=== PATIENT | female | born 1945 | race Caucasian/White ===

== ENCOUNTER → 2017-03-11 | Outpatient (CLI) | payer MEDICARE, OTHER ==
--- NOTE | 2017-03-11 13:54 | RAD ---
DATE: 03/11/2017 EXAM: MAMMO GARRY SCREENING BILATERAL HISTORY: 71-year-old female for routine screening. COMPARISON: Prior study from 01/30/2016 and from 12/20/2014 This study was interpreted with the benefit of Computerized Aided Detection (CAD). The breast parenchyma shows scattered fibroglandular densities. Breast parenchyma level B. FINDINGS: Stable small nodular densities in the bilateral breasts. No suspicious calcifications, architectural distortion or spiculated mass. IMPRESSION: No suspicious findings. BI-RADS CATEGORY: 2 BENIGN FINDING(S) RECOMMENDED FOLLOW-UP: 12M 12 MONTH FOLLOW-UP PQRS compliance statement: Patient information was entered into a reminder system with a target due date 03/11/2018 for the next mammogram. Mammography is a sensitive method for finding small breast cancers, but it does not detect them all and is not a substitute for careful clinical examination. A negative mammogram does not negate a clinically suspicious finding and should not result in delay in biopsying a clinically suspicious abnormality. "Our facility is accredited by the [employer] Mammography Program."
== END | disposition home or self-care (01) ==
LOC: KCIC MAMMO 10:06
PROVIDERS: ATTEND Family Medicine
DX: Z12.31 Encounter for screening mammogram for malignant neoplasm of breast (principal)
CPT/HCPCS: 77063; G0202; 77067

== ENCOUNTER → 2017-09-23 | Outpatient (CLI) | payer MEDICARE, OTHER | END | disposition home or self-care (01) | LOC: RAD 08:49 | DX: N20.0 Calculus of kidney (principal); M85.88 Other specified disorders of bone density and structure, other site | CPT/HCPCS: 74018 ==

== ENCOUNTER 2017-10-28 12:53 | Day surgery (SDC) | payer MEDICARE, OTHER ==
[~2017-10-28 12:53] MED LIST: IOHEXOL 300 MG/ML 100ML VIAL.; LIDOCAINE 1% PF 2 ML VIAL. ID; MORPHINE SULFATE 4 MG/ML DISP.SYRIN. IV; ONDANSETRON PF 4 MG/2 ML VIAL. IV; PROCHLORPERAZINE 10 MG/2 ML VIAL. IV; ceFAZolin 2GM PREMIX 2 GM/50 ML BAG IV; fentaNYL PF VIAL 100 MCG/2 ML VIAL IV
[2017-10-28] MEDS: IV RINGERS,LACTATED 1000ML 1,000 ML IV (14:05)
[2017-10-28] MEDS ORDERED: SEVOFLURANE 61 TO 120 MINUTES. IH (14:06)
[2017-10-28] MEDS ORDERED: DEXAMETHASONE SOD PHOS 20 MG/5 ML VIAL. (14:06)
[2017-10-28] MEDS ORDERED: PROPOFOL 20 ML IV (14:06)
[2017-10-28] MEDS ORDERED: ONDANSETRON PF 4 MG/2 ML VIAL. (14:06)
[2017-10-28] MEDS ORDERED: LIDOCAINE 1% PF 5 ML VIAL. (16:10)
[2017-10-28] MEDS ORDERED: FAMOTIDINE 20 MG/2 ML VIAL (16:10)
[2017-10-28] MEDS ORDERED: KETOROLAC 30 MG/ML INJ FOR OR. INJ (16:45)
[2017-10-28] MEDS ORDERED: MIDAZOLAM HCL/PF 2 MG/2 ML VIAL. (16:45)
[2017-10-28] MEDS: IOHEXOL 300 MG/ML 10ML VIAL. IV (17:14)
[2017-10-28] MEDS ORDERED: ePHEDrine PF IN SALINE 50 MG/5 ML DISP.SYRIN IV (17:19)
[2017-10-28] MEDS ORDERED: fentaNYL PF VIAL 100 MCG/2 ML VIAL (17:39)
[2017-10-28 19:08] LABS: POC GLUCOSE 193 mg/dL (70-99)
[2017-10-28] MEDS ORDERED: HYDROcodone/APAP 5/325MG 1 TAB TABLET PO (19:15)
[2017-11-01 08:04] LABS: POC GLUCOSE 133 mg/dL (70-99)
[2017-11-07 11:29] LABS: CA OXALATE DIHYDRATE 10 % (.); CA OXALATE MONOHYDR 85 % (.); COLOR Brown (.); STONE WEIGHT 24.7 mg (.)
== END 2017-10-28 19:52 | disposition home or self-care (01) ==
LOC: SURG 12:53
DX: N20.1 Calculus of ureter (principal); E11.9 Type 2 diabetes mellitus without complications; Z87.891 Personal history of nicotine dependence
CPT/HCPCS: 52356; 74420; 82962; C1713; C1769; J0690; J1100; J1885; J2250; J2405; J2704; J3010; Q9967; S0028

== ENCOUNTER → 2018-05-05 | Outpatient (CLI) | payer MEDICARE, OTHER ==
[2017-10-28 19:48] VITALS: BP 142/58
[~2018-05-05] MED LIST changes: +AMOX1TAB10 PO; +EZET10TA18 PO; +FURO40TA4 PO; +GABA-586 PO; +HYDR-971 PO; -IOHEXOL 300 MG/ML 100ML VIAL.; +LEVO112T4 PO; -LIDOCAINE 1% PF 2 ML VIAL. ID; +LISI-338 PO; +METF10007 PO; -MORPHINE SULFATE 4 MG/ML DISP.SYRIN. IV; +NAPR-683 PO; -ONDANSETRON PF 4 MG/2 ML VIAL. IV; -PROCHLORPERAZINE 10 MG/2 ML VIAL. IV; +SITA100T PO; +TRAM50TA PO; +ZOLP10TA PO; -ceFAZolin 2GM PREMIX 2 GM/50 ML BAG IV; -fentaNYL PF VIAL 100 MCG/2 ML VIAL IV
--- NOTE | 2018-05-05 14:09 | KCIC ---
Bilateral digital screening mammograms with 3-D tomosynthesis: Reason for examination: Routine screening. Comparison is made to previous studies dated 03/11/2017 and 01/30/2016. Bilateral mammograms in CC and oblique projections were obtained with 2-D imaging and 3-D tomosynthesis imaging on a Siemens Inspiration unit and reviewed on the workstation. Interpretation was made with the benefit of CAD. The skin and nipples show no abnormalities. No abnormal axillary lymph nodes are seen. The breast parenchyma shows scattered fatty and fibroglandular density. (Breast density: Category B.) There continue to be small nodules consistent with intramammary lymph nodes bilaterally which are unchanged. There also continues to be a small nodule at the 6:00 B position of left breast which is unchanged. There are no new dominant masses, suspicious calcifications or architectural distortion. Impression: No evidence of malignancy. Recommend routine screening. BI-RAD Category 2: Benign. "Our facility is accredited by the [employer] Mammography Program." This patient's information has been entered into a reminder system for the patient to be notified with the results of her examination and a target date for the next mammogram. Electronically signed by: Venus Frances MD (05/05/2018 2:06 PM) [id number]
== END | disposition home or self-care (01) ==
LOC: KCIC MAMMO 08:36
PROVIDERS: ATTEND Family Medicine
DX: Z12.31 Encounter for screening mammogram for malignant neoplasm of breast (principal)
CPT/HCPCS: 77063; 77067

== ENCOUNTER 2019-05-06 19:46 | Inpatient (IN) | payer MEDICARE, OTHER ==
[~2019-05-06] VITALS: Ht 167.6 cm; Wt 70.5 kg
[~2019-05-06 19:46] MED LIST changes: -EZET10TA18 PO; +EZET10TA20 PO; -GABA-586 PO; +GABA300C18 PO; +HYDR-3164 PO; -HYDR-971 PO
[2019-05-06 21:17] LABS: BASO # 0.1 x10^3/uL (0.0-0.2); BASO % 1 % (0-3); EOS # 0.1 x10^3/uL (0.0-0.7); EOS % 1 % (0-3); HEMATOCRIT 45.5 % (36.0-47.0); HEMOGLOBIN 15.2 g/dL (12.0-15.5); LYMPH # 2.2 x10^3/uL (1.0-4.8); LYMPH % 19 % (24-48); MEAN CORPUSCULAR HEMOGLOBIN 29 pg (25-35); MEAN CORPUSCULAR HGB CONC 34 g/dL (31-37); MEAN CORPUSCULAR VOLUME 87 fL (79-100); MONO # 1.2 x10^3/uL (0.0-1.1); MONO % 10 % (0-9); NEUT % 69 % (31-73); PLATELET COUNT 319 x10^3/uL (140-400); RED BLOOD COUNT 5.21 x10^6/uL (3.50-5.40); RED CELL DISTRIBUTION WIDTH 13.5 % (11.5-14.5); WHITE BLOOD COUNT 11.6 x10^3/uL (4.0-11.0)
[2019-05-06 21:28] LABS: CALCIUM 9.4 mg/dL (8.5-10.1); CREATININE 1.1 mg/dL (0.6-1.0); GFR 48.7; POTASSIUM 3.9 mmol/L (3.5-5.1)
[2019-05-06 21:34] LABS: ALBUMIN 4.2 g/dL (3.4-5.0); ALBUMIN/GLOBULIN RATIO 0.9 (1.0-1.7); TOTAL BILIRUBIN 0.5 mg/dL (0.2-1.0); TOTAL PROTEIN 8.7 g/dL (6.4-8.2)
--- NOTE | 2019-05-06 21:39 | RAD ---
CT head without contrast PQRS statement: CT scans at this facility use dose reduction including either automated exposure control, iterative reconstructions, and /or weight based radiation dosing via mA and kV modification when appropriate to reduce radiation dose to as low as reasonably achievable. HISTORY: Altered mental status. TECHNIQUE: Noncontrast CT imaging skull base to vertex. FINDINGS: There is mild generalized brain atrophy. No intracranial hemorrhage, mass, hydrocephalus, extra-axial fluid collections or infarction. Imaged orbits, mastoids, paranasal sinuses and bones are unremarkable. IMPRESSION: No acute abnormality. Electronically signed by: Loc Gomez MD (05/06/2019 9:36 PM) [facility]
[2019-05-06 22:15] LABS: BILIRUBIN,URINE NEGATIVE (NEG); CLARITY,URINE CLEAR; COLOR,URINE YELLOW; NITRITE,URINE NEGATIVE (NEG); PH,URINE 6.5; PROTEIN,URINE 100 mg/dL (NEG-TRACE); UROBILINOGEN,URINE 0.2 mg/dL (0.2 mg/dL)
[2019-05-06 22:23] LABS: BACTERIA,URINE 0 /HPF (0-FEW); RBC,URINE 0 /HPF (0-2); SQUAMOUS EPITHELIAL CELL,UR FEW /LPF; WBC,URINE TNTC /HPF (0-4)
--- NOTE | 2019-05-06 22:56 | PHYS DOC ---
Past Medical History Past Medical History: Arthritis Past Surgical History: No Surgical History Alcohol Use: None Drug Use: None Adult General Chief Complaint Chief Complaint: ALTERED MENTAL STATUS HPI HPI 73-year-old female presents to the emergency department with complaints of intermittent episodes of altered mental status, weakness, not feeling well. She denies any fever, nausea or vomiting. He was at bedside states that she just not acting right. Nothing makes her symptoms worse or better. Patients sta jose luis that she's just been unsteady on her feet. Review of Systems Review of Systems Constitutional: Denies fever or chills [] Respiratory: Denies cough or shortness of breath [] Cardiovascular: No additional information not addressed in HPI [] GI: Denies abdominal pain, nausea, vomiting, bloody stools or diarrhea [] : Denies dysuria or hematuria [] Musculoskeletal: Denies back pain or joint pain [] Integument: Denies rash or skin lesions [] Neurologic: Denies headache, focal weakness or sensory changes [] All other systems were reviewed and found to be within normal limits, except as documented in this note. Current Medications Current Medications Current Medications Medications (Trade) Dose Ordered Sig/Anthony Start Time Stop Time Status Last Admin Dose Admin Ceftriaxone Sodium (Rocephin) 1 gm 1X ONCE 05/06/19 23:00 05/06/19 23:01 DC 05/06/19 23:13 1 GM Allergies Allergies Allergies Coded Allergies Type Severity Reaction Last Updated Verified No Known Drug Allergies 10/28/17 No Physical Exam Physical Exam Constitutional: Well developed, well nourished, no acute distress, non-toxic a ppearance. [] HENT: Normocephalic, atraumatic, bilateral external ears normal, oropharynx moist, no oral exudates, nose normal. [] Eyes: PERRLA, EOMI, conjunctiva normal, no discharge. [] Neck: Normal range of motion, no tenderness, supple, no stridor. [] Cardiovascular:Heart rate regular rhythm, no murmur [] Lungs & Thorax: Bilateral breath sounds clear to auscultation [] Abdomen: Bowel sounds normal, soft, no tenderness, no masses, no pulsatile masses. [] Skin: Warm, dry, no erythema, no rash. [] Back: No tenderness, no CVA tenderness. [] Extremities: No tenderness, no edema. [] Neurologic: Alert and oriented X 3, no focal deficits noted. [] Psychologic: Affect normal, judgement normal, mood normal. [] Current Patient Data Vital Signs Vital Signs Date Time Temp Pulse Resp B/P (MAP) Pulse Ox O2 Delivery O2 Flow Rate FiO2 05/06/19 19:54 97.6 88 18 167/97 (120) 97 Room Air 97.6 Lab Values Laboratory Tests Test 05/06/19 19:51 05/06/19 19:55 05/06/19 22:06 Glucose (Fingerstick) 143 mg/dL (70-99) H White Blood Count 11.6 x10^3/uL (4.0-11.0) H Red Blood Count 5.21 x10^6/uL (3.50-5.40) Hemoglobin 15.2 g/dL (12.0-15.5) Hematocrit 45.5 % (36.0-47.0) Mean Corpuscular Volume 87 fL (79-100) Mean Corpuscular Hemoglobin 29 pg (25-35) Mean Corpuscular Hemoglobin Concent 34 g/dL (31-37) Red Cell Distribution Width 13.5 % (11.5-14.5) Platelet Count 319 x10^3/uL (140-400) Neutrophils (%) (Auto) 69 % (31-73) Lymphocytes (%) (Auto) 19 % (24-48) L Monocytes (%) (Auto) 10 % (0-9) H Eosinophils (%) (Auto) 1 % (0-3) Basophils (%) (Auto) 1 % (0-3) Neutrophils # (Auto) 8.0 x10^3/uL (1.8-7.7) H Lymphocytes # (Auto) 2.2 x10^3/uL (1.0-4.8) Monocytes # (Auto) 1.2 x10^3/uL (0.0-1.1) H Eosinophils # (Auto) 0.1 x10^3/uL (0.0-0.7) Basophils # (Auto) 0.1 x10^3/uL (0.0-0.2) Sodium Level 141 mmol/L (136-145) Potassium Level 3.9 mmol/L (3.5-5.1) Chloride Level 101 mmol/L (98-107) Carbon Dioxide Level 26 mmol/L (21-32) Anion Gap 14 (6-14) Blood Urea Nitrogen 17 mg/dL (7-20) Creatinine 1.1 mg/dL (0.6-1.0) H Estimated GFR (Cockcroft-Gault) 48.7 BUN/Creatinine Ratio 15 (6-20) Glucose Level 156 mg/dL (70-99) H Lactic Acid Level 1.4 mmol/L (0.4-2.0) Calcium Level 9.4 mg/dL (8.5-10.1) Magnesium Level 2.0 mg/dL (1.8-2.4) Total Bilirubin 0.5 mg/dL (0.2-1.0) Aspartate Amino Transferase (AST) 14 U/L (15-37) L Alanine Aminotransferase (ALT) 15 U/L (14-59) Alkaline Phosphatase 78 U/L (46-116) Ammonia 11 mcmol/L (11-34) Troponin I Quantitative < 0.017 ng/mL (0.000-0.055) Total Protein 8.7 g/dL (6.4-8.2) H Albumin 4.2 g/dL (3.4-5.0) Albumin/Globulin Ratio 0.9 (1.0-1.7) L Urine Collection Type Unknown Urine Color Yellow Urine Clarity Clear Urine pH 6.5 Urine Specific [place] 1.020 Urine Protein 100 mg/dL (NEG-TRACE) Urine Glucose (UA) 100 mg/dL (NEG) Urine Ketones (Stick) 15 mg/dL (NEG) Urine Blood Negative (NEG) Urine Nitrite Negative (NEG) Urine Bilirubin Negative (NEG) Urine Urobilinogen Dipstick 0.2 mg/dL (0.2 mg/dL) Urine Leukocyte Esterase Large (NEG) Urine RBC 0 /HPF (0-2) Urine WBC Tntc /HPF (0-4) Urine Squamous Epithelial Cells Few /LPF Urine Bacteria 0 /HPF (0-FEW) Laboratory Tests 05/06/19 19:55 Laboratory Tests 05/06/19 19:55 EKG EKG [] Radiology/Procedures Radiology/Procedures [] Course & Med Decision Making Course & Med Decision Making Pertinent Labs and Imaging studies reviewed. (See chart for details) [] 73-year-old female presents to the emergency department with complaints of intermittent episodes of altered mental status, weakness, not feeling well. She denies any fever, nausea or vomiting. He was at bedside states that she just not acting right. Nothing makes her symptoms worse or better. Patients states that she's just been unsteady on her feet. Dragon Disclaimer Dragon Disclaimer This electronic medical record was generated, in whole or in part, using a voice recognition dictation system. NIHSS Stroke Scale NIH Stroke Scale: NIH Stroke Scale Response (Comments) Value Level of Consciousness: 0 Alert/Responsive 0 LOC Questions: 0 Answers both correctly 0 LOC Commands: 0 Performs both tasks 0 Best Gaze: 0 Normal 0 Visual: 0 No visual loss 0 Facial Palsy: 0 Normal, symmetrical 0 Motor - Left Arm 0 No drift 0 Motor - Right Arm 1 Drifts but can hold 1 Motor - Left Leg 0 No drift 0 Motor: Right Leg 0 No drift 0 Limb Ataxia: 0 Absent 0 Sensory: 0 No loss 0 Best Language: 0 Normal 0 Dysathria: 0 Normal 0 Extinction and Inattention: 0 Normal 0 Total 1 Departure Departure Impression: Primary Impression: Altered mental status Additional Impression: UTI (urinary tract infection) Disposition: 09 ADMITTED INPATIENT Admitting Physician: SAMUEL Condition: STABLE Referrals: UNKNOWN PCP NAME (PCP) Problem Qualifiers Primary Impression: Altered mental status Altered mental status type: unspecified Qualified Codes: R41.82 - Altered mental status, unspecified Additional Impression: UTI (urinary tract infection) Urinary tract infection type: site unspecified Hematuria presence: without hematuria Qualified Codes: N39.0 - Urinary tract infection, site not specified JUDITH SCHWARTZ MD May 06, 2019 22:56
[2019-05-06] MEDS ORDERED: cefTRIAXone IV Push 1 GM VIAL. IVP ONE (23:00)
[2019-05-06 23:55] VITALS: BP 173/87
--- NOTE | 2019-05-06 23:55 | NUR ---
The patient, MARLON WHITAKER, 73 y/o, F admitted by JAIDEN GRUBBS MD, was given written information regarding hospital policies, unit procedures and contact persons. Patient arrived to room via ED bed assisted by ED staff member. Valuables were checked and noted. Patient is currently laying in bed watching TV. Patient states no needs at this time. Patient was informed about the hospital's smoking policy and the patient's fall risk status. Bed alarm is in use. This RN will continue to monitor the patient at this time.
[2019-05-07 03:00] VITALS: BP 141/75
[2019-05-07 07:00] VITALS: BP 130/77
--- NOTE | 2019-05-07 07:29 | EKG ---
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
--- NOTE | 2019-05-07 08:22 | PDOC1 ---
History and Physical Date of Admission Date of Admission DATE: 05/07/19 TIME: 08:16 Identification/Chief Complaint Chief Complaint Confusion Source Source: Patient History of Present Illness History of Present Illness Ms Mccoy is a 73-year-old female w/ PMHx HTN, HLD, DM2, hypothyroidism who presents to the emergency department with complaints of intermittent episodes of altered mental status, weakness, not feeling well. She denies any fever, nausea or vomiting. He was at bedside states that she just not acting right. Nothing makes her symptoms worse or better. Patients states that she's just been unsteady on her feet. CT head negative. 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 Has been confused since she came home from work 2 night ago and c/o right arm numbness and inability to see well on her right as well as generalized discomfort. UA grossly abnormal, admitted for further workup and treatment of confusion and infection. Past Medical History Cardiovascular: HTN, Hyperlipidemia Pulmonary: No pertinent hx GI: No pertinent hx Heme/Onc: No pertinent hx Hepatobiliary: No pertinent hx Psych: No pertinent hx Rheumatologic: No pertinent hx Infectious disease: No pertinent hx ENT: No pertinent hx Renal/: No pertinent hx Endocrine: Diabetes, Hyperthyroidism Dermatology: No pertinent hx Past Surgical History Past Surgical History: No pertinent history Family History Family History: Diabetes, High Cholestrol, Hypertension Social History Smoke: No ALCOHOL: none Drugs: None Current Medications Current Medications Current Medications Ceftriaxone Sodium (Rocephin) 1 gm 1X ONCE IVP Last administered on 05/06/19at 23:13; Start 05/06/19 at 23:00; Stop 05/06/19 at 23:01; Status DC Active Scripts Active Reported [place] 5-325 Tablet (Acetaminophen/Hydrocodone Bitart) 1 Each Tablet 1 Tab PO Q4HRS PRN Gabapentin 300 Mg Capsule 300 Mg PO DAILY Tramadol Hcl 50 Mg Tablet 50 Mg PO Q6HRS PRN Amox Tr-K Clv 500-125 Mg Tab (Amoxicillin/Potassium Clav) 1 Each Tablet 1 Tab PO BID Levothyroxine Sodium 112 Mcg Tablet 1 Tab PO DAILY Naprosyn (Naproxen) 500 Mg Tablet 500 Mg PO DAILY Januvia (Sitagliptin Phosphate) 100 Mg Tablet 100 Mg PO DAILY Lisinopril 5 Mg Tablet 5 Mg PO DAILY Zetia (Ezetimibe) 10 Mg Tablet 5 Mg PO DAILY Metformin Hcl 1,000 Mg Tablet 1,000 Mg PO BIDWMEALS Furosemide 40 Mg Tablet 1 Tab PO DAILY Allergies Allergies: Coded Allergies: No Known Drug Allergies (Unverified , 10/28/17) ROS General: YES: Fatigue, Malaise; No: Chills, Night Sweats, Appetite, Other PSYCHOLOGICAL ROS: YES: Behavioral Disorder, Disorientation, Memory di fficulties; No: Anxiety, Concentration difficultie, Decreased libido, Depression, Hallucinations, Hostility, Irritablity, Mood Swings, Obsessive thoughts, Physical abuse, Sexual abuse, Sleep disturbances, Suicidal ideation, Other Eyes: Yes Decreased vision; No Blurry vision, No Double vision, No Dry eyes, No Excessive tearing, No Eye Pain, No Itchy Eyes, No Loss of vision, No Photophobia, No Scotomata, No Uses contacts, No Uses glasses, No Other HEENT: YES: Heacaches; No: Visual Changes, Hearing change, Nasal congestion, Nasal discharge, Oral lesions, Sinus pain, Sore Throat, Epistaxis, Sneezing, Snoring, Tinnitus, Vertigo, Vocal changes, Other ALLERGY AND IMMUNOLOGY: No: Hives, Insect Bite Sensitivity, Itchy/Watery Eyes, Nasal Congestion, Post Nasal Drip, Seasonal Allergies, Other Hematological and Lymphatic: No: Bleeding Problems, Blood Clots, Blood Transfusions, Brusing, Night Sweats, Pallor, Swollen Lymph Nodes, Other ENDOCRINE: No: Breast Changes, Galactorrhea, Hair Pattern Changes, Hot Flashes, Malaise/lethargy, Mood Swings, Palpitations, Polydipsia/polyuria, Skin Changes, Temperature Intolerance, Unexpected Weight Changes, Other Breast: No New/Changing Breast Lumps, No Nipple changes, No Nipple discharge, No Other Respiratory: No: Cough, Hemoptysis, Orthopnea, Pleuritic Pain, Shortness of breath, SOB with excertion, Sputum Changes, Stridor, Tachypnea, Wheezing, Other Cardiovascular: No Chest Pain, No Palpitations, No Orthopnea, No Paroxysmal Noc. Dyspnea, No Edema, No Lt Headedness, No Other Gastrointestinal: Yes Nausea; No Vomiting, No Abdominal Pain, No Diarrhea, No Constipation, No Melena, No Hematochezia, No Other Genitourinary: No Dysuria, No Frequency, No Incontinence, No Hematuria, No Retention, No Discharge, No Urgency, No Pain, No Flank Pain, No Other, No , No , No , No , No , No , No Musculoskeletal: No Gait Disturbance, No Joint Pain, No Joint Stiffness, No Joint Swelling, No Muscle Pain, No Muscular Weakness, No Pain In:, No Swelling In:, No Other Neurological: Yes Behavorial Changes, Yes Confusion, Yes Dizziness, Yes Memory Loss, Yes Numbness/Tingling, Yes Visual Changes; No Bowel/Bladder ControlChng, No Gait Disturbance, No Headaches, No Impaired Coord/balance, No Seizures, No Speech Problems, No Tremors, No Weakness, No Other Skin: No Dry Skin, No Eczema, No Hair Changes, No Lumps, No Mole Changes, No Mottling, No Nail Changes, No Pruritus, No Rash, No Skin Lesion Changes, No Other, No Acne Physical Exam General: Alert, Cooperative, mild distress HEENT: Atraumatic, PERRLA, EOMI, Mucous membr. moist/pink Lungs: Clear to auscultation, Normal air movement Heart: S1S2, RRR, no thrills, no rubs, no gallops, no murmurs Abdomen: Normal bowel sounds, Soft, No tenderness, No hepatosplenomegaly, No masses Rectal Exam: not examined Extremities: No clubbing, No cyanosis, No edema, Normal pulses, No tenderness/swelling Skin: No rashes, No breakdown, No significant lesion Neuro: Normal gait, Normal speech, Normal tone, Cranial nerves 3-12 NL, R eflexes 2+, Other (Right pronator drift, right visual deficit, Right arm numb) Psych/Mental Status: Other (Confused, believes it is 1976) Vitals Vitals Vital Signs Date Time Temp Pulse Resp B/P (MAP) Pulse Ox O2 Delivery O2 Flow Rate FiO2 05/07/19 03:00 98.4 90 18 141/75 (97) 96 Room Air 98.4 Labs Labs Laboratory Tests Test 05/06/19 19:51 05/06/19 19:55 05/06/19 22:06 Glucose (Fingerstick) 143 mg/dL (70-99) White Blood Count 11.6 x10^3/uL (4.0-11.0) Red Blood Count 5.21 x10^6/uL (3.50-5.40) Hemoglobin 15.2 g/dL (12.0-15.5) Hematocrit 45.5 % (36.0-47.0) Mean Corpuscular Volume 87 fL (79-100) Mean Corpuscular Hemoglobin 29 pg (25-35) Mean Corpuscular Hemoglobin Concent 34 g/dL (31-37) Red Cell Distribution Width 13.5 % (11.5-14.5) Platelet Count 319 x10^3/uL (140-400) Neutrophils (%) (Auto) 69 % (31-73) Lymphocytes (%) (Auto) 19 % (24-48) Monocytes (%) (Auto) 10 % (0-9) Eosinophils (%) (Auto) 1 % (0-3) Basophils (%) (Auto) 1 % (0-3) Neutrophils # (Auto) 8.0 x10^3/uL (1.8-7.7) Lymphocytes # (Auto) 2.2 x10^3/uL (1.0-4.8) Monocytes # (Auto) 1.2 x10^3/uL (0.0-1.1) Eosinophils # (Auto) 0.1 x10^3/uL (0.0-0.7) Basophils # (Auto) 0.1 x10^3/uL (0.0-0.2) Sodium Level 141 mmol/L (136-145) Potassium Level 3.9 mmol/L (3.5-5.1) Chloride Level 101 mmol/L (98-107) Carbon Dioxide Level 26 mmol/L (21-32) Anion Gap 14 (6-14) Blood Urea Nitrogen 17 mg/dL (7-20) Creatinine 1.1 mg/dL (0.6-1.0) Estimated GFR (Cockcroft-Gault) 48.7 BUN/Creatinine Ratio 15 (6-20) Glucose Level 156 mg/dL (70-99) Lactic Acid Level 1.4 mmol/L (0.4-2.0) Calcium Level 9.4 mg/dL (8.5-10.1) Magnesium Level 2.0 mg/dL (1.8-2.4) Total Bilirubin 0.5 mg/dL (0.2-1.0) Aspartate Amino Transf (AST/SGOT) 14 U/L (15-37) Alanine Aminotransferase (ALT/SGPT) 15 U/L (14-59) Alkaline Phosphatase 78 U/L (46-116) Ammonia 11 mcmol/L (11-34) Troponin I Quantitative < 0.017 ng/mL (0.000-0.055) Total Protein 8.7 g/dL (6.4-8.2) Albumin 4.2 g/dL (3.4-5.0) Albumin/Globulin Ratio 0.9 (1.0-1.7) Urine Collection Type Unknown Urine Color Yellow Urine Clarity Clear Urine pH 6.5 Urine Specific [place] 1.020 Urine Protein 100 mg/dL (NEG-TRACE) Urine Glucose (UA) 100 mg/dL (NEG) Urine Ketones (Stick) 15 mg/dL (NEG) Urine Blood Negative (NEG) Urine Nitrite Negative (NEG) Urine Bilirubin Negative (NEG) Urine Urobilinogen Dipstick 0.2 mg/dL (0.2 mg/dL) Urine Leukocyte Esterase Large (NEG) Urine RBC 0 /HPF (0-2) Urine WBC Tntc /HPF (0-4) Urine Squamous Epithelial Cells Few /LPF Urine Bacteria 0 /HPF (0-FEW) Laboratory Tests Test 05/06/19 19:51 05/06/19 19:55 05/06/19 22:06 Glucose (Fingerstick) 143 mg/dL (70-99) White Blood Count 11.6 x10^3/uL (4.0-11.0) Red Blood Count 5.21 x10^6/uL (3.50-5.40) Hemoglobin 15.2 g/dL (12.0-15.5) Hematocrit 45.5 % (36.0-47.0) Mean Corpuscular Volume 87 fL (79-100) Mean Corpuscular Hemoglobin 29 pg (25-35) Mean Corpuscular Hemoglobin Concent 34 g/dL (31-37) Red Cell Distribution Width 13.5 % (11.5-14.5) Platelet Count 319 x10^3/uL (140-400) Neutrophils (%) (Auto) 69 % (31-73) Lymphocytes (%) (Auto) 19 % (24-48) Monocytes (%) (Auto) 10 % (0-9) Eosinophils (%) (Auto) 1 % (0-3) Basophils (%) (Auto) 1 % (0-3) Neutrophils # (Auto) 8.0 x10^3/uL (1.8-7.7) Lymphocytes # (Auto) 2.2 x10^3/uL (1.0-4.8) Monocytes # (Auto) 1.2 x10^3/uL (0.0-1.1) Eosinophils # (Auto) 0.1 x10^3/uL (0.0-0.7) Basophils # (Auto) 0.1 x10^3/uL (0.0-0.2) Sodium Level 141 mmol/L (136-145) Potassium Level 3.9 mmol/L (3.5-5.1) Chloride Level 101 mmol/L (98-107) Carbon Dioxide Level 26 mmol/L (21-32) Anion Gap 14 (6-14) Blood Urea Nitrogen 17 mg/dL (7-20) Creatinine 1.1 mg/dL (0.6-1.0) Estimated GFR (Cockcroft-Gault) 48.7 BUN/Creatinine Ratio 15 (6-20) Glucose Level 156 mg/dL (70-99) Lactic Acid Level 1.4 mmol/L (0.4-2.0) Calcium Level 9.4 mg/dL (8.5-10.1) Magnesium Level 2.0 mg/dL (1.8-2.4) Total Bilirubin 0.5 mg/dL (0.2-1.0) Aspartate Amino Transf (AST/SGOT) 14 U/L (15-37) Alanine Aminotransferase (ALT/SGPT) 15 U/L (14-59) Alkaline Phosphatase 78 U/L (46-116) Ammonia 11 mcmol/L (11-34) Troponin I Quantitative < 0.017 ng/mL (0.000-0.055) Total Protein 8.7 g/dL (6.4-8.2) Albumin 4.2 g/dL (3.4-5.0) Albumin/Globulin Ratio 0.9 (1.0-1.7) Urine Collection Type Unknown Urine Color Yellow Urine Clarity Clear Urine pH 6.5 Urine Specific [place] 1.020 Urine Protein 100 mg/dL (NEG-TRACE) Urine Glucose (UA) 100 mg/dL (NEG) Urine Ketones (Stick) 15 mg/dL (NEG) Urine Blood Negative (NEG) Urine Nitrite Negative (NEG) Urine Bilirubin Negative (NEG) Urine Urobilinogen Dipstick 0.2 mg/dL (0.2 mg/dL) Urine Leukocyte Esterase Large (NEG) Urine RBC 0 /HPF (0-2) Urine WBC Tntc /HPF (0-4) Urine Squamous Epithelial Cells Few /LPF Urine Bacteria 0 /HPF (0-FEW) Images Images CT head - No acute abnormality. VTE Prophylaxis Ordered VTE Prophylaxis Devices: Yes VTE Pharmacological Prophylaxi: Yes Assessment/Plan Assessment/Plan A/P: Acute encephalopathy - likely toxic 2/2 UTI. Check TSH, b12 Right arm numbness - with visual disturbance I am concerned for acute CVA, though she is well outside tPA window and had NIH of 1 in ED, will consult n eurology and transfer to telemetry floor UTI - will f/u culture. Empiric rocephin for now HTN - cont home meds HLD - cont home meds DM2 - cont home meds, add sliding scale Hypothyroidism - cont home levothyroxine FEN - ADA diet PPX - lovenox FULL CODE Dispo - inpatient likely for 2 midnights. JONNY DAVIDSON MD May 07, 2019 08:22
[2019-05-07] MEDS ORDERED: ONDANSETRON PF 4 MG/2 ML VIAL. IVP PRN (08:30)
[2019-05-07] MEDS ORDERED: DEXTROSE 50% 25 GM / 50ML DISP.SYRIN. IV PRN (08:30)
[2019-05-07] MEDS: GABAPENTIN 300 MG CAPSULE. PO SCH (09:00)
[2019-05-07] MEDS: EZETIMIBE 10 MG TABLET. PO SCH (09:04)
[2019-05-07] MEDS: LEVOTHYROXINE 112 MCG TABLET PO SCH (09:04)
[2019-05-07] MEDS: LISINOPRIL 5 MG TABLET. PO SCH (09:04)
[2019-05-07] MEDS: ENOXAPARIN 40 MG/0.4 ML SYRINGE. SQ SCH (09:08)
[2019-05-07] MEDS: traMADol 50 MG TABLET PO PRN (10:14)
[2019-05-07 11:00] VITALS: BP 103/57
[2019-05-07] MEDS ORDERED: PROCHLORPERAZINE 10 MG/2 ML VIAL. IV PRN (11:30)
[2019-05-07] MEDS: INSULIN LISPRO 300 UNITS/3 ML VIAL. SQ SCH ×3 (11:30→20:54)
[2019-05-07] MEDS ORDERED: ENOXAPARIN 40 MG/0.4 ML SYRINGE. SQ SCH (13:15)
[2019-05-07] MEDS ORDERED: ASPIRIN RECTAL 300 MG SUPP. PR PRN (13:15)
[2019-05-07] MEDS ORDERED: ACETAMINOPHEN 325 MG TABLET. PO PRN (13:15)
[2019-05-07] MEDS ORDERED: ACETAMINOPHEN 650 MG SUPP.RECT. PR PRN (13:15)
--- NOTE | 2019-05-07 13:20 | PDOC2 ---
NEUROLOGY CONSULT Date of Admission Date of Admission DATE: 05/07/19 TIME: 13:11 Reason for Consult Reason for Consult: Altered mental status Referring Physician Referring Physician: Dr. Kern Source Source: Chart review, Patient History of Present Illness History of Present Illness The patient is a 73-year-old right-handed female whose family first noticed some possible issues with confusion 2 nights ago. She came to the emergency department last night. There is no history of stroke, seizure, or head injury. She did have a headache this morning that is better. There have been no recent changes in medications and the patient denies any family stress or psychiatric issues. NIHSS was 1 in ED. Past Medical History Cardiovascular: Hyperlipidemia CENTRAL NERVOUS SYSTEM: Periperal neuropathy Musculoskeletal: Osteoarthritis Renal/: UTI Endocrine: Diabetes, Hypothyroidism Past Surgical History Past Surgical History: No pertinent history Family History Family History: Hypertension Social History Social History , quit smoking, no alcohol Current Medications Current Medications Current Medications Ceftriaxone Sodium (Rocephin) 1 gm 1X ONCE IVP Last administered on 05/06/19at 23:13; Start 05/06/19 at 23:00; Stop 05/06/19 at 23:01; Status DC EZETIMIBE (Zetia) 5 mg DAILY PO Last administered on 05/07/19at 09:04; Start 05/07/19 at 09:00 Gabapentin (Neurontin) 300 mg DAILY PO ; Start 05/07/19 at 09:00 Levothyroxine Sodium (Synthroid) 112 mcg DAILY07 PO Last administered on 05/07/19at 09:04; Start 05/07/19 at 09:00 Lisinopril (Prinivil) 5 mg DAILY PO Last administered on 05/07/19at 09:04; Start 05/07/19 at 09:00 Tramadol HCl (Ultram) 50 mg PRN Q6HRS PRN PO PAIN Last administered on 1 at 10:14; Start 05/07/19 at 08:30 Metformin HCl (Glucophage) 1,000 mg BIDWMEALS PO ; Start 05/07/19 at 17:00 Insulin Human Lispro (HumaLOG) 0-5 UNITS TIDACHC SQ ; Start 05/07/19 at 11:30 Dextrose (Dextrose 50%-Water Syringe) 12.5 gm PRN Q15MIN PRN IV SEE COMMENTS; Start 05/07/19 at 08:30 Ondansetron HCl (Zofran) 4 mg PRN Q6HRS PRN IVP NAUSEA/VOMITING; Start 05/07/19 at 08:30 Enoxaparin Sodium (Lovenox 40mg Syringe) 40 mg Q24H SQ Last administered on 05/07/19at 09:08; Start 05/07/19 at 09:00 Ceftriaxone Sodium (Rocephin) 1 gm Q24H IVP ; Start 05/07/19 at 16:30 Prochlorperazine Edisylate (Compazine) 10 mg PRN Q6HRS PRN IV NAUSEA/VOMITING Last administered on 05/07/19at 11:43; Start 05/07/19 at 11:30 Active Scripts Active Reported [place] 5-325 Tablet (Acetaminophen/Hydrocodone Bitart) 1 Each Tablet 1 Tab PO Q4HRS PRN Gabapentin 300 Mg Capsule 300 Mg PO DAILY Tramadol Hcl 50 Mg Tablet 50 Mg PO Q6HRS PRN Amox Tr-K Clv 500-125 Mg Tab (Amoxicillin/Potassium Clav) 1 Each Tablet 1 Tab PO BID Levothyroxine Sodium 112 Mcg Tablet 1 Tab PO DAILY Naprosyn (Naproxen) 500 Mg Tablet 500 Mg PO DAILY Januvia (Sitagliptin Phosphate) 100 Mg Tablet 100 Mg PO DAILY Lisinopril 5 Mg Tablet 5 Mg PO DAILY Zetia (Ezetimibe) 10 Mg Tablet 5 Mg PO DAILY Metformin Hcl 1,000 Mg Tablet 1,000 Mg PO BIDWMEALS Furosemide 40 Mg Tablet 1 Tab PO DAILY Allergies Allergies: Coded Allergies: No Known Drug Allergies (Unverified , 10/28/17) ROS Review of System Negative for fever, chills, weight loss, shortness of breath, chest pain, indigestion, hematochezia, melena, and dysuria. Full 14-point review of systems is negative. Physical Exam Physical Examination General: Well-developed, well-nourished white female in no acute distress HEENT: Normocephalic andatraumatic. Tympanic membranes clear.Temporal arteriespulsatile and nontender.Fundoscopic exam unremarkable Neck: Supple without bruit, no meningismus Musculoskeletal: Stability:see neurologic. Gait exam:see neurologic. Tone:see neurologic.Strength:see neurologic. Neurological: Mental Status:orientation, memory, attention span/concentration, language, fund of knowledge: She follows commands, somewhat hesitates with naming, has little trouble with repetition, very vague on her history. Cranial Nerves:Pupils equal and reactive to light, extraocular movements areintact. There is a right visual field cut. Facial sensation is normal. There is no facial asymmetry. Vestibulo- ocular reflex is intact. Palate elevates and tongue protrudes in midline. All other cranial related problems are negative except as mentioned before.Reflexes:2+ and symmetric with flexor plantar responses. Motor:5/5 strength with normal tone and bulk, but there is a right pronator drift. Coordination:Finger-nose finger and [id number]-hg-[id number] testing are normal. Rapid alternating movements and fine finger movements are intact. Gait:unsteady. Sensory:Normal pinprick, vibration, light touch, proprioception. Vitals VITALS Vital Signs Date Time Temp Pulse Resp B/P (MAP) Pulse Ox O2 Delivery O2 Flow Rate FiO2 05/07/19 11:29 Room Air 05/07/19 11:00 98.3 86 16 103/57 (72) 95 98.3 Labs Labs Laboratory Tests Test 05/06/19 19:51 05/06/19 19:55 05/06/19 22:06 05/07/19 08:40 Glucose (Fingerstick) 143 mg/dL (70-99) White Blood Count 11.6 x10^3/uL (4.0-11.0) Red Blood Count 5.21 x10^6/uL (3.50-5.40) Hemoglobin 15.2 g/dL (12.0-15.5) Hematocrit 45.5 % (36.0-47.0) Mean Corpuscular Volume 87 fL (79-100) Mean Corpuscular Hemoglobin 29 pg (25-35) Mean Corpuscular Hemoglobin Concent 34 g/dL (31-37) Red Cell Distribution Width 13.5 % (11.5-14.5) Platelet Count 319 x10^3/uL (140-400) Neutrophils (%) (Auto) 69 % (31-73) Lymphocytes (%) (Auto) 19 % (24-48) Monocytes (%) (Auto) 10 % (0-9) Eosinophils (%) (Auto) 1 % (0-3) Basophils (%) (Auto) 1 % (0-3) Neutrophils # (Auto) 8.0 x10^3/uL (1.8-7.7) Lymphocytes # (Auto) 2.2 x10^3/uL (1.0-4.8) Monocytes # (Auto) 1.2 x10^3/uL (0.0-1.1) Eosinophils # (Auto) 0.1 x10^3/uL (0.0-0.7) Basophils # (Auto) 0.1 x10^3/uL (0.0-0.2) Sodium Level 141 mmol/L (136-145) Potassium Level 3.9 mmol/L (3.5-5.1) Chloride Level 101 mmol/L (98-107) Carbon Dioxide Level 26 mmol/L (21-32) Anion Gap 14 (6-14) Blood Urea Nitrogen 17 mg/dL (7-20) Creatinine 1.1 mg/dL (0.6-1.0) Estimated GFR (Cockcroft-Gault) 48.7 BUN/Creatinine Ratio 15 (6-20) Glucose Level 156 mg/dL (70-99) Lactic Acid Level 1.4 mmol/L (0.4-2.0) Calcium Level 9.4 mg/dL (8.5-10.1) Magnesium Level 2.0 mg/dL (1.8-2.4) Total Bilirubin 0.5 mg/dL (0.2-1.0) Aspartate Amino Transf (AST/SGOT) 14 U/L (15-37) Alanine Aminotransferase (ALT/SGPT) 15 U/L (14-59) Alkaline Phosphatase 78 U/L (46-116) Ammonia 11 mcmol/L (11-34) Troponin I Quantitative < 0.017 ng/mL (0.000-0.055) Total Protein 8.7 g/dL (6.4-8.2) Albumin 4.2 g/dL (3.4-5.0) Albumin/Globulin Ratio 0.9 (1.0-1.7) Urine Collection Type Unknown Urine Color Yellow Urine Clarity Clear Urine pH 6.5 Urine Specific [place] 1.020 Urine Protein 100 mg/dL (NEG-TRACE) Urine Glucose (UA) 100 mg/dL (NEG) Urine Ketones (Stick) 15 mg/dL (NEG) Urine Blood Negative (NEG) Urine Nitrite Negative (NEG) Urine Bilirubin Negative (NEG) Urine Urobilinogen Dipstick 0.2 mg/dL (0.2 mg/dL) Urine Leukocyte Esterase Large (NEG) Urine RBC 0 /HPF (0-2) Urine WBC Tntc /HPF (0-4) Urine Squamous Epithelial Cells Few /LPF Urine Bacteria 0 /HPF (0-FEW) Vitamin B12 Level 469 pg/mL (247-911) Thyroid Stimulating Hormone (TSH) 0.847 uIU/mL (0.358-3.74) Test 05/07/19 09:03 05/07/19 11:56 Glucose (Fingerstick) 188 mg/dL (70-99) 173 mg/dL (70-99) Laboratory Tests Test 05/06/19 19:51 05/06/19 19:55 05/06/19 22:06 05/07/19 08:40 Glucose (Fingerstick) 143 mg/dL (70-99) White Blood Count 11.6 x10^3/uL (4.0-11.0) Red Blood Count 5.21 x10^6/uL (3.50-5.40) Hemoglobin 15.2 g/dL (12.0-15.5) Hematocrit 45.5 % (36.0-47.0) Mean Corpuscular Volume 87 fL (79-100) Mean Corpuscular Hemoglobin 29 pg (25-35) Mean Corpuscular Hemoglobin Concent 34 g/dL (31-37) Red Cell Distribution Width 13.5 % (11.5-14.5) Platelet Count 319 x10^3/uL (140-400) Neutrophils (%) (Auto) 69 % (31-73) Lymphocytes (%) (Auto) 19 % (24-48) Monocytes (%) (Auto) 10 % (0-9) Eosinophils (%) (Auto) 1 % (0-3) Basophils (%) (Auto) 1 % (0-3) Neutrophils # (Auto) 8.0 x10^3/uL (1.8-7.7) Lymphocytes # (Auto) 2.2 x10^3/uL (1.0-4.8) Monocytes # (Auto) 1.2 x10^3/uL (0.0-1.1) Eosinophils # (Auto) 0.1 x10^3/uL (0.0-0.7) Basophils # (Auto) 0.1 x10^3/uL (0.0-0.2) Sodium Level 141 mmol/L (136-145) Potassium Level 3.9 mmol/L (3.5-5.1) Chloride Level 101 mmol/L (98-107) Carbon Dioxide Level 26 mmol/L (21-32) Anion Gap 14 (6-14) Blood Urea Nitrogen 17 mg/dL (7-20) Creatinine 1.1 mg/dL (0.6-1.0) Estimated GFR (Cockcroft-Gault) 48.7 BUN/Creatinine Ratio 15 (6-20) Glucose Level 156 mg/dL (70-99) Lactic Acid Level 1.4 mmol/L (0.4-2.0) Calcium Level 9.4 mg/dL (8.5-10.1) Magnesium Level 2.0 mg/dL (1.8-2.4) Total Bilirubin 0.5 mg/dL (0.2-1.0) Aspartate Amino Transf (AST/SGOT) 14 U/L (15-37) Alanine Aminotransferase (ALT/SGPT) 15 U/L (14-59) Alkaline Phosphatase 78 U/L (46-116) Ammonia 11 mcmol/L (11-34) Troponin I Quantitative < 0.017 ng/mL (0.000-0.055) Total Protein 8.7 g/dL (6.4-8.2) Albumin 4.2 g/dL (3.4-5.0) Albumin/Globulin Ratio 0.9 (1.0-1.7) Urine Collection Type Unknown Urine Color Yellow Urine Clarity Clear Urine pH 6.5 Urine Specific [place] 1.020 Urine Protein 100 mg/dL (NEG-TRACE) Urine Glucose (UA) 100 mg/dL (NEG) Urine Ketones (Stick) 15 mg/dL (NEG) Urine Blood Negative (NEG) Urine Nitrite Negative (NEG) Urine Bilirubin Negative (NEG) Urine Urobilinogen Dipstick 0.2 mg/dL (0.2 mg/dL) Urine Leukocyte Esterase Large (NEG) Urine RBC 0 /HPF (0-2) Urine WBC Tntc /HPF (0-4) Urine Squamous Epithelial Cells Few /LPF Urine Bacteria 0 /HPF (0-FEW) Vitamin B12 Level 469 pg/mL (247-911) Thyroid Stimulating Hormone (TSH) 0.847 uIU/mL (0.358-3.74) Test 05/07/19 09:03 05/07/19 11:56 Glucose (Fingerstick) 188 mg/dL (70-99) 173 mg/dL (70-99) Images Images CT head without contrast PQRS statement: CT scans at this facility use dose reduction including either automated exposure control, iterative reconstructions, and /or weight based radiation dosing via mA and kV modification when appropriate to reduce radiation dose to as low as reasonably achievable. HISTORY: Altered mental status. TECHNIQUE: Noncontrast CT imaging skull base to vertex. FINDINGS: There is mild generalized brain atrophy. No intracranial hemorrhage, mass, hydrocephalus, extra-axial fluid collections or infarction. Imaged orbits, mastoids, paranasal sinuses and bones are unremarkable. IMPRESSION: No acute abnormality. Assessment/Plan Assessment/Plan Impression: Altered mental status, examination findings of left hemispheric stroke including a field cut and right pronator drift as well as language difficulties. History of neuropathy, I do not find any evidence of this on exam although patient may have been confused for the sensory exam I suppose. Recommendations: MRI of the brain Echocardiogram CT angiogram Not a candidate for alteplase, onset time was at least a day before she came to the emergency department. Rehabilitation modalities Also see stroke orders. Thank you for letting me help with the patient's care. BETTIE KINNEY MD May 07, 2019 13:20
[2019-05-07] MEDS ORDERED: CONTRAST GIVEN. MC PRN (13:45)
[2019-05-07] MEDS ORDERED: IOHEXOL 350 MG/ML 100 ML VIAL. IV ONE (14:00)
[2019-05-07 15:00] VITALS: BP 138/81
--- NOTE | 2019-05-07 15:09 | RAD ---
MRI Brain without contrast History: Right field cut, confusion, CVA Technique: Multiplanar, multisequential noncontrast MR imaging was performed of the brain. Comparison: None Findings: There is some motion degradation. There is a small 0.7 cm focus of restricted diffusion of the inferior left occipital lobe. More superiorly, there is larger focus of restricted diffusion of the left occipital lobe about 2.5 cm. There is also restricted diffusion of the left hippocampal formation/medial left temporal lobe on the order of 2.4 cm. There are 2 foci of restricted diffusion of the left thalamus with the largest about 1.1 cm. There is no restricted diffusion of the right hemisphere. There is variable T2 and FLAIR hyperintense signal associated with foci of diffusion signal abnormality. There is no midline shift or extra-axial fluid collection. There is other scattered mild T2 and FLAIR hyperintense signal of the supratentorial parenchyma bilaterally. There is mild generalized prominence of the supratentorial subarachnoid spaces likely mild involutional change, ventricular size within normal limits. There is no significant hemosiderin deposition of the brain parenchyma. There is preservation of the major arterial intracranial flow voids at the skull base. Mastoid air cells are aerated. There is patchy very mild ethmoid air cell mucosal thickening bilaterally. Cerebellar tonsils are normal in location. There is preserved marrow signal of the clivus. These no abnormality of the pineal gland or pituitary gland. Impression: 1. There are recent acute/ early subacute infarcts of the left thalamus, left occipital lobe, and left temporal lobe/hippocampal formation. 2. Minimal T2 and FLAIR hyperintense signal of the supratentorial parenchyma is nonspecific, probably due to chronic microvascular ischemic disease. Findings discussed with nurse Newman at 05/07/2019 3:05 PM. FOR INTERNAL CODING PURPOSES RESULT CODE: (C) Electronically signed by: Pawan Steiner MD (05/07/2019 3:07 PM) [id number]
--- NOTE | 2019-05-07 15:34 | RAD ---
EXAM: CT ANGIOGRAPHY HEAD AND NECK DATE: 05/07/2019 1:08 PM INDICATION: Altered mental status, stroke TECHNIQUE: CTA angiogram of the head and neck was obtained after IV bolus administration of 60 cc of Omnipaque 350. The images were sent to workstation and multiplanar reconstructions were obtained. Multiplanar reconstruction images to include MIP and 3-D reconstruction images are submitted. One or more of the following dose reduction techniques were utilized: Automated exposure control (AEC), Adjustment of mA and/or kV according to patient size, Use of iterative reconstruction technique such as ASiR, CT scan done according to ALARA and image gently/image wisely COMPARISON: CT head 05/06/2019. FINDINGS: CTA Head: The visualized distal internal carotid arteries, anterior and middle cerebral arteries are patent and normal caliber. The distal vertebral arteries, basilar artery, and posterior cerebral arteries are patent and normal caliber. No aneurysm or arteriovenous malformation is seen. CTA Neck: Right carotid: The right common carotid artery is patent and normal caliber. The carotid bifurcation is normal. No stenosis of the right internal carotid artery per NASCET criteria. The right external carotid artery is patent. Left carotid: The left common carotid artery is patent and normal caliber. The carotid bifurcation is normal. No stenosis of the left internal carotid artery per NASCET criteria. The left external carotid artery is patent. Right vertebral: The right vertebral artery is patent and normal caliber. Left vertebral: The left vertebral artery is patent and normal caliber. Mild atherosclerosis of the aortic arch. The origins of the brachiocephalic and subclavian arteries are normal. No cervical lymphadenopathy. The thyroid gland is normal. The parotid and submandibular glands are normal. The visualized aerodigestive tract is unremarkable. Degenerative changes of the spine. The visualized portions of the lungs are clear. IMPRESSION: 1. No stenosis of the cervical carotid or vertebral arteries. 2. No large vessel occlusion or intracranial aneurysm. PQRS Compliance Statement - Stenosis calculations for CT, MR and conventional angiography are based upon measurement of the distal ICA diameter in accordance with the NASCET methodology. Electronically signed by: Pawan Santiago MD (05/07/2019 3:31 PM) [id number]
[2019-05-07] MEDS: cefTRIAXone IV Push 1 GM VIAL. IVP SCH (17:38)
[2019-05-07 19:25] VITALS: BP 114/56
[2019-05-07] MEDS: LACTOBACILLUS RHAMNOSUS GG 1 CAPSULE. PO SCH (20:57)
[2019-05-07] MEDS: ATORVASTATIN CALCIUM 40 MG TABLET. PO SCH (20:57)
[2019-05-07 23:25] VITALS: BP 99/42
[2019-05-08 03:25] VITALS: BP 111/60
[2019-05-08 05:48] LABS: CHOLESTEROL/HDL RATIO 6.4
[2019-05-08] MEDS: LEVOTHYROXINE 112 MCG TABLET PO SCH (06:16)
[2019-05-08] MEDS: INSULIN LISPRO 300 UNITS/3 ML VIAL. SQ SCH ×4 (07:30→21:30)
[2019-05-08 07:38] VITALS: BP 111/58
--- NOTE | 2019-05-08 07:50 | PDOC ---
PROGRESS NOTES History of Present Illness History of Present Illness VTE Prophylaxis Ordered VTE Prophylaxis Devices: Yes VTE Pharmacological Prophylaxi: Yes impression Acute encephalopathy - likely toxic 2/2 UTI. Check TSH, b12 Right arm numbness - with visual disturbance consult neurology and transfer to telemetry floor ACUTE Infarcts of the left thalamus, left occipital lobe, and left temporal lobe/hippocampal formation. 0.7 cm focus of restricted diffusion of the inferior left occipital lobe. More superiorly, there is larger focus of restricted diffusion of the left occipital lobe about 2.5 cm. There is also restricted diffusion of the left hippocampal formation/medial left temporal lobe on the order of 2.4 cm. There are 2 foci of restricted diffusion of the left thalamus with the largest about 1.1 cm. UTI - will f/u culture. cont rocephin HTN - cont home meds HLD - cont home meds DM2 - cont home meds, add sliding scale Hypothyroidism - cont home levothyroxine leukocytosis FEN - ADA diet PPX - lovenox FULL CODE Dispo - inpatient likely for 2 midnights. ECHO CARDIOLOGY CONSULT flp neurochecks q 4 hrs cbc today Discharge Recommendations * Acute Rehab facility Discharge Recommendation Comments * family refusing acute rehab. Wants home health or outpatient * * * * * 38 min pt exam, chart review, > 50% of time spent with exam, chart review, pt care coordination Vitals Vitals Vital Signs Date Time Temp Pulse Resp B/P (MAP) Pulse Ox O2 Delivery O2 Flow Rate FiO2 05/08/19 07:38 98.2 91 18 111/58 (75) 95 Room Air 98.2 Physical Exam General: Alert, Oriented X3, Cooperative, No acute distress Heart: Regular rate Lungs: Clear Abdomen: Normal bowel sounds, Soft, No tenderness, No hepatosplenomegaly, No masses Extremities: No clubbing, No cyanosis, No edema, Normal pulses, No tenderness/swelling Skin: No rashes, No breakdown, No significant lesion Labs LABS MRI Brain without contrast History: Right field cut, confusion, CVA Technique: Multiplanar, multisequential noncontrast MR imaging was performed of the brain. Comparison: None Findings: There is some motion degradation. There is a small 0.7 cm focus of restricted diffusion of the inferior left occipital lobe. More superiorly, there is larger focus of restricted diffusion of the left occipital lobe about 2.5 cm. There is also restricted diffusion of the left hippocampal formation/medial left temporal lobe on the order of 2.4 cm. There are 2 foci of restricted diffusion of the left thalamus with the largest about 1.1 cm. There is no restricted diffusion of the right hemisphere. There is variable T2 and FLAIR hyperintense signal associated with foci of diffusion signal abnormality. There is no midline shift or extra-axial fluid collection. There is other scattered mild T2 and FLAIR hyperintense signal of the supratentorial parenchyma bilaterally. There is mild generalized prominence of the supratentorial subarachnoid spaces likely mild involutional change, ventricular size within normal limits. There is no significant hemosiderin deposition of the brain parenchyma. There is preservation of the major arterial intracranial flow voids at the skull base. Mastoid air cells are aerated. There is patchy very mild ethmoid air cell mucosal thickening bilaterally. Cerebellar tonsils are normal in location. There is preserved marrow signal of the clivus. These no abnormality of the pineal gland or pituitary gland. Impression: 1. There are recent acute/ early subacute infarcts of the left thalamus, left occipital lobe, and left temporal lobe/hippocampal formation. 2. Minimal T2 and FLAIR hyperintense signal of the supratentorial parenchyma is nonspecific, probably due to chronic microvascular ischemic disease. Findings discussed with nurse Newman at 05/07/2019 3:05 PM. Laboratory Tests Test 05/07/19 08:40 05/07/19 09:03 05/07/19 11:56 05/07/19 17:06 Vitamin B12 Level 469 pg/mL (247-911) Thyroid Stimulating Hormone (TSH) 0.847 uIU/mL (0.358-3.74) Glucose (Fingerstick) 188 mg/dL (70-99) 173 mg/dL (70-99) 185 mg/dL (70-99) Test 05/07/19 20:53 05/08/19 04:10 05/08/19 07:20 Glucose (Fingerstick) 159 mg/dL (70-99) 180 mg/dL (70-99) Triglycerides Level 205 mg/dL (0-150) Cholesterol Level 236 mg/dL (0-200) LDL Cholesterol, Calculated 158 mg/dL (0-100) VLDL Cholesterol, Calculated 41 mg/dL (0-40) Non-HDL Cholesterol Calculated 199 mg/dL (0-129) HDL Cholesterol 37 mg/dL (40-60) Cholesterol/HDL Ratio 6.4 Review of Systems Review of Systems * One-on-One Instruction Factors Facilitating Goal Achievement * Motivation level * Supportive caregiver * Prior level of function * Response to training * Medical Status Problem List (body system elements) * Impaired fnctnl mobility * Strength * Cognition * Balance * Knowledge-safe techniques Other Problems * visual field cut Clinical Presentation * Unstable Evaluation Complexity Level * High Complexity Pt/caregiver agrees with plan of care/goals * Yes Patient condition at conclusion of therapy * PtIn no apparent distress Communicated Patient Care With (Name, Title) * pt going to echo post eval Goal 1 - Bed Mobility Assistance Required * Independent Goal 2 - Transfers Assistance Required * Independent Goal 2 - Transfer Type * Stand-Step Goal 3 - Ambulation Assistance Required * Independent Goal 3 - Ambulation Distance * 500' Goal 3 - Ambulation Device * No Device Goal 4 - Stairs Assistance Required * Independent Goal 4 - Number of Stairs * >9 Goal 4 - Device on Stairs * Rail on Right Treatment Plan * Therapeutic Exercise * Bed Mobility Training * Transfer training * Gait Training * Dynamic Balance Training Frequency of Treatment Expected * 12 visits/week Duration of Treatment Expected * 2 weeks Discharge Recommendations * Acute Rehab facility Discharge Recommendation Comments * family refusing acute rehab. Wants home health or outpatient Comment Review of Relevant I have reviewed the following items bell (where applicable) has been applied. Labs Laboratory Tests Test 05/06/19 19:51 05/06/19 19:55 05/06/19 22:06 05/07/19 08:40 Glucose (Fingerstick) 143 mg/dL (70-99) White Blood Count 11.6 x10^3/uL (4.0-11.0) Red Blood Count 5.21 x10^6/uL (3.50-5.40) Hemoglobin 15.2 g/dL (12.0-15.5) Hematocrit 45.5 % (36.0-47.0) Mean Corpuscular Volume 87 fL (79-100) Mean Corpuscular Hemoglobin 29 pg (25-35) Mean Corpuscular Hemoglobin Concent 34 g/dL (31-37) Red Cell Distribution Width 13.5 % (11.5-14.5) Platelet Count 319 x10^3/uL (140-400) Neutrophils (%) (Auto) 69 % (31-73) Lymphocytes (%) (Auto) 19 % (24-48) Monocytes (%) (Auto) 10 % (0-9) Eosinophils (%) (Auto) 1 % (0-3) Basophils (%) (Auto) 1 % (0-3) Neutrophils # (Auto) 8.0 x10^3/uL (1.8-7.7) Lymphocytes # (Auto) 2.2 x10^3/uL (1.0-4.8) Monocytes # (Auto) 1.2 x10^3/uL (0.0-1.1) Eosinophils # (Auto) 0.1 x10^3/uL (0.0-0.7) Basophils # (Auto) 0.1 x10^3/uL (0.0-0.2) Sodium Level 141 mmol/L (136-145) Potassium Level 3.9 mmol/L (3.5-5.1) Chloride Level 101 mmol/L (98-107) Carbon Dioxide Level 26 mmol/L (21-32) Anion Gap 14 (6-14) Blood Urea Nitrogen 17 mg/dL (7-20) Creatinine 1.1 mg/dL (0.6-1.0) Estimated GFR (Cockcroft-Gault) 48.7 BUN/Creatinine Ratio 15 (6-20) Glucose Level 156 mg/dL (70-99) Lactic Acid Level 1.4 mmol/L (0.4-2.0) Calcium Level 9.4 mg/dL (8.5-10.1) Magnesium Level 2.0 mg/dL (1.8-2.4) Total Bilirubin 0.5 mg/dL (0.2-1.0) Aspartate Amino Transf (AST/SGOT) 14 U/L (15-37) Alanine Aminotransferase (ALT/SGPT) 15 U/L (14-59) Alkaline Phosphatase 78 U/L (46-116) Ammonia 11 mcmol/L (11-34) Troponin I Quantitative < 0.017 ng/mL (0.000-0.055) Total Protein 8.7 g/dL (6.4-8.2) Albumin 4.2 g/dL (3.4-5.0) Albumin/Globulin Ratio 0.9 (1.0-1.7) Urine Collection Type Unknown Urine Color Yellow Urine Clarity Clear Urine pH 6.5 Urine Specific [place] 1.020 Urine Protein 100 mg/dL (NEG-TRACE) Urine Glucose (UA) 100 mg/dL (NEG) Urine Ketones (Stick) 15 mg/dL (NEG) Urine Blood Negative (NEG) Urine Nitrite Negative (NEG) Urine Bilirubin Negative (NEG) Urine Urobilinogen Dipstick 0.2 mg/dL (0.2 mg/dL) Urine Leukocyte Esterase Large (NEG) Urine RBC 0 /HPF (0-2) Urine WBC Tntc /HPF (0-4) Urine Squamous Epithelial Cells Few /LPF Urine Bacteria 0 /HPF (0-FEW) Vitamin B12 Level 469 pg/mL (247-911) Thyroid Stimulating Hormone (TSH) 0.847 uIU/mL (0.358-3.74) Test 05/07/19 09:03 05/07/19 11:56 05/07/19 17:06 05/07/19 20:53 Glucose (Fingerstick) 188 mg/dL (70-99) 173 mg/dL (70-99) 185 mg/dL (70-99) 159 mg/dL (70-99) Test 05/08/19 04:10 05/08/19 07:20 Triglycerides Level 205 mg/dL (0-150) Cholesterol Level 236 mg/dL (0-200) LDL Cholesterol, Calculated 158 mg/dL (0-100) VLDL Cholesterol, Calculated 41 mg/dL (0-40) Non-HDL Cholesterol Calculated 199 mg/dL (0-129) HDL Cholesterol 37 mg/dL (40-60) Cholesterol/HDL Ratio 6.4 Glucose (Fingerstick) 180 mg/dL (70-99) Laboratory Tests Test 05/07/19 08:40 05/07/19 09:03 05/07/19 11:56 05/07/19 17:06 Vitamin B12 Level 469 pg/mL (247-911) Thyroid Stimulating Hormone (TSH) 0.847 uIU/mL (0.358-3.74) Glucose (Fingerstick) 188 mg/dL (70-99) 173 mg/dL (70-99) 185 mg/dL (70-99) Test 05/07/19 20:53 05/08/19 04:10 05/08/19 07:20 Glucose (Fingerstick) 159 mg/dL (70-99) 180 mg/dL (70-99) Triglycerides Level 205 mg/dL (0-150) Cholesterol Level 236 mg/dL (0-200) LDL Cholesterol, Calculated 158 mg/dL (0-100) VLDL Cholesterol, Calculated 41 mg/dL (0-40) Non-HDL Cholesterol Calculated 199 mg/dL (0-129) HDL Cholesterol 37 mg/dL (40-60) Cholesterol/HDL Ratio 6.4 Microbiology 05/06/19 Blood Culture - Preliminary, Resulted NO GROWTH AFTER 1 DAY Medications Current Medications Ceftriaxone Sodium (Rocephin) 1 gm 1X ONCE IVP Last administered on 05/06/19at 23:13; Start 05/06/19 at 23:00; Stop 05/06/19 at 23:01; Status DC EZETIMIBE (Zetia) 5 mg DAILY PO Last administered on 05/07/19at 09:04; Start 05/07/19 at 09:00 Gabapentin (Neurontin) 300 mg DAILY PO ; Start 05/07/19 at 09:00 Levothyroxine Sodium (Synthroid) 112 mcg DAILY07 PO Last administered on 05/08/19at 06:16; Start 05/07/19 at 09:00 Lisinopril (Prinivil) 5 mg DAILY PO Last administered on 05/07/19at 09:04; Start 05/07/19 at 09:00 Tramadol HCl (Ultram) 50 mg PRN Q6HRS PRN PO PAIN Last administered on 05/07/19at 10:14; Start 05/07/19 at 08:30 Metformin HCl (Glucophage) 1,000 mg BIDWMEALS PO ; Start 05/09/19 at 17:00 Insulin Human Lispro (HumaLOG) 0-5 UNITS TIDACHC SQ ; Start 05/07/19 at 11:30 Dextrose (Dextrose 50%-Water Syringe) 12.5 gm PRN Q15MIN PRN IV SEE COMMENTS; Start 05/07/19 at 08:30 Ondansetron HCl (Zofran) 4 mg PRN Q6HRS PRN IVP NAUSEA/VOMITING Last administered on 05/07/19at 14:02; Start 05/07/19 at 08:30 Enoxaparin Sodium (Lovenox 40mg Syringe) 40 mg Q24H SQ Last administered on 05/07/19at 09:08; Start 05/07/19 at 09:00 Ceftriaxone Sodium (Rocephin) 1 gm Q24H IVP Last administered on 05/07/19at 17:38; Start 05/07/19 at 16:30 Prochlorperazine Edisylate (Compazine) 10 mg PRN Q6HRS PRN IV NAUSEA/VOMITING Last administered on 05/07/19at 11:43; Start 05/07/19 at 11:30 Enoxaparin Sodium (Lovenox 40mg Syringe) 30 mg Q24H SQ ; Start 05/07/19 at 13:15; Stop 05/07/19 at 13:31; Status DC Acetaminophen (Tylenol) 650 mg PRN Q6HRS PRN PO TEMP > 100.4F; Start 05/07/19 at 13:15 Acetaminophen (Tylenol Supp) 650 mg PRN Q4HRS PRN MI TEMP > 100.4F; Start 05/07/19 at 13:15 Aspirin (Ecotrin) 325 mg DAILYWBKFT PO ; Start 05/08/19 at 08:00 Aspirin (Aspirin Rectal Supp) 300 mg PRN DAILY PRN MI IF UNABLE TO TAKE PO; Start 05/07/19 at 13:15 Iohexol (Omnipaque 350 Mg/ml) 60 ml 1X ONCE IV Last administered on 05/07/19at 14:25; Start 05/07/19 at 14:00; Stop 05/07/19 at 14:01; Status DC Info (CONTRAST GIVEN -- Rx MONITORING) 1 each PRN DAILY PRN MC SEE COMMENTS; Start 05/07/19 at 13:45; Stop 05/09/19 at 13:44 Lactobacillus Rhamnosus (Culturelle) 1 cap BID PO Last administered on 05/07/19at 20:57; Start 05/07/19 at 21:00 Atorvastatin Calcium (Lipitor) 40 mg QHS PO Last administered on 05/07/19at 20:57; Start 05/07/19 at 21:00 Active Scripts Active Reported [place] 5-325 Tablet (Acetaminophen/Hydrocodone Bitart) 1 Each Tablet 1 Tab PO Q4HRS PRN Gabapentin 300 Mg Capsule 300 Mg PO DAILY Tramadol Hcl 50 Mg Tablet 50 Mg PO Q6HRS PRN Amox Tr-K Clv 500-125 Mg Tab (Amoxicillin/Potassium Clav) 1 Each Tablet 1 Tab PO BID Levothyroxine Sodium 112 Mcg Tablet 1 Tab PO DAILY Naprosyn (Naproxen) 500 Mg Tablet 500 Mg PO DAILY Januvia (Sitagliptin Phosphate) 100 Mg Tablet 100 Mg PO DAILY Lisinopril 5 Mg Tablet 5 Mg PO DAILY Zetia (Ezetimibe) 10 Mg Tablet 5 Mg PO DAILY Metformin Hcl 1,000 Mg Tablet 1,000 Mg PO BIDWMEALS Furosemide 40 Mg Tablet 1 Tab PO DAILY Vitals/I & O Vital Sign - Last 24 Hours 05/07/19 05/07/19 05/07/19 05/07/19 08:15 09:04 10:14 11:00 Temp 98.3 98.3 Pulse 85 86 Resp 16 B/P (MAP) 130/77 103/57 (72) Pulse Ox 95 O2 Delivery Room Air Room Air Room Air 05/07/19 05/07/19 05/07/19 05/07/19 11:29 15:00 19:25 20:00 Temp 97.8 97.8 97.8 97.8 Pulse 75 89 Resp 12 17 B/P (MAP) 138/81 (100) 114/56 (75) Pulse Ox 94 95 O2 Delivery Room Air Room Air Room Air Room Air 05/07/19 05/08/19 05/08/19 23:25 03:25 07:38 Temp 98.1 98.1 98.2 98.1 98.1 98.2 Pulse 91 91 Resp 17 17 18 B/P (MAP) 99/42 (61) 111/60 (77) 111/58 (75) Pulse Ox 92 95 95 O2 Delivery Room Air Room Air Room Air Intake and Output 05/07/19 05/07/19 05/08/19 14:59 22:59 06:59 Intake Total 420 ml 570 ml Balance 420 ml 570 ml MARITA DIETZ MD May 08, 2019 07:50
[2019-05-08] MEDS ORDERED: ASPIRIN ENTERIC COATED 325 MG TABLET.DR. PO SCH (08:00)
[2019-05-08] MEDS: ENOXAPARIN 40 MG/0.4 ML SYRINGE. SQ SCH (08:24)
[2019-05-08] MEDS: GABAPENTIN 300 MG CAPSULE. PO SCH (08:25)
[2019-05-08] MEDS: LACTOBACILLUS RHAMNOSUS GG 1 CAPSULE. PO SCH ×2 (08:25→21:28)
[2019-05-08] MEDS: EZETIMIBE 10 MG TABLET. PO SCH (08:25)
[2019-05-08] MEDS: LISINOPRIL 5 MG TABLET. PO SCH (08:26)
--- NOTE | 2019-05-08 11:27 | PDOC ---
PROGRESS NOTES Assessment Infarcts of the left thalamus, left occipital lobe, and left temporal lobe/hippocampal formation. She is much better today Hyperlipidemia Diabetes Diabetic neuropathy Plan Await echocardiogram Observe one more night, it does not appear that she needs inpatient rehabilitation Atorvastatin Aspirin Follow-up with Neurology as needed Discussed with patient in her family. Subjective No complaints Objective Vital Signs Date Time Temp Pulse Resp B/P (MAP) Pulse Ox O2 Delivery O2 Flow Rate FiO2 05/08/19 08:26 91 111/58 05/08/19 08:00 Room Air 05/08/19 07:38 98.2 18 95 98.2 Intake and Output 05/08/19 07:00 Intake Total 990 ml Balance 990 ml Intake Oral 990 ml # Voids 1 Review of Relevant I have reviewed the following items bell (where applicable) has been applied. Labs Laboratory Tests Test 05/06/19 19:51 05/06/19 19:55 05/06/19 22:06 05/07/19 08:40 Glucose (Fingerstick) 143 mg/dL (70-99) White Blood Count 11.6 x10^3/uL (4.0-11.0) Red Blood Count 5.21 x10^6/uL (3.50-5.40) Hemoglobin 15.2 g/dL (12.0-15.5) Hematocrit 45.5 % (36.0-47.0) Mean Corpuscular Volume 87 fL (79-100) Mean Corpuscular Hemoglobin 29 pg (25-35) Mean Corpuscular Hemoglobin Concent 34 g/dL (31-37) Red Cell Distribution Width 13.5 % (11.5-14.5) Platelet Count 319 x10^3/uL (140-400) Neutrophils (%) (Auto) 69 % (31-73) Lymphocytes (%) (Auto) 19 % (24-48) Monocytes (%) (Auto) 10 % (0-9) Eosinophils (%) (Auto) 1 % (0-3) Basophils (%) (Auto) 1 % (0-3) Neutrophils # (Auto) 8.0 x10^3/uL (1.8-7.7) Lymphocytes # (Auto) 2.2 x10^3/uL (1.0-4.8) Monocytes # (Auto) 1.2 x10^3/uL (0.0-1.1) Eosinophils # (Auto) 0.1 x10^3/uL (0.0-0.7) Basophils # (Auto) 0.1 x10^3/uL (0.0-0.2) Sodium Level 141 mmol/L (136-145) Potassium Level 3.9 mmol/L (3.5-5.1) Chloride Level 101 mmol/L (98-107) Carbon Dioxide Level 26 mmol/L (21-32) Anion Gap 14 (6-14) Blood Urea Nitrogen 17 mg/dL (7-20) Creatinine 1.1 mg/dL (0.6-1.0) Estimated GFR (Cockcroft-Gault) 48.7 BUN/Creatinine Ratio 15 (6-20) Glucose Level 156 mg/dL (70-99) Lactic Acid Level 1.4 mmol/L (0.4-2.0) Calcium Level 9.4 mg/dL (8.5-10.1) Magnesium Level 2.0 mg/dL (1.8-2.4) Total Bilirubin 0.5 mg/dL (0.2-1.0) Aspartate Amino Transf (AST/SGOT) 14 U/L (15-37) Alanine Aminotransferase (ALT/SGPT) 15 U/L (14-59) Alkaline Phosphatase 78 U/L (46-116) Ammonia 11 mcmol/L (11-34) Troponin I Quantitative < 0.017 ng/mL (0.000-0.055) Total Protein 8.7 g/dL (6.4-8.2) Albumin 4.2 g/dL (3.4-5.0) Albumin/Globulin Ratio 0.9 (1.0-1.7) Urine Collection Type Unknown Urine Color Yellow Urine Clarity Clear Urine pH 6.5 Urine Specific [place] 1.020 Urine Protein 100 mg/dL (NEG-TRACE) Urine Glucose (UA) 100 mg/dL (NEG) Urine Ketones (Stick) 15 mg/dL (NEG) Urine Blood Negative (NEG) Urine Nitrite Negative (NEG) Urine Bilirubin Negative (NEG) Urine Urobilinogen Dipstick 0.2 mg/dL (0.2 mg/dL) Urine Leukocyte Esterase Large (NEG) Urine RBC 0 /HPF (0-2) Urine WBC Tntc /HPF (0-4) Urine Squamous Epithelial Cells Few /LPF Urine Bacteria 0 /HPF (0-FEW) Vitamin B12 Level 469 pg/mL (247-911) Thyroid Stimulating Hormone (TSH) 0.847 uIU/mL (0.358-3.74) Test 05/07/19 09:03 05/07/19 11:56 05/07/19 17:06 05/07/19 20:53 Glucose (Fingerstick) 188 mg/dL (70-99) 173 mg/dL (70-99) 185 mg/dL (70-99) 159 mg/dL (70-99) Test 05/08/19 04:10 05/08/19 07:20 Triglycerides Level 205 mg/dL (0-150) Cholesterol Level 236 mg/dL (0-200) LDL Cholesterol, Calculated 158 mg/dL (0-100) VLDL Cholesterol, Calculated 41 mg/dL (0-40) Non-HDL Cholesterol Calculated 199 mg/dL (0-129) HDL Cholesterol 37 mg/dL (40-60) Cholesterol/HDL Ratio 6.4 Glucose (Fingerstick) 180 mg/dL (70-99) Laboratory Tests Test 05/07/19 11:56 05/07/19 17:06 05/07/19 20:53 05/08/19 04:10 Glucose (Fingerstick) 173 mg/dL (70-99) 185 mg/dL (70-99) 159 mg/dL (70-99) Triglycerides Level 205 mg/dL (0-150) Cholesterol Level 236 mg/dL (0-200) LDL Cholesterol, Calculated 158 mg/dL (0-100) VLDL Cholesterol, Calculated 41 mg/dL (0-40) Non-HDL Cholesterol Calculated 199 mg/dL (0-129) HDL Cholesterol 37 mg/dL (40-60) Cholesterol/HDL Ratio 6.4 Test 05/08/19 07:20 Glucose (Fingerstick) 180 mg/dL (70-99) Microbiology 05/06/19 Blood Culture - Preliminary, Resulted NO GROWTH AFTER 1 DAY Medications Current Medications Ceftriaxone Sodium (Rocephin) 1 gm 1X ONCE IVP Last administered on 05/06/19at 23:13; Start 05/06/19 at 23:00; Stop 05/06/19 at 23:01; Status DC EZETIMIBE (Zetia) 5 mg DAILY PO Last administered on 05/08/19at 08:25; Start 05/07/19 at 09:00 Gabapentin (Neurontin) 300 mg DAILY PO ; Start 05/07/19 at 09:00 Levothyroxine Sodium (Synthroid) 112 mcg DAILY07 PO Last administered on 05/08/19at 06:16; Start 05/07/19 at 09:00 Lisinopril (Prinivil) 5 mg DAILY PO Last administered on 05/08/19at 08:26; Start 05/07/19 at 09:00 Tramadol HCl (Ultram) 50 mg PRN Q6HRS PRN PO PAIN Last administered on 05/07/19at 10:14; Start 05/07/19 at 08:30 Metformin HCl (Glucophage) 1,000 mg BIDWMEALS PO ; Start 05/09/19 at 17:00 Insulin Human Lispro (HumaLOG) 0-5 UNITS TIDACHC SQ ; Start 05/07/19 at 11:30 Dextrose (Dextrose 50%-Water Syringe) 12.5 gm PRN Q15MIN PRN IV SEE COMMENTS; Start 05/07/19 at 08:30 Ondansetron HCl (Zofran) 4 mg PRN Q6HRS PRN IVP NAUSEA/VOMITING Last administered on 05/07/19at 14:02; Start 05/07/19 at 08:30 Enoxaparin Sodium (Lovenox 40mg Syringe) 40 mg Q24H SQ Last administered on 05/08/19at 08:24; Start 05/07/19 at 09:00 Ceftriaxone Sodium (Rocephin) 1 gm Q24H IVP Last administered on 05/07/19at 17:38; Start 05/07/19 at 16:30 Prochlorperazine Edisylate (Compazine) 10 mg PRN Q6HRS PRN IV NAUSEA/VOMITING Last administered on 05/07/19at 11:43; Start 05/07/19 at 11:30 Enoxaparin Sodium (Lovenox 40mg Syringe) 30 mg Q24H SQ ; Start 05/07/19 at 13:15; Stop 05/07/19 at 13:31; Status DC Acetaminophen (Tylenol) 650 mg PRN Q6HRS PRN PO TEMP > 100.4F; Start 05/07/19 at 13:15 Acetaminophen (Tylenol Supp) 650 mg PRN Q4HRS PRN OK TEMP > 100.4F; Start 05/07/19 at 13:15 Aspirin (Ecotrin) 325 mg DAILYWBKFT PO Last administered on 05/08/19at 08:26; Start 05/08/19 at 08:00 Aspirin (Aspirin Rectal Supp) 300 mg PRN DAILY PRN OK IF UNABLE TO TAKE PO; Start 05/07/19 at 13:15 Iohexol (Omnipaque 350 Mg/ml) 60 ml 1X ONCE IV Last administered on 05/07/19at 14:25; Start 05/07/19 at 14:00; Stop 05/07/19 at 14:01; Status DC Info (CONTRAST GIVEN -- Rx MONITORING) 1 each PRN DAILY PRN MC SEE COMMENTS; Start 05/07/19 at 13:45; Stop 05/09/19 at 13:44 Lactobacillus Rhamnosus (Culturelle) 1 cap BID PO Last administered on 05/08/19at 08:25; Start 05/07/19 at 21:00 Atorvastatin Calcium (Lipitor) 40 mg QHS PO Last administered on 05/07/19at 20:57; Start 05/07/19 at 21:00 Active Scripts Active Reported [place] 5-325 Tablet (Acetaminophen/Hydrocodone Bitart) 1 Each Tablet 1 Tab PO Q4HRS PRN Gabapentin 300 Mg Capsule 300 Mg PO DAILY Tramadol Hcl 50 Mg Tablet 50 Mg PO Q6HRS PRN Amox Tr-K Clv 500-125 Mg Tab (Amoxicillin/Potassium Clav) 1 Each Tablet 1 Tab PO BID Levothyroxine Sodium 112 Mcg Tablet 1 Tab PO DAILY Naprosyn (Naproxen) 500 Mg Tablet 500 Mg PO DAILY Januvia (Sitagliptin Phosphate) 100 Mg Tablet 100 Mg PO DAILY Lisinopril 5 Mg Tablet 5 Mg PO DAILY Zetia (Ezetimibe) 10 Mg Tablet 5 Mg PO DAILY Metformin Hcl 1,000 Mg Tablet 1,000 Mg PO BIDWMEALS Furosemide 40 Mg Tablet 1 Tab PO DAILY Vitals/I & O Vital Sign - Last 24 Hours 05/07/19 05/07/19 05/07/19 05/07/19 11:29 15:00 19:25 20:00 Temp 97.8 97.8 97.8 97.8 Pulse 75 89 Resp 12 17 B/P (MAP) 138/81 (100) 114/56 (75) Pulse Ox 94 95 O2 Delivery Room Air Room Air Room Air Room Air 05/07/19 05/08/19 05/08/19 05/08/19 23:25 03:25 07:38 08:00 Temp 98.1 98.1 98.2 98.1 98.1 98.2 Pulse 91 91 Resp 17 17 18 B/P (MAP) 99/42 (61) 111/60 (77) 111/58 (75) Pulse Ox 92 95 95 O2 Delivery Room Air Room Air Room Air Room Air 05/08/19 08:26 Pulse 91 B/P (MAP) 111/58 Intake and Output 05/07/19 05/07/19 05/08/19 15:00 23:00 07:00 Intake Total 420 ml 570 ml Balance 420 ml 570 ml Images MRI Brain without contrast History: Right field cut, confusion, CVA Technique: Multiplanar, multisequential noncontrast MR imaging was performed of the brain. Comparison: None Findings: There is some motion degradation. There is a small 0.7 cm focus of restricted diffusion of the inferior left occipital lobe. More superiorly, there is larger focus of restricted diffusion of the left occipital lobe about 2.5 cm. There is also restricted diffusion of the left hippocampal formation/medial left temporal lobe on the order of 2.4 cm. There are 2 foci of restricted diffusion of the left thalamus with the largest about 1.1 cm. There is no restricted diffusion of the right hemisphere. There is variable T2 and FLAIR hyperintense signal associated with foci of diffusion signal abnormality. There is no midline shift or extra-axial fluid collection. There is other scattered mild T2 and FLAIR hyperintense signal of the supratentorial parenchyma bilaterally. There is mild generalized prominence of the supratentorial subarachnoid spaces likely mild involutional change, ventricular size within normal limits. There is no significant hemosiderin deposition of the brain parenchyma. There is preservation of the major arterial intracranial flow voids at the skull base. Mastoid air cells are aerated. There is patchy very mild ethmoid air cell mucosal thickening bilaterally. Cerebellar tonsils are normal in location. There is preserved marrow signal of the clivus. These no abnormality of the pineal gland or pituitary gland. Impression: 1. There are recent acute/ early subacute infarcts of the left thalamus, left occipital lobe, and left temporal lobe/hippocampal formation. 2. Minimal T2 and FLAIR hyperintense signal of the supratentorial parenchyma is nonspecific, probably due to chronic microvascular ischemic disease. CT ANGIOGRAPHY HEAD AND NECK DATE: 05/07/2019 1:08 PM INDICATION: Altered mental status, stroke TECHNIQUE: CTA angiogram of the head and neck was obtained after IV bolus administration of 60 cc of Omnipaque 350. The images were sent to workstation and multiplanar reconstructions were obtained. Multiplanar reconstruction images to include MIP and 3-D reconstruction images are submitted. One or more of the following dose reduction techniques were utilized: Automated exposure control (AEC), Adjustment of mA and/or kV according to patient size, Use of iterative reconstruction technique such as ASiR, CT scan done according to ALARA and image gently/image wisely COMPARISON: CT head 05/06/2019. FINDINGS: CTA Head: The visualized distal internal carotid arteries, anterior and middle cerebral arteries are patent and normal caliber. The distal vertebral arteries, basilar artery, and posterior cerebral arteries are patent and normal caliber. No aneurysm or arteriovenous malformation is seen. CTA Neck: Right carotid: The right common carotid artery is patent and normal caliber. The carotid bifurcation is normal. No stenosis of the right internal carotid artery per NASCET criteria. The right external carotid artery is patent. Left carotid: The left common carotid artery is patent and normal caliber. The carotid bifurcation is normal. No stenosis of the left internal carotid artery per NASCET criteria. The left external carotid artery is patent. Right vertebral: The right vertebral artery is patent and normal caliber. Left vertebral: The left vertebral artery is patent and normal caliber. Mild atherosclerosis of the aortic arch. The origins of the brachiocephalic and subclavian arteries are normal. No cervical lymphadenopathy. The thyroid gland is normal. The parotid and submandibular glands are normal. The visualized aerodigestive tract is unremarkable. Degenerative changes of the spine. The visualized portions of the lungs are clear. IMPRESSION: 1. No stenosis of the cervical carotid or vertebral arteries. 2. No large vessel occlusion or intracranial aneurysm. BETTIE KINNEY MD May 08, 2019 11:26
[2019-05-08 11:50] VITALS: BP 111/47
[2019-05-08 12:06] LABS: BASO # 0.2 x10^3/uL (0.0-0.2); BASO % 1 % (0-3); EOS # 0.1 x10^3/uL (0.0-0.7); EOS % 1 % (0-3); HEMATOCRIT 43.5 % (36.0-47.0); HEMOGLOBIN 14.5 g/dL (12.0-15.5); LYMPH # 2.4 x10^3/uL (1.0-4.8); LYMPH % 19 % (24-48); MEAN CORPUSCULAR HEMOGLOBIN 30 pg (25-35); MEAN CORPUSCULAR HGB CONC 33 g/dL (31-37); MEAN CORPUSCULAR VOLUME 88 fL (79-100); MONO # 1.2 x10^3/uL (0.0-1.1); MONO % 10 % (0-9); NEUT # 8.9 x10^3/uL (1.8-7.7); NEUT % 70 % (31-73); PLATELET COUNT 306 x10^3/uL (140-400); RED BLOOD COUNT 4.92 x10^6/uL (3.50-5.40); RED CELL DISTRIBUTION WIDTH 13.7 % (11.5-14.5); WHITE BLOOD COUNT 12.8 x10^3/uL (4.0-11.0)
--- NOTE | 2019-05-08 12:56 | PDOC2 ---
CARDIAC CONSULT DATE OF CONSULT Date of Consult DATE: 05/08/19 TIME: 12:42 REASON FOR CONSULT Reason for Consult: HTN, CVA REFERRING PHYSICIAN Referring Physician: Fullbright SOURCE Source: Chart review, Patient HISTORY OF PRESENT ILLNESS HISTORY OF PRESENT ILLNESS This is a pleasant 73 yo female admitted for complains neurofocal deficits. Initially Saturday afternoon, she was tired and was having some DIXON. She went home and went to sleep. She woke up the nextday and was noted to be confused. This then progressed to a point where she felt tingling and heaviness to her right ar feeling weak and also developed blindness to her right peripheral visual richard. Denies any palpitations, SOA nor chest pain. No recent falls or injury. No hx of CVA, CAD, arrhythmias or VTE. Denies any bleeding or clotting disorders. No past surgeries. Her mentation is better and visual deficit has resolved and her right arm weakness is better. PAST MEDICAL HISTORY Past Medical History Cardiovascular: HTN, Hyperlipidemia Pulmonary: No pertinent hx GI: No pertinent hx Heme/Onc: No pertinent hx Hepatobiliary: No pertinent hx Psych: No pertinent hx Rheumatologic: No pertinent hx Infectious disease: No pertinent hx ENT: No pertinent hx Renal/: No pertinent hx Endocrine: Diabetes, Hyperthyroidism Dermatology: No pertinent hx PAST SURGICAL HISTORY Past Surgical History: No pertinent history FAMILY HISTORY Family History: Diabetes SOCIAL HISTORY Smoke: Quit ALCOHOL: none Drugs: None Lives: with Family CURRENT MEDICATIONS CURRENT MEDICATIONS Current Medications Medications (Trade) Dose Ordered Sig/Anthony Route PRN Reason Start Time Stop Time Status Last Admin Dose Admin Ceftriaxone Sodium (Rocephin) 1 gm Q24H IVP 05/07/19 16:30 05/07/19 17:38 Aspirin (Ecotrin) 325 mg DAILYWBKFT PO 05/08/19 08:00 05/08/19 08:26 Iohexol (Omnipaque 350 Mg/ml) 60 ml 1X ONCE IV 05/07/19 14:00 05/07/19 14:01 DC 05/07/19 14:25 Lactobacillus Rhamnosus (Culturelle) 1 cap BID PO 05/07/19 21:00 05/08/19 08:25 Atorvastatin Calcium (Lipitor) 40 mg QHS PO 05/07/19 21:00 05/07/19 20:57 ALLERGIES ALLERGIES: Coded Allergies: No Known Drug Allergies (Unverified , 10/28/17) ROS Review of System 14 point ROS evaluated with pertinent positives noted per HPI PHYSICAL EXAM General: Alert, Oriented X3, Cooperative, No acute distress HEENT: Atraumatic, Mucous membr. moist/pink Lungs: Clear to auscultation, Normal air movement Heart: Regular rate (SR), Normal S1, Normal S2, No murmurs Abdomen: Soft, No tenderness Extremities: No cyanosis, No edema Skin: No breakdown, No significant lesion Neuro: Normal speech, Sensation intact Psych/Mental Status: Mental status NL, Mood NL MUSCULOSKELETAL: Osteoarthritic changes both hands VITALS/I&O VITALS/I&O: Vital Signs Date Time Temp Pulse Resp B/P (MAP) Pulse Ox O2 Delivery O2 Flow Rate FiO2 05/08/19 11:50 97.6 81 18 111/47 (68) 100 Room Air 97.6 I & O 05/07/19 05/07/19 05/08/19 14:59 22:59 06:59 Intake Total 420 ml 570 ml Balance 420 ml 570 ml LABS Lab: Laboratory Tests Test 05/07/19 17:06 05/07/19 20:53 05/08/19 04:10 05/08/19 07:20 Glucose (Fingerstick) 185 mg/dL (70-99) H 159 mg/dL (70-99) H 180 mg/dL (70-99) H White Blood Count 12.8 x10^3/uL (4.0-11.0) H Red Blood Count 4.92 x10^6/uL (3.50-5.40) Hemoglobin 14.5 g/dL (12.0-15.5) Hematocrit 43.5 % (36.0-47.0) Mean Corpuscular Volume 88 fL (79-100) Mean Corpuscular Hemoglobin 30 pg (25-35) Mean Corpuscular Hemoglobin Concent 33 g/dL (31-37) Red Cell Distribution Width 13.7 % (11.5-14.5) Platelet Count 306 x10^3/uL (140-400) Neutrophils (%) (Auto) 70 % (31-73) Lymphocytes (%) (Auto) 19 % (24-48) L Monocytes (%) (Auto) 10 % (0-9) H Eosinophils (%) (Auto) 1 % (0-3) Basophils (%) (Auto) 1 % (0-3) Neutrophils # (Auto) 8.9 x10^3/uL (1.8-7.7) H Lymphocytes # (Auto) 2.4 x10^3/uL (1.0-4.8) Monocytes # (Auto) 1.2 x10^3/uL (0.0-1.1) H Eosinophils # (Auto) 0.1 x10^3/uL (0.0-0.7) Basophils # (Auto) 0.2 x10^3/uL (0.0-0.2) Triglycerides Level 205 mg/dL (0-150) H Cholesterol Level 236 mg/dL (0-200) H LDL Cholesterol, Calculated 158 mg/dL (0-100) H VLDL Cholesterol, Calculated 41 mg/dL (0-40) H Non-HDL Cholesterol Calculated 199 mg/dL (0-129) H HDL Cholesterol 37 mg/dL (40-60) L Cholesterol/HDL Ratio 6.4 Test 05/08/19 11:11 Glucose (Fingerstick) 225 mg/dL (70-99) H Laboratory Tests 05/08/19 04:10 ASSESSMENT/PLAN ASSESSMENT/PLAN 1. Acute CVA: involving left thalamus/temporal/occipital 2. Arrhythmia: Brief episodes of PAFIB/PAT 3. HTN: controlled 4. HLP 5. DM2: per PCP. reports diet controlled at home. 6. Hypothyroidism: TSH on goal 7. UTI: Abx per PCP 8. Vapin pk yr tobacco, quit 2 yrs ago and started vaping. Recommendations 1. Plan for 4 wk MCOT. discussed significantly with daughter and pt in regards to AFIB pathophysiology and NOAC treatment. Risks and benfits discussed and a greeable to proceed with eliquis. 2. Statin. Will start on low dose metoprolol. BP will not support concurrent use of lisinopril so will DC for now. 3. Check A1C 4. Follow up in office with Dr. Lr Jun 16 1:15 PM 5. Verify with neurologist. DC ASA, Start on eliquis, will provide samples if pt is going home instead of rehab 6. Vaping cessation NIVIA ANDERSON APRN May 08, 2019 12:56
[2019-05-08 15:12] VITALS: BP 92/47
--- NOTE | 2019-05-08 16:15 | CARD ---
MR#: [id number] Date of Study: 05/08/2019 Ordering Physician: BETTIE KINNEY, Referring Physician: BETTIE KINNEY, Jolynn: Cheri Mendoza APPROVED REPORT EXAM: Two-dimensional and M-mode echocardiogram with Doppler and color Doppler. Other Information Quality : AverageHR: 81bpm INDICATION CVA/TIA RISK FACTORS Hypertension Hyperlipidemia Diabetes 2D DIMENSIONS RVDd2.7 (2.9-3.5cm)Left Atrium(2D)3.2 (1.6-4.0cm) IVSd1.1 (0.7-1.1cm)Aortic Root(2D)2.3 (2.0-3.7cm) LVDd3.8 (3.9-5.9cm)LVOT Diameter2.0 (1.8-2.4cm) PWd0.8 (0.7-1.1cm)LVDs2.5 (2.5-4.0cm) FS (%) 34.7 %SV41.0 ml LVEF(%)64.6 (>50%) Aortic Valve AoV Peak Luis.129.4cm/sAoV VTI16.2cm AO Peak GR.6.7mmHgLVOT Peak Luis.95.4cm/s AO Mean GR.3mmHgAVA (VMAX)2.43cm2 Mitral Valve MV E Diffkigx57.3cm/sMV E Peak Gr.4mmHg MV DECEL [id number] A Alopdgub62.8cm/s MV E Mean Gr.2mmHgE/A Ratio0.8 Pulmonary Valve PV Peak Vhrrrgwe899.0cm/s Tricuspid Valve RAP [id number] Peak Gr.24mmHg [id number] Pulmonary Vein S1 Alnycqiv89.5cm/sD2 Ojrvmkys58.6cm/s LEFT VENTRICLE The left ventricle is normal size. There is borderline to mild concentric left ventricular hypertroph y. The left ventricular systolic function is normal and the ejection fraction is within normal range. The Ejection Fraction is 60-65%. There is normal LV segmental wall motion. Transmitral Doppler flow pattern is Grade I-abnormal relaxation pattern. RIGHT VENTRICLE The right ventricle is normal size. There is normal right ventricular wall thickness. The right ventr icular systolic function is normal. ATRIA The left atrium size is normal. The right atrium size is normal. The interatrial septum is intact wit h no evidence for an atrial septal defect or patent foramen ovale as noted on 2-D or Doppler imaging. AORTIC VALVE The aortic valve is thickened but opens well. Doppler and Color Flow revealed no significant aortic r egurgitation. There is no significant aortic valvular stenosis. MITRAL VALVE The mitral valve is thickened but opens well. There is no evidence of mitral valve prolapse. There is no mitral valve stenosis. Doppler and Color-flow revealed trace mitral regurgitation. TRICUSPID VALVE The tricuspid valve is normal in structure and function. Doppler and Color Flow revealed trace tricus pid regurgitation with an estimated PAP of 27 mmHg. There is no tricuspid valve stenosis. PULMONIC VALVE The pulmonic valve is not well visualized. Doppler and Color Flow revealed no pulmonic valvular regur gitation. There is no pulmonic valvular stenosis. GREAT VESSELS The aortic root is normal in size. The IVC is normal in size and collapses >50% with inspiration. PERICARDIAL EFFUSION There is no evidence of significant pericardial effusion. Critical Notification Critical Value: No <Conclusion> The left ventricular systolic function is normal and the ejection fraction is within normal range. Th e Ejection Fraction is 60-65%. There is normal LV segmental wall motion. Signed by : Kenny Soliz, Electronically Approved : 05/08/2019 16:15:33
[2019-05-08] MEDS: cefTRIAXone IV Push 1 GM VIAL. IVP SCH (16:16)
[2019-05-08 19:53] VITALS: BP 128/69
[2019-05-08] MEDS: APIXABAN 5 MG TABLET. PO SCH (21:28)
[2019-05-08] MEDS: ATORVASTATIN CALCIUM 40 MG TABLET. PO SCH (21:28)
[2019-05-08] MEDS: METOPROLOL TART IMMED RELEASE 25 MG TABLET. PO SCH (21:30)
[2019-05-08 23:43] VITALS: BP 114/47
[2019-05-09 00:07] LABS: HEMOGLOBIN A1C 6.8 % (4.8-5.6)
[2019-05-09 03:10] VITALS: BP 125/60
[2019-05-09 05:16] LABS: BASO # 0.1 x10^3/uL (0.0-0.2); BASO % 1 % (0-3); EOS # 0.2 x10^3/uL (0.0-0.7); EOS % 2 % (0-3); HEMATOCRIT 40.9 % (36.0-47.0); HEMOGLOBIN 13.9 g/dL (12.0-15.5); LYMPH # 2.4 x10^3/uL (1.0-4.8); LYMPH % 23 % (24-48); MEAN CORPUSCULAR HEMOGLOBIN 30 pg (25-35); MEAN CORPUSCULAR HGB CONC 34 g/dL (31-37); MEAN CORPUSCULAR VOLUME 88 fL (79-100); MONO # 0.9 x10^3/uL (0.0-1.1); MONO % 9 % (0-9); NEUT # 6.9 x10^3/uL (1.8-7.7); NEUT % 66 % (31-73); PLATELET COUNT 290 x10^3/uL (140-400); RED BLOOD COUNT 4.67 x10^6/uL (3.50-5.40); RED CELL DISTRIBUTION WIDTH 13.1 % (11.5-14.5); WHITE BLOOD COUNT 10.5 x10^3/uL (4.0-11.0)
[2019-05-09 05:20] LABS: CALCIUM 9.3 mg/dL (8.5-10.1); CREATININE 1.3 mg/dL (0.6-1.0); GFR 40.2; POTASSIUM 4.3 mmol/L (3.5-5.1)
[2019-05-09] MEDS: LEVOTHYROXINE 112 MCG TABLET PO SCH (05:55)
[2019-05-09 07:20] VITALS: BP 136/62
[2019-05-09] MEDS: INSULIN LISPRO 300 UNITS/3 ML VIAL. SQ SCH ×4 (07:30→20:49)
--- NOTE | 2019-05-09 08:33 | PDOC ---
PROGRESS NOTES History of Present Illness History of Present Illness VTE Prophylaxis Ordered VTE Prophylaxis Devices: Yes VTE Pharmacological Prophylaxi: Yes impression Acute encephalopathy - likely toxic 2/2 UTI. Check TSH, b12 Right arm numbness - with visual disturbance consult neurology and transfer to telemetry floor ACUTE Infarcts of the left thalamus, left occipital lobe, and left temporal lobe/hippocampal formation. 0.7 cm focus of restricted diffusion of the inferior left occipital lobe. More superiorly, there is larger focus of restricted diffusion of the left occipital lobe about 2.5 cm. There is also restricted diffusion of the left hippocampal formation/medial left temporal lobe on the order of 2.4 cm. There are 2 foci of restricted diffusion of the left thalamus with the largest about 1.1 cm. UTI - will f/u culture. cont rocephin HTN - cont home meds HLD - cont home meds DM2 - cont home meds, add sliding scale AND LANTUS 8 UNITS SQ HS Hypothyroidism - cont home levothyroxine leukocytosis FEN - ADA diet PPX - lovenox FULL CODE Dispo - inpatient likely for 2 midnights. ECHO CARDIOLOGY CONSULT flp neurochecks q 4 hrs cbc Statin. low dose metoprolol. lisinopril DC . A1C Follow up Dr. Lr Jun 16 1:15 PM 05/09 dizzy this AM GLUCOSE UNCONTROLLED, ADDED LANTUS 8 UNITS SQ HS D/W DAUGHTER IN ROOM Discharge Recommendations * Acute Rehab facility Discharge Recommendation Comments * family refusing acute rehab. Wants home health or outpatient * * * * * 36 min pt exam, chart review, > 50% of time spent with exam, chart review, pt care coordination Ambulation Comments * pt will still be at risk for falls due to visual field cut but no loss of balance today even when backing 10 ft, standing exercises walking while looking left right, and reaching to the floor/overhead. Learning Preferences * One-on-One Instruction Problem List (body system elements) * Impaired fnctnl mobility * Strength * Cognition * Balance * Knowledge-safe techniques Pt/caregiver agrees with plan of care/goals * Yes Patient condition at conclusion of therapy * Pt in chair * Phone in reach * PtIn no apparent distress * Pt denies further needs * Visitor with patient Goal 1 - Bed Mobility Assistance Required * Independent Goal 2 - Transfers Assistance Required * Independent Goal 2 - Transfer Type * Stand-Step Goal 3 - Ambulation Assistance Required * Independent Goal 3 - Ambulation Distance * 500' Goal 3 - Ambulation Device * No Device Goal 4 - Stairs Assistance Required * Independent Goal 4 - Number of Stairs * >9 Goal 4 - Device on Stairs * Rail on Right Treatment Plan * Therapeutic Exercise * Bed Mobility Training * Transfer training * Gait Training * Dynamic Balance Training Frequency of Treatment Expected * 12 visits/week Duration of Treatment Expected * 2 weeks Discharge Recommendations * Acute Rehab facility * Home with Assistance * Home with outpatient * Home with Home Health Discharge Recommendation Comments * Pt will need supervision at home. Spouse to provide. Vitals Vitals Vital Signs Date Time Temp Pulse Resp B/P (MAP) Pulse Ox O2 Delivery O2 Flow Rate FiO2 05/09/19 07:20 97.6 69 16 136/62 (86) 95 Room Air 97.6 Physical Exam General: Alert, Oriented X3, Cooperative, No acute distress Heart: Regular rate (SR), Normal S1, Normal S2, No murmurs Lungs: Clear Abdomen: Normal bowel sounds, Soft, No tenderness Extremities: No cyanosis, No edema Skin: No breakdown, No significant lesion Labs LABS PDESC: ORDERED: URINE CULTURE Procedure Result URINE CULTURE Final Final report URINE CULTURE RES 1 Final Comment Mixed urogenital km 50,000-100,000 colony forming units per mL Performed at: DA - [facility] [address], [place], [place] [id number] Cuprous Chloride Helper: BRIAN Porras MD, Phone: [phone] Laboratory Tests Test 05/08/19 11:11 05/08/19 16:53 05/08/19 20:44 05/09/19 04:30 Glucose (Fingerstick) 225 mg/dL (70-99) 204 mg/dL (70-99) 240 mg/dL (70-99) White Blood Count 10.5 x10^3/uL (4.0-11.0) Red Blood Count 4.67 x10^6/uL (3.50-5.40) Hemoglobin 13.9 g/dL (12.0-15.5) Hematocrit 40.9 % (36.0-47.0) Mean Corpuscular Volume 88 fL (79-100) Mean Corpuscular Hemoglobin 30 pg (25-35) Mean Corpuscular Hemoglobin Concent 34 g/dL (31-37) Red Cell Distribution Width 13.1 % (11.5-14.5) Platelet Count 290 x10^3/uL (140-400) Neutrophils (%) (Auto) 66 % (31-73) Lymphocytes (%) (Auto) 23 % (24-48) Monocytes (%) (Auto) 9 % (0-9) Eosinophils (%) (Auto) 2 % (0-3) Basophils (%) (Auto) 1 % (0-3) Neutrophils # (Auto) 6.9 x10^3/uL (1.8-7.7) Lymphocytes # (Auto) 2.4 x10^3/uL (1.0-4.8) Monocytes # (Auto) 0.9 x10^3/uL (0.0-1.1) Eosinophils # (Auto) 0.2 x10^3/uL (0.0-0.7) Basophils # (Auto) 0.1 x10^3/uL (0.0-0.2) Sodium Level 139 mmol/L (136-145) Potassium Level 4.3 mmol/L (3.5-5.1) Chloride Level 103 mmol/L (98-107) Carbon Dioxide Level 28 mmol/L (21-32) Anion Gap 8 (6-14) Blood Urea Nitrogen 24 mg/dL (7-20) Creatinine 1.3 mg/dL (0.6-1.0) Estimated GFR (Cockcroft-Gault) 40.2 Glucose Level 182 mg/dL (70-99) Calcium Level 9.3 mg/dL (8.5-10.1) Test 05/09/19 07:43 Glucose (Fingerstick) 207 mg/dL (70-99) Comment Review of Relevant I have reviewed the following items bell (where applicable) has been applied. Labs Laboratory Tests Test 05/07/19 08:40 05/07/19 09:03 05/07/19 11:56 05/07/19 17:06 Vitamin B12 Level 469 pg/mL (247-911) Thyroid Stimulating Hormone (TSH) 0.847 uIU/mL (0.358-3.74) Glucose (Fingerstick) 188 mg/dL (70-99) 173 mg/dL (70-99) 185 mg/dL (70-99) Test 05/07/19 20:53 05/08/19 04:10 05/08/19 07:20 05/08/19 11:11 Glucose (Fingerstick) 159 mg/dL (70-99) 180 mg/dL (70-99) 225 mg/dL (70-99) White Blood Count 12.8 x10^3/uL (4.0-11.0) Red Blood Count 4.92 x10^6/uL (3.50-5.40) Hemoglobin 14.5 g/dL (12.0-15.5) Hematocrit 43.5 % (36.0-47.0) Mean Corpuscular Volume 88 fL (79-100) Mean Corpuscular Hemoglobin 30 pg (25-35) Mean Corpuscular Hemoglobin Concent 33 g/dL (31-37) Red Cell Distribution Width 13.7 % (11.5-14.5) Platelet Count 306 x10^3/uL (140-400) Neutrophils (%) (Auto) 70 % (31-73) Lymphocytes (%) (Auto) 19 % (24-48) Monocytes (%) (Auto) 10 % (0-9) Eosinophils (%) (Auto) 1 % (0-3) Basophils (%) (Auto) 1 % (0-3) Neutrophils # (Auto) 8.9 x10^3/uL (1.8-7.7) Lymphocytes # (Auto) 2.4 x10^3/uL (1.0-4.8) Monocytes # (Auto) 1.2 x10^3/uL (0.0-1.1) Eosinophils # (Auto) 0.1 x10^3/uL (0.0-0.7) Basophils # (Auto) 0.2 x10^3/uL (0.0-0.2) Hemoglobin A1c 6.8 % (4.8-5.6) Triglycerides Level 205 mg/dL (0-150) Cholesterol Level 236 mg/dL (0-200) LDL Cholesterol, Calculated 158 mg/dL (0-100) VLDL Cholesterol, Calculated 41 mg/dL (0-40) Non-HDL Cholesterol Calculated 199 mg/dL (0-129) HDL Cholesterol 37 mg/dL (40-60) Cholesterol/HDL Ratio 6.4 Test 05/08/19 16:53 05/08/19 20:44 05/09/19 04:30 05/09/19 07:43 Glucose (Fingerstick) 204 mg/dL (70-99) 240 mg/dL (70-99) 207 mg/dL (70-99) White Blood Count 10.5 x10^3/uL (4.0-11.0) Red Blood Count 4.67 x10^6/uL (3.50-5.40) Hemoglobin 13.9 g/dL (12.0-15.5) Hematocrit 40.9 % (36.0-47.0) Mean Corpuscular Volume 88 fL (79-100) Mean Corpuscular Hemoglobin 30 pg (25-35) Mean Corpuscular Hemoglobin Concent 34 g/dL (31-37) Red Cell Distribution Width 13.1 % (11.5-14.5) Platelet Count 290 x10^3/uL (140-400) Neutrophils (%) (Auto) 66 % (31-73) Lymphocytes (%) (Auto) 23 % (24-48) Monocytes (%) (Auto) 9 % (0-9) Eosinophils (%) (Auto) 2 % (0-3) Basophils (%) (Auto) 1 % (0-3) Neutrophils # (Auto) 6.9 x10^3/uL (1.8-7.7) Lymphocytes # (Auto) 2.4 x10^3/uL (1.0-4.8) Monocytes # (Auto) 0.9 x10^3/uL (0.0-1.1) Eosinophils # (Auto) 0.2 x10^3/uL (0.0-0.7) Basophils # (Auto) 0.1 x10^3/uL (0.0-0.2) Sodium Level 139 mmol/L (136-145) Potassium Level 4.3 mmol/L (3.5-5.1) Chloride Level 103 mmol/L (98-107) Carbon Dioxide Level 28 mmol/L (21-32) Anion Gap 8 (6-14) Blood Urea Nitrogen 24 mg/dL (7-20) Creatinine 1.3 mg/dL (0.6-1.0) Estimated GFR (Cockcroft-Gault) 40.2 Glucose Level 182 mg/dL (70-99) Calcium Level 9.3 mg/dL (8.5-10.1) Laboratory Tests Test 05/08/19 11:11 05/08/19 16:53 05/08/19 20:44 05/09/19 04:30 Glucose (Fingerstick) 225 mg/dL (70-99) 204 mg/dL (70-99) 240 mg/dL (70-99) White Blood Count 10.5 x10^3/uL (4.0-11.0) Red Blood Count 4.67 x10^6/uL (3.50-5.40) Hemoglobin 13.9 g/dL (12.0-15.5) Hematocrit 40.9 % (36.0-47.0) Mean Corpuscular Volume 88 fL (79-100) Mean Corpuscular Hemoglobin 30 pg (25-35) Mean Corpuscular Hemoglobin Concent 34 g/dL (31-37) Red Cell Distribution Width 13.1 % (11.5-14.5) Platelet Count 290 x10^3/uL (140-400) Neutrophils (%) (Auto) 66 % (31-73) Lymphocytes (%) (Auto) 23 % (24-48) Monocytes (%) (Auto) 9 % (0-9) Eosinophils (%) (Auto) 2 % (0-3) Basophils (%) (Auto) 1 % (0-3) Neutrophils # (Auto) 6.9 x10^3/uL (1.8-7.7) Lymphocytes # (Auto) 2.4 x10^3/uL (1.0-4.8) Monocytes # (Auto) 0.9 x10^3/uL (0.0-1.1) Eosinophils # (Auto) 0.2 x10^3/uL (0.0-0.7) Basophils # (Auto) 0.1 x10^3/uL (0.0-0.2) Sodium Level 139 mmol/L (136-145) Potassium Level 4.3 mmol/L (3.5-5.1) Chloride Level 103 mmol/L (98-107) Carbon Dioxide Level 28 mmol/L (21-32) Anion Gap 8 (6-14) Blood Urea Nitrogen 24 mg/dL (7-20) Creatinine 1.3 mg/dL (0.6-1.0) Estimated GFR (Cockcroft-Gault) 40.2 Glucose Level 182 mg/dL (70-99) Calcium Level 9.3 mg/dL (8.5-10.1) Test 05/09/19 07:43 Glucose (Fingerstick) 207 mg/dL (70-99) Microbiology 05/06/19 Urine Culture - Final, Complete 05/06/19 Urine Culture Result 1 (LUISITO) - Final, Complete 05/06/19 Blood Culture - Preliminary, Resulted NO GROWTH AFTER 2 DAYS Medications Current Medications Ceftriaxone Sodium (Rocephin) 1 gm 1X ONCE IVP Last administered on 05/06/19at 23:13; Start 05/06/19 at 23:00; Stop 05/06/19 at 23:01; Status DC EZETIMIBE (Zetia) 5 mg DAILY PO Last administered on 05/08/19at 08:25; Start 05/07/19 at 09:00 Gabapentin (Neurontin) 300 mg DAILY PO ; Start 05/07/19 at 09:00 Levothyroxine Sodium (Synthroid) 112 mcg DAILY07 PO Last administered on 05/09/19 05:55; Start 05/07/19 at 09:00 Lisinopril (Prinivil) 5 mg DAILY PO Last administered on 05/08/19at 08:26; Start 05/07/19 at 09:00; Stop 05/08/19 at 14:08; Status DC Tramadol HCl (Ultram) 50 mg PRN Q6HRS PRN PO PAIN Last administered on 05/07/19at 10:14; Start 05/07/19 at 08:30 Metformin HCl (Glucophage) 1,000 mg BIDWMEALS PO ; Start 05/09/19 at 17:00 Insulin Human Lispro (HumaLOG) 0-5 UNITS TIDACHC SQ ; Start 05/07/19 at 11:30 Dextrose (Dextrose 50%-Water Syringe) 12.5 gm PRN Q15MIN PRN IV SEE COMMENTS; Start 05/07/19 at 08:30 Ondansetron HCl (Zofran) 4 mg PRN Q6HRS PRN IVP NAUSEA/VOMITING, 1ST CHOICE Last administered on 05/07/19at 14:02; Start 05/07/19 at 08:30 Enoxaparin Sodium (Lovenox 40mg Syringe) 40 mg Q24H SQ Last administered on 05/08/19at 08:24; Start 05/07/19 at 09:00; Stop 05/08/19 at 13:58; Status DC Ceftriaxone Sodium (Rocephin) 1 gm Q24H IVP Last administered on 05/08/19at 16:16; Start 05/07/19 at 16:30 Prochlorperazine Edisylate (Compazine) 10 mg PRN Q6HRS PRN IV NAUSEA/VOMITING, 2ND CHOICE Last administered on 05/07/19at 11:43; Start 05/07/19 at 11:30 Enoxaparin Sodium (Lovenox 40mg Syringe) 30 mg Q24H SQ ; Start 05/07/19 at 13:15; Stop 05/07/19 at 13:31; Status DC Acetaminophen (Tylenol) 650 mg PRN Q6HRS PRN PO TEMP > 100.4F; Start 05/07/19 at 13:15 Acetaminophen (Tylenol Supp) 650 mg PRN Q4HRS PRN MO TEMP > 100.4F; Start 05/07/19 at 13:15 Aspirin (Ecotrin) 325 mg DAILYWBKFT PO Last administered on 05/08/19at 08:26; Start 05/08/19 at 08:00; Stop 05/08/19 at 13:56; Status DC Aspirin (Aspirin Rectal Supp) 300 mg PRN DAILY PRN MO IF UNABLE TO TAKE PO; Start 05/07/19 at 13:15; Stop 05/08/19 at 17:42; Status DC Iohexol (Omnipaque 350 Mg/ml) 60 ml 1X ONCE IV Last administered on 05/07/19at 14:25; Start 05/07/19 at 14:00; Stop 05/07/19 at 14:01; Status DC Info (CONTRAST GIVEN -- Rx MONITORING) 1 each PRN DAILY PRN MC SEE COMMENTS; Start 05/07/19 at 13:45; Stop 05/09/19 at 13:44 Lactobacillus Rhamnosus (Culturelle) 1 cap BID PO Last administered on 05/08/19at 21:28; Start 05/07/19 at 21:00 Atorvastatin Calcium (Lipitor) 40 mg QHS PO Last administered on 05/08/19at 21:28; Start 05/07/19 at 21:00 Apixaban (Eliquis) 5 mg BID PO Last administered on 05/08/19at 21:28; Start 05/08/19 at 21:00 Metoprolol Tartrate (Lopressor) 12.5 mg BID PO Last administered on 05/08/19at 21:30; Start 05/08/19 at 21:00 Active Scripts Active Reported [place] 5-325 Tablet (Acetaminophen/Hydrocodone Bitart) 1 Each Tablet 1 Tab PO Q4HRS PRN Gabapentin 300 Mg Capsule 300 Mg PO DAILY Tramadol Hcl 50 Mg Tablet 50 Mg PO Q6HRS PRN Amox Tr-K Clv 500-125 Mg Tab (Amoxicillin/Potassium Clav) 1 Each Tablet 1 Tab PO BID Levothyroxine Sodium 112 Mcg Tablet 1 Tab PO DAILY Naprosyn (Naproxen) 500 Mg Tablet 500 Mg PO DAILY Januvia (Sitagliptin Phosphate) 100 Mg Tablet 100 Mg PO DAILY Lisinopril 5 Mg Tablet 5 Mg PO DAILY Zetia (Ezetimibe) 10 Mg Tablet 5 Mg PO DAILY Metformin Hcl 1,000 Mg Tablet 1,000 Mg PO BIDWMEALS Furosemide 40 Mg Tablet 1 Tab PO DAILY Vitals/I & O Vital Sign - Last 24 Hours 05/08/19 05/08/19 05/08/19 05/08/19 11:50 15:12 19:53 20:10 Temp 97.6 98.1 98.2 97.6 98.1 98.2 Pulse 81 76 82 Resp 18 18 16 B/P (MAP) 111/47 (68) 92/47 (62) 128/69 (88) Pulse Ox 100 100 98 O2 Delivery Room Air Room Air Room Air Room Air 05/08/19 05/08/19 05/09/19 05/09/19 21:30 23:43 03:10 07:20 Temp 98.2 97.9 97.6 98.2 97.9 97.6 Pulse 82 68 79 69 Resp 16 16 16 B/P (MAP) 128/69 114/47 (69) 125/60 (81) 136/62 (86) Pulse Ox 96 98 95 O2 Delivery Room Air Room Air Room Air Intake and Output 05/08/19 05/08/19 05/09/19 15:00 23:00 07:00 Intake Total 220 ml 200 ml Balance 220 ml 200 ml MARITA DIETZ MD May 09, 2019 08:33
[2019-05-09] MEDS: LACTOBACILLUS RHAMNOSUS GG 1 CAPSULE. PO SCH ×2 (09:27→20:36)
[2019-05-09] MEDS: EZETIMIBE 10 MG TABLET. PO SCH (09:28)
[2019-05-09] MEDS: APIXABAN 5 MG TABLET. PO SCH ×2 (09:28→20:35)
[2019-05-09] MEDS: GABAPENTIN 300 MG CAPSULE. PO SCH (09:28)
[2019-05-09] MEDS: METOPROLOL TART IMMED RELEASE 25 MG TABLET. PO SCH ×2 (09:34→20:36)
[2019-05-09 11:30] VITALS: BP 103/61
[2019-05-09 15:15] VITALS: BP 121/72
[2019-05-09] MEDS: cefTRIAXone IV Push 1 GM VIAL. IVP SCH (16:30)
--- NOTE | 2019-05-09 16:45 | PDOC ---
PROGRESS NOTES Assessment Assessment IMPRESSION: Acute/ early subacute infarcts of the left thalamus, left occipital lobe, and left temporal lobe/hippocampal formation. Metabolic encephalopathy. Confusion. Right temporal field deficits. AFib. HLD. DM. Hypothyroidism. UTI. RECOMMENDATIONS/PLAN: She has been on Eliquis. Continue Lipitor 40 mg HS. Treat medical diseases. Discussed with her daughter at bedside on 05/09/19. CTA and Echo unremarkable. SUBJECTIVE: She felt dizziness and drowsiness that might be side effects after taken 300 mg Neurontin, so she may not go home today. Past Medical History Cardiovascular: Hyperlipidemia CENTRAL NERVOUS SYSTEM: Periperal neuropathy Musculoskeletal: Osteoarthritis Renal/: UTI Endocrine: Diabetes, Hypothyroidism Past Surgical History No pertinent history Family History Hypertension Social History , quit smoking, no alcohol Allergies No Known Drug Allergies (Unverified , 10/28/17) ROS Negative for fever, chills, weight loss, shortness of breath, chest pain, indigestion, hematochezia, melena, and dysuria. Full 14-point review of systems is negative. MEDICATIONS: Refer to [facility] PHYSICAL EXAMINATION: General appearance in subacute distress. HEENT: Normocephalic and nontraumatic. Eyes, nose, ears, and throat are unremarkable. Hearing decrease. Neck is supple. No lymphadenopathy. No Crepitus. Cardiovascular: S1, S2, regular rate and rhythm. Pulmonary: Clear to auscultation bilaterally. Abdomen: Bowel sounds are positive. Abdomen is soft, nontender, and nondistended. Extremities: No rash, lesions, or edema. No restriction of range of motion NEUROLOGICAL EXAMINATION: Alert. Oriented to time, place and person. PERRL. EOMI. CN: no focal findings. Muscle tone: within normal. Muscle strength: 5 DTR: 2 Plantar reflex: Flexor response bilaterally Gait: not examined in bed. Sensory exam: no abnormal findings. No acute cerebellar signs elicited. F-T-N test fine. Objective Objective Vital Signs Date Time Temp Pulse Resp B/P (MAP) Pulse Ox O2 Delivery O2 Flow Rate FiO2 05/09/19 15:15 98.1 72 20 121/72 (88) 98 Room Air 98.1 Intake and Output 05/09/19 07:00 Intake Total 420 ml Balance 420 ml Intake Oral 420 ml # Voids 3 Vitals Signs Vitals VS - Last 72 Hours, by Label Date Time Temp Pulse Resp B/P (MAP) Pulse Ox O2 Delivery O2 Flow Rate FiO2 05/09/19 15:15 98.1 72 20 121/72 (88) 98 Room Air 98.1 05/09/19 11:30 98.2 65 20 103/61 (75) 93 Room Air 98.2 05/09/19 09:34 69 136/62 05/09/19 07:20 97.6 69 16 136/62 (86) 95 Room Air 97.6 05/09/19 03:10 97.9 79 16 125/60 (81) 98 Room Air 97.9 05/08/19 23:43 98.2 68 16 114/47 (69) 96 Room Air 98.2 05/08/19 21:30 82 128/69 05/08/19 20:10 Room Air 05/08/19 19:53 98.2 82 16 128/69 (88) 98 Room Air 98.2 05/08/19 15:12 98.1 76 18 92/47 (62) 100 Room Air 98.1 05/08/19 11:50 97.6 81 18 111/47 (68) 100 Room Air 97.6 05/08/19 08:26 91 111/58 05/08/19 08:00 Room Air 05/08/19 07:38 98.2 91 18 111/58 (75) 95 Room Air 98.2 Laboratory Laboratory Laboratory Tests Test 05/08/19 16:53 05/08/19 20:44 05/09/19 04:30 05/09/19 07:43 Glucose (Fingerstick) 204 mg/dL (70-99) 240 mg/dL (70-99) 207 mg/dL (70-99) White Blood Count 10.5 x10^3/uL (4.0-11.0) Red Blood Count 4.67 x10^6/uL (3.50-5.40) Hemoglobin 13.9 g/dL (12.0-15.5) Hematocrit 40.9 % (36.0-47.0) Mean Corpuscular Volume 88 fL (79-100) Mean Corpuscular Hemoglobin 30 pg (25-35) Mean Corpuscular Hemoglobin Concent 34 g/dL (31-37) Red Cell Distribution Width 13.1 % (11.5-14.5) Platelet Count 290 x10^3/uL (140-400) Neutrophils (%) (Auto) 66 % (31-73) Lymphocytes (%) (Auto) 23 % (24-48) Monocytes (%) (Auto) 9 % (0-9) Eosinophils (%) (Auto) 2 % (0-3) Basophils (%) (Auto) 1 % (0-3) Neutrophils # (Auto) 6.9 x10^3/uL (1.8-7.7) Lymphocytes # (Auto) 2.4 x10^3/uL (1.0-4.8) Monocytes # (Auto) 0.9 x10^3/uL (0.0-1.1) Eosinophils # (Auto) 0.2 x10^3/uL (0.0-0.7) Basophils # (Auto) 0.1 x10^3/uL (0.0-0.2) Sodium Level 139 mmol/L (136-145) Potassium Level 4.3 mmol/L (3.5-5.1) Chloride Level 103 mmol/L (98-107) Carbon Dioxide Level 28 mmol/L (21-32) Anion Gap 8 (6-14) Blood Urea Nitrogen 24 mg/dL (7-20) Creatinine 1.3 mg/dL (0.6-1.0) Estimated GFR (Cockcroft-Gault) 40.2 Glucose Level 182 mg/dL (70-99) Calcium Level 9.3 mg/dL (8.5-10.1) Test 05/09/19 11:29 Glucose (Fingerstick) 335 mg/dL (70-99) Microbiology 05/06/19 Urine Culture - Final, Complete 05/06/19 Urine Culture Result 1 (LUISITO) - Final, Complete 05/06/19 Blood Culture - Preliminary, Resulted NO GROWTH AFTER 2 DAYS Medication Medications Current Medications Apixaban (Eliquis) 5 mg BID PO Last administered on 05/09/19at 09:28; Start 05/08/19 at 21:00 Insulin Glargine (Lantus Syringe) 8 unit QHS SQ ; Start 05/09/19 at 21:00 Metformin HCl (Glucophage) 1,000 mg BIDWMEALS PO ; Start 05/09/19 at 17:00 Metoprolol Tartrate (Lopressor) 12.5 mg BID PO Last administered on 05/09/19at 09:34; Start 05/08/19 at 21:00 Comment Review of Relevant I have reviewed the following items bell (where applicable) has been applied. GALLO BRADY MD May 09, 2019 16:45
[2019-05-09] MEDS: metFORMIN 500 MG TABLET PO SCH (17:57)
[2019-05-09 19:14] VITALS: BP 121/58
[2019-05-09] MEDS: traMADol 50 MG TABLET PO PRN (20:35)
[2019-05-09] MEDS: ATORVASTATIN CALCIUM 40 MG TABLET. PO SCH (20:35)
[2019-05-09] MEDS ORDERED: INSULIN GLARGINE SYRINGE. SQ SCH (21:00)
[2019-05-09 23:26] VITALS: BP 151/72
[2019-05-10 03:28] VITALS: BP 120/57
[2019-05-10 05:40] LABS: CALCIUM 8.8 mg/dL (8.5-10.1); CREATININE 1.2 mg/dL (0.6-1.0); POTASSIUM 3.9 mmol/L (3.5-5.1)
[2019-05-10] MEDS: LEVOTHYROXINE 112 MCG TABLET PO SCH (05:59)
[2019-05-10 07:00] VITALS: BP 136/62
[2019-05-10] MEDS: INSULIN LISPRO 300 UNITS/3 ML VIAL. SQ SCH ×2 (07:30→11:30)
--- NOTE | 2019-05-10 09:43 | PDOC ---
PROGRESS NOTES History of Present Illness History of Present Illness VTE Prophylaxis Ordered VTE Prophylaxis Devices: Yes VTE Pharmacological Prophylaxi: Yes discharge dx Acute metabolic encephalopathy - likely toxic 2/2 UTI. Check TSH, b12, resolved Right arm numbness - with visual disturbance consult neurology on telemetry floor ACUTE Infarcts of the left thalamus, left occipital lobe, and left temporal lobe/hippocampal formation. 0.7 cm focus of restricted diffusion of the inferior left occipital lobe. More superiorly, there is larger focus of restricted diffusion of the left occipital lobe about 2.5 cm. There is also restricted diffusion of the left hippocampal formation/medial left temporal lobe on the order of 2.4 cm. There are 2 foci of restricted diffusion of the left thalamus with the largest about 1.1 cm. UTI - will f/u culture. cont rocephin BLOOD CULTURE Preliminary NO GROWTH AFTER 3 DAYS HTN - cont home meds HLD - cont home meds DM2 - cont home meds, add sliding scale AND LANTUS 8 UNITS SQ HS Hypothyroidism - cont home levothyroxine leukocytosis FEN - ADA diet PPX - lovenox FULL CODE Dispo - inpatient likely for 2 midnights. ECHO CARDIOLOGY CONSULT flp neurochecks q 4 hrs cbc Statin. low dose metoprolol. lisinopril DC . A1C Follow up Dr. Lr Jun 16 1:15 PM 05/09 dizzy this AM GLUCOSE UNCONTROLLED, ADDED LANTUS 8 UNITS SQ HS D/W DAUGHTER IN ROOM 05/10 FEELS BETTER, NO DIZZINESS wants to go home, no steps in home Discharge Recommendations * Acute Rehab facility Discharge Recommendation Comments * family refusing acute rehab. Wants home health or outpatient * * * * * 33 min pt exam, chart review d/c planning, > 50% of time spent with exam, chart review, pt care coordination Ambulation Comments * pt will still be at risk for falls due to visual field cut but no loss of balance today even when backing 10 ft, standing exercises walking while looking left right, and reaching to the floor/overhead. Learning Preferences * One-on-One Instruction Problem List (body system elements) * Impaired fnctnl mobility * Strength * Cognition * Balance * Knowledge-safe techniques Pt/caregiver agrees with plan of care/goals * Yes Patient condition at conclusion of therapy * Pt in chair * Phone in reach * PtIn no apparent distress * Pt denies further needs * Visitor with patient Goal 1 - Bed Mobility Assistance Required * Independent Goal 2 - Transfers Assistance Required * Independent Goal 2 - Transfer Type * Stand-Step Goal 3 - Ambulation Assistance Required * Independent Goal 3 - Ambulation Distance * 500' Goal 3 - Ambulation Device * No Device Goal 4 - Stairs Assistance Required * Independent Goal 4 - Number of Stairs * >9 Goal 4 - Device on Stairs * Rail on Right Treatment Plan * Therapeutic Exercise * Bed Mobility Training * Transfer training * Gait Training * Dynamic Balance Training Frequency of Treatment Expected * 12 visits/week Duration of Treatment Expected * 2 weeks Discharge Recommendations * Acute Rehab facility * Home with Assistance * Home with outpatient * Home with Home Health Discharge Recommendation Comments * Pt will need supervision at home. Spouse to provide. Vitals Vitals Vital Signs Date Time Temp Pulse Resp B/P (MAP) Pulse Ox O2 Delivery O2 Flow Rate FiO2 05/10/19 07:00 98.2 61 14 136/62 (86) 96 Room Air 98.2 Physical Exam General: Alert, Oriented X3, Cooperative, No acute distress Heart: Regular rate (SR), Normal S1, Normal S2, No murmurs Lungs: Clear Abdomen: Normal bowel sounds, Soft, No tenderness Extremities: No cyanosis, No edema Skin: No breakdown, No significant lesion Labs LABS PATIENT: MARLON WHITAKER ACCT: [id number] LOC: [address] [place] [address] U: [id number] AGE/SX: 73/F ROOM: [facility] RE05/06/[address]: JAIDEN GRUBBS : 1945 BED: 1 DIS: STATUS: ADM IN TLOC: SPEC #: [id number] IRA: 05/06/19 STATUS: RES REQ #: [id number] RECD: 05/06/[address]: JUDITH SCHWARTZ MD SOURCE: BLOOD ENTR: 05/06/[address]: LEONARD GRUBBS MD SPDC: ORDERED: BCULT Procedure Result BLOOD CULTURE Preliminary NO GROWTH AFTER 3 DAYS Laboratory Tests Test 05/09/19 11:29 05/09/19 16:46 05/09/19 20:33 05/10/19 04:38 Glucose (Fingerstick) 335 mg/dL (70-99) 162 mg/dL (70-99) 201 mg/dL (70-99) Sodium Level 139 mmol/L (136-145) Potassium Level 3.9 mmol/L (3.5-5.1) Chloride Level 105 mmol/L (98-107) Carbon Dioxide Level 24 mmol/L (21-32) Anion Gap 10 (6-14) Blood Urea Nitrogen 24 mg/dL (7-20) Creatinine 1.2 mg/dL (0.6-1.0) Estimated GFR (Cockcroft-Gault) 44.0 Glucose Level 164 mg/dL (70-99) Calcium Level 8.8 mg/dL (8.5-10.1) Test 05/10/19 08:08 Glucose (Fingerstick) 170 mg/dL (70-99) Comment Review of Relevant I have reviewed the following items bell (where applicable) has been applied. Labs Laboratory Tests Test 05/08/19 11:11 05/08/19 16:53 05/08/19 20:44 05/09/19 04:30 Glucose (Fingerstick) 225 mg/dL (70-99) 204 mg/dL (70-99) 240 mg/dL (70-99) White Blood Count 10.5 x10^3/uL (4.0-11.0) Red Blood Count 4.67 x10^6/uL (3.50-5.40) Hemoglobin 13.9 g/dL (12.0-15.5) Hematocrit 40.9 % (36.0-47.0) Mean Corpuscular Volume 88 fL (79-100) Mean Corpuscular Hemoglobin 30 pg (25-35) Mean Corpuscular Hemoglobin Concent 34 g/dL (31-37) Red Cell Distribution Width 13.1 % (11.5-14.5) Platelet Count 290 x10^3/uL (140-400) Neutrophils (%) (Auto) 66 % (31-73) Lymphocytes (%) (Auto) 23 % (24-48) Monocytes (%) (Auto) 9 % (0-9) Eosinophils (%) (Auto) 2 % (0-3) Basophils (%) (Auto) 1 % (0-3) Neutrophils # (Auto) 6.9 x10^3/uL (1.8-7.7) Lymphocytes # (Auto) 2.4 x10^3/uL (1.0-4.8) Monocytes # (Auto) 0.9 x10^3/uL (0.0-1.1) Eosinophils # (Auto) 0.2 x10^3/uL (0.0-0.7) Basophils # (Auto) 0.1 x10^3/uL (0.0-0.2) Sodium Level 139 mmol/L (136-145) Potassium Level 4.3 mmol/L (3.5-5.1) Chloride Level 103 mmol/L (98-107) Carbon Dioxide Level 28 mmol/L (21-32) Anion Gap 8 (6-14) Blood Urea Nitrogen 24 mg/dL (7-20) Creatinine 1.3 mg/dL (0.6-1.0) Estimated GFR (Cockcroft-Gault) 40.2 Glucose Level 182 mg/dL (70-99) Calcium Level 9.3 mg/dL (8.5-10.1) Test 05/09/19 07:43 05/09/19 11:29 05/09/19 16:46 05/09/19 20:33 Glucose (Fingerstick) 207 mg/dL (70-99) 335 mg/dL (70-99) 162 mg/dL (70-99) 201 mg/dL (70-99) Test 05/10/19 04:38 05/10/19 08:08 Sodium Level 139 mmol/L (136-145) Potassium Level 3.9 mmol/L (3.5-5.1) Chloride Level 105 mmol/L (98-107) Carbon Dioxide Level 24 mmol/L (21-32) Anion Gap 10 (6-14) Blood Urea Nitrogen 24 mg/dL (7-20) Creatinine 1.2 mg/dL (0.6-1.0) Estimated GFR (Cockcroft-Gault) 44.0 Glucose Level 164 mg/dL (70-99) Calcium Level 8.8 mg/dL (8.5-10.1) Glucose (Fingerstick) 170 mg/dL (70-99) Laboratory Tests Test 05/09/19 11:29 05/09/19 16:46 05/09/19 20:33 05/10/19 04:38 Glucose (Fingerstick) 335 mg/dL (70-99) 162 mg/dL (70-99) 201 mg/dL (70-99) Sodium Level 139 mmol/L (136-145) Potassium Level 3.9 mmol/L (3.5-5.1) Chloride Level 105 mmol/L (98-107) Carbon Dioxide Level 24 mmol/L (21-32) Anion Gap 10 (6-14) Blood Urea Nitrogen 24 mg/dL (7-20) Creatinine 1.2 mg/dL (0.6-1.0) Estimated GFR (Cockcroft-Gault) 44.0 Glucose Level 164 mg/dL (70-99) Calcium Level 8.8 mg/dL (8.5-10.1) Test 05/10/19 08:08 Glucose (Fingerstick) 170 mg/dL (70-99) Microbiology 05/06/19 Urine Culture - Final, Complete 05/06/19 Urine Culture Result 1 (LUISITO) - Final, Complete 05/06/19 Blood Culture - Preliminary, Resulted NO GROWTH AFTER 3 DAYS Medications Current Medications Ceftriaxone Sodium (Rocephin) 1 gm 1X ONCE IVP Last administered on 05/06/19at 23:13; Start 05/06/19 at 23:00; Stop 05/06/19 at 23:01; Status DC EZETIMIBE (Zetia) 5 mg DAILY PO Last administered on 05/09/19at 09:28; Start 05/07/19 at 09:00 Gabapentin (Neurontin) 300 mg DAILY PO Last administered on 05/09/19at 09:28; Start 05/07/19 at 09:00; Stop 05/09/19 at 13:04; Status DC Levothyroxine Sodium (Synthroid) 112 mcg DAILY07 PO Last administered on 05/10/19at 05:59; Start 05/07/19 at 09:00 Lisinopril (Prinivil) 5 mg DAILY PO Last administered on 05/08/19at 08:26; Start 05/07/19 at 09:00; Stop 05/08/19 at 14:08; Status DC Tramadol HCl (Ultram) 50 mg PRN Q6HRS PRN PO PAIN Last administered on 05/09/19at 20:35; Start 05/07/19 at 08:30 Metformin HCl (Glucophage) 1,000 mg BIDWMEALS PO Last administered on 05/09at 17:57; Start 05/09/19 at 17:00 Insulin Human Lispro (HumaLOG) 0-5 UNITS TIDACHC SQ Last administered on 05/09/19at 12:17; Start 05/07/19 at 11:30 Dextrose (Dextrose 50%-Water Syringe) 12.5 gm PRN Q15MIN PRN IV SEE COMMENTS; Start 05/07/19 at 08:30 Ondansetron HCl (Zofran) 4 mg PRN Q6HRS PRN IVP NAUSEA/VOMITING, 1ST CHOICE Last administered on 05/07/19at 14:02; Start 05/07/19 at 08:30 Enoxaparin Sodium (Lovenox 40mg Syringe) 40 mg Q24H SQ Last administered on 05/08/19at 08:24; Start 05/07/19 at 09:00; Stop 05/08/19 at 13:58; Status DC Ceftriaxone Sodium (Rocephin) 1 gm Q24H IVP Last administered on 05/08/19at 16:16; Start 05/07/19 at 16:30 Prochlorperazine Edisylate (Compazine) 10 mg PRN Q6HRS PRN IV NAUSEA/VOMITING, 2ND CHOICE Last administered on 05/07/19at 11:43; Start 05/07/19 at 11:30 Enoxaparin Sodium (Lovenox 40mg Syringe) 30 mg Q24H SQ ; Start 05/07/19 at 13:15; Stop 05/07/19 at 13:31; Status DC Acetaminophen (Tylenol) 650 mg PRN Q6HRS PRN PO TEMP > 100.4F; Start 05/07/19 at 13:15 Acetaminophen (Tylenol Supp) 650 mg PRN Q4HRS PRN RI TEMP > 100.4F; Start 05/07/19 at 13:15 Aspirin (Ecotrin) 325 mg DAILYWBKFT PO Last administered on 05/08/19at 08:26; Start 05/08/19 at 08:00; Stop 05/08/19 at 13:56; Status DC Aspirin (Aspirin Rectal Supp) 300 mg PRN DAILY PRN RI IF UNABLE TO TAKE PO; Start 05/07/19 at 13:15; Stop 05/08/19 at 17:42; Status DC Iohexol (Omnipaque 350 Mg/ml) 60 ml 1X ONCE IV Last administered on 05/07/19at 14:25; Start 05/07/19 at 14:00; Stop 05/07/19 at 14:01; Status DC Info (CONTRAST GIVEN -- Rx MONITORING) 1 each PRN DAILY PRN MC SEE COMMENTS; Start 05/07/19 at 13:45; Stop 05/09/19 at 13:44; Status DC Lactobacillus Rhamnosus (Culturelle) 1 cap BID PO Last administered on 05/09/19at 20:36; Start 05/07/19 at 21:00 Atorvastatin Calcium (Lipitor) 40 mg QHS PO Last administered on 05/09/19at 20:35; Start 05/07/19 at 21:00 Apixaban (Eliquis) 5 mg BID PO Last administered on 05/09/19at 20:35; Start 05/08/19 at 21:00 Metoprolol Tartrate (Lopressor) 12.5 mg BID PO Last administered on 05/09/19at 20:36; Start 05/08/19 at 21:00 Insulin Glargine (Lantus Syringe) 8 unit QHS SQ Last administered on 05/09/19at 20:41; Start 05/09/19 at 21:00 Active Scripts Active Reported [place] 5-325 Tablet (Acetaminophen/Hydrocodone Bitart) 1 Each Tablet 1 Tab PO Q4HRS PRN Gabapentin 300 Mg Capsule 300 Mg PO DAILY Tramadol Hcl 50 Mg Tablet 50 Mg PO Q6HRS PRN Amox Tr-K Clv 500-125 Mg Tab (Amoxicillin/Potassium Clav) 1 Each Tablet 1 Tab PO BID Levothyroxine Sodium 112 Mcg Tablet 1 Tab PO DAILY Naprosyn (Naproxen) 500 Mg Tablet 500 Mg PO DAILY Januvia (Sitagliptin Phosphate) 100 Mg Tablet 100 Mg PO DAILY Lisinopril 5 Mg Tablet 5 Mg PO DAILY Zetia (Ezetimibe) 10 Mg Tablet 5 Mg PO DAILY Metformin Hcl 1,000 Mg Tablet 1,000 Mg PO BIDWMEALS Furosemide 40 Mg Tablet 1 Tab PO DAILY Vitals/I & O Vital Sign - Last 24 Hours 05/09/19 05/09/19 05/09/19 05/09/19 11:30 15:15 19:14 20:00 Temp 98.2 98.1 98.0 98.2 98.1 98.0 Pulse 65 72 74 Resp 20 20 20 B/P (MAP) 103/61 (75) 121/72 (88) 121/58 (79) Pulse Ox 93 98 95 O2 Delivery Room Air Room Air Room Air Room Air 05/09/19 05/09/19 05/09/19 05/09/19 20:35 20:36 21:35 23:26 Temp 98.3 98.3 Pulse 58 64 Resp 20 B/P (MAP) 121/74 151/72 (98) Pulse Ox 98 97 97 O2 Delivery Room Air Room Air Room Air 05/10/19 05/10/19 03:28 07:00 Temp 98.5 98.2 98.5 98.2 Pulse 68 61 Resp 18 14 B/P (MAP) 120/57 (78) 136/62 (86) Pulse Ox 96 96 O2 Delivery Room Air Room Air Intake and Output 05/09/19 05/09/19 05/10/19 15:00 23:00 07:00 Intake Total 200 ml 250 ml 100 ml Balance 200 ml 250 ml 100 ml MARITA DIETZ MD May 10, 2019 09:43
[2019-05-10] MEDS: APIXABAN 5 MG TABLET. PO SCH (09:46)
[2019-05-10] MEDS: LACTOBACILLUS RHAMNOSUS GG 1 CAPSULE. PO SCH (09:46)
[2019-05-10] MEDS: metFORMIN 500 MG TABLET PO SCH (09:47)
[2019-05-10] MEDS: METOPROLOL TART IMMED RELEASE 25 MG TABLET. PO SCH (09:47)
[2019-05-10] MEDS: EZETIMIBE 10 MG TABLET. PO SCH (09:47)
[2019-05-10 11:00] VITALS: BP 122/60
--- NOTE | 2019-05-10 12:34 | PDOC3 ---
Discharge Summary Date of Admission: May 07, 2019 Date of Discharge: May 10, 2019 Follow-Up: 3-5 days Admitting Diagnosis comment: discharge dx Acute metabolic encephalopathy - likely toxic 2/2 UTI. Check TSH, b12, resolved Right arm numbness - with visual disturbance consult neurology on telemetry floor ACUTE Infarcts of the left thalamus, left occipital lobe, and left temporal lobe/hippocampal formation. 0.7 cm focus of restricted diffusion of the inferior left occipital lobe. More superiorly, there is larger focus of restricted diffusion of the left occipital lobe about 2.5 cm. There is also restricted diffusion of the left hippocampal formation/medial left temporal lobe on the order of 2.4 cm. There are 2 foci of restricted diffusion of the left thalamus with the largest about 1.1 cm. UTI - will f/u culture. cont rocephin neg result BLOOD CULTURE Preliminary NO GROWTH AFTER 3 DAYS HTN - cont home meds HLD - cont home meds DM2 - cont home meds, add sliding scale d/c LANTUS 8 UNITS SQ HS Hypothyroidism - cont home levothyroxine leukocytosis FEN - ADA diet PPX - lovenox FULL CODE Dispo - inpatient likely for 2 midnights. ECHO CARDIOLOGY CONSULT flp neurochecks q 4 hrs cbc Statin. low dose metoprolol. lisinopril DC . A1C Follow up Dr. Lr Jun 16 1:15 PM 05/09 dizzy this AM GLUCOSE UNCONTROLLED, ADDED LANTUS 8 UNITS SQ HS D/W DAUGHTER IN ROOM 05/10 FEELS BETTER, NO DIZZINESS wants to go home, no steps in home Discharge Recommendations * Acute Rehab facility Discharge Recommendation Comments * family refusing acute rehab. Wants home health or outpatient * * * * * 33 min pt exam, chart review d/c planning, > 50% of time spent with exam, chart review, pt care coordination Ambulation Comments * pt will still be at risk for falls due to visual field cut but no loss of balance today even when backing 10 ft, standing exercises walking while looking left right, and reaching to the floor/overhead. Learning Preferences * One-on-One Instruction Problem List (body system elements) * Impaired fnctnl mobility * Strength * Cognition * Balance * Knowledge-safe techniques Pt/caregiver agrees with plan of care/goals * Yes Patient condition at conclusion of therapy * Pt in chair * Phone in reach * PtIn no apparent distress * Pt denies further needs * Visitor with patient Goal 1 - Bed Mobility Assistance Required * Independent Goal 2 - Transfers Assistance Required * Independent Goal 2 - Transfer Type * Stand-Step Goal 3 - Ambulation Assistance Required * Independent Goal 3 - Ambulation Distance * 500' Goal 3 - Ambulation Device * No Device Goal 4 - Stairs Assistance Required * Independent Goal 4 - Number of Stairs * >9 Goal 4 - Device on Stairs * Rail on Right Treatment Plan * Therapeutic Exercise * Bed Mobility Training * Transfer training * Gait Training * Dynamic Balance Training Frequency of Treatment Expected * 12 visits/week Duration of Treatment Expected * 2 weeks Discharge Recommendations * Acute Rehab facility * Home with Assistance * Home with outpatient * Home with Home Health Discharge Recommendation Comments * Pt will need supervision at home. Spouse to provide. Vitals Vitals Vital Signs Date Time Temp Pulse Resp B/P (MAP) Pulse Ox O2 Delivery O2 Flow Rate FiO2 05/10/19 07:00 98.2 61 14 136/62 (86) 96 Room Air 98.2 Physical Exam General: Alert, Oriented X3, Cooperative, No acute distress Heart: Regular rate (SR), Normal S1, Normal S2, No murmurs Lungs: Clear Abdomen: Normal bowel sounds, Soft, No tenderness Extremities: No cyanosis, No edema Skin: No breakdown, No significant lesion Labs LABS PATIENT: MARLON WHITAKER ACCT: [id number] LOC: [address] [place] [address] U: [id number] AGE/SX: 73/F ROOM: 673 RE05/06/[address]: JAIDEN GRUBBS : 1945 BED: 1 DIS: STATUS: ADM IN TLOC: SPEC #: [id number] IRA: 05/06/19 STATUS: RES REQ #: [id number] RECD: 05/06/19 [facility] DR: JUDITH SCHWARTZ MD SOURCE: BLOOD ENTR: 05/06/[address]: LEONARD GRUBBS MD SPDC: ORDERED: BCULT Procedure Result - BLOOD CULTURE Preliminary NO GROWTH AFTER 3 DAYS Brief Hospital Course Ms. Whitaker is a 73 old [sex] who presented with [ ] Discharge Medications Current Medications Ceftriaxone Sodium (Rocephin) 1 gm 1X ONCE IVP Last administered on 05/06/19 23:13; Start 05/06/19 at 23:00; Stop 05/06/19 at 23:01; Status DC EZETIMIBE (Zetia) 5 mg DAILY PO Last administered on 05/10/19 09:47; Start 05/07/19 at 09:00 Gabapentin (Neurontin) 300 mg DAILY PO Last administered on 05/09/19 09:28; Start 05/07/19 at 09:00; Stop 05/09/19 at 13:04; Status DC Levothyroxine Sodium (Synthroid) 112 mcg DAILY07 PO Last administered on 05/10/19 05:59; Start 05/07/19 at 09:00 Lisinopril (Prinivil) 5 mg DAILY PO Last administered on 05/08/19 08:26; Start 05/07/19 at 09:00; Stop 05/08/19 at 14:08; Status DC Tramadol HCl (Ultram) 50 mg PRN Q6HRS PRN PO PAIN Last administered on 05/09/19 20:35; Start 05/07/19 at 08:30 Metformin HCl (Glucophage) 1,000 mg BIDWMEALS PO Last administered on 05/10/19 09:47; Start 05/09/19 at 17:00 Insulin Human Lispro (HumaLOG) 0-5 UNITS TIDACHC SQ Last administered on 05/09/19at 12:17; Start 05/07/19 at 11:30 Dextrose (Dextrose 50%-Water Syringe) 12.5 gm PRN Q15MIN PRN IV SEE COMMENTS; Start 05/07/19 at 08:30 Ondansetron HCl (Zofran) 4 mg PRN Q6HRS PRN IVP NAUSEA/VOMITING, 1ST CHOICE Last administered on 05/07/19at 14:02; Start 05/07/19 at 08:30 Enoxaparin Sodium (Lovenox 40mg Syringe) 40 mg Q24H SQ Last administered on 05/08/19 08:24; Start 05/07/19 at 09:00; Stop 05/08/19 at 13:58; Status DC Ceftriaxone Sodium (Rocephin) 1 gm Q24H IVP Last administered on 05/08/19at 16:16; Start 05/07/19 at 16:30 Prochlorperazine Edisylate (Compazine) 10 mg PRN Q6HRS PRN IV NAUSEA/VOMITING, 2ND CHOICE Last administered on 05/07/19at 11:43; Start 05/07/19 at 11:30 Enoxaparin Sodium (Lovenox 40mg Syringe) 30 mg Q24H SQ ; Start 05/07/19 at 13:15; Stop 05/07/19 at 13:31; Status DC Acetaminophen (Tylenol) 650 mg PRN Q6HRS PRN PO TEMP > 100.4F; Start 05/07/19 at 13:15 Acetaminophen (Tylenol Supp) 650 mg PRN Q4HRS PRN [place] TEMP > 100.4F; Start 05/07/19 at 13:15 Aspirin (Ecotrin) 325 mg DAILYWBKFT PO Last administered on 05/08/19at 08:26; Start 05/08/19 at 08:00; Stop 05/08/19 at 13:56; Status DC Aspirin (Aspirin Rectal Supp) 300 mg PRN DAILY PRN VT IF UNABLE TO TAKE PO; Start 05/07/19 at 13:15; Stop 05/08/19 at 17:42; Status DC Iohexol (Omnipaque 350 Mg/ml) 60 ml 1X ONCE IV Last administered on 05/07/19at 14:25; Start 05/07/19 at 14:00; Stop 05/07/19 at 14:01; Status DC Info (CONTRAST GIVEN -- Rx MONITORING) 1 each PRN DAILY PRN MC SEE COMMENTS; Start 05/07/19 at 13:45; Stop 05/09/19 at 13:44; Status DC Lactobacillus Rhamnosus (Culturelle) 1 cap BID PO Last administered on at 09:46; Start 05/07/19 at 21:00 Atorvastatin Calcium (Lipitor) 40 mg QHS PO Last administered on 05/09/19at 20:35; Start 05/07/19 at 21:00 Apixaban (Eliquis) 5 mg BID PO Last administered on 05/10/19at 09:46; Start 05/08/19 at 21:00 Metoprolol Tartrate (Lopressor) 12.5 mg BID PO Last administered on 05/10/19at 09:47; Start 05/08/19 at 21:00 Insulin Glargine (Lantus Syringe) 8 unit QHS SQ Last administered on 05/09/19at 20:41; Start 05/09/19 at 21:00 Active Scripts Active Reported [place] 5-325 Tablet (Acetaminophen/Hydrocodone Bitart) 1 Each Tablet 1 Tab PO Q4HRS PRN Gabapentin 300 Mg Capsule 300 Mg PO DAILY Tramadol Hcl 50 Mg Tablet 50 Mg PO Q6HRS PRN Amox Tr-K Clv 500-125 Mg Tab (Amoxicillin/Potassium Clav) 1 Each Tablet 1 Tab PO BID Levothyroxine Sodium 112 Mcg Tablet 1 Tab PO DAILY Naprosyn (Naproxen) 500 Mg Tablet 500 Mg PO DAILY Januvia (Sitagliptin Phosphate) 100 Mg Tablet 100 Mg PO DAILY Lisinopril 5 Mg Tablet 5 Mg PO DAILY Zetia (Ezetimibe) 10 Mg Tablet 5 Mg PO DAILY Metformin Hcl 1,000 Mg Tablet 1,000 Mg PO BIDWMEALS Furosemide 40 Mg Tablet 1 Tab PO DAILY Vital Signs Vital Signs Date Time Temp Pulse Resp B/P (MAP) Pulse Ox O2 Delivery O2 Flow Rate FiO2 05/10/19 11:00 98.2 61 14 122/60 (80) 95 Room Air 98.2 Labs Laboratory Tests Test 05/08/19 16:53 05/08/19 20:44 05/09/19 04:30 05/09/19 07:43 Glucose (Fingerstick) 204 mg/dL (70-99) 240 mg/dL (70-99) 207 mg/dL (70-99) White Blood Count 10.5 x10^3/uL (4.0-11.0) Red Blood Count 4.67 x10^6/uL (3.50-5.40) Hemoglobin 13.9 g/dL (12.0-15.5) Hematocrit 40.9 % (36.0-47.0) Mean Corpuscular Volume 88 fL (79-100) Mean Corpuscular Hemoglobin 30 pg (25-35) Mean Corpuscular Hemoglobin Concent 34 g/dL (31-37) Red Cell Distribution Width 13.1 % (11.5-14.5) Platelet Count 290 x10^3/uL (140-400) Neutrophils (%) (Auto) 66 % (31-73) Lymphocytes (%) (Auto) 23 % (24-48) Monocytes (%) (Auto) 9 % (0-9) Eosinophils (%) (Auto) 2 % (0-3) Basophils (%) (Auto) 1 % (0-3) Neutrophils # (Auto) 6.9 x10^3/uL (1.8-7.7) Lymphocytes # (Auto) 2.4 x10^3/uL (1.0-4.8) Monocytes # (Auto) 0.9 x10^3/uL (0.0-1.1) Eosinophils # (Auto) 0.2 x10^3/uL (0.0-0.7) Basophils # (Auto) 0.1 x10^3/uL (0.0-0.2) Sodium Level 139 mmol/L (136-145) Potassium Level 4.3 mmol/L (3.5-5.1) Chloride Level 103 mmol/L (98-107) Carbon Dioxide Level 28 mmol/L (21-32) Anion Gap 8 (6-14) Blood Urea Nitrogen 24 mg/dL (7-20) Creatinine 1.3 mg/dL (0.6-1.0) Estimated GFR (Cockcroft-Gault) 40.2 Glucose Level 182 mg/dL (70-99) Calcium Level 9.3 mg/dL (8.5-10.1) Test 05/09/19 11:29 05/09/19 16:46 05/09/19 20:33 05/10/19 04:38 Glucose (Fingerstick) 335 mg/dL (70-99) 162 mg/dL (70-99) 201 mg/dL (70-99) Sodium Level 139 mmol/L (136-145) Potassium Level 3.9 mmol/L (3.5-5.1) Chloride Level 105 mmol/L (98-107) Carbon Dioxide Level 24 mmol/L (21-32) Anion Gap 10 (6-14) Blood Urea Nitrogen 24 mg/dL (7-20) Creatinine 1.2 mg/dL (0.6-1.0) Estimated GFR (Cockcroft-Gault) 44.0 Glucose Level 164 mg/dL (70-99) Calcium Level 8.8 mg/dL (8.5-10.1) Test 05/10/19 08:08 05/10/19 11:58 Glucose (Fingerstick) 170 mg/dL (70-99) 183 mg/dL (70-99) Laboratory Tests Test 05/09/19 16:46 05/09/19 20:33 05/10/19 04:38 05/10/19 08:08 Glucose (Fingerstick) 162 mg/dL (70-99) 201 mg/dL (70-99) 170 mg/dL (70-99) Sodium Level 139 mmol/L (136-145) Potassium Level 3.9 mmol/L (3.5-5.1) Chloride Level 105 mmol/L (98-107) Carbon Dioxide Level 24 mmol/L (21-32) Anion Gap 10 (6-14) Blood Urea Nitrogen 24 mg/dL (7-20) Creatinine 1.2 mg/dL (0.6-1.0) Estimated GFR (Cockcroft-Gault) 44.0 Glucose Level 164 mg/dL (70-99) Calcium Level 8.8 mg/dL (8.5-10.1) Test 05/10/19 11:58 Glucose (Fingerstick) 183 mg/dL (70-99) Allergies Allergies Coded Allergies Type Severity Reaction Last Updated Verified No Known Drug Allergies 10/28/17 No Disposition/Orders: D/C to Home w/ HH Patient Instructions d/c planning 33 min MARITA DIETZ MD May 10, 2019 12:34
[2019-05-10] MEDS ORDERED: APIX5TAB PO (12:37)
[2019-05-10] MEDS ORDERED: ATOR40TA59 PO (12:37)
[2019-05-10] MEDS ORDERED: METO25TA4 PO (12:37)
[2019-05-10] MEDS ORDERED: ACET650S11 PR (12:37)
--- NOTE | 2019-05-10 12:38 | SNU/HH DC ---
DISCHARGE WITH HOME HEALTH DISCHARGE INFORMATION: Condition on Discharge: Stable CODE STATUS: Code Status: Full HOME HEALTH: Face to Face: I certify this patient is under my care and that I, or a nurse practitioner or physician's insurance assistant working with me, had a face to face encounter that meets the physician face to face encounter requirements with this patient on []. Medical Complications: CVA, DM RN For Eval/Treatment: Yes Physical Therapy For: Evalulation/Treatment Occupational Therapy For: Evaluation/Treatment Speech Language Pathology For: Evaluation/Treatment Home Health Aide For: Self-care GROUP ROOMS COORDINATOR For: Community Resources Pt Meets Homebound Status: Unsteady balance w/ amb, POST DISCHARGE ORDERS: Activity Instructions for Disc: No restrictions, Activity as tolerated Weight Bearing Status after Di: As tolerated DIET AFTER DISCHARGE: ADA CHECKS AFTER DISCHARGE: Checks after discharge: Check blood press - daily TREATMENT/EQUIPMENT ORDERS: Adaptive Equipment Issued: Front wheeled walker CERTIFICATION STATEMENT: Certification Statement: Certification Statement: Based on the above finding, I certify that this patient is confined to the home and needs intermittent correction care, physical therapy and/or speech therapy, or continues to need occupational therapy.~ This patient is under my care, and I have initiated the establishment of the plan of care.~ This patient will be followed by myself or a community physician who will periodically review the plan of care. Home Meds Active Scripts Acetaminophen (ACETAMINOPHEN SUPP) 650 Mg Supp.rect, 650 MG [place] PRN Q4HRS PRN for TEMP > 100.4F for 14 Days, #30 SUPP.RECT Prov:MARITA DIETZ MD 05/10/19 Metoprolol Tartrate (METOPROLOL TARTRATE) 25 Mg Tablet, 12.5 MG PO BID for blood pressure for 30 Days, #30 TAB Prov:MARITA DIETZ MD 05/10/19 Atorvastatin Calcium (ATORVASTATIN CALCIUM) 40 Mg Tablet, 40 MG PO QHS for cholesterol for 30 Days, #30 TAB Prov:MARITA DIETZ MD 05/10/19 Apixaban (ELIQUIS) 5 Mg Tablet, 5 MG PO BID for a-fib for 30 Days, #60 TAB Prov:MARITA DIETZ MD 05/10/19 Reported Medications Levothyroxine Sodium (LEVOTHYROXINE SODIUM) 112 Mcg Tablet, 1 TAB PO DAILY, #30 TAB 5 Refills 4/5/18 Sitagliptin Phosphate (JANUVIA) 100 Mg Tablet, 100 MG PO DAILY, TAB 10/24/17 Ezetimibe (ZETIA) 10 Mg Tablet, 5 MG PO DAILY, TAB 10/24/17 Metformin Hcl (METFORMIN HCL) 1,000 Mg Tablet, 1000 MG PO BIDWMEALS, TAB 10/24/17 Discontinued Reported Medications Hydrocodone/Apap 5-325 (NORCO 5-325 TABLET) 1 Each Tablet, 1 TAB PO Q4HRS PRN for PAIN, #15 TAB 10/28/17 Gabapentin (GABAPENTIN ) 300 Mg Capsule, 300 MG PO DAILY, CAP 10/28/17 Tramadol Hcl (TRAMADOL HCL) 50 Mg Tablet, 50 MG PO Q6HRS PRN for PAIN, TAB 10/28/17 Amoxicillin/Potassium Clav (AMOX TR-K CLV 500-125 MG TAB) 1 Each Tablet, 1 TAB PO BID, TAB 0 Refills 10/24/17 Naproxen (NAPROSYN) 500 Mg Tablet, 500 MG PO DAILY, TAB 10/24/17 Lisinopril (LISINOPRIL) 5 Mg Tablet, 5 MG PO DAILY for FOR HYPERTENSION, #30 TAB 0 Refills 10/24/17 Furosemide (FUROSEMIDE) 40 Mg Tablet, 1 TAB PO DAILY, #30 TAB 5 Refills 10/24/17 MARITA DIETZ MD May 10, 2019 12:38
--- NOTE | 2019-05-10 13:47 | NUR ---
Pt discharge to home with family. Discharge planning discussed with , patient and daughter. Verbalized understanding.
--- NOTE | 2019-05-10 14:47 | PDOC ---
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 Metabolic encephalopathy. Confusion. Right temporal field deficits. AFib. HLD. DM. Hypothyroidism. UTI. RECOMMENDATIONS/PLAN: She has been on Eliquis. Continue Lipitor 40 mg HS. Treat medical diseases. FU with PCP. FU with Neurology in 1 month. Discussed with her daughter again at bedside on 05/10/19. CTA and Echo unremarkable. SUBJECTIVE: On 05/09/19 She felt dizziness and drowsiness that might be side effects after taken 300 mg Neurontin. Her above symptoms resolved on 05/10/19. Past Medical History Cardiovascular: Hyperlipidemia CENTRAL NERVOUS SYSTEM: Periperal neuropathy Musculoskeletal: Osteoarthritis Renal/: UTI Endocrine: Diabetes, Hypothyroidism Past Surgical History No pertinent history Family History Hypertension Social History , quit smoking, no alcohol Allergies No Known Drug Allergies (Unverified , 10/28/17) ROS Negative for fever, chills, weight loss, shortness of breath, chest pain, indigestion, hematochezia, melena, and dysuria. Full 14-point review of systems is negative. MEDICATIONS: Refer to [facility] PHYSICAL EXAMINATION: General appearance in no acute distress. HEENT: Normocephalic and nontraumatic. Eyes, nose, ears, and throat are unremarkable. Hearing decrease. Neck is supple. No lymphadenopathy. No Crepitus. Cardiovascular: S1, S2, regular rate and rhythm. Pulmonary: Clear to auscultation bilaterally. Abdomen: Bowel sounds are positive. Abdomen is soft, nontender, and nondistended. Extremities: No rash, lesions, or edema. No restriction of range of motion NEUROLOGICAL EXAMINATION: Alert. Oriented to time, place and person. PERRL. EOMI. CN: no focal findings. Muscle tone: within normal. Muscle strength: 5 DTR: 2 Plantar reflex: Flexor response bilaterally Gait: able to walk. Sensory exam: no abnormal findings. No acute cerebellar signs elicited. F-T-N test fine. Objective Objective Vital Signs Date Time Temp Pulse Resp B/P (MAP) Pulse Ox O2 Delivery O2 Flow Rate FiO2 05/10/19 11:00 98.2 61 14 122/60 (80) 95 Room Air 98.2 Intake and Output 05/10/19 07:00 Intake Total 550 ml Balance 550 ml Intake Oral 550 ml # Voids 1 Vitals Signs Vitals VS - Last 72 Hours, by Label Date Time Temp Pulse Resp B/P (MAP) Pulse Ox O2 Delivery O2 Flow Rate FiO2 05/10/19 11:00 98.2 61 14 122/60 (80) 95 Room Air 98.2 05/10/19 09:47 61 136/62 05/10/19 07:00 98.2 61 14 136/62 (86) 96 Room Air 98.2 05/10/19 03:28 98.5 68 18 120/57 (78) 96 Room Air 98.5 05/09/19 23:26 98.3 64 20 151/72 (98) 97 Room Air 98.3 05/09/19 21:35 97 Room Air 05/09/19 20:36 58 121/74 05/09/19 20:35 98 Room Air 05/09/19 20:00 Room Air 05/09/19 19:14 98.0 74 20 121/58 (79) 95 Room Air 98.0 05/09/19 15:15 98.1 72 20 121/72 (88) 98 Room Air 98.1 05/09/19 11:30 98.2 65 20 103/61 (75) 93 Room Air 98.2 05/09/19 09:34 69 136/62 05/09/19 08:00 Room Air 05/09/19 07:20 97.6 69 16 136/62 (86) 95 Room Air 97.6 Laboratory Laboratory Laboratory Tests Test 05/09/19 16:46 05/09/19 20:33 05/10/19 04:38 05/10/19 08:08 Glucose (Fingerstick) 162 mg/dL (70-99) 201 mg/dL (70-99) 170 mg/dL (70-99) Sodium Level 139 mmol/L (136-145) Potassium Level 3.9 mmol/L (3.5-5.1) Chloride Level 105 mmol/L (98-107) Carbon Dioxide Level 24 mmol/L (21-32) Anion Gap 10 (6-14) Blood Urea Nitrogen 24 mg/dL (7-20) Creatinine 1.2 mg/dL (0.6-1.0) Estimated GFR (Cockcroft-Gault) 44.0 Glucose Level 164 mg/dL (70-99) Calcium Level 8.8 mg/dL (8.5-10.1) Test 05/10/19 11:58 Glucose (Fingerstick) 183 mg/dL (70-99) Microbiology 05/06/19 Urine Culture - Final, Complete 05/06/19 Urine Culture Result 1 (LUISITO) - Final, Complete 05/06/19 Blood Culture - Preliminary, Resulted NO GROWTH AFTER 3 DAYS Medication Medications Current Medications Insulin Glargine (Lantus Syringe) 8 unit QHS SQ Last administered on 05/09/19at 20:41; Start 05/09/19 at 21:00 Metformin HCl (Glucophage) 1,000 mg BIDWMEALS PO Last administered on 05/10/19at 09:47; Start 05/09/19 at 17:00 Comment Review of Relevant I have reviewed the following items bell (where applicable) has been applied. GALLO BRADY MD May 10, 2019 14:47
== END 2019-05-10 13:47 | disposition home health service (06) | DRG 64 ==
LOC: ER 19:46 → 5 SOUTH 22:57 → 6 SOUTH 05-07 15:01
PROVIDERS: ADMIT Internal Medicine; ATTEND Internal Medicine
DX: I63.9 Cerebral infarction, unspecified (principal); G92 Toxic encephalopathy; N39.0 Urinary tract infection, site not specified; I47.1 Supraventricular tachycardia; M19.90 Unspecified osteoarthritis, unspecified site; E03.9 Hypothyroidism, unspecified; E78.5 Hyperlipidemia, unspecified; I10 Essential (primary) hypertension; E11.42 Type 2 diabetes mellitus with diabetic polyneuropathy; H54.7 Unspecified visual loss; R29.701 NIHSS score 1; I48.0 Paroxysmal atrial fibrillation; Z82.49 Family history of ischemic heart disease and other diseases of the circulatory system; Z87.891 Personal history of nicotine dependence; Z83.3 Family history of diabetes mellitus; Z79.899 Other long term (current) drug therapy; Z79.4 Long term (current) use of insulin; Z91.81 History of falling
CPT/HCPCS: 36415; 70450; 70496; 70498; 70551; 80048; 80053; 80061; 81001; 82140; 82607; 82962; 83036; 83605; 83735; 84443; 84484; 85025; 87040; 87086; 93005; 93306; 96374; J0696; J0780; J1650; J1815; J2405; Q9967; 92610; 97530; 97535; 99285-25; G0378

== ENCOUNTER → 2019-06-29 | Outpatient (CLI) | payer MEDICARE, OTHER ==
[~2019-06-29] MED LIST changes: +ACET650S11 PR; +APIX5TAB PO; +ATOR40TA59 PO; +METO25TA4 PO
--- NOTE | 2019-06-29 15:01 | KCIC ---
MR of the right shoulder HISTORY: Right shoulder pain. Pain for one month. TECHNIQUE: Routine multiplanar sequences are obtained. FINDINGS: Moderate motion degradation. Acromioclavicular joint is degenerative, with mild joint hypertrophy. Complete full-thickness tear of the supraspinatus tendon measures 15 mm AP diameter with 2.5 cm retraction. Generalized rotator cuff tendinosis. Probable mild subscapularis tendon tearing. Mild fluid in the subdeltoid bursa. Moderate to severe supraspinatus muscle atrophy, mild infraspinatus muscle atrophy. No significant glenohumeral joint effusion. Suboptimal labral evaluation due to the motion. There is some signal within the superior labrum, cannot exclude tear. At least moderate biceps tendinosis with thickening and heterogeneous signal. No acute fracture. No aggressive bone destruction. IMPRESSION: 1. Full-thickness rotator cuff tear of the supraspinatus tendon with retraction. Probable mild partial subscapularis tendon tear. 2. Moderate motion degradation. 3. Biceps tendinosis. 4. Suboptimal labral examination, possible superior labral tear. Electronically signed by: Pedro Curiel MD (06/29/2019 2:57 PM) [facility]
== END | disposition home or self-care (01) ==
LOC: KCIC MRI 10:35
PROVIDERS: ATTEND Orthopaedic Surgery
DX: S46.011A Strain of muscle(s) and tendon(s) of the rotator cuff of right shoulder, initial encounter (principal); M62.511 Muscle wasting and atrophy, not elsewhere classified, right shoulder; M75.21 Bicipital tendinitis, right shoulder; M75.51 Bursitis of right shoulder; M19.011 Primary osteoarthritis, right shoulder; X58.XXXA Exposure to other specified factors, initial encounter; Y93.89 Activity, other specified; Y92.89 Other specified places as the place of occurrence of the external cause; Y99.8 Other external cause status
CPT/HCPCS: 73221

== ENCOUNTER → 2020-06-22 | Outpatient (CLI) | payer MEDICARE, OTHER ==
[~2020-06-22] MED LIST changes: -LEVO112T4 PO; +LEVO112T49 PO
--- NOTE | 2020-06-22 15:11 | KCIC ---
MRI left shoulder without contrast HISTORY: Tear of left rotator cuff. FINDINGS: The exam is motion degraded on all sequences decreasing sensitivity to detect pathology. No bone contusion, fracture or changes of osteonecrosis. No humeral head subluxation or dislocation. No Hill-Sachs deformity. Acromioclavicular arthrosis with mild acromion spurring and clavicle osteophyte. There is a moderate joint effusion. There is limited visualization of the intra-articular segment of the biceps tendon, the tendon is partially visualized intact at the rotator interval on coronal T2-weighted image 13 and on sagittal T2 weighted imaging, without gross evidence of a full-thickness tear of the tendon. No gross evidence of a large or distracted labral tear. Full-thickness tears of the supraspinatus and infraspinatus tendons which are retracted to the level of the glenoid. There is mild atrophy of these muscles. Subscapularis and teres minor tendons intact. No atrophy of the muscles. IMPRESSION: 1. Full-thickness tears of the supraspinatus and infraspinatus tendons as described above. 2. Acromioclavicular arthrosis as described above. 3. Exam is motion degraded as described above. Electronically signed by: Loc Gomez MD (06/22/2020 3:08 PM) [facility]
== END ==
LOC: KCIC MRI 12:52
PROVIDERS: ATTEND Orthopaedic Surgery
DX: S46.012A Strain of muscle(s) and tendon(s) of the rotator cuff of left shoulder, initial encounter (principal); M19.012 Primary osteoarthritis, left shoulder; X58.XXXA Exposure to other specified factors, initial encounter; Y93.89 Activity, other specified; Y92.89 Other specified places as the place of occurrence of the external cause; Y99.8 Other external cause status
CPT/HCPCS: 73221

== ENCOUNTER 2020-07-25 12:40 | Inpatient (IN) | payer MEDICARE, OTHER ==
[~2020-07-25] VITALS: Ht 167.6 cm; Wt 85.5 kg
[~2020-07-25 12:40] MED LIST changes: -LISI-338 PO; +LISI-517 PO
[2020-07-25] MEDS ORDERED: ONDANSETRON PF 4 MG/2 ML VIAL. IVP ONE (13:30)
[2020-07-25] MEDS ORDERED: ASPIRIN 325 MG TABLET PO ONE (13:30)
[2020-07-25] MEDS: fentaNYL PF VIAL 100 MCG/2 ML VIAL IV PRN ×2 (13:30→16:30)
[2020-07-25] MEDS: NITROGLYCERIN SUBLINGUAL 0.4 MG BOTTLE OF 25. SL PRN ×3 (13:35→13:49)
[2020-07-25 13:40] LABS: BASO % 0 % (0-3); EOS % 0 % (0-3); HEMOGLOBIN 14.3 g/dL (12.0-15.5); LYMPH # 1.1 x10^3/uL (1.0-4.8); LYMPH % 8 % (24-48); MEAN CORPUSCULAR HEMOGLOBIN 29 pg (25-35); MEAN CORPUSCULAR HGB CONC 33 g/dL (31-37); MEAN CORPUSCULAR VOLUME 86 fL (79-100); MONO # 0.5 x10^3/uL (0.0-1.1); MONO % 3 % (0-9); NEUT # 13.1 x10^3/uL (1.8-7.7); NEUT % 89 % (31-73); PLATELET COUNT 353 x10^3/uL (140-400); RED BLOOD COUNT 4.99 x10^6/uL (3.50-5.40); RED CELL DISTRIBUTION WIDTH 14.1 % (11.5-14.5); WHITE BLOOD COUNT 14.7 x10^3/uL (4.0-11.0)
[2020-07-25 13:49] LABS: PROTHROMBIN TIME PATIENT 13.6 SEC (11.7-14.0)
[2020-07-25 13:55] LABS: CALCIUM 9.2 mg/dL (8.5-10.1); GFR 54.2; POTASSIUM 3.8 mmol/L (3.5-5.1)
[2020-07-25 14:01] LABS: ALBUMIN 3.9 g/dL (3.4-5.0); ALBUMIN/GLOBULIN RATIO 1.1 (1.0-1.7); MAGNESIUM 1.7 mg/dL (1.8-2.4); TOTAL BILIRUBIN 0.7 mg/dL (0.2-1.0); TOTAL PROTEIN 7.6 g/dL (6.4-8.2)
--- NOTE | 2020-07-25 14:07 | RAD ---
EXAM: Abdomen sonogram. HISTORY: Right upper quadrant pain. TECHNIQUE: Sonographic imaging of the abdomen was performed. COMPARISON: None. FINDINGS: The liver is normal in size. No focal hepatic lesion is seen. There is cholelithiasis. The gallbladder is distended. There is no gallbladder wall thickening or pericholecystic fluid. The commo n bile duct is normal in caliber. The kidneys normal in size. There is mild right and severe left hyd ronephrosis. There is left renal cortical thinning, favoring chronic hydronephrosis. No solid or cyst ic renal lesion is seen. The left ureteral jet is not seen during the exam. The urinary bladder is ot herwise unremarkable. The aorta and inferior vena cava are partially obscured due to bowel gas. IMPRESSION: 1. Severe left hydronephrosis, possibly chronic given evidence of left renal cortical thinning. The l eft ureteral jet is not seen during the exam. The possibility of an obstructing etiology is not exclu ded. 2. Mild right hydronephrosis, of uncertain etiology. 3. Cholelithiasis and hydropic gallbladder. There is no wall thickening or pericholecystic fluid to s uggest acute cholecystitis. Electronically signed by: Reina Mir MD (07/25/2020 2:05 PM) [id number]
--- NOTE | 2020-07-25 14:13 | RAD ---
EXAM: Chest, single view. HISTORY: Chest pain. COMPARISON: None. FINDINGS: A frontal view of the chest is obtained. There is no infiltrate, pleural effusion or pneumo thorax. The heart is normal in size. There are calcified granulomas. IMPRESSION: No acute pulmonary finding. Electronically signed by: Reina Mir MD (07/25/2020 2:10 PM) [id number]
[2020-07-25] MEDS ORDERED: MORPHINE SULFATE 10 MG/ML VIAL. IV ONE (14:15)
[2020-07-25 14:35] LABS: % BANDS 3 % (0-9); % LYMPHS 20 % (24-48); % MONOS 1 % (0-10); % SEGS 76 % (35-66); PLT ESTIMATE ADEQUATE (ADEQUATE)
[2020-07-25] MEDS ORDERED: CONTRAST GIVEN. MC PRN (14:45)
[2020-07-25] MEDS ORDERED: IOHEXOL 300 MG/ML 100ML VIAL. IV ONE (14:45)
--- NOTE | 2020-07-25 15:19 | RAD ---
CT ABDOMEN+PELVIS W History: EPIGASTRIC PAIN RADIATING TO LOW BACK SINCE THIS AM Comparison: Ultrasound 07/25/2020. Technique: After administration of intravenous contrast, helical CT of the abdomen and pelvis was per formed from the lung bases through the ischial tuberosities. Coronal and sagittal reconstructions wer e obtained. 60 mL of Omnipaque 300 were used. One or more of the following dose reduction techniques were utilized: Automated exposure control (AEC), Adjustment of mA and/or kV according to patient size , Use of iterative reconstruction technique such as ASiR, CT scan done according to ALARA and image g ently/image wisely Abdomen Findings: The visualized lung bases are clear. The liver, pancreas, spleen, and bilateral adrenal glands are normal. Cholelithiasis. Severe left hydronephrosis with renal cortical thinning. Left proximal ureter is dilated, with abrupt transition to nondilated ureter at the midportion. The visualized loops of small bowel are normal. Colonic diverticulosis. Appendix is normal. There is no free fluid. There is no mesenteric or retroperitoneal adenopathy. The abdominal aorta is normal in caliber. Pelvis Findings: Urinary bladder is normal. No pelvic free fluid. There is no pelvic or inguinal adenopathy. There is no acute bony abnormality. IMPRESSION: 1. Severe left hydronephrosis with renal cortical thinning, suggesting chronic obstruction. Left prox imal ureter is dilated with abrupt transition to nondilated ureter at the midportion, probably due to stricture although a tiny endoluminal lesion not visualized by CT is not excluded. No opaque urinary calculi. 2. Cholelithiasis. 3. Colonic diverticulosis. Electronically signed by: Pawan Santiago MD (07/25/2020 3:17 PM) [facility]
[2020-07-25 15:51] LABS: BILIRUBIN,URINE NEGATIVE (NEG); CLARITY,URINE CLEAR; COLOR,URINE YELLOW; NITRITE,URINE NEGATIVE (NEG); PH,URINE 6.5 (<5.0-8.0); PROTEIN,URINE 100 mg/dL (NEG-TRACE); UROBILINOGEN,URINE 0.2 mg/dL (0.2 mg/dL)
[2020-07-25 15:59] LABS: BARBITURATES NEG (NEG); BENZODIAZEPINES NEG (NEG); CANNABINOIDS NEG (NEG); COCAINE NEG (NEG); METHADONE NEG (NEG); OPIATES POS (NEG); PHENCYCLIDINE NEG (NEG)
[2020-07-25 16:06] LABS: BACTERIA,URINE FEW /HPF (0-FEW); RBC,URINE 0 /HPF (0-2)
[2020-07-25 16:14] LABS: AMPHETAMINE/METHAMPHETAMINE NEG (NEG)
[2020-07-25] MEDS ORDERED: cloNIDine HCL 0.1 MG TABLET PO ONE (16:15)
[2020-07-25] MEDS ORDERED: MAGNESIUM HYDROXIDE 2,400 MG/30 ML ORAL.SUSP. PO PRN (18:30)
[2020-07-25] MEDS ORDERED: BISACODYL 10 MG SUPP.RECT. PR PRN (18:30)
[2020-07-25] MEDS ORDERED: fentaNYL PF VIAL 100 MCG/2 ML VIAL IVP PRN (18:30)
[2020-07-25] MEDS ORDERED: ACETAMINOPHEN 650 MG SUPP.RECT. PR PRN (18:30)
[2020-07-25] MEDS ORDERED: ONDANSETRON PF 4 MG/2 ML VIAL. IVP PRN (18:30)
[2020-07-25] MEDS ORDERED: ZOLPIDEM 5 MG TABLET. PO PRN (18:30)
[2020-07-25] MEDS ORDERED: MORPHINE SULFATE 2 MG/ML VIAL. IV PRN (18:30)
--- NOTE | 2020-07-25 18:36 | PHYS DOC ---
Past Medical History Past Medical History: Arthritis, Diabetes-Type II, High Cholesterol, Hypertension, Hypothyroid, Stroke Past Surgical History: No Surgical History Smoking Status: Former Smoker Alcohol Use: None Drug Use: None General Adult EDM: Chief Complaint: ABDOMINAL PAIN HPI: HPI: Patient is a 74 year old female with history of high cholesterol, hypertension, diabetes type 2 among other illnesses who presents to the ED today complaining of moderate epigastric abdominal pain, right upper quadrant pain, chest pain, pain radiates to her back, symptoms began this morning at 8 AM. Patient is a poor historian, denies anything specifically exacerbating or relieving the pain. Describes the pain as "steady". Review of Systems: Review of Systems: Constitutional: Denies fever or chills. [] Eyes: Denies change in visual acuity. [] HENT: Denies nasal congestion or sore throat. [] Respiratory: Denies cough or shortness of breath. [] Cardiovascular: Reports chest pain GI: Reports right upper quadrant abdominal pain, reports epigastric pain, denies nausea, vomiting, bloody stools or diarrhea. [] : Denies dysuria. [] Musculoskeletal: Denies back pain or joint pain. [] Integument: Denies rash. [] Neurologic: Denies headache, focal weakness or sensory changes. [] Psychiatric: Denies depression or anxiety. [] Heart Score: HEART Score for Chest Pain: HEART Score for Chest Pain Response (Comments) Value History Slighlty/Non-Suspicious 0 ECG Normal 0 Age > 65 2 Risk Factors >3 Risk Factors or Hx CAD 2 Troponin < Normal Limit 0 Total 4 Risk Factors: Risk Factors: DM, Current or recent (<one month) smoker, HTN, HLP, family history of CAD, obesity. Risk Scores: Score 0 - 3: 2.5% MACE over next 6 weeks - Discharge Home Score 4 - 6: 20.3% MACE over next 6 weeks - Admit for Clinical Observation Score 7 - 10: 72.7% MACE over next 6 weeks - Early Invasive Strategies Current Medications: Current Medications Medications (Trade) Dose Ordered Sig/Anthony Start Time Stop Time Status Last Admin Dose Admin Acetaminophen (Tylenol Supp) 650 mg PRN Q4HRS PRN 07/25/20 18:30 Acetaminophen (Tylenol) 650 mg PRN Q6HRS PRN 07/25/20 18:30 UNV Apixaban (Eliquis) 5 mg BID 07/25/20 21:00 Aspirin (Theo Aspirin) 325 mg 1X ONCE 07/25/20 13:30 07/25/20 13:31 DC 07/25/20 13:36 325 MG Atorvastatin Calcium (Lipitor) 40 mg QHS 07/25/20 21:00 Bisacodyl (Dulcolax Supp) 10 mg PRN DAILY PRN 07/25/20 18:30 UNV Clonidine HCl (Catapres) 0.1 mg 1X ONCE 07/25/20 16:15 07/25/20 16:20 DC 07/25/20 16:13 0.1 MG EZETIMIBE (Zetia) 5 mg DAILY 07/26/20 09:00 Fentanyl Citrate (Fentanyl 2ml Vial) 50 mcg PRN Q3HRS PRN 07/25/20 18:30 UNV Hydromorphone HCl (Dilaudid) 0.4 mg PRN Q1HR PRN 07/25/20 18:30 UNV Info (CONTRAST GIVEN -- Rx MONITORING) 1 each PRN DAILY PRN 07/25/20 14:45 07/27/20 14:44 Iohexol (Omnipaque 300 Mg/ml) 60 ml 1X ONCE 07/25/20 14:45 07/25/20 14:46 DC 07/25/20 14:40 60 ML Levothyroxine Sodium (Synthroid) 112 mcg DAILY06 07/26/20 06:00 Magnesium Hydroxide (Milk Of Magnesia) 2,400 mg PRN Q12HR PRN 07/25/20 18:30 UNV Metoprolol Tartrate (Lopressor) 12.5 mg BID 07/25/20 21:00 Morphine Sulfate (Morphine Sulfate) 2 mg PRN Q1HR PRN 07/25/20 18:30 UNV Nitroglycerin (Nitrostat) 0.4 mg PRN Q5MIN PRN 07/25/20 13:30 07/26/20 13:29 07/25/20 13:49 0.4 MG Ondansetron HCl (Zofran) 4 mg PRN Q6HRS PRN 07/25/20 18:30 UNV Zolpidem Tartrate (Ambien) 5 mg PRN QHS PRN 07/25/20 18:30 UNV Allergies: Allergies: Allergies Coded Allergies Type Severity Reaction Last Updated Verified No Known Drug Allergies 10/28/17 No Physical Exam: PE: Constitutional: Well developed, well nourished, no acute distress, non-toxic appearance. [] HENT: Normocephalic, atraumatic, bilateral external ears normal, oropharynx moist, no oral exudates, nose normal. [] Eyes: PERRLA, EOMI, conjunctiva normal, no discharge. [] Neck: Normal range of motion, no tenderness, supple, no stridor. [] Cardiovascular:Heart rate regular rhythm, no murmur [] Lungs & Thorax: Bilateral breath sounds clear to auscultation [] Abdomen: Bowel sounds normal, soft, tenderness on palpation of the right upper quadrant and epigastric region, negative Colón sign, no masses, no pulsatile masses. [] Skin: Warm, dry, no erythema, no rash. [] Back: No tenderness, no CVA tenderness. [] Extremities: No tenderness, no cyanosis, no clubbing, ROM intact, no edema. [] Neurologic: Alert and oriented X 3, normal motor function, normal sensory function, no focal deficits noted. [] Psychologic: Affect normal, judgement normal, mood normal. [] Current Patient Data: Labs: Laboratory Tests Test 07/25/20 13:13 07/25/20 15:45 07/25/20 16:14 White Blood Count 14.7 x10^3/uL (4.0-11.0) H Red Blood Count 4.99 x10^6/uL (3.50-5.40) Hemoglobin 14.3 g/dL (12.0-15.5) Hematocrit 43.0 % (36.0-47.0) Mean Corpuscular Volume 86 fL (79-100) Mean Corpuscular Hemoglobin 29 pg (25-35) Mean Corpuscular Hemoglobin Concent 33 g/dL (31-37) Red Cell Distribution Width 14.1 % (11.5-14.5) Platelet Count 353 x10^3/uL (140-400) Neutrophils (%) (Auto) 89 % (31-73) H Lymphocytes (%) (Auto) 8 % (24-48) L Monocytes (%) (Auto) 3 % (0-9) Eosinophils (%) (Auto) 0 % (0-3) Basophils (%) (Auto) 0 % (0-3) Neutrophils # (Auto) 13.1 x10^3/uL (1.8-7.7) H Lymphocytes # (Auto) 1.1 x10^3/uL (1.0-4.8) Monocytes # (Auto) 0.5 x10^3/uL (0.0-1.1) Eosinophils # (Auto) 0.0 x10^3/uL (0.0-0.7) Basophils # (Auto) 0.0 x10^3/uL (0.0-0.2) Segmented Neutrophils % 76 % (35-66) H Band Neutrophils % 3 % (0-9) Lymphocytes % 20 % (24-48) L Monocytes % 1 % (0-10) Platelet Estimate Adequate (ADEQUATE) Prothrombin Time 13.6 SEC (11.7-14.0) Prothrombin Time INR 1.1 (0.8-1.1) Sodium Level 137 mmol/L (136-145) Potassium Level 3.8 mmol/L (3.5-5.1) Chloride Level 99 mmol/L (98-107) Carbon Dioxide Level 23 mmol/L (21-32) Anion Gap 15 (6-14) H Blood Urea Nitrogen 11 mg/dL (7-20) Creatinine 1.0 mg/dL (0.6-1.0) Estimated GFR (Cockcroft-Gault) 54.2 BUN/Creatinine Ratio 11 (6-20) Glucose Level 303 mg/dL (70-99) H Calcium Level 9.2 mg/dL (8.5-10.1) Magnesium Level 1.7 mg/dL (1.8-2.4) L Total Bilirubin 0.7 mg/dL (0.2-1.0) Aspartate Amino Transferase (AST) 15 U/L (15-37) Alanine Aminotransferase (ALT) 22 U/L (14-59) Alkaline Phosphatase 88 U/L (46-116) Troponin I Quantitative < 0.017 ng/mL (0.000-0.055) < 0.017 ng/mL (0.000-0.055) MX-Anx-K-Type Natriuretic Peptide 110 pg/mL (0-124) Total Protein 7.6 g/dL (6.4-8.2) Albumin 3.9 g/dL (3.4-5.0) Albumin/Globulin Ratio 1.1 (1.0-1.7) Lipase 58 U/L (73-393) L Thyroid Stimulating Hormone (TSH) 0.630 uIU/mL (0.358-3.74) Urine Collection Type Unknown Urine Color Yellow Urine Clarity Clear Urine pH 6.5 (<5.0-8.0) Urine Specific [place] >=1.030 (1.000-1.030) Urine Protein 100 mg/dL (NEG-TRACE) Urine Glucose (UA) >=1000 mg/dL (NEG) Urine Ketones (Stick) 40 mg/dL (NEG) Urine Blood Negative (NEG) Urine Nitrite Negative (NEG) Urine Bilirubin Negative (NEG) Urine Urobilinogen Dipstick 0.2 mg/dL (0.2 mg/dL) Urine Leukocyte Esterase Small (NEG) Urine RBC 0 /HPF (0-2) Urine WBC 5-10 /HPF (0-4) Urine Squamous Epithelial Cells None /LPF Urine Transitional Epithelial Cells Occ /LPF Urine Bacteria Few /HPF (0-FEW) Urine Mucus Slight /LPF Urine Opiates Screen Pos (NEG) Urine Methadone Screen Neg (NEG) Urine Barbiturates Neg (NEG) Urine Phencyclidine Screen Neg (NEG) Urine Amphetamine/Methamphetamine Neg (NEG) Urine Benzodiazepines Screen Neg (NEG) Urine Cocaine Screen Neg (NEG) Urine Cannabinoids Screen Neg (NEG) Urine Ethyl Alcohol Neg (NEG) Laboratory Tests 07/25/20 13:13 Laboratory Tests 07/25/20 13:13 Vital Signs: Vital Signs Date Time Temp Pulse Resp B/P (MAP) Pulse Ox O2 Delivery O2 Flow Rate FiO2 07/25/20 16:30 17 98 Room Air 07/25/20 16:13 77 179/88 07/25/20 15:55 98.1 98.1 EKG: EKG: [] Radiology/Procedures: Radiology/Procedures: []PROCEDURE: PORTABLE CHEST 1V EXAM: Chest, single view. HISTORY: Chest pain. COMPARISON: None. FINDINGS: A frontal view of the chest is obtained. There is no infiltrate, pleural effusion or pneumothorax. The heart is normal in size. There are calcified granulomas. IMPRESSION: No acute pulmonary finding. Electronically signed by: Reina Merlos MD (07/25/2020 2:10 PM) [id number] DICTATED and SIGNED BY: REINA MERLOS MD DATE: 07/25/20 [id number] 0 PROCEDURE: ABDOMEN COMPLETE EXAM: Abdomen sonogram. HISTORY: Right upper quadrant pain. TECHNIQUE: Sonographic imaging of the abdomen was performed. COMPARISON: None. FINDINGS: The liver is normal in size. No focal hepatic lesion is seen. There is cholelithiasis. The gallbladder is distended. There is no gallbladder wall thickening or pericholecystic fluid. The common bile duct is normal in caliber. The kidneys normal in size. There is mild right and severe left hydronephrosis. There is left renal cortical thinning, favoring chronic hydronephrosis. No solid or cystic renal lesion is seen. The left ureteral jet is not seen during the ex am. The urinary bladder is otherwise unremarkable. The aorta and inferior vena cava are partially obscured due to bowel gas. IMPRESSION: 1. Severe left hydronephrosis, possibly chronic given evidence of left renal cortical thinning. The left ureteral jet is not seen during the exam. The possibility of an obstructing etiology is not excluded. 2. Mild right hydronephrosis, of uncertain etiology. 3. Cholelithiasis and hydropic gallbladder. There is no wall thickening or pericholecystic fluid to suggest acute cholecystitis. Electronically signed by: Reina Merlos MD (07/25/2020 2:05 PM) [id number] DICTATED and SIGNED BY: REINA MERLOS MD DATE: 07/25/20 [id number] 0 PROCEDURE: CT ABD PELV W/ IV CONTRST ONLY CT ABDOMEN+PELVIS W History: EPIGASTRIC PAIN RADIATING TO LOW BACK SINCE THIS AM Comparison: Ultrasound 07/25/2020. Technique: After administration of intravenous contrast, helical CT of the abdomen and pelvis was performed from the lung bases through the ischial tuberosities. Coronal and sagittal reconstructions were obtained. 60 mL of Omnipaque 300 were used. One or more of the following dose reduction techniques were utilized: Automated exposure control (AEC), Adjustment of mA and/or kV according to patient size, Use of iterative reconstruction technique such as ASiR, CT scan done according to ALARA and image gently/image wisely Abdomen Findings: The visualized lung bases are clear. The liver, pancreas, spleen, and bilateral adrenal glands are normal. Cholelithiasis. Severe left hydronephrosis with renal cortical thinning. Left proximal ureter is dilated, with abrupt transition to nondilated ureter at the midportion. The visualized loops of small bowel are normal. Colonic diverticulosis. Appendix is normal. There is no free fluid. There is no mesenteric or retroperitoneal adenopathy. The abdominal aorta is normal in caliber. Pelvis Findings: Urinary bladder is normal. No pelvic free fluid. There is no pelvic or inguinal adenopathy. There is no acute bony abnormality. IMPRESSION: 1. Severe left hydronephrosis with renal cortical thinning, suggesting chronic obstruction. Left proximal ureter is dilated with abrupt transition to nondilated ureter at the midportion, probably due to stricture although a tiny endoluminal lesion not visualized by CT is not excluded. No opaque urinary c alculi. 2. Cholelithiasis. 3. Colonic diverticulosis. Electronically signed by: Karina Santiago MD (07/25/2020 3:17 PM) [facility] DICTATED and SIGNED BY: KARINA SANTIAGO MD DATE: 07/25/20 [id number] 0 Course & Med Decision Making: Course & Med Decision Making Pertinent Labs and Imaging studies reviewed. (See chart for details) This is a 74-year-old female patient presented to the ED today complaining of epigastric abdominal pain, right upper quadrant pain, chest pain, pain radiating to her back since this morning. EKG is negative, troponin is normal, CBC with a WBC of 14.7, CMP with glucose of 303 history of diabetes type 2. Liver enzymes are normal. Chest x-ray is negative Right upper quadrant limited ultrasound noted for cholelithiasis also noted for hydronephrosis. CT of the abdomen and pelvic was positive for cholelithiasis and severe left hydronephrosis with renal cortical thinning, suggesting chronic obstruction. Urine noted for small amount of infection, started on Zosyn Patient will be admitted for her chest pain. We will do a consult to cardiology, routine consults were placed for general surgery. Spoke with Dr. Hobbs who accepted patient for admission [place] Disclaimer: [place] Disclaimer: This electronic medical record was generated, in whole or in part, using a voice recognition dictation system. Departure Departure Impression: Primary Impression: Symptomatic cholelithiasis Additional Impressions: Atypical chest pain UTI (urinary tract infection) Qualified Codes: N39.0 - Urinary tract infection, site not specified Disposition: 09 ADMITTED INPT THIS HOSP Condition: STABLE Referrals: LEONARD GRUBBS MD (PCP) SETH CARRILLO APRN Jul 25, 2020 18:36
[2020-07-25] MEDS ORDERED: ONDANSETRON PF 4 MG/2 ML VIAL. IV PRN (18:45)
[2020-07-25] MEDS ORDERED: fentaNYL PF VIAL 100 MCG/2 ML VIAL IV PRN (18:45)
[2020-07-25] MEDS ORDERED: ACETAMINOPHEN 325 MG TABLET. PO PRN (18:45)
--- NOTE | 2020-07-25 18:56 | PDOC1 ---
History and Physical Date of Admission Date of Admission DATE: 07/25/20 TIME: 18:36 History of Present Illness History of Present Illness Patient is 74-year-old female past medical history CVA, who presents to the ER with complaints of epigastric and right upper quadrant abdominal pain that started this morning. She reports sharp pain, 7/10 at worst. She states her pain radiates to her lower back. She reports associated nausea and vomiting x1. She denies any association of her pain with food. She is never had this type of pain before, and denies any known history of cholelithiasis. Ultrasound obtained in the ER shows cholelithiasis, hydropic gallbladder, and chronic appearing severe left hydronephrosis. CT abdomen/pelvis obtained in the ER also shows the same. Will admit patient for further medical management. Past Medical History Cardiovascular: Hyperlipidemia Pulmonary: No pertinent hx CENTRAL NERVOUS SYSTEM: Periperal neuropathy GI: No pertinent hx Heme/Onc: No pertinent hx Hepatobiliary: No pertinent hx Psych: No pertinent hx Musculoskeletal: Osteoarthritis Rheumatologic: No pertinent hx Infectious disease: No pertinent hx Renal/: UTI Endocrine: Diabetes, Hypothyroidism Past Surgical History Past Surgical History: No pertinent history Family History Family History: Diabetes Social History Smoke: Quit ALCOHOL: none Drugs: None Current Medications Current Medications Current Medications Aspirin (Theo Aspirin) 325 mg 1X ONCE PO Last administered on 07/25/20at 13:36; Start 07/25/20 at 13:30; Stop 07/25/20 at 13:31; Status DC Nitroglycerin (Nitrostat) 0.4 mg PRN Q5MIN PRN SL CP RATING > 1/10 Last administered on 07/25/20at 13:49; Start 07/25/20 at 13:30; Stop 07/26/20 at 13:29 Fentanyl Citrate (Fentanyl 2ml Vial) 50 mcg PRN Q15MIN PRN IV PAIN GREATER THAN 3/10 Last administered on 07/25/20at 16:30; Start 07/25/20 at 13:30; Stop 07/26/20 at 13:29 Ondansetron HCl (Zofran) 4 mg 1X ONCE IVP Last administered on 07/25/20at 13:29; Start 07/25/20 at 13:30; Stop 07/25/20 at 13:31; Status DC Morphine Sulfate (Morphine Sulfate) 5 mg 1X ONCE IV Last administered on 07/25/20at 14:20; Start 07/25/20 at 14:15; Stop 07/25/20 at 14:19; Status DC Iohexol (Omnipaque 300 Mg/ml) 60 ml 1X ONCE IV Last administered on 07/25/20at 14:40; Start 07/25/20 at 14:45; Stop 07/25/20 at 14:46; Status DC Info (CONTRAST GIVEN -- Rx MONITORING) 1 each PRN DAILY PRN MC SEE COMMENTS; Start 07/25/20 at 14:45; Stop 07/27/20 at 14:44 Clonidine HCl (Catapres) 0.1 mg 1X ONCE PO Last administered on 07/25/20at 16:13 ; Start 07/25/20 at 16:15; Stop 07/25/20 at 16:20; Status DC Acetaminophen (Tylenol Supp) 650 mg PRN Q4HRS PRN MD TEMP > 100.4F; Start 07/25/20 at 18:30 Apixaban (Eliquis) 5 mg BID PO ; Start 07/25/20 at 21:00 Atorvastatin Calcium (Lipitor) 40 mg QHS PO ; Start 07/25/20 at 21:00 EZETIMIBE (Zetia) 5 mg DAILY PO ; Start 07/26/20 at 09:00 Levothyroxine Sodium (Synthroid) 112 mcg DAILY06 PO ; Start 07/26/20 at 06:00 Metoprolol Tartrate (Lopressor) 12.5 mg BID PO ; Start 07/25/20 at 21:00 Ondansetron HCl (Zofran) 4 mg PRN Q6HRS PRN IVP NAUSEA/VOMITING; Start 07/25/20 at 18:30 Zolpidem Tartrate (Ambien) 5 mg PRN QHS PRN PO INSOMNIA, MAY REPEAT IN 1HR; Start 07/25/20 at 18:30 Morphine Sulfate (Morphine Sulfate) 2 mg PRN Q1HR PRN IV PAIN; Start 07/25/20 at 18:30 Hydromorphone HCl (Dilaudid) 0.4 mg PRN Q1HR PRN IV PAIN; Start 07/25/20 at 18:30 Acetaminophen (Tylenol) 650 mg PRN Q6HRS PRN PO Headaches, Temp > 101.5F; Start 07/25/20 at 18:30 Magnesium Hydroxide (Milk Of Magnesia) 2,400 mg PRN Q12HR PRN PO CONSTIPATION; Start 07/25/20 at 18:30 Bisacodyl (Dulcolax Supp) 10 mg PRN DAILY PRN MD CONSTIPATION; Start 07/25/20 at 18:30 Fentanyl Citrate (Fentanyl 2ml Vial) 50 mcg PRN Q3HRS PRN IVP PAIN; Start 07/25/20 at 18:30 Active Scripts Active Acetaminophen Supp (Acetaminophen) 650 Mg Supp.rect 650 Mg MD PRN Q4HRS PRN 14 Days Metoprolol Tartrate 25 Mg Tablet 12.5 Mg PO BID 30 Days Atorvastatin Calcium 40 Mg Tablet 40 Mg PO QHS 30 Days Eliquis (Apixaban) 5 Mg Tablet 5 Mg PO BID 30 Days Reported Levothyroxine Sodium 112 Mcg Tablet 1 Tab PO DAILY Januvia (Sitagliptin Phosphate) 100 Mg Tablet 100 Mg PO DAILY Zetia (Ezetimibe) 10 Mg Tablet 5 Mg PO DAILY Metformin Hcl 1,000 Mg Tablet 1,000 Mg PO BIDWMEALS Allergies Allergies: Coded Allergies: No Known Drug Allergies (Unverified , 10/28/17) ROS Review of System GENERAL: No history of weight change, weakness or fevers. SKIN: No bruising, hair changes or rashes. EYES: No blurred, double or loss of vision. NOSE AND THROAT: No history of nosebleeds, hoarseness or sore throat. HEART: Denies chest pain, denies palpitations. LUNGS: Denies cough, hemoptysis, wheezing or shortness of breath. GASTROINTESTINAL: Epigastric pain, right upper quadrant pain, nausea, vomiting. GENITOURINARY: Denies dysuria, frequency, urgency, hematuria. NEUROLOGIC: Denies history of numbness, tingling, tremor or weakness. PSYCHIATRIC: Denies anxiety, denies depression. ENDOCRINE: No history of heat or cold intolerance, polyuria or polydipsia. EXTREMITIES: Denies muscle weakness, joint pain, pain on walking or stiffness. Physical Exam Physical Exam General: Alert, Oriented X3, Cooperative, No acute distress HEENT: PERRLA, EOMI Lungs: Clear to auscultation, Normal air movement Heart: RRR, no murmurs Cardiovascular: S1, S2 Abdomen: Right upper quadrant tenderness Extremities: No clubbing, No cyanosis Skin: No rashes, No significant lesion Neuro: Normal speech, Normal tone, Sensation intact Psych/Mental Status: Mental status NL, Mood NL Vitals Vitals Vital Signs Date Time Temp Pulse Resp B/P (MAP) Pulse Ox O2 Delivery O2 Flow Rate FiO2 07/25/20 16:30 17 98 Room Air 07/25/20 16:13 77 179/88 07/25/20 15:55 98.1 98.1 Labs Labs Laboratory Tests Test 07/25/20 13:13 07/25/20 15:45 07/25/20 16:14 White Blood Count 14.7 x10^3/uL (4.0-11.0) Red Blood Count 4.99 x10^6/uL (3.50-5.40) Hemoglobin 14.3 g/dL (12.0-15.5) Hematocrit 43.0 % (36.0-47.0) Mean Corpuscular Volume 86 fL (79-100) Mean Corpuscular Hemoglobin 29 pg (25-35) Mean Corpuscular Hemoglobin Concent 33 g/dL (31-37) Red Cell Distribution Width 14.1 % (11.5-14.5) Platelet Count 353 x10^3/uL (140-400) Neutrophils (%) (Auto) 89 % (31-73) Lymphocytes (%) (Auto) 8 % (24-48) Monocytes (%) (Auto) 3 % (0-9) Eosinophils (%) (Auto) 0 % (0-3) Basophils (%) (Auto) 0 % (0-3) Neutrophils # (Auto) 13.1 x10^3/uL (1.8-7.7) Lymphocytes # (Auto) 1.1 x10^3/uL (1.0-4.8) Monocytes # (Auto) 0.5 x10^3/uL (0.0-1.1) Eosinophils # (Auto) 0.0 x10^3/uL (0.0-0.7) Basophils # (Auto) 0.0 x10^3/uL (0.0-0.2) Segmented Neutrophils % 76 % (35-66) Band Neutrophils % 3 % (0-9) Lymphocytes % 20 % (24-48) Monocytes % 1 % (0-10) Platelet Estimate Adequate (ADEQUATE) Prothrombin Time 13.6 SEC (11.7-14.0) Prothromb Time International Ratio 1.1 (0.8-1.1) Sodium Level 137 mmol/L (136-145) Potassium Level 3.8 mmol/L (3.5-5.1) Chloride Level 99 mmol/L (98-107) Carbon Dioxide Level 23 mmol/L (21-32) Anion Gap 15 (6-14) Blood Urea Nitrogen 11 mg/dL (7-20) Creatinine 1.0 mg/dL (0.6-1.0) Estimated GFR (Cockcroft-Gault) 54.2 BUN/Creatinine Ratio 11 (6-20) Glucose Level 303 mg/dL (70-99) Calcium Level 9.2 mg/dL (8.5-10.1) Magnesium Level 1.7 mg/dL (1.8-2.4) Total Bilirubin 0.7 mg/dL (0.2-1.0) Aspartate Amino Transf (AST/SGOT) 15 U/L (15-37) Alanine Aminotransferase (ALT/SGPT) 22 U/L (14-59) Alkaline Phosphatase 88 U/L (46-116) Troponin I Quantitative < 0.017 ng/mL (0.000-0.055) < 0.017 ng/mL (0.000-0.055) UB-Svp-K-Type Natriuretic Peptide 110 pg/mL (0-124) Total Protein 7.6 g/dL (6.4-8.2) Albumin 3.9 g/dL (3.4-5.0) Albumin/Globulin Ratio 1.1 (1.0-1.7) Lipase 58 U/L (73-393) Thyroid Stimulating Hormone (TSH) 0.630 uIU/mL (0.358-3.74) Urine Collection Type Unknown Urine Color Yellow Urine Clarity Clear Urine pH 6.5 (<5.0-8.0) Urine Specific [place] >=1.030 (1.000-1.030) Urine Protein 100 mg/dL (NEG-TRACE) Urine Glucose (UA) >=1000 mg/dL (NEG) Urine Ketones (Stick) 40 mg/dL (NEG) Urine Blood Negative (NEG) Urine Nitrite Negative (NEG) Urine Bilirubin Negative (NEG) Urine Urobilinogen Dipstick 0.2 mg/dL (0.2 mg/dL) Urine Leukocyte Esterase Small (NEG) Urine RBC 0 /HPF (0-2) Urine WBC 5-10 /HPF (0-4) Urine Squamous Epithelial Cells None /LPF Urine Transitional Epithelial Cells Occ /LPF Urine Bacteria Few /HPF (0-FEW) Urine Mucus Slight /LPF Urine Opiates Screen Pos (NEG) Urine Methadone Screen Neg (NEG) Urine Barbiturates Neg (NEG) Urine Phencyclidine Screen Neg (NEG) Urine Amphetamine/Methamphetamine Neg (NEG) Urine Benzodiazepines Screen Neg (NEG) Urine Cocaine Screen Neg (NEG) Urine Cannabinoids Screen Neg (NEG) Urine Ethyl Alcohol Neg (NEG) Laboratory Tests Test 07/25/20 13:13 07/25/20 15:45 07/25/20 16:14 White Blood Count 14.7 x10^3/uL (4.0-11.0) Red Blood Count 4.99 x10^6/uL (3.50-5.40) Hemoglobin 14.3 g/dL (12.0-15.5) Hematocrit 43.0 % (36.0-47.0) Mean Corpuscular Volume 86 fL (79-100) Mean Corpuscular Hemoglobin 29 pg (25-35) Mean Corpuscular Hemoglobin Concent 33 g/dL (31-37) Red Cell Distribution Width 14.1 % (11.5-14.5) Platelet Count 353 x10^3/uL (140-400) Neutrophils (%) (Auto) 89 % (31-73) Lymphocytes (%) (Auto) 8 % (24-48) Monocytes (%) (Auto) 3 % (0-9) Eosinophils (%) (Auto) 0 % (0-3) Basophils (%) (Auto) 0 % (0-3) Neutrophils # (Auto) 13.1 x10^3/uL (1.8-7.7) Lymphocytes # (Auto) 1.1 x10^3/uL (1.0-4.8) Monocytes # (Auto) 0.5 x10^3/uL (0.0-1.1) Eosinophils # (Auto) 0.0 x10^3/uL (0.0-0.7) Basophils # (Auto) 0.0 x10^3/uL (0.0-0.2) Segmented Neutrophils % 76 % (35-66) Band Neutrophils % 3 % (0-9) Lymphocytes % 20 % (24-48) Monocytes % 1 % (0-10) Platelet Estimate Adequate (ADEQUATE) Prothrombin Time 13.6 SEC (11.7-14.0) Prothromb Time International Ratio 1.1 (0.8-1.1) Sodium Level 137 mmol/L (136-145) Potassium Level 3.8 mmol/L (3.5-5.1) Chloride Level 99 mmol/L (98-107) Carbon Dioxide Level 23 mmol/L (21-32) Anion Gap 15 (6-14) Blood Urea Nitrogen 11 mg/dL (7-20) Creatinine 1.0 mg/dL (0.6-1.0) Estimated GFR (Cockcroft-Gault) 54.2 BUN/Creatinine Ratio 11 (6-20) Glucose Level 303 mg/dL (70-99) Calcium Level 9.2 mg/dL (8.5-10.1) Magnesium Level 1.7 mg/dL (1.8-2.4) Total Bilirubin 0.7 mg/dL (0.2-1.0) Aspartate Amino Transf (AST/SGOT) 15 U/L (15-37) Alanine Aminotransferase (ALT/SGPT) 22 U/L (14-59) Alkaline Phosphatase 88 U/L (46-116) Troponin I Quantitative < 0.017 ng/mL (0.000-0.055) < 0.017 ng/mL (0.000-0.055) UZ-Pnz-K-Type Natriuretic Peptide 110 pg/mL (0-124) Total Protein 7.6 g/dL (6.4-8.2) Albumin 3.9 g/dL (3.4-5.0) Albumin/Globulin Ratio 1.1 (1.0-1.7) Lipase 58 U/L (73-393) Thyroid Stimulating Hormone (TSH) 0.630 uIU/mL (0.358-3.74) Urine Collection Type Unknown Urine Color Yellow Urine Clarity Clear Urine pH 6.5 (<5.0-8.0) Urine Specific [place] >=1.030 (1.000-1.030) Urine Protein 100 mg/dL (NEG-TRACE) Urine Glucose (UA) >=1000 mg/dL (NEG) Urine Ketones (Stick) 40 mg/dL (NEG) Urine Blood Negative (NEG) Urine Nitrite Negative (NEG) Urine Bilirubin Negative (NEG) Urine Urobilinogen Dipstick 0.2 mg/dL (0.2 mg/dL) Urine Leukocyte Esterase Small (NEG) Urine RBC 0 /HPF (0-2) Urine WBC 5-10 /HPF (0-4) Urine Squamous Epithelial Cells None /LPF Urine Transitional Epithelial Cells Occ /LPF Urine Bacteria Few /HPF (0-FEW) Urine Mucus Slight /LPF Urine Opiates Screen Pos (NEG) Urine Methadone Screen Neg (NEG) Urine Barbiturates Neg (NEG) Urine Phencyclidine Screen Neg (NEG) Urine Amphetamine/Methamphetamine Neg (NEG) Urine Benzodiazepines Screen Neg (NEG) Urine Cocaine Screen Neg (NEG) Urine Cannabinoids Screen Neg (NEG) Urine Ethyl Alcohol Neg (NEG) Images Images CT ABDOMEN+PELVIS W History: EPIGASTRIC PAIN RADIATING TO LOW BACK SINCE THIS AM Comparison: Ultrasound 07/25/2020. Technique: After administration of intravenous contrast, helical CT of the abdomen and pelvis was performed from the lung bases through the ischial tuberosities. Coronal and sagittal reconstructions were obtained. 60 mL of Omnipaque 300 were used. One or more of the following dose reduction techniques were utilized: Automated exposure control (AEC), Adjustment of mA and/or kV according to patient size, Use of iterative reconstruction technique such as ASiR, CT scan done according to ALARA and image gently/image wisely Abdomen Findings: The visualized lung bases are clear. The liver, pancreas, spleen, and bilateral adrenal glands are normal. Cholelithiasis. Severe left hydronephrosis with renal cortical thinning. Left proximal ureter is dilated, with abrupt transition to nondilated ureter at the midportion. The visualized loops of small bowel are normal. Colonic diverticulosis. Appendix is normal. There is no free fluid. There is no mesenteric or retroperitoneal adenopathy. The abdominal aorta is normal in caliber. Pelvis Findings: Urinary bladder is normal. No pelvic free fluid. There is no pelvic or inguinal adenopathy. There is no acute bony abnormality. IMPRESSION: 1. Severe left hydronephrosis with renal cortical thinning, suggesting chronic obstruction. Left proximal ureter is dilated with abrupt transition to nondilated ureter at the midportion, probably due to stricture although a tiny endoluminal lesion not visualized by CT is not excluded. No opaque urinary calculi. 2. Cholelithiasis. 3. Colonic diverticulosis. VTE Prophylaxis Ordered VTE Prophylaxis Devices: No VTE Pharmacological Prophylaxi: Yes Assessment/Plan Assessment/Plan Atypical chest pain Symptomatic cholelithiasis DM2 with hyperglycemia History of CVA Hypomagnesemia Severe left hydronephrosis Plan: Imaging obtained on admission shows cholelithiasis without cholecystitis, but there is also concern for atypical chest pain given patient's risk factors. Troponins have been negative x2; continue to trend troponins Consult cardiology Consult to general surgery for symptomatic cholelithiasis; anticipate elective surgery, but will appreciate recommendations Zofran as needed Morphine as needed for pain Basal insulin, MDSS insulin Chronic appearing severe left hydronephrosis noted on CT abdomen pelvis and ultrasound. Probably secondary to strictures. No stone seen on CT abdomen/pelvis. Recommend outpatient follow-up. FEN - ADA diet PPX - Eliquis FULL CODE Dispo - inpatient for above Justifications for Admission Other Justification Atypical chest pain, symptomatic cholelithiasis ONIEDA BEEBE MD Jul 25, 2020 18:55
[2020-07-25] MEDS ORDERED: DEXTROSE 50% 25 GM / 50ML DISP.SYRIN. IV PRN (19:00)
[2020-07-25] MEDS ORDERED: LABETALOL 20 MG/4 ML DISP.SYRIN. IVP ONE (20:45)
[2020-07-25] MEDS: ATORVASTATIN CALCIUM 40 MG TABLET. PO SCH (20:53)
[2020-07-25] MEDS: APIXABAN 5 MG TABLET. PO SCH (20:53)
[2020-07-25] MEDS: HYDROmorphone 2 MG/ML VIAL IV PRN (20:55)
[2020-07-25] MEDS: METOPROLOL TART IMMED RELEASE 25 MG TABLET. PO SCH (21:00)
[2020-07-25] MEDS: INSULIN GLARGINE SYRINGE. SQ SCH (23:15)
[2020-07-26] MEDS: LEVOTHYROXINE 112 MCG TABLET PO SCH (06:00)
[2020-07-26] MEDS: HYDROmorphone 2 MG/ML VIAL IV PRN (06:41)
[2020-07-26 06:56] LABS: BASO % 0 % (0-3); EOS % 0 % (0-3); HEMATOCRIT 43.4 % (36.0-47.0); HEMOGLOBIN 14.4 g/dL (12.0-15.5); LYMPH # 0.9 x10^3/uL (1.0-4.8); LYMPH % 3 % (24-48); MEAN CORPUSCULAR HEMOGLOBIN 28 pg (25-35); MEAN CORPUSCULAR HGB CONC 33 g/dL (31-37); MEAN CORPUSCULAR VOLUME 86 fL (79-100); MONO # 1.7 x10^3/uL (0.0-1.1); MONO % 6 % (0-9); NEUT % 90 % (31-73); PLATELET COUNT 326 x10^3/uL (140-400); RED BLOOD COUNT 5.08 x10^6/uL (3.50-5.40); RED CELL DISTRIBUTION WIDTH 14.4 % (11.5-14.5); WHITE BLOOD COUNT 26.6 x10^3/uL (4.0-11.0)
[2020-07-26 07:06] LABS: ALBUMIN 3.5 g/dL (3.4-5.0); CREATININE 0.8 mg/dL (0.6-1.0)
[2020-07-26 07:07] LABS: GFR 70.1; POTASSIUM 4.5 mmol/L (3.5-5.1); TOTAL BILIRUBIN 0.8 mg/dL (0.2-1.0)
--- NOTE | 2020-07-26 07:31 | PDOC ---
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 Metabolic encephalopathy. Confusion. Right temporal field deficits. AFib. HLD. DM. Hypothyroidism. History of Present Illness History of Present Illness Ms Mccoy is 74-year-old female past medical history CVA, who presents to the ER with complaints of epigastric and right upper quadrant abdominal pain that started this morning. She reports sharp pain, 7/10 at worst. She states her pain radiates to her lower back. She reports associated nausea and vomiting x1. She denies any association of her pain with food. She is never had this type of pain before, and denies any known history of cholelithiasis. Ultrasound obtained in the ER shows cholelithiasis, hydropic gallbladder, and chronic appearing severe left hydronephrosis. CT abdomen/pelvis obtained in the ER also shows the same, but also notes likely uretal stricture on left. Afebrile overnight. WBC increased. Still with significant pain and elevated blood pressure minimally responsive to IV pain medication. No shortness of breath or chest pain. No left-sided abdominal pain. No dysuria. Sister notes that there has been a 40 pound weight loss in the last year. Plan: TIFFANYO Sarah Khoury [email or web address] General surgery consult for hydropic gallbladder Vitals/I&O Vitals/I&O: Vital Signs Date Time Temp Pulse Resp B/P (MAP) Pulse Ox O2 Delivery O2 Flow Rate FiO2 07/26/20 06:56 82 19 150/70 (96) 93 Room Air 07/26/20 01:00 98.1 98.1 Physical Exam Lungs: Clear Labs Labs: Laboratory Tests Test 07/25/20 13:13 07/25/20 15:45 07/25/20 16:14 07/25/20 19:15 White Blood Count 14.7 x10^3/uL (4.0-11.0) Red Blood Count 4.99 x10^6/uL (3.50-5.40) Hemoglobin 14.3 g/dL (12.0-15.5) Hematocrit 43.0 % (36.0-47.0) Mean Corpuscular Volume 86 fL (79-100) Mean Corpuscular Hemoglobin 29 pg (25-35) Mean Corpuscular Hemoglobin Concent 33 g/dL (31-37) Red Cell Distribution Width 14.1 % (11.5-14.5) Platelet Count 353 x10^3/uL (140-400) Neutrophils (%) (Auto) 89 % (31-73) Lymphocytes (%) (Auto) 8 % (24-48) Monocytes (%) (Auto) 3 % (0-9) Eosinophils (%) (Auto) 0 % (0-3) Basophils (%) (Auto) 0 % (0-3) Neutrophils # (Auto) 13.1 x10^3/uL (1.8-7.7) Lymphocytes # (Auto) 1.1 x10^3/uL (1.0-4.8) Monocytes # (Auto) 0.5 x10^3/uL (0.0-1.1) Eosinophils # (Auto) 0.0 x10^3/uL (0.0-0.7) Basophils # (Auto) 0.0 x10^3/uL (0.0-0.2) Segmented Neutrophils % 76 % (35-66) Band Neutrophils % 3 % (0-9) Lymphocytes % 20 % (24-48) Monocytes % 1 % (0-10) Platelet Estimate Adequate (ADEQUATE) Prothrombin Time 13.6 SEC (11.7-14.0) Prothromb Time International Ratio 1.1 (0.8-1.1) Sodium Level 137 mmol/L (136-145) Potassium Level 3.8 mmol/L (3.5-5.1) Chloride Level 99 mmol/L (98-107) Carbon Dioxide Level 23 mmol/L (21-32) Anion Gap 15 (6-14) Blood Urea Nitrogen 11 mg/dL (7-20) Creatinine 1.0 mg/dL (0.6-1.0) Estimated GFR (Cockcroft-Gault) 54.2 BUN/Creatinine Ratio 11 (6-20) Glucose Level 303 mg/dL (70-99) Calcium Level 9.2 mg/dL (8.5-10.1) Magnesium Level 1.7 mg/dL (1.8-2.4) Total Bilirubin 0.7 mg/dL (0.2-1.0) Aspartate Amino Transf (AST/SGOT) 15 U/L (15-37) Alanine Aminotransferase (ALT/SGPT) 22 U/L (14-59) Alkaline Phosphatase 88 U/L (46-116) Troponin I Quantitative < 0.017 ng/mL (0.000-0.055) < 0.017 ng/mL (0.000-0.055) < 0.017 ng/mL (0.000-0.055) CQ-Pwy-Y-Type Natriuretic Peptide 110 pg/mL (0-124) Total Protein 7.6 g/dL (6.4-8.2) Albumin 3.9 g/dL (3.4-5.0) Albumin/Globulin Ratio 1.1 (1.0-1.7) Lipase 58 U/L (73-393) Thyroid Stimulating Hormone (TSH) 0.630 uIU/mL (0.358-3.74) Urine Collection Type Unknown Urine Color Yellow Urine Clarity Clear Urine pH 6.5 (<5.0-8.0) Urine Specific [place] >=1.030 (1.000-1.030) Urine Protein 100 mg/dL (NEG-TRACE) Urine Glucose (UA) >=1000 mg/dL (NEG) Urine Ketones (Stick) 40 mg/dL (NEG) Urine Blood Negative (NEG) Urine Nitrite Negative (NEG) Urine Bilirubin Negative (NEG) Urine Urobilinogen Dipstick 0.2 mg/dL (0.2 mg/dL) Urine Leukocyte Esterase Small (NEG) Urine RBC 0 /HPF (0-2) Urine WBC 5-10 /HPF (0-4) Urine Squamous Epithelial Cells None /LPF Urine Transitional Epithelial Cells Occ /LPF Urine Bacteria Few /HPF (0-FEW) Urine Mucus Slight /LPF Urine Opiates Screen Pos (NEG) Urine Methadone Screen Neg (NEG) Urine Barbiturates Neg (NEG) Urine Phencyclidine Screen Neg (NEG) Urine Amphetamine/Methamphetamine Neg (NEG) Urine Benzodiazepines Screen Neg (NEG) Urine Cocaine Screen Neg (NEG) Urine Cannabinoids Screen Neg (NEG) Urine Ethyl Alcohol Neg (NEG) Test 1/4/21 22:29 07/26/20 06:30 Glucose (Fingerstick) 237 mg/dL (70-99) White Blood Count 26.6 x10^3/uL (4.0-11.0) Red Blood Count 5.08 x10^6/uL (3.50-5.40) Hemoglobin 14.4 g/dL (12.0-15.5) Hematocrit 43.4 % (36.0-47.0) Mean Corpuscular Volume 86 fL (79-100) Mean Corpuscular Hemoglobin 28 pg (25-35) Mean Corpuscular Hemoglobin Concent 33 g/dL (31-37) Red Cell Distribution Width 14.4 % (11.5-14.5) Platelet Count 326 x10^3/uL (140-400) Neutrophils (%) (Auto) 90 % (31-73) Lymphocytes (%) (Auto) 3 % (24-48) Monocytes (%) (Auto) 6 % (0-9) Eosinophils (%) (Auto) 0 % (0-3) Basophils (%) (Auto) 0 % (0-3) Neutrophils # (Auto) 24.0 x10^3/uL (1.8-7.7) Lymphocytes # (Auto) 0.9 x10^3/uL (1.0-4.8) Monocytes # (Auto) 1.7 x10^3/uL (0.0-1.1) Eosinophils # (Auto) 0.0 x10^3/uL (0.0-0.7) Basophils # (Auto) 0.0 x10^3/uL (0.0-0.2) Sodium Level 132 mmol/L (136-145) Potassium Level 4.5 mmol/L (3.5-5.1) Chloride Level 98 mmol/L (98-107) Carbon Dioxide Level 23 mmol/L (21-32) Anion Gap 11 (6-14) Blood Urea Nitrogen 9 mg/dL (7-20) Creatinine 0.8 mg/dL (0.6-1.0) Estimated GFR (Cockcroft-Gault) 70.1 BUN/Creatinine Ratio 11 (6-20) Glucose Level 250 mg/dL (70-99) Calcium Level 9.0 mg/dL (8.5-10.1) Total Bilirubin 0.8 mg/dL (0.2-1.0) Aspartate Amino Transf (AST/SGOT) 23 U/L (15-37) Alanine Aminotransferase (ALT/SGPT) 23 U/L (14-59) Alkaline Phosphatase 82 U/L (46-116) Total Protein 7.0 g/dL (6.4-8.2) Albumin 3.5 g/dL (3.4-5.0) Albumin/Globulin Ratio 1.0 (1.0-1.7) Comment Review of Relevant I have reviewed the following items bell (where applicable) has been applied. Medications: Current Medications Medications (Trade) Dose Ordered Sig/Anthony Route PRN Reason Start Time Stop Time Status Last Admin Dose Admin Aspirin (Theo Aspirin) 325 mg 1X ONCE PO 07/25/20 13:30 07/25/20 13:31 DC 07/25/20 13:36 Nitroglycerin (Nitrostat) 0.4 mg PRN Q5MIN PRN SL CP RATING > 1/10 07/25/20 13:30 07/26/20 13:29 07/25/20 13:49 Fentanyl Citrate (Fentanyl 2ml Vial) 50 mcg PRN Q15MIN PRN IV PAIN GREATER THAN 3/10 07/25/20 13:30 07/26/20 13:29 07/25/20 16:30 Ondansetron HCl (Zofran) 4 mg 1X ONCE IVP 07/25/20 13:30 07/25/20 13:31 DC 07/25/20 13:29 Morphine Sulfate (Morphine Sulfate) 5 mg 1X ONCE IV 07/25/20 14:15 07/25/20 14:19 DC 07/25/20 14:20 Iohexol (Omnipaque 300 Mg/ml) 60 ml 1X ONCE IV 07/25/20 14:45 07/25/20 14:46 DC 07/25/20 14:40 Clonidine HCl (Catapres) 0.1 mg 1X ONCE PO 07/25/20 16:15 07/25/20 16:20 DC 07/25/20 16:13 Apixaban (Eliquis) 5 mg BID PO 07/25/20 21:00 07/25/20 20:53 Atorvastatin Calcium (Lipitor) 40 mg QHS PO 07/25/20 21:00 07/25/20 20:53 Hydromorphone HCl (Dilaudid) 0.4 mg PRN Q1HR PRN IV PAIN 07/25/20 18:30 07/26/20 06:41 Insulin Glargine (Lantus Syringe) 10 unit QHS SQ 07/25/20 21:00 07/25/20 23:15 Labetalol HCl (Normodyne Iv Push) 20 mg 1X ONCE IVP 07/25/20 20:45 07/25/20 20:46 DC 07/25/20 20:54 Justifications for Admission Other Justification Atypical chest pain, symptomatic cholelithiasis JONNY DAVIDSON MD Jul 26, 2020 07:31
[2020-07-26] MEDS: INSULIN LISPRO 300 UNITS/3 ML VIAL. SQ SCH ×3 (08:00→17:00)
[2020-07-26] MEDS: EZETIMIBE 10 MG TABLET. PO SCH (09:00)
--- NOTE | 2020-07-26 10:59 | PDOC2 ---
CARDIAC CONSULT DATE OF CONSULT Date of Consult DATE: 07/26/20 TIME: 10:57 REASON FOR CONSULT Reason for Consult: Atypical chest pain REFERRING PHYSICIAN Referring Physician: Faby SOURCE Source: Chart review, Patient HISTORY OF PRESENT ILLNESS HISTORY OF PRESENT ILLNESS This is a pleasant 74 yo female admitted for complains of abdominal pain. This started yesterday morning before breakfast noted as sharp and much further with palpation and positional changes particularly to RUQ region and epigastric region. Her chest pain is sharp and midchest but stemming from her abdomen. Denies any palpitations and no SOA associated with her symptoms. She has not had this episodes till yesterday. No prior issues with activity intolerance exertional chest pain nor MARTINEZ. No prior hx of CAD but had hx of CVA She is on home eliquis for PAFIB. No ETOH or significant NSAID use and has a hx of tobacco and vaping which she quit last yr. PAST MEDICAL HISTORY Past Medical History Cardiovascular: HTN, Hyperlipidemia, AFIB Neuro: CVA Pulmonary: No pertinent hx GI: No pertinent hx Heme/Onc: No pertinent hx Hepatobiliary: No pertinent hx Psych: No pertinent hx Rheumatologic: No pertinent hx MSK: Osteoarthritis, fall, bilateral RTC tears Infectious disease: No pertinent hx ENT: No pertinent hx Renal/: No pertinent hx Endocrine: Diabetes, Hyperthyroidism Dermatology: No pertinent hx PAST SURGICAL HISTORY Past Surgical History: No pertinent history FAMILY HISTORY Family History: Hypertension SOCIAL HISTORY Smoke: Quit ALCOHOL: none Drugs: None Lives: with Family CURRENT MEDICATIONS CURRENT MEDICATIONS Current Medications Medications (Trade) Dose Ordered Sig/Anthony Route PRN Reason Start Time Stop Time Status Last Admin Dose Admin Aspirin (Theo Aspirin) 325 mg 1X ONCE PO 07/25/20 13:30 07/25/20 13:31 DC 07/25/20 13:36 Nitroglycerin (Nitrostat) 0.4 mg PRN Q5MIN PRN SL CP RATING > 1/10 07/25/20 13:30 07/26/20 13:29 07/25/20 13:49 Fentanyl Citrate (Fentanyl 2ml Vial) 50 mcg PRN Q15MIN PRN IV PAIN GREATER THAN 3/10 07/25/20 13:30 07/26/20 13:29 07/25/20 16:30 Ondansetron HCl (Zofran) 4 mg 1X ONCE IVP 07/25/20 13:30 07/25/20 13:31 DC 07/25/20 13:29 Morphine Sulfate (Morphine Sulfate) 5 mg 1X ONCE IV 07/25/20 14:15 07/25/20 14:19 DC 07/25/20 14:20 Iohexol (Omnipaque 300 Mg/ml) 60 ml 1X ONCE IV 07/25/20 14:45 07/25/20 14:46 DC 07/25/20 14:40 Clonidine HCl (Catapres) 0.1 mg 1X ONCE PO 07/25/20 16:15 07/25/20 16:20 DC 07/25/20 16:13 Apixaban (Eliquis) 5 mg BID PO 07/25/20 21:00 07/25/20 20:53 Atorvastatin Calcium (Lipitor) 40 mg QHS PO 07/25/20 21:00 07/25/20 20:53 Hydromorphone HCl (Dilaudid) 0.4 mg PRN Q1HR PRN IV PAIN 07/25/20 18:30 07/26/20 06:41 Insulin Glargine (Lantus Syringe) 10 unit QHS SQ 07/25/20 21:00 07/25/20 23:15 Labetalol HCl (Normodyne Iv Push) 20 mg 1X ONCE IVP 07/25/20 20:45 07/25/20 20:46 DC 07/25/20 20:54 ALLERGIES ALLERGIES: Coded Allergies: No Known Drug Allergies (Unverified , 10/28/17) ROS Review of System 14 point ROS evaluated with pertinent positives noted per HPI PHYSICAL EXAM General: Alert, Oriented X3, Cooperative, No acute distress HEENT: Atraumatic, Mucous membr. moist/pink Lungs: Other (diminished bases) Heart: Regular rate (SR), Normal S1, Normal S2 Abdomen: Other (RUQ and epigastric tenderness more withpalpation and positional changes ) Extremities: No cyanosis, No edema Skin: No breakdown, No significant lesion Psych/Mental Status: Mental status NL, Other (anxious) MUSCULOSKELETAL: Osteoarthritic changes both hands, Other (Limited bilateral sh oulder ROM) VITALS/I&O VITALS/I&O: Vital Signs Date Time Temp Pulse Resp B/P (MAP) Pulse Ox O2 Delivery O2 Flow Rate FiO2 07/26/20 10:00 86 18 147/80 (102) 94 Room Air 07/26/20 01:00 98.1 98.1 LABS Lab: Laboratory Tests Test 07/25/20 13:13 07/25/20 15:45 07/25/20 16:14 07/25/20 19:15 White Blood Count 14.7 x10^3/uL (4.0-11.0) H Red Blood Count 4.99 x10^6/uL (3.50-5.40) Hemoglobin 14.3 g/dL (12.0-15.5) Hematocrit 43.0 % (36.0-47.0) Mean Corpuscular Volume 86 fL (79-100) Mean Corpuscular Hemoglobin 29 pg (25-35) Mean Corpuscular Hemoglobin Concent 33 g/dL (31-37) Red Cell Distribution Width 14.1 % (11.5-14.5) Platelet Count 353 x10^3/uL (140-400) Neutrophils (%) (Auto) 89 % (31-73) H Lymphocytes (%) (Auto) 8 % (24-48) L Monocytes (%) (Auto) 3 % (0-9) Eosinophils (%) (Auto) 0 % (0-3) Basophils (%) (Auto) 0 % (0-3) Neutrophils # (Auto) 13.1 x10^3/uL (1.8-7.7) H Lymphocytes # (Auto) 1.1 x10^3/uL (1.0-4.8) Monocytes # (Auto) 0.5 x10^3/uL (0.0-1.1) Eosinophils # (Auto) 0.0 x10^3/uL (0.0-0.7) Basophils # (Auto) 0.0 x10^3/uL (0.0-0.2) Segmented Neutrophils % 76 % (35-66) H Band Neutrophils % 3 % (0-9) Lymphocytes % 20 % (24-48) L Monocytes % 1 % (0-10) Platelet Estimate Adequate (ADEQUATE) Prothrombin Time 13.6 SEC (11.7-14.0) Prothrombin Time INR 1.1 (0.8-1.1) Sodium Level 137 mmol/L (136-145) Potassium Level 3.8 mmol/L (3.5-5.1) Chloride Level 99 mmol/L (98-107) Carbon Dioxide Level 23 mmol/L (21-32) Anion Gap 15 (6-14) H Blood Urea Nitrogen 11 mg/dL (7-20) Creatinine 1.0 mg/dL (0.6-1.0) Estimated GFR (Cockcroft-Gault) 54.2 BUN/Creatinine Ratio 11 (6-20) Glucose Level 303 mg/dL (70-99) H Calcium Level 9.2 mg/dL (8.5-10.1) Magnesium Level 1.7 mg/dL (1.8-2.4) L Total Bilirubin 0.7 mg/dL (0.2-1.0) Aspartate Amino Transferase (AST) 15 U/L (15-37) Alanine Aminotransferase (ALT) 22 U/L (14-59) Alkaline Phosphatase 88 U/L (46-116) Troponin I Quantitative < 0.017 ng/mL (0.000-0.055) < 0.017 ng/mL (0.000-0.055) < 0.017 ng/mL (0.000-0.055) JU-Nfc-[id number]-Type Natriuretic Peptide 110 pg/mL (0-124) Total Protein 7.6 g/dL (6.4-8.2) Albumin 3.9 g/dL (3.4-5.0) Albumin/Globulin Ratio 1.1 (1.0-1.7) Lipase 58 U/L (73-393) L Thyroid Stimulating Hormone (TSH) 0.630 uIU/mL (0.358-3.74) Urine Collection Type Unknown Urine Color Yellow Urine Clarity Clear Urine pH 6.5 (<5.0-8.0) Urine Specific [place] >=1.030 (1.000-1.030) Urine Protein 100 mg/dL (NEG-TRACE) Urine Glucose (UA) >=1000 mg/dL (NEG) Urine Ketones (Stick) 40 mg/dL (NEG) Urine Blood Negative (NEG) Urine Nitrite Negative (NEG) Urine Bilirubin Negative (NEG) Urine Urobilinogen Dipstick 0.2 mg/dL (0.2 mg/dL) Urine Leukocyte Esterase Small (NEG) Urine RBC 0 /HPF (0-2) Urine WBC 5-10 /HPF (0-4) Urine Squamous Epithelial Cells None /LPF Urine Transitional Epithelial Cells Occ /LPF Urine Bacteria Few /HPF (0-FEW) Urine Mucus Slight /LPF Urine Opiates Screen Pos (NEG) Urine Methadone Screen Neg (NEG) Urine Barbiturates Neg (NEG) Urine Phencyclidine Screen Neg (NEG) Urine Amphetamine/Methamphetamine Neg (NEG) Urine Benzodiazepines Screen Neg (NEG) Urine Cocaine Screen Neg (NEG) Urine Cannabinoids Screen Neg (NEG) Urine Ethyl Alcohol Neg (NEG) Test 07/25/20 22:29 07/26/20 06:30 07/26/20 09:21 Glucose (Fingerstick) 237 mg/dL (70-99) H White Blood Count 26.6 x10^3/uL (4.0-11.0) H Red Blood Count 5.08 x10^6/uL (3.50-5.40) Hemoglobin 14.4 g/dL (12.0-15.5) Hematocrit 43.4 % (36.0-47.0) Mean Corpuscular Volume 86 fL (79-100) Mean Corpuscular Hemoglobin 28 pg (25-35) Mean Corpuscular Hemoglobin Concent 33 g/dL (31-37) Red Cell Distribution Width 14.4 % (11.5-14.5) Platelet Count 326 x10^3/uL (140-400) Neutrophils (%) (Auto) 90 % (31-73) H Lymphocytes (%) (Auto) 3 % (24-48) L Monocytes (%) (Auto) 6 % (0-9) Eosinophils (%) (Auto) 0 % (0-3) Basophils (%) (Auto) 0 % (0-3) Neutrophils # (Auto) 24.0 x10^3/uL (1.8-7.7) H Lymphocytes # (Auto) 0.9 x10^3/uL (1.0-4.8) L Monocytes # (Auto) 1.7 x10^3/uL (0.0-1.1) H Eosinophils # (Auto) 0.0 x10^3/uL (0.0-0.7) Basophils # (Auto) 0.0 x10^3/uL (0.0-0.2) Sodium Level 132 mmol/L (136-145) L Potassium Level 4.5 mmol/L (3.5-5.1) Chloride Level 98 mmol/L (98-107) Carbon Dioxide Level 23 mmol/L (21-32) Anion Gap 11 (6-14) Blood Urea Nitrogen 9 mg/dL (7-20) Creatinine 0.8 mg/dL (0.6-1.0) Estimated GFR (Cockcroft-Gault) 70.1 BUN/Creatinine Ratio 11 (6-20) Glucose Level 250 mg/dL (70-99) H Calcium Level 9.0 mg/dL (8.5-10.1) Total Bilirubin 0.8 mg/dL (0.2-1.0) Aspartate Amino Transferase (AST) 23 U/L (15-37) Alanine Aminotransferase (ALT) 23 U/L (14-59) Alkaline Phosphatase 82 U/L (46-116) Total Protein 7.0 g/dL (6.4-8.2) Albumin 3.5 g/dL (3.4-5.0) Albumin/Globulin Ratio 1.0 (1.0-1.7) SARS-CoV-2 Antigen (Rapid) Negative (NEGATIVE) Laboratory Tests 07/25/20 13:13 07/26/20 06:30 Laboratory Tests 07/25/20 13:13 07/26/20 06:30 ASSESSMENT/PLAN ASSESSMENT/PLAN 1. Atypical CP: doubt ACS, likely GI 2. Symptomatic Cholelithiasis? 3. HTN: controlled 4. HLP 5. Severe left hydronephrosis: per CT 6. Hx of CVA 7. DM2 8. Hypothyroidism: on replacement 9. PAFIB: Maintaining SR Recommendations 1. If no plans for surgery then may resume Eliquis 2. Continue home metoprolol, statin 3. Will obtain baseline TTE NIVIA ANDERSON APRN Jul 26, 2020 10:59
--- NOTE | 2020-07-26 12:16 | PDOC2 ---
CONSULT Date of Consult Date of Consult DATE: 07/26/20 TIME: 12:06 Reason for Consult Reason for Consult: epigastric abd pain, cholelithiasis Referring Physician Referring Physician: Dr. Hobbs Identification/Chief Complaint Chief Complaint epigastric abd pain Source Source: Caregiver, Chart review, Patient History of Present Illness Reason for Visit: 74 yo F with c/o epigastric abd pain over past few days. Present previously, but has worsened. Chronic pain issues and on multiple narcotics. Chronic back and shoulder issues. Poor eating and significant weight loss over past year. Pt seen in ER and accompanied by supportive sister, whom provides most of history. Pt poor historian. Previously underwent cystoscopy 2018 by urology. Multiple recent falls. Past Medical History Cardiovascular: Hyperlipidemia Pulmonary: No pertinent hx CENTRAL NERVOUS SYSTEM: Periperal neuropathy GI: No pertinent hx Heme/Onc: No pertinent hx Hepatobiliary: No pertinent hx Psych: No pertinent hx Musculoskeletal: Osteoarthritis Rheumatologic: No pertinent hx Infectious disease: No pertinent hx Renal/: UTI Endocrine: Diabetes, Hypothyroidism Past Surgical History Past Surgical History: No pertinent history Family History Family History: Diabetes Social History Quit ALCOHOL: none Drugs: None Lives: with Family Current Medications Current Medications Current Medications Aspirin (Theo Aspirin) 325 mg 1X ONCE PO Last administered on 07/25/20at 13:36; Start 07/25/20 at 13:30; Stop 07/25/20 at 13:31; Status DC Nitroglycerin (Nitrostat) 0.4 mg PRN Q5MIN PRN SL CP RATING > 1/10 Last administered on 07/25/20at 13:49; Start 07/25/20 at 13:30; Stop 07/26/20 at 13:29 Fentanyl Citrate (Fentanyl 2ml Vial) 50 mcg PRN Q15MIN PRN IV PAIN GREATER THAN 3/10 Last administered on 07/25/20at 16:30; Start 07/25/20 at 13:30; Stop 07/26/20 at 13:29 Ondansetron HCl (Zofran) 4 mg 1X ONCE IVP Last administered on 07/25/20at 13:29; Start 07/25/20 at 13:30; Stop 07/25/20 at 13:31; Status DC Morphine Sulfate (Morphine Sulfate) 5 mg 1X ONCE IV Last administered on 07/25/20at 14:20; Start 07/25/20 at 14:15; Stop 07/25/20 at 14:19; Status DC Iohexol (Omnipaque 300 Mg/ml) 60 ml 1X ONCE IV Last administered on 07/25/20at 14:40; Start 07/25/20 at 14:45; Stop 07/25/20 at 14:46; Status DC Info (CONTRAST GIVEN -- Rx MONITORING) 1 each PRN DAILY PRN MC SEE COMMENTS; Start 07/25/20 at 14:45; Stop 07/27/20 at 14:44 Clonidine HCl (Catapres) 0.1 mg 1X ONCE PO Last administered on 07/25/20at 16:13; Start 07/25/20 at 16:15; Stop 07/25/20 at 16:20; Status DC Acetaminophen (Tylenol Supp) 650 mg PRN Q4HRS PRN HI TEMP > 100.4F; Start 07/25/20 at 18:30 Apixaban (Eliquis) 5 mg BID PO Last administered on 07/25/20at 20:53; Start 07/25/20 at 21:00 Atorvastatin Calcium (Lipitor) 40 mg QHS PO Last administered on 07/25/20at 20:53; Start 07/25/20 at 21:00 EZETIMIBE (Zetia) 5 mg DAILY PO ; Start 07/26/20 at 09:00 Levothyroxine Sodium (Synthroid) 112 mcg DAILY06 PO ; Start 07/26/20 at 06:00 Metoprolol Tartrate (Lopressor) 12.5 mg BID PO ; Start 07/25/20 at 21:00 Ondansetron HCl (Zofran) 4 mg PRN Q6HRS PRN IVP NAUSEA/VOMITING; Start 07/25/20 at 18:30 Zolpidem Tartrate (Ambien) 5 mg PRN QHS PRN PO INSOMNIA, MAY REPEAT IN 1HR; Start 07/25/20 at 18:30 Morphine Sulfate (Morphine Sulfate) 2 mg PRN Q1HR PRN IV PAIN; Start 07/25/20 at 18:30 Hydromorphone HCl (Dilaudid) 0.4 mg PRN Q1HR PRN IV PAIN Last administered on 07/26/20at 06:41; Start 07/25/20 at 18:30 Acetaminophen (Tylenol) 650 mg PRN Q6HRS PRN PO Headaches, Temp > 101.5F; Start 07/25/20 at 18:30 Magnesium Hydroxide (Milk Of Magnesia) 2,400 mg PRN Q12HR PRN PO CONSTIPATION; Start 07/25/20 at 18:30 Bisacodyl (Dulcolax Supp) 10 mg PRN DAILY PRN HI CONSTIPATION; Start 07/25/20 at 18:30 Fentanyl Citrate (Fentanyl 2ml Vial) 50 mcg PRN Q3HRS PRN IVP PAIN; Start 07/25/20 at 18:30 Ondansetron HCl (Zofran) 4 mg PRN Q8HRS PRN IV NAUSEA/VOMITING; Start 07/25/20 at 18:45; Stop 07/26/20 at 18:44 Fentanyl Citrate (Fentanyl 2ml Vial) 50 mcg PRN Q1HR PRN IV PAIN; Start 07/25/20 at 18:45; Stop 07/26/20 at 18:44 Acetaminophen (Tylenol) 650 mg PRN Q4HRS PRN PO FEVER > 100.3'F; Start 07/25/20 at 18:45; Stop 07/26/20 at 18:44 Insulin Glargine (Lantus Syringe) 10 unit QHS SQ Last administered on 07/25/20at 23:15; Start 07/25/20 at 21:00 Insulin Human Lispro (HumaLOG) 0-7 UNITS TIDWMEALS SQ ; Start 07/26/20 at 08:00 Dextrose (Dextrose 50%-Water Syringe) 12.5 gm PRN Q15MIN PRN IV SEE COMMENTS; Start 07/25/20 at 19:00 Labetalol HCl (Normodyne Iv Push) 20 mg 1X ONCE IVP Last administered on 07/25/20at 20:54; Start 07/25/20 at 20:45; Stop 07/25/20 at 20:46; Status DC Piperacillin Sod/ Tazobactam Sod 3.375 gm/Sodium Chloride 50 ml @ 100 mls/hr Q6HRS IV ; Start 07/26/20 at 10:00 Active Scripts Active Acetaminophen Supp (Acetaminophen) 650 Mg Supp.rect 650 Mg HI PRN Q4HRS PRN 14 Days Metoprolol Tartrate 25 Mg Tablet 12.5 Mg PO BID 30 Days Atorvastatin Calcium 40 Mg Tablet 40 Mg PO QHS 30 Days Eliquis (Apixaban) 5 Mg Tablet 5 Mg PO BID 30 Days Reported Levothyroxine Sodium 112 Mcg Tablet 1 Tab PO DAILY Januvia (Sitagliptin Phosphate) 100 Mg Tablet 100 Mg PO DAILY Zetia (Ezetimibe) 10 Mg Tablet 5 Mg PO DAILY Metformin Hcl 1,000 Mg Tablet 1,000 Mg PO BIDWMEALS Allergies Allergies: Coded Allergies: No Known Drug Allergies (Unverified , 10/28/17) ROS ENDOCRINE: YES: Polydipsia/polyuria Gastrointestinal: Yes Abdominal Pain Physical Exam General: Alert, moderate distress HEENT: Atraumatic Lungs: Normal air movement Abdomen: Soft, Other (TTP epigastric, RUQ) Extremities: No clubbing, No cyanosis Skin: No rashes, No breakdown Vitals VITALS Vital Signs Date Time Temp Pulse Resp B/P (MAP) Pulse Ox O2 Delivery O2 Flow Rate FiO2 07/26/20 10:00 86 18 147/80 (102) 94 Room Air 07/26/20 01:00 98.1 98.1 Labs Labs Laboratory Tests Test 07/25/20 13:13 07/25/20 15:45 07/25/20 16:14 07/25/20 19:15 White Blood Count 14.7 x10^3/uL (4.0-11.0) Red Blood Count 4.99 x10^6/uL (3.50-5.40) Hemoglobin 14.3 g/dL (12.0-15.5) Hematocrit 43.0 % (36.0-47.0) Mean Corpuscular Volume 86 fL (79-100) Mean Corpuscular Hemoglobin 29 pg (25-35) Mean Corpuscular Hemoglobin Concent 33 g/dL (31-37) Red Cell Distribution Width 14.1 % (11.5-14.5) Platelet Count 353 x10^3/uL (140-400) Neutrophils (%) (Auto) 89 % (31-73) Lymphocytes (%) (Auto) 8 % (24-48) Monocytes (%) (Auto) 3 % (0-9) Eosinophils (%) (Auto) 0 % (0-3) Basophils (%) (Auto) 0 % (0-3) Neutrophils # (Auto) 13.1 x10^3/uL (1.8-7.7) Lymphocytes # (Auto) 1.1 x10^3/uL (1.0-4.8) Monocytes # (Auto) 0.5 x10^3/uL (0.0-1.1) Eosinophils # (Auto) 0.0 x10^3/uL (0.0-0.7) Basophils # (Auto) 0.0 x10^3/uL (0.0-0.2) Segmented Neutrophils % 76 % (35-66) Band Neutrophils % 3 % (0-9) Lymphocytes % 20 % (24-48) Monocytes % 1 % (0-10) Platelet Estimate Adequate (ADEQUATE) Prothrombin Time 13.6 SEC (11.7-14.0) Prothromb Time International Ratio 1.1 (0.8-1.1) Sodium Level 137 mmol/L (136-145) Potassium Level 3.8 mmol/L (3.5-5.1) Chloride Level 99 mmol/L (98-107) Carbon Dioxide Level 23 mmol/L (21-32) Anion Gap 15 (6-14) Blood Urea Nitrogen 11 mg/dL (7-20) Creatinine 1.0 mg/dL (0.6-1.0) Estimated GFR (Cockcroft-Gault) 54.2 BUN/Creatinine Ratio 11 (6-20) Glucose Level 303 mg/dL (70-99) Calcium Level 9.2 mg/dL (8.5-10.1) Magnesium Level 1.7 mg/dL (1.8-2.4) Total Bilirubin 0.7 mg/dL (0.2-1.0) Aspartate Amino Transf (AST/SGOT) 15 U/L (15-37) Alanine Aminotransferase (ALT/SGPT) 22 U/L (14-59) Alkaline Phosphatase 88 U/L (46-116) Troponin I Quantitative < 0.017 ng/mL (0.000-0.055) < 0.017 ng/mL (0.000-0.055) < 0.017 ng/mL (0.000-0.055) UB-Xqp-X-Type Natriuretic Peptide 110 pg/mL (0-124) Total Protein 7.6 g/dL (6.4-8.2) Albumin 3.9 g/dL (3.4-5.0) Albumin/Globulin Ratio 1.1 (1.0-1.7) Lipase 58 U/L (73-393) Thyroid Stimulating Hormone (TSH) 0.630 uIU/mL (0.358-3.74) Urine Collection Type Unknown Urine Color Yellow Urine Clarity Clear Urine pH 6.5 (<5.0-8.0) Urine Specific [place] >=1.030 (1.000-1.030) Urine Protein 100 mg/dL (NEG-TRACE) Urine Glucose (UA) >=1000 mg/dL (NEG) Urine Ketones (Stick) 40 mg/dL (NEG) Urine Blood Negative (NEG) Urine Nitrite Negative (NEG) Urine Bilirubin Negative (NEG) Urine Urobilinogen Dipstick 0.2 mg/dL (0.2 mg/dL) Urine Leukocyte Esterase Small (NEG) Urine RBC 0 /HPF (0-2) Urine WBC 5-10 /HPF (0-4) Urine Squamous Epithelial Cells None /LPF Urine Transitional Epithelial Cells Occ /LPF Urine Bacteria Few /HPF (0-FEW) Urine Mucus Slight /LPF Urine Opiates Screen Pos (NEG) Urine Methadone Screen Neg (NEG) Urine Barbiturates Neg (NEG) Urine Phencyclidine Screen Neg (NEG) Urine Amphetamine/Methamphetamine Neg (NEG) Urine Benzodiazepines Screen Neg (NEG) Urine Cocaine Screen Neg (NEG) Urine Cannabinoids Screen Neg (NEG) Urine Ethyl Alcohol Neg (NEG) Test 07/25/20 22:29 07/26/20 06:30 07/26/20 09:21 Glucose (Fingerstick) 237 mg/dL (70-99) White Blood Count 26.6 x10^3/uL (4.0-11.0) Red Blood Count 5.08 x10^6/uL (3.50-5.40) Hemoglobin 14.4 g/dL (12.0-15.5) Hematocrit 43.4 % (36.0-47.0) Mean Corpuscular Volume 86 fL (79-100) Mean Corpuscular Hemoglobin 28 pg (25-35) Mean Corpuscular Hemoglobin Concent 33 g/dL (31-37) Red Cell Distribution Width 14.4 % (11.5-14.5) Platelet Count 326 x10^3/uL (140-400) Neutrophils (%) (Auto) 90 % (31-73) Lymphocytes (%) (Auto) 3 % (24-48) Monocytes (%) (Auto) 6 % (0-9) Eosinophils (%) (Auto) 0 % (0-3) Basophils (%) (Auto) 0 % (0-3) Neutrophils # (Auto) 24.0 x10^3/uL (1.8-7.7) Lymphocytes # (Auto) 0.9 x10^3/uL (1.0-4.8) Monocytes # (Auto) 1.7 x10^3/uL (0.0-1.1) Eosinophils # (Auto) 0.0 x10^3/uL (0.0-0.7) Basophils # (Auto) 0.0 x10^3/uL (0.0-0.2) Sodium Level 132 mmol/L (136-145) Potassium Level 4.5 mmol/L (3.5-5.1) Chloride Level 98 mmol/L (98-107) Carbon Dioxide Level 23 mmol/L (21-32) Anion Gap 11 (6-14) Blood Urea Nitrogen 9 mg/dL (7-20) Creatinine 0.8 mg/dL (0.6-1.0) Estimated GFR (Cockcroft-Gault) 70.1 BUN/Creatinine Ratio 11 (6-20) Glucose Level 250 mg/dL (70-99) Calcium Level 9.0 mg/dL (8.5-10.1) Total Bilirubin 0.8 mg/dL (0.2-1.0) Aspartate Amino Transf (AST/SGOT) 23 U/L (15-37) Alanine Aminotransferase (ALT/SGPT) 23 U/L (14-59) Alkaline Phosphatase 82 U/L (46-116) Total Protein 7.0 g/dL (6.4-8.2) Albumin 3.5 g/dL (3.4-5.0) Albumin/Globulin Ratio 1.0 (1.0-1.7) SARS-CoV-2 Antigen (Rapid) Negative (NEGATIVE) Laboratory Tests Test 07/25/20 13:13 07/25/20 15:45 07/25/20 16:14 07/25/20 19:15 White Blood Count 14.7 x10^3/uL (4.0-11.0) Red Blood Count 4.99 x10^6/uL (3.50-5.40) Hemoglobin 14.3 g/dL (12.0-15.5) Hematocrit 43.0 % (36.0-47.0) Mean Corpuscular Volume 86 fL (79-100) Mean Corpuscular Hemoglobin 29 pg (25-35) Mean Corpuscular Hemoglobin Concent 33 g/dL (31-37) Red Cell Distribution Width 14.1 % (11.5-14.5) Platelet Count 353 x10^3/uL (140-400) Neutrophils (%) (Auto) 89 % (31-73) Lymphocytes (%) (Auto) 8 % (24-48) Monocytes (%) (Auto) 3 % (0-9) Eosinophils (%) (Auto) 0 % (0-3) Basophils (%) (Auto) 0 % (0-3) Neutrophils # (Auto) 13.1 x10^3/uL (1.8-7.7) Lymphocytes # (Auto) 1.1 x10^3/uL (1.0-4.8) Monocytes # (Auto) 0.5 x10^3/uL (0.0-1.1) Eosinophils # (Auto) 0.0 x10^3/uL (0.0-0.7) Basophils # (Auto) 0.0 x10^3/uL (0.0-0.2) Segmented Neutrophils % 76 % (35-66) Band Neutrophils % 3 % (0-9) Lymphocytes % 20 % (24-48) Monocytes % 1 % (0-10) Platelet Estimate Adequate (ADEQUATE) Prothrombin Time 13.6 SEC (11.7-14.0) Prothromb Time International Ratio 1.1 (0.8-1.1) Sodium Level 137 mmol/L (136-145) Potassium Level 3.8 mmol/L (3.5-5.1) Chloride Level 99 mmol/L (98-107) Carbon Dioxide Level 23 mmol/L (21-32) Anion Gap 15 (6-14) Blood Urea Nitrogen 11 mg/dL (7-20) Creatinine 1.0 mg/dL (0.6-1.0) Estimated GFR (Cockcroft-Gault) 54.2 BUN/Creatinine Ratio 11 (6-20) Glucose Level 303 mg/dL (70-99) Calcium Level 9.2 mg/dL (8.5-10.1) Magnesium Level 1.7 mg/dL (1.8-2.4) Total Bilirubin 0.7 mg/dL (0.2-1.0) Aspartate Amino Transf (AST/SGOT) 15 U/L (15-37) Alanine Aminotransferase (ALT/SGPT) 22 U/L (14-59) Alkaline Phosphatase 88 U/L (46-116) Troponin I Quantitative < 0.017 ng/mL (0.000-0.055) < 0.017 ng/mL (0.000-0.055) < 0.017 ng/mL (0.000-0.055) TF-Xik-[id number]-Type Natriuretic Peptide 110 pg/mL (0-124) Total Protein 7.6 g/dL (6.4-8.2) Albumin 3.9 g/dL (3.4-5.0) Albumin/Globulin Ratio 1.1 (1.0-1.7) Lipase 58 U/L (73-393) Thyroid Stimulating Hormone (TSH) 0.630 uIU/mL (0.358-3.74) Urine Collection Type Unknown Urine Color Yellow Urine Clarity Clear Urine pH 6.5 (<5.0-8.0) Urine Specific [place] >=1.030 (1.000-1.030) Urine Protein 100 mg/dL (NEG-TRACE) Urine Glucose (UA) >=1000 mg/dL (NEG) Urine Ketones (Stick) 40 mg/dL (NEG) Urine Blood Negative (NEG) Urine Nitrite Negative (NEG) Urine Bilirubin Negative (NEG) Urine Urobilinogen Dipstick 0.2 mg/dL (0.2 mg/dL) Urine Leukocyte Esterase Small (NEG) Urine RBC 0 /HPF (0-2) Urine WBC 5-10 /HPF (0-4) Urine Squamous Epithelial Cells None /LPF Urine Transitional Epithelial Cells Occ /LPF Urine Bacteria Few /HPF (0-FEW) Urine Mucus Slight /LPF Urine Opiates Screen Pos (NEG) Urine Methadone Screen Neg (NEG) Urine Barbiturates Neg (NEG) Urine Phencyclidine Screen Neg (NEG) Urine Amphetamine/Methamphetamine Neg (NEG) Urine Benzodiazepines Screen Neg (NEG) Urine Cocaine Screen Neg (NEG) Urine Cannabinoids Screen Neg (NEG) Urine Ethyl Alcohol Neg (NEG) Test 07/25/20 22:29 07/26/20 06:30 07/26/20 09:21 Glucose (Fingerstick) 237 mg/dL (70-99) White Blood Count 26.6 x10^3/uL (4.0-11.0) Red Blood Count 5.08 x10^6/uL (3.50-5.40) Hemoglobin 14.4 g/dL (12.0-15.5) Hematocrit 43.4 % (36.0-47.0) Mean Corpuscular Volume 86 fL (79-100) Mean Corpuscular Hemoglobin 28 pg (25-35) Mean Corpuscular Hemoglobin Concent 33 g/dL (31-37) Red Cell Distribution Width 14.4 % (11.5-14.5) Platelet Count 326 x10^3/uL (140-400) Neutrophils (%) (Auto) 90 % (31-73) Lymphocytes (%) (Auto) 3 % (24-48) Monocytes (%) (Auto) 6 % (0-9) Eosinophils (%) (Auto) 0 % (0-3) Basophils (%) (Auto) 0 % (0-3) Neutrophils # (Auto) 24.0 x10^3/uL (1.8-7.7) Lymphocytes # (Auto) 0.9 x10^3/uL (1.0-4.8) Monocytes # (Auto) 1.7 x10^3/uL (0.0-1.1) Eosinophils # (Auto) 0.0 x10^3/uL (0.0-0.7) Basophils # (Auto) 0.0 x10^3/uL (0.0-0.2) Sodium Level 132 mmol/L (136-145) Potassium Level 4.5 mmol/L (3.5-5.1) Chloride Level 98 mmol/L (98-107) Carbon Dioxide Level 23 mmol/L (21-32) Anion Gap 11 (6-14) Blood Urea Nitrogen 9 mg/dL (7-20) Creatinine 0.8 mg/dL (0.6-1.0) Estimated GFR (Cockcroft-Gault) 70.1 BUN/Creatinine Ratio 11 (6-20) Glucose Level 250 mg/dL (70-99) Calcium Level 9.0 mg/dL (8.5-10.1) Total Bilirubin 0.8 mg/dL (0.2-1.0) Aspartate Amino Transf (AST/SGOT) 23 U/L (15-37) Alanine Aminotransferase (ALT/SGPT) 23 U/L (14-59) Alkaline Phosphatase 82 U/L (46-116) Total Protein 7.0 g/dL (6.4-8.2) Albumin 3.5 g/dL (3.4-5.0) Albumin/Globulin Ratio 1.0 (1.0-1.7) SARS-CoV-2 Antigen (Rapid) Negative (NEGATIVE) Images Images CT and US with left hydro and gallstones by no obvious cholecystitis Assessment/Plan Assessment/Plan Symptomatic cholelithiasis labs and imaging not completely consistent. Would favor cholecystectomy for gallstones in setting of DM, but pt is poor surgical candidate, given uncontrolled DM and anticoagulants Agree with cards eval and will ask ID and GI to comment. Will consider cholecystectomy if DM can be controlled and anticoag held. D/w pt's sister extensively and concerned for pt's detention survival, given multiple comorbidities. Thanks for consult! ORIANA HERNÁNDEZ MD Jul 26, 2020 12:16
[2020-07-26] MEDS: fentaNYL PF VIAL 100 MCG/2 ML VIAL IV PRN (12:33)
[2020-07-26] MEDS: METOPROLOL TART IMMED RELEASE 25 MG TABLET. PO SCH ×2 (12:35→23:05)
[2020-07-26] MEDS: APIXABAN 5 MG TABLET. PO SCH ×2 (12:36→23:07)
[2020-07-26] MEDS: PIPERACILLIN/TAZOBACTAM 3.375 GM in IV NORMAL SALINE 50ML 50 ML IV SCH ×2 (12:51→18:02)
[2020-07-26 13:29] VITALS: BP 141/64
[2020-07-26] MEDS: ANTI-COAG MONITOR BY PHARMACY. MC PRN (14:11)
[2020-07-26 14:13] LABS: CHOLESTEROL/HDL RATIO 1.9
--- NOTE | 2020-07-26 14:20 | PDOC2 ---
GI CONSULT Date of Service: DATE: 07/26/20 TIME: 14:06 Reason For Consult: epigastric abd pain HPI: HPI: 74 y/o female who was seen w/ Dr. Andersen. She reports squeezing right- sided/epigastric abdominal pain wrapping around waist. Other notes also suggest chest pain. Decreased appetite w/ weight loss, also vomiting x 1. No similar symptoms in the past. . No reflux/heartburn, dysphagia, hematemesis, diarrhea, constipation, hematochezia, or melena. No previous EGD or colonoscopy. No GB, liver, pancreas, or PUD history. H/o A Fib on Eliquis. Significant hypertension in ER, also hyperglycemia (h/o DM). Family present w/ concerns for elevated BP and asking if she can continue drinking liquids like she did in the ER. PMH: PMH: A Fib, HTN, HLD, DM, CVA, OA, bilateral RTC tear, hypothyroidism, peripheral neuropathy, chronic pain cystoscopy FH: Family History: Hypertension Social History: Smoke: Quit ALCOHOL: none Drugs: None ROS: GEN: Denies fevers, chills, sweats HEENT: Denies blurred vision, sore throat CV: Denies chest pain RESP: Denies shortness of air, cough GI: Per HPI : Denies hematuria, dysuria ENDO: +weight loss NEURO: Denies confusion, dizziness MSK: chronic shoulder pain SKIN: Denies jaundice, pruritus Vitals: Vitals: Vital Signs Date Time Temp Pulse Resp B/P (MAP) Pulse Ox O2 Delivery O2 Flow Rate FiO2 07/26/20 13:29 98.2 71 18 141/64 (89) 97 Room Air 98.2 Labs: Labs: Laboratory Tests Test 07/25/20 15:45 07/25/20 16:14 07/25/20 19:15 07/25/20 22:29 Urine Collection Type Unknown Urine Color Yellow Urine Clarity Clear Urine pH 6.5 (<5.0-8.0) Urine Specific [place] >=1.030 (1.000-1.030) Urine Protein 100 mg/dL (NEG-TRACE) Urine Glucose (UA) >=1000 mg/dL (NEG) Urine Ketones (Stick) 40 mg/dL (NEG) Urine Blood Negative (NEG) Urine Nitrite Negative (NEG) Urine Bilirubin Negative (NEG) Urine Urobilinogen Dipstick 0.2 mg/dL (0.2 mg/dL) Urine Leukocyte Esterase Small (NEG) Urine RBC 0 /HPF (0-2) Urine WBC 5-10 /HPF (0-4) Urine Squamous Epithelial Cells None /LPF Urine Transitional Epithelial Cells Occ /LPF Urine Bacteria Few /HPF (0-FEW) Urine Mucus Slight /LPF Urine Opiates Screen Pos (NEG) Urine Methadone Screen Neg (NEG) Urine Barbiturates Neg (NEG) Urine Phencyclidine Screen Neg (NEG) Urine Amphetamine/Methamphetamine Neg (NEG) Urine Benzodiazepines Screen Neg (NEG) Urine Cocaine Screen Neg (NEG) Urine Cannabinoids Screen Neg (NEG) Urine Ethyl Alcohol Neg (NEG) Troponin I Quantitative < 0.017 ng/mL (0.000-0.055) < 0.017 ng/mL (0.000-0.055) Glucose (Fingerstick) 237 mg/dL (70-99) Test 07/26/20 06:30 07/26/20 09:21 White Blood Count 26.6 x10^3/uL (4.0-11.0) Red Blood Count 5.08 x10^6/uL (3.50-5.40) Hemoglobin 14.4 g/dL (12.0-15.5) Hematocrit 43.4 % (36.0-47.0) Mean Corpuscular Volume 86 fL (79-100) Mean Corpuscular Hemoglobin 28 pg (25-35) Mean Corpuscular Hemoglobin Concent 33 g/dL (31-37) Red Cell Distribution Width 14.4 % (11.5-14.5) Platelet Count 326 x10^3/uL (140-400) Neutrophils (%) (Auto) 90 % (31-73) Lymphocytes (%) (Auto) 3 % (24-48) Monocytes (%) (Auto) 6 % (0-9) Eosinophils (%) (Auto) 0 % (0-3) Basophils (%) (Auto) 0 % (0-3) Neutrophils # (Auto) 24.0 x10^3/uL (1.8-7.7) Lymphocytes # (Auto) 0.9 x10^3/uL (1.0-4.8) Monocytes # (Auto) 1.7 x10^3/uL (0.0-1.1) Eosinophils # (Auto) 0.0 x10^3/uL (0.0-0.7) Basophils # (Auto) 0.0 x10^3/uL (0.0-0.2) Sodium Level 132 mmol/L (136-145) Potassium Level 4.5 mmol/L (3.5-5.1) Chloride Level 98 mmol/L (98-107) Carbon Dioxide Level 23 mmol/L (21-32) Anion Gap 11 (6-14) Blood Urea Nitrogen 9 mg/dL (7-20) Creatinine 0.8 mg/dL (0.6-1.0) Estimated GFR (Cockcroft-Gault) 70.1 BUN/Creatinine Ratio 11 (6-20) Glucose Level 250 mg/dL (70-99) Calcium Level 9.0 mg/dL (8.5-10.1) Total Bilirubin 0.8 mg/dL (0.2-1.0) Aspartate Amino Transf (AST/SGOT) 23 U/L (15-37) Alanine Aminotransferase (ALT/SGPT) 23 U/L (14-59) Alkaline Phosphatase 82 U/L (46-116) Total Protein 7.0 g/dL (6.4-8.2) Albumin 3.5 g/dL (3.4-5.0) Albumin/Globulin Ratio 1.0 (1.0-1.7) SARS-CoV-2 Antigen (Rapid) Negative (NEGATIVE) Allergies: Coded Allergies: No Known Drug Allergies (Unverified , 10/28/17) Medications: Current Medications Medications (Trade) Dose Ordered Sig/Anthony Route PRN Reason Start Time Stop Time Status Last Admin Dose Admin Morphine Sulfate (Morphine Sulfate) 5 mg 1X ONCE IV 07/25/20 14:15 07/25/20 14:19 DC 07/25/20 14:20 Iohexol (Omnipaque 300 Mg/ml) 60 ml 1X ONCE IV 07/25/20 14:45 07/25/20 14:46 DC 07/25/20 14:40 Clonidine HCl (Catapres) 0.1 mg 1X ONCE PO 07/25/20 16:15 07/25/20 16:20 DC 07/25/20 16:13 Apixaban (Eliquis) 5 mg BID PO 07/25/20 21:00 07/26/20 12:36 Atorvastatin Calcium (Lipitor) 40 mg QHS PO 07/25/20 21:00 07/25/20 20:53 Metoprolol Tartrate (Lopressor) 12.5 mg BID PO 07/25/20 21:00 07/26/20 12:35 Hydromorphone HCl (Dilaudid) 0.4 mg PRN Q1HR PRN IV PAIN 07/25/20 18:30 07/26/20 06:41 Insulin Glargine (Lantus Syringe) 10 unit QHS SQ 07/25/20 21:00 07/25/20 23:15 Labetalol HCl (Normodyne Iv Push) 20 mg 1X ONCE IVP 07/25/20 20:45 07/25/20 20:46 DC 07/25/20 20:54 Piperacillin Sod/ Tazobactam Sod 3.375 gm/Sodium Chloride 50 ml @ 100 mls/hr Q6HRS IV 07/26/20 10:00 07/26/20 12:51 Imaging: Imaging: CXR 07/25/20 IMPRESSION: No acute pulmonary finding. Abd US 07/25 IMPRESSION: 1. Severe left hydronephrosis, possibly chronic given evidence of left renal cortical thinning. The left ureteral jet is not seen during the exam. The possibility of an obstructing etiology is not excluded. 2. Mild right hydronephrosis, of uncertain etiology. 3. Cholelithiasis and hydropic gallbladder. There is no wall thickening or pericholecystic fluid to suggest acute cholecystitis. CT A/P 07/25 IMPRESSION: 1. Severe left hydronephrosis with renal cortical thinning, suggesting chronic obstruction. Left proximal ureter is dilated with abrupt transition to nondilated ureter at the midportion, probably due to stricture although a tiny endoluminal lesion not visualized by CT is not excluded. No opaque urinary calculi. 2. Cholelithiasis. 3. Colonic diverticulosis. PE: GEN: NAD HEENT: Atraumatic, PERRL LUNGS: CTAB HEART: RRR ABD: NABS, S/ND, quite tender in epigastrium to right EXTREMITY: No edema SKIN: No rashes, no jaundice NEURO/PSYCH: A & O 3 A/P: A/P: Epigastric pain, vomiting Leukocytosis Bilateral hydronephrosis (severe to left), cholelithiasis, hydropic gallbladder Decreased appetite, weight loss CRC screen - none Diverticulosis A Fib on Eliquis Chronic pain, HTN, DM Rapid COVID negative -- Symptomatic cholelithiasis - surgery following, ID to see. D/w nurse - plans for bland diet - still NPO in [facility] - would be okay to try cautiously try clears per GI. Defer IVF to primary. MAYCOL SCOTT Jul 26, 2020 14:20
--- NOTE | 2020-07-26 16:56 | CARD ---
MR#: [id number] Date of Study: 07/26/2020 Ordering Physician: NIVIA ANDERSON, Referring Physician: NIVIA ANDERSON Tech: Yovana Humphreys [facility] APPROVED REPORT EXAM: Two-dimensional and M-mode echocardiogram with Doppler and color Doppler. Other Information Quality : Fair INDICATION Chest Pain 2D DIMENSIONS RVDd2.6 (2.9-3.5cm)Left Atrium(2D)3.3 (1.6-4.0cm) IVSd0.8 (0.7-1.1cm)Aortic Root(2D)2.7 (2.0-3.7cm) LVDd4.3 (3.9-5.9cm)LVOT Diameter2.2 (1.8-2.4cm) PWd0.9 (0.7-1.1cm)LVDs2.6 (2.5-4.0cm) FS (%) 30.0 %SV60.4 ml LVEF(%)60.0 (>50%) Aortic Valve AoV Peak Luis.105.5cm/sAoV VTI20.4cm AO Peak GR.4.5mmHgLVOT VTI 20.09cm AO Mean GR.2mmHgAVA (VTI)3.60cm2 Mitral Valve MV E Wmrddoeb83.1cm/sMV DECEL [id number] MV A Clgwjoym47.3cm/sE/A Ratio0.7 TDI Lateral E' P. V9.01cm/sMedial E' P. V7.02cm/s E/Lateral E'7.4E/Medial E'9.6 Tricuspid Valve TR P. Tgdveicf760zl/sRAP ATJFSTYM8psWv TR Peak Gr.15caCqVXGE32fiGo Pulmonary Vein S1 Kqtiwkpo08.2cm/sS2 Mnxujyux85.83cm/s D2 Nrpyjslo94.8cm/s LEFT VENTRICLE The left ventricle is normal size. There is normal left ventricular wall thickness. The left ventricu lar systolic function is normal and the ejection fraction is within normal range. The Ejection Fracti on is 55-60%. There is normal LV segmental wall motion. Transmitral Doppler flow pattern is Grade I-a bnormal relaxation pattern. RIGHT VENTRICLE The right ventricle is normal size. The right ventricular systolic function is normal. ATRIA The left atrium size is normal. The right atrium size is normal. The interatrial septum is intact wit h no evidence for an atrial septal defect or patent foramen ovale as noted on 2-D or Doppler imaging. AORTIC VALVE The aortic valve is not well visualized. Doppler and Color Flow revealed no significant aortic regurg itation. There is no significant aortic valvular stenosis. MITRAL VALVE The mitral valve is calcified but opens well. There is no evidence of mitral valve prolapse. There is no mitral valve stenosis. Doppler and Color-flow revealed trace mitral regurgitation. TRICUSPID VALVE The tricuspid valve is normal in structure and function. Doppler and Color Flow revealed trace tricus pid regurgitation. The PA pressure was estimated at 22 mmHg. There is no tricuspid valve stenosis. PULMONIC VALVE The pulmonic valve is not well visualized. Doppler and Color Flow revealed no pulmonic valvular regur gitation. There is no pulmonic valvular stenosis. GREAT VESSELS The aortic root is normal in size. The ascending aorta is moderately dilated at 3.6 cm. The IVC was n ot visualized. PERICARDIAL EFFUSION There is no evidence of significant pericardial effusion. Critical Notification Critical Value: No <Conclusion> The left ventricle is normal size. The left ventricular systolic function is normal and the ejection fraction is within normal range. The Ejection Fraction is 55-60%. Doppler and Color Flow revealed no significant aortic regurgitation. There is no significant aortic valvular stenosis. Doppler and Color-flow revealed trace mitral regurgitation. Doppler and Color Flow revealed trace tricuspid regurgitation. The PA pressure was estimated at 22 mmHg. The ascending aorta is moderately dilated at 3.6 cm. Signed by : Booker Lr MD Electronically Approved : 07/26/2020 16:56:36
[2020-07-26] MEDS: PANTOPRAZOLE IV PUSH 40 MG VIAL. IVP SCH (17:00)
[2020-07-26] MEDS ORDERED: IV NORMAL SALINE 1000ML BAG 1,000 ML IV ONE (17:45)
[2020-07-26 19:28] VITALS: BP 154/67
[2020-07-26] MEDS: INSULIN GLARGINE SYRINGE. SQ SCH (21:00)
[2020-07-26] MEDS: ACETAMINOPHEN 325 MG TABLET. PO PRN (23:05)
[2020-07-26] MEDS: LACTOBACILLUS RHAMNOSUS GG 1 CAPSULE. PO SCH (23:05)
[2020-07-26] MEDS: ATORVASTATIN CALCIUM 40 MG TABLET. PO SCH (23:06)
[2020-07-26 23:09] VITALS: BP 166/80
[2020-07-27 00:11] LABS: HEMOGLOBIN A1C 8.3 % (4.8-5.6)
[2020-07-27] MEDS: PIPERACILLIN/TAZOBACTAM 3.375 GM in IV NORMAL SALINE 50ML 50 ML IV SCH ×5 (01:01→23:30)
[2020-07-27 02:17] VITALS: BP 124/50
[2020-07-27] MEDS: ACETAMINOPHEN 325 MG TABLET. PO PRN ×4 (05:36→23:28)
[2020-07-27] MEDS: LEVOTHYROXINE 112 MCG TABLET PO SCH (05:44)
[2020-07-27 07:00] VITALS: BP 140/72
[2020-07-27] MEDS: METOPROLOL TART IMMED RELEASE 25 MG TABLET. PO SCH ×2 (09:00→22:12)
[2020-07-27] MEDS: LACTOBACILLUS RHAMNOSUS GG 1 CAPSULE. PO SCH ×2 (09:00→22:11)
[2020-07-27] MEDS: EZETIMIBE 10 MG TABLET. PO SCH (09:00)
[2020-07-27] MEDS: APIXABAN 5 MG TABLET. PO SCH ×3 (09:00→22:11)
[2020-07-27] MEDS: PANTOPRAZOLE IV PUSH 40 MG VIAL. IVP SCH (09:26)
--- NOTE | 2020-07-27 09:28 | PDOC ---
Infectious Disease Note Vital Sign Vital Signs Vital Signs Date Time Temp Pulse Resp B/P (MAP) Pulse Ox O2 Delivery O2 Flow Rate FiO2 07/27/20 07:00 98.9 84 16 140/72 (94) 95 Room Air 98.9 Labs Lab Laboratory Tests Test 07/26/20 16:10 07/26/20 21:15 07/27/20 07:05 Glucose (Fingerstick) 262 mg/dL (70-99) 269 mg/dL (70-99) 232 mg/dL (70-99) Micro Microbiology 07/25/20 Urine Culture - Final, Complete Objective Assessment pt seen, consult dictated Plan Plan of Care / GABRIELE HARDEN MD Jul 27, 2020 09:28
[2020-07-27] MEDS: INSULIN LISPRO 300 UNITS/3 ML VIAL. SQ SCH ×3 (09:33→18:41)
[2020-07-27 09:44] LABS: BASO # 0.1 x10^3/uL (0.0-0.2); BASO % 0 % (0-3); EOS % 0 % (0-3); HEMATOCRIT 39.4 % (36.0-47.0); HEMOGLOBIN 13.3 g/dL (12.0-15.5); LYMPH # 0.9 x10^3/uL (1.0-4.8); LYMPH % 3 % (24-48); MEAN CORPUSCULAR HEMOGLOBIN 29 pg (25-35); MEAN CORPUSCULAR HGB CONC 34 g/dL (31-37); MEAN CORPUSCULAR VOLUME 86 fL (79-100); MONO # 2.1 x10^3/uL (0.0-1.1); MONO % 7 % (0-9); NEUT # 26.1 x10^3/uL (1.8-7.7); NEUT % 90 % (31-73); PLATELET COUNT 274 x10^3/uL (140-400); RED CELL DISTRIBUTION WIDTH 14.4 % (11.5-14.5); WHITE BLOOD COUNT 29.1 x10^3/uL (4.0-11.0)
--- NOTE | 2020-07-27 10:23 | PDOC ---
Date of Service: DATE: 07/27/20 TIME: 10:19 Subjective: Subjective: Pain better today. Had sips of water and ice chips last night. Objective: Vital Signs: Vital Signs Date Time Temp Pulse Resp B/P (MAP) Pulse Ox O2 Delivery O2 Flow Rate FiO2 07/27/20 07:00 98.9 84 16 140/72 (94) 95 Room Air 98.9 Labs: Laboratory Tests Test 07/26/20 16:10 07/26/20 21:15 07/27/20 07:05 07/27/20 09:30 Glucose (Fingerstick) 262 mg/dL 269 mg/dL 232 mg/dL White Blood Count 29.1 x10^3/uL Red Blood Count 4.60 x10^6/uL Hemoglobin 13.3 g/dL Hematocrit 39.4 % Mean Corpuscular Volume 86 fL Mean Corpuscular Hemoglobin 29 pg Mean Corpuscular Hemoglobin Concent 34 g/dL Red Cell Distribution Width 14.4 % Platelet Count 274 x10^3/uL Neutrophils (%) (Auto) 90 % Lymphocytes (%) (Auto) 3 % Monocytes (%) (Auto) 7 % Eosinophils (%) (Auto) 0 % Basophils (%) (Auto) 0 % Neutrophils # (Auto) 26.1 x10^3/uL Lymphocytes # (Auto) 0.9 x10^3/uL Monocytes # (Auto) 2.1 x10^3/uL Eosinophils # (Auto) 0.0 x10^3/uL Basophils # (Auto) 0.1 x10^3/uL Platelet Estimate Pending URINE CULTURE Final Final LESS THAN 10,000 CFU/ML Normal genitourinary km, not indicative of infection on 07/27/20 at 0811 Imaging: Echo <Conclusion> The left ventricle is normal size. The left ventricular systolic function is normal and the ejection fraction is within normal range. The Ejection Fraction is 55-60%. Doppler and Color Flow revealed no significant aortic regurgitation. There is no significant aortic valvular stenosis. Doppler and Color-flow revealed trace mitral regurgitation. Doppler and Color Flow revealed trace tricuspid regurgitation. The PA pressure was estimated at 22 mmHg. The ascending aorta is moderately dilated at 3.6 cm. PE: GEN: NAD LUNGS: CTAB HEART: RRR ABD: epigastric/RUQ discomfort, soft NEURO/PSYCH: A & O 3 A/P: Symptomatic cholelithiasis Leukocytosis - worse Bilateral hydronephrosis (severe to left) A Fib on Eliquis (received last night), DM (A1c 8.3) Rapid COVID negative -- Continue per surgery and ID. Justicifation of Admission Dx: Justifications for Admission: Justification of Admission Dx: Yes MAYCOL SCOTT Jul 27, 2020 10:23
[2020-07-27 10:51] VITALS: BP 164/76
--- NOTE | 2020-07-27 11:20 | PDOC ---
NIVIA ANDERSON [employer] 07/27/20 1120: CARDIO Progress Notes Date and Time Date of Service 07/27/2020 Time of Evaluation 1120 Subjective Subjective: No Chest Pain, No shortness of breath, No Palpitations Vitals Vitals Vital Signs Date Time Temp Pulse Resp B/P (MAP) Pulse Ox O2 Delivery O2 Flow Rate FiO2 07/27/20 10:51 97.8 77 16 164/76 (105) 93 Room Air 97.8 Weight Weight [ ] Input and Output Intake and Output Intake and Output 07/27/20 07:00 Intake Total 100 ml Output Total 400 ml Balance -300 ml Intake Oral 100 ml Output Urine Total 400 ml Laboratory Labs Laboratory Tests Test 07/26/20 16:10 07/26/20 21:15 07/27/20 07:05 07/27/20 09:30 Glucose (Fingerstick) 262 mg/dL (70-99) 269 mg/dL (70-99) 232 mg/dL (70-99) White Blood Count 29.1 x10^3/uL (4.0-11.0) Red Blood Count 4.60 x10^6/uL (3.50-5.40) Hemoglobin 13.3 g/dL (12.0-15.5) Hematocrit 39.4 % (36.0-47.0) Mean Corpuscular Volume 86 fL (79-100) Mean Corpuscular Hemoglobin 29 pg (25-35) Mean Corpuscular Hemoglobin Concent 34 g/dL (31-37) Red Cell Distribution Width 14.4 % (11.5-14.5) Platelet Count 274 x10^3/uL (140-400) Neutrophils (%) (Auto) 90 % (31-73) Lymphocytes (%) (Auto) 3 % (24-48) Monocytes (%) (Auto) 7 % (0-9) Eosinophils (%) (Auto) 0 % (0-3) Basophils (%) (Auto) 0 % (0-3) Neutrophils # (Auto) 26.1 x10^3/uL (1.8-7.7) Lymphocytes # (Auto) 0.9 x10^3/uL (1.0-4.8) Monocytes # (Auto) 2.1 x10^3/uL (0.0-1.1) Eosinophils # (Auto) 0.0 x10^3/uL (0.0-0.7) Basophils # (Auto) 0.1 x10^3/uL (0.0-0.2) Microbiology Micro Microbiology 07/25/20 Urine Culture - Final, Complete Physical Exam HEENT: Neck Supple W Full Motion Chest: Symmetric LUNGS: Other (diminished bases) Heart: RRR (SR) Abdomen: Other (tenderness to upper quads) Extremities: No Edema, No Calf Tenderness Neurology: alert, oriented, follow commands Assessment Assessment 1. Atypical CP: doubt ACS, likely GI. EF and WM nml 2. Symptomatic Cholelithiasis? Remains with abd pain 3. HTN: controlled 4. HLP 5. Severe left hydronephrosis: per CT 6. Hx of CVA 7. DM2 8. Hypothyroidism: on replacement 9. PAFIB: Maintaining SR with rare paroxysms 10. Severe leukocytosis: ID following Recommendations 1. If no plans for surgery then may resume Eliquis HIDA scan pending 2. Continue home metoprolol, statin 3. 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 Atypical CP: doubt ACS, likely GI. EF and WM nml Symptomatic Cholelithiasis? As per the surgical service surgery. HTN: controlled HLP DM2 Hypothyroidism: on replacement PAFIB: Maintaining SR with rare paroxysms Severe leukocytosis: ID following NIVIA ANDERSON APRN Jul 27, 2020 11:20 JOSÉ MIGUEL JEAN BAPTISTE MD Jul 27, 2020 20:33
[2020-07-27 11:30] LABS: % LYMPHS 2 % (24-48); % MONOS 5 % (0-10); % SEGS 93 % (35-66); PLT ESTIMATE ADEQUATE (ADEQUATE)
--- NOTE | 2020-07-27 12:32 | NUR ---
SS following for discharge planning. SS reviewed pt chart and discussed with pt RN. Pt is from home with spouse and is currently on room air. COVID19 negative. Pt on IV Zosyn and IV Zyvox. SS will continue to follow for discharge planning.
--- NOTE | 2020-07-27 12:49 | CONS ---
DATE OF CONSULTATION: 07/27/2020 REQUESTING PHYSICIAN: Trever Kern MD. REASON FOR CONSULTATION: Possible cholecystitis. HISTORY OF PRESENT ILLNESS: This is a 74-year-old female who came in with abdominal pain. The patient woke up on Saturday with having abdominal pain. She did vomit once, did not have any fever, did not have any chest pain. She did have some epigastric pain, did not have any diarrhea, urinary symptoms, bowel symptoms or headaches. PAST MEDICAL HISTORY: Positive for 2-3 small strokes in the past, poor memory, hyperlipidemia, peripheral neuropathy, atrial fibrillation. She has had problem with kidney stones or ureteral stones and obstructions and has had stent in the past, hypothyroidism, osteoarthritis, and diabetes. SOCIAL HISTORY: Negative for smoking, alcohol or illicit drug use. ALLERGIES: No known drug allergies. CURRENT MEDICATIONS: The patient is started on Zosyn. REVIEW OF SYSTEMS: As per HPI, all other systems reviewed and are negative. PHYSICAL EXAMINATION: GENERAL: Alert, oriented female, who has poor memory, not in any distress. VITAL SIGNS: Stable. The patient's temperature is 98.9, pulse 84, respirations 16, blood pressure 140/72. HEENT: Both pupils are round and reacting. No conjunctival lesion, no lesion in the mouth. NECK: Supple, no JVP, no lymphadenopathy. LUNGS: Clear. HEART: S1, S2 regular. ABDOMEN: Soft, nontender, no organomegaly. EXTREMITIES: No edema or cyanosis. SKIN: Unremarkable. NEUROLOGIC: The patient is alert, awake and appropriate. No focal neurologic deficit. LABORATORY DATA: White count is 26,000 as of yesterday, today's is not back. BUN and creatinine are normal. Liver functions are normal. Urinalysis showed 5-10 wbc's. Urine culture so far is showing only 10,000 colony forming of normal genitourinary km. Ultrasound of the abdomen showed severe left hydronephrosis, probably chronic with cortical thinning, left ureteral jet is not seen, mild right hydronephrosis, cholelithiasis and hydropic gallbladder, but no acute cholecystitis. Abdominal CT showed the same thing. IMPRESSION: 1. Abdominal pain. 2. Leukocytosis. 3. Abnormal gallbladder with gallstones, may have had some cholecystitis and/or abdominal pain was just some other reason. 4. Severe left-sided hydronephrosis and hydroureter, chronic. 5. Atrial fibrillation. 6. Diabetes. 7. Hypothyroidism. RECOMMENDATIONS: Continue Zosyn. Continue supportive care. I had a long discussion with the patient and the patient's 2 sisters at the bedside and everything was explained. The gallbladder surgery cannot be done right now because of the Eliquis and need to improve the blood sugar, but eventually has been planned for it and might need eventually Urology for stenting. Again, there is no urgency for that as this is all chronic finding. Multiple questions the patient's family had and they were all answered. Thank you very much, Dr. Kern, for giving me opportunity to participate in this patient's care. GABRIELE HARDEN MD DR: KEVIN/andrzej JOB#: [id number] / [id number] JENNI
--- NOTE | 2020-07-27 13:00 | PDOC ---
[facility] [facility] PROGRESS NOTE Date of Service DOS: DATE: 07/27/20 TIME: 12:56 Chief Complaint Chief Complaint A/P: Epigastric pain - appears to be symptomatic cholelithiasis, gallbladder hydropic Leukocytosis - likely related to above, meets SIRS criteria for sepsis likely related to gallbladder Left hydronephrosis - appears to be related to uretal stricture, will need outpatient urology f/u H/o CVA - infarcts of the left thalamus, left occipital lobe, and left temporal lobe/hippocampal formation. Metabolic encephalopathy. Confusion. Right temporal field deficits. AFib. HLD. DM. Hypothyroidism. History of Present Illness History of Present Illness Ms Mccoy is 74-year-old female past medical history CVA, who presents to the ER with complaints of epigastric and right upper quadrant abdominal pain that started this morning. She reports sharp pain, 7/10 at worst. She states her pain radiates to her lower back. She reports associated nausea and vomiting x1. She denies any association of her pain with food. She is never had this type of pain before, and denies any known history of cholelithiasis. Ultrasound obtained in the ER shows cholelithiasis, hydropic gallbladder, and chronic appearing severe left hydronephrosis. CT abdomen/pelvis obtained in the ER also shows the same, but also notes likely uretal stricture on left. 07/27: Afebrile overnight. WBC increased. Still with significant pain and stephanie vated blood pressure minimally responsive to IV pain medication. No shortness of breath or chest pain. No left-sided abdominal pain. No dysuria. Sister notes that there has been a 40 pound weight loss in the last year. 07/28: Patient seen and evaluated bedside. Echocardiogram showing normal EF, with dilated ascending aorta. Still complains of pain. She seems slightly somnolent today, but states she has just had pain medication. She is to have HIDA scan today. Some concern for hydronephrosis as cause of patient's pain, and she would need ureteral stent. If HIDA scan is negative, she will need to be transferred to facility with urology to have stent placed. Vitals/I&O Vitals/I&O: Vital Signs Date Time Temp Pulse Resp B/P (MAP) Pulse Ox O2 Delivery O2 Flow Rate FiO2 07/27/20 10:51 97.8 77 16 164/76 (105) 93 Room Air 97.8 I & O 07/26/20 07/26/20 07/27/20 15:00 23:00 07:00 Intake Total 100 ml Output Total 400 ml Balance 100 ml -400 ml Physical Exam General: Alert, Cooperative, mild distress Heart: Regular rate (SR) Lungs: Clear Abdomen: Other (RUQ and epigastric tenderness more withpalpation and positional changes ) Extremities: No cyanosis, No edema Skin: No breakdown, No significant lesion Labs Labs: Laboratory Tests Test 07/26/20 16:10 07/26/20 21:15 07/27/20 07:05 07/27/20 09:30 Glucose (Fingerstick) 262 mg/dL (70-99) 269 mg/dL (70-99) 232 mg/dL (70-99) White Blood Count 29.1 x10^3/uL (4.0-11.0) Red Blood Count 4.60 x10^6/uL (3.50-5.40) Hemoglobin 13.3 g/dL (12.0-15.5) Hematocrit 39.4 % (36.0-47.0) Mean Corpuscular Volume 86 fL (79-100) Mean Corpuscular Hemoglobin 29 pg (25-35) Mean Corpuscular Hemoglobin Concent 34 g/dL (31-37) Red Cell Distribution Width 14.4 % (11.5-14.5) Platelet Count 274 x10^3/uL (140-400) Neutrophils (%) (Auto) 90 % (31-73) Lymphocytes (%) (Auto) 3 % (24-48) Monocytes (%) (Auto) 7 % (0-9) Eosinophils (%) (Auto) 0 % (0-3) Basophils (%) (Auto) 0 % (0-3) Neutrophils # (Auto) 26.1 x10^3/uL (1.8-7.7) Lymphocytes # (Auto) 0.9 x10^3/uL (1.0-4.8) Monocytes # (Auto) 2.1 x10^3/uL (0.0-1.1) Eosinophils # (Auto) 0.0 x10^3/uL (0.0-0.7) Basophils # (Auto) 0.1 x10^3/uL (0.0-0.2) Segmented Neutrophils % 93 % (35-66) Lymphocytes % 2 % (24-48) Monocytes % 5 % (0-10) Platelet Estimate Adequate (ADEQUATE) Test 07/27/20 11:28 Glucose (Fingerstick) 219 mg/dL (70-99) Comment Review of Relevant I have reviewed the following items bell (where applicable) has been applied. Medications: Current Medications Medications (Trade) Dose Ordered Sig/Anthony Route PRN Reason Start Time Stop Time Status Last Admin Dose Admin Info (Anti-Coagulation Monitoring By Pharmacy) 1 each PRN DAILY PRN MC SEE COMMENTS 07/26/20 14:15 07/26/20 14:11 Lactobacillus Rhamnosus (Culturelle) 1 cap BID PO 07/26/20 21:00 07/26/20 23:05 Pantoprazole Sodium (PROTONIX VIAL for IV PUSH) 40 mg DAILYAC IVP 07/26/20 15:30 07/27/20 09:26 Sodium Chloride 1,000 ml @ 125 mls/hr 1X ONCE IV 07/26/20 17:45 07/27/20 01:44 DC 07/26/20 18:05 Linezolid/Dextrose 300 ml @ 300 mls/hr Q12HR IV 07/27/20 10:30 07/27/20 11:09 Acetaminophen (Tylenol) 650 mg PRN Q4HRS PRN PO Headaches, Temp > 101.5F 07/27/20 11:00 07/27/20 11:45 Justifications for Admission Other Justification Atypical chest pain, symptomatic cholelithiasis ONEIDA BEEBE MD Jul 27, 2020 13:00
[2020-07-27] MEDS ORDERED: MORPHINE SULFATE 4 MG/ML VIAL. IV ONE (13:30)
--- NOTE | 2020-07-27 14:32 | RAD ---
EXAM: Nuclear hepatobiliary scan. HISTORY: Pain and osteophytosis. TECHNIQUE: Following intravenous administration of 5.5 mCi Tc 99m Choletec, anterior images of the ab domen were obtained at five minute intervals through one hour. 4 mg of morphine was administered intr avenously for gallbladder visualization. FINDINGS: There is prompt radiotracer uptake by the liver. No focal defect is seen. There is excretio n of radiotracer into the biliary tree. There is delayed visualization of the gallbladder following i ntravenous administration of morphine. There is free flow into the duodenum. IMPRESSION: Delayed gallbladder filling. There is subsequent normal gallbladder filling following adm inistration of morphine. There is normal transit of tracer into the small bowel. No ejection fraction is calculated. Electronically signed by: Reina Mir MD (07/27/2020 2:30 PM) [id number]
[2020-07-27 15:00] VITALS: BP 119/62
--- NOTE | 2020-07-27 16:20 | PDOC ---
SURGICAL PROGRESS NOTE DATE: 07/27/20 TIME: 16:18 Subjective Pt feels better today, thirsty Vital Signs Vital Signs Date Time Temp Pulse Resp B/P (MAP) Pulse Ox O2 Delivery O2 Flow Rate FiO2 07/27/20 15:18 93 07/27/20 15:00 97.8 63 18 119/62 (81) Room Air 97.8 I&O Intake and Output 07/27/20 07:00 Intake Total 100 ml Output Total 400 ml Balance -300 ml Intake Oral 100 ml Output Urine Total 400 ml General: Alert, mild distress Abdomen: Soft (decreased TTP) Labs Laboratory Tests Test 07/25/20 19:15 07/25/20 22:29 07/26/20 06:30 07/26/20 09:21 Troponin I Quantitative < 0.017 ng/mL (0.000-0.055) Glucose (Fingerstick) 237 mg/dL (70-99) White Blood Count 26.6 x10^3/uL (4.0-11.0) Red Blood Count 5.08 x10^6/uL (3.50-5.40) Hemoglobin 14.4 g/dL (12.0-15.5) Hematocrit 43.4 % (36.0-47.0) Mean Corpuscular Volume 86 fL (79-100) Mean Corpuscular Hemoglobin 28 pg (25-35) Mean Corpuscular Hemoglobin Concent 33 g/dL (31-37) Red Cell Distribution Width 14.4 % (11.5-14.5) Platelet Count 326 x10^3/uL (140-400) Neutrophils (%) (Auto) 90 % (31-73) Lymphocytes (%) (Auto) 3 % (24-48) Monocytes (%) (Auto) 6 % (0-9) Eosinophils (%) (Auto) 0 % (0-3) Basophils (%) (Auto) 0 % (0-3) Neutrophils # (Auto) 24.0 x10^3/uL (1.8-7.7) Lymphocytes # (Auto) 0.9 x10^3/uL (1.0-4.8) Monocytes # (Auto) 1.7 x10^3/uL (0.0-1.1) Eosinophils # (Auto) 0.0 x10^3/uL (0.0-0.7) Basophils # (Auto) 0.0 x10^3/uL (0.0-0.2) Sodium Level 132 mmol/L (136-145) Potassium Level 4.5 mmol/L (3.5-5.1) Chloride Level 98 mmol/L (98-107) Carbon Dioxide Level 23 mmol/L (21-32) Anion Gap 11 (6-14) Blood Urea Nitrogen 9 mg/dL (7-20) Creatinine 0.8 mg/dL (0.6-1.0) Estimated GFR (Cockcroft-Gault) 70.1 BUN/Creatinine Ratio 11 (6-20) Glucose Level 250 mg/dL (70-99) Calcium Level 9.0 mg/dL (8.5-10.1) Total Bilirubin 0.8 mg/dL (0.2-1.0) Aspartate Amino Transf (AST/SGOT) 23 U/L (15-37) Alanine Aminotransferase (ALT/SGPT) 23 U/L (14-59) Alkaline Phosphatase 82 U/L (46-116) Total Protein 7.0 g/dL (6.4-8.2) Albumin 3.5 g/dL (3.4-5.0) Albumin/Globulin Ratio 1.0 (1.0-1.7) Triglycerides Level 72 mg/dL (0-150) Cholesterol Level 106 mg/dL (0-200) LDL Cholesterol, Calculated 35 mg/dL (0-100) VLDL Cholesterol, Calculated 14 mg/dL (0-40) Non-HDL Cholesterol Calculated 49 mg/dL (0-129) HDL Cholesterol 57 mg/dL (40-60) Cholesterol/HDL Ratio 1.9 SARS-CoV-2 Antigen (Rapid) Negative (NEGATIVE) Test 07/26/20 16:10 07/26/20 21:15 07/27/20 07:05 07/27/20 09:30 Glucose (Fingerstick) 262 mg/dL (70-99) 269 mg/dL (70-99) 232 mg/dL (70-99) White Blood Count 29.1 x10^3/uL (4.0-11.0) Red Blood Count 4.60 x10^6/uL (3.50-5.40) Hemoglobin 13.3 g/dL (12.0-15.5) Hematocrit 39.4 % (36.0-47.0) Mean Corpuscular Volume 86 fL (79-100) Mean Corpuscular Hemoglobin 29 pg (25-35) Mean Corpuscular Hemoglobin Concent 34 g/dL (31-37) Red Cell Distribution Width 14.4 % (11.5-14.5) Platelet Count 274 x10^3/uL (140-400) Neutrophils (%) (Auto) 90 % (31-73) Lymphocytes (%) (Auto) 3 % (24-48) Monocytes (%) (Auto) 7 % (0-9) Eosinophils (%) (Auto) 0 % (0-3) Basophils (%) (Auto) 0 % (0-3) Neutrophils # (Auto) 26.1 x10^3/uL (1.8-7.7) Lymphocytes # (Auto) 0.9 x10^3/uL (1.0-4.8) Monocytes # (Auto) 2.1 x10^3/uL (0.0-1.1) Eosinophils # (Auto) 0.0 x10^3/uL (0.0-0.7) Basophils # (Auto) 0.1 x10^3/uL (0.0-0.2) Segmented Neutrophils % 93 % (35-66) Lymphocytes % 2 % (24-48) Monocytes % 5 % (0-10) Platelet Estimate Adequate (ADEQUATE) Test 07/27/20 11:28 Glucose (Fingerstick) 219 mg/dL (70-99) Laboratory Tests Test 07/26/20 21:15 07/27/20 07:05 07/27/20 09:30 07/27/20 11:28 Glucose (Fingerstick) 269 mg/dL (70-99) 232 mg/dL (70-99) 219 mg/dL (70-99) White Blood Count 29.1 x10^3/uL (4.0-11.0) Red Blood Count 4.60 x10^6/uL (3.50-5.40) Hemoglobin 13.3 g/dL (12.0-15.5) Hematocrit 39.4 % (36.0-47.0) Mean Corpuscular Volume 86 fL (79-100) Mean Corpuscular Hemoglobin 29 pg (25-35) Mean Corpuscular Hemoglobin Concent 34 g/dL (31-37) Red Cell Distribution Width 14.4 % (11.5-14.5) Platelet Count 274 x10^3/uL (140-400) Neutrophils (%) (Auto) 90 % (31-73) Lymphocytes (%) (Auto) 3 % (24-48) Monocytes (%) (Auto) 7 % (0-9) Eosinophils (%) (Auto) 0 % (0-3) Basophils (%) (Auto) 0 % (0-3) Neutrophils # (Auto) 26.1 x10^3/uL (1.8-7.7) Lymphocytes # (Auto) 0.9 x10^3/uL (1.0-4.8) Monocytes # (Auto) 2.1 x10^3/uL (0.0-1.1) Eosinophils # (Auto) 0.0 x10^3/uL (0.0-0.7) Basophils # (Auto) 0.1 x10^3/uL (0.0-0.2) Segmented Neutrophils % 93 % (35-66) Lymphocytes % 2 % (24-48) Monocytes % 5 % (0-10) Platelet Estimate Adequate (ADEQUATE) I have reviewed the following HIDA reassuring for not having an acute process Problem List Appreciate consultants and pt appears improved with abx. D/w pt's sister SUZAN tidwell will plan elective cholecystectomy pending medical improvement. Justicifation of Admission Dx: Justifications for Admission: Justification of Admission Dx: Yes ORIANA HERNÁNDEZ MD Jul 27, 2020 16:20
[2020-07-27 19:45] VITALS: BP 135/73
[2020-07-27] MEDS: ATORVASTATIN CALCIUM 40 MG TABLET. PO SCH (22:11)
[2020-07-27] MEDS: INSULIN GLARGINE SYRINGE. SQ SCH (22:12)
[2020-07-27 22:50] VITALS: BP 142/71
--- NOTE | 2020-07-28 02:33 | EKG ---
[facility] [address] [place] [address] Test Date: 2020-07-25 Test Time: 13:04:09 Pat Name: MARLON WHITAKER Department: Room: Gender: F Park Interpreter: : 1945 Requested By: SETH CARRILLO Order Number: [id number] Reading MD: Measurements Intervals [place] Rate: 76 P: NE: QRS: 60 QRSD: 80 T: 41 QT: 408 QTc: 464 Interpretive Statements IRREGULAR RHYTHM, NO P-WAVE FOUND OTHERWISE NORMAL ECG RI6.02 No previous ECG available for comparison
[2020-07-28 03:30] VITALS: BP 128/72
[2020-07-28] MEDS: PIPERACILLIN/TAZOBACTAM 3.375 GM in IV NORMAL SALINE 50ML 50 ML IV SCH ×3 (05:54→17:41)
[2020-07-28] MEDS: LEVOTHYROXINE 112 MCG TABLET PO SCH (06:04)
[2020-07-28 07:00] VITALS: BP 118/59
--- NOTE | 2020-07-28 08:01 | PDOC ---
Infectious Disease Note Subjective Subjective Patient is feeling better. Up in the chair. Continues to have some right upper quadrant pain ROS ROS No nausea vomiting diarrhea or fever Vital Sign Vital Signs Vital Signs Date Time Temp Pulse Resp B/P (MAP) Pulse Ox O2 Delivery O2 Flow Rate FiO2 07/28/20 03:30 98.6 76 20 128/72 (90) 96 Room Air 98.6 Physical Exam PHYSICAL EXAM GENERAL: Alert, oriented female, who has poor memory, not in any distress. VITAL SIGNS: Stable. HEENT: Both pupils are round and reacting. No conjunctival lesion, no lesion in the mouth. NECK: Supple, no JVP, no lymphadenopathy. LUNGS: Clear. HEART: S1, S2 regular. ABDOMEN: Soft, nontender, no organomegaly. EXTREMITIES: No edema or cyanosis. SKIN: Unremarkable. NEUROLOGIC: The patient is alert, awake and appropriate. No focal neurologic deficit. Labs Lab Laboratory Tests Test 07/27/20 09:30 07/27/20 11:28 07/27/20 16:34 07/27/20 21:03 White Blood Count 29.1 x10^3/uL (4.0-11.0) Red Blood Count 4.60 x10^6/uL (3.50-5.40) Hemoglobin 13.3 g/dL (12.0-15.5) Hematocrit 39.4 % (36.0-47.0) Mean Corpuscular Volume 86 fL (79-100) Mean Corpuscular Hemoglobin 29 pg (25-35) Mean Corpuscular Hemoglobin Concent 34 g/dL (31-37) Red Cell Distribution Width 14.4 % (11.5-14.5) Platelet Count 274 x10^3/uL (140-400) Neutrophils (%) (Auto) 90 % (31-73) Lymphocytes (%) (Auto) 3 % (24-48) Monocytes (%) (Auto) 7 % (0-9) Eosinophils (%) (Auto) 0 % (0-3) Basophils (%) (Auto) 0 % (0-3) Neutrophils # (Auto) 26.1 x10^3/uL (1.8-7.7) Lymphocytes # (Auto) 0.9 x10^3/uL (1.0-4.8) Monocytes # (Auto) 2.1 x10^3/uL (0.0-1.1) Eosinophils # (Auto) 0.0 x10^3/uL (0.0-0.7) Basophils # (Auto) 0.1 x10^3/uL (0.0-0.2) Segmented Neutrophils % 93 % (35-66) Lymphocytes % 2 % (24-48) Monocytes % 5 % (0-10) Platelet Estimate Adequate (ADEQUATE) Glucose (Fingerstick) 219 mg/dL (70-99) 281 mg/dL (70-99) 142 mg/dL (70-99) Test 07/28/20 07:28 Glucose (Fingerstick) 225 mg/dL (70-99) Micro Microbiology 07/25/20 Urine Culture - Final, Complete Objective Assessment IMPRESSION: 1. Abdominal pain. 2. Leukocytosis. 3. Abnormal gallbladder with gallstones, may have had some cholecystitis and/or abdominal pain was just some other reason. 4. Severe left-sided hydronephrosis and hydroureter. 5. Atrial fibrillation. 6. Diabetes. 7. Hypothyroidism. Plan Plan of Care cont zyvox and zosyn WBC improving urine culture neg supportive care Possible cholecystectomy GABRIELE HARDEN MD Jul 28, 2020 08:01
--- NOTE | 2020-07-28 08:10 | NUR ---
07/28/20 2100 Eliquis scanned, removed from packaging and then discarded as this RN realized eliquis is to be held pending possible cholecystectomy surgery.
[2020-07-28] MEDS: EZETIMIBE 10 MG TABLET. PO SCH (08:33)
[2020-07-28] MEDS: PANTOPRAZOLE IV PUSH 40 MG VIAL. IVP SCH (08:33)
[2020-07-28] MEDS: ACETAMINOPHEN 325 MG TABLET. PO PRN ×3 (08:33→20:20)
[2020-07-28] MEDS: LACTOBACILLUS RHAMNOSUS GG 1 CAPSULE. PO SCH ×2 (08:33→20:20)
[2020-07-28] MEDS: METOPROLOL TART IMMED RELEASE 25 MG TABLET. PO SCH ×2 (08:34→20:21)
[2020-07-28] MEDS: INSULIN LISPRO 300 UNITS/3 ML VIAL. SQ SCH ×3 (08:50→17:48)
[2020-07-28] MEDS: APIXABAN 5 MG TABLET. PO SCH ×2 (09:00→20:21)
[2020-07-28 09:32] LABS: BASO # 0.1 x10^3/uL (0.0-0.2); BASO % 0 % (0-3); EOS % 0 % (0-3); HEMATOCRIT 40.4 % (36.0-47.0); HEMOGLOBIN 13.5 g/dL (12.0-15.5); LYMPH # 0.9 x10^3/uL (1.0-4.8); LYMPH % 3 % (24-48); MEAN CORPUSCULAR HEMOGLOBIN 29 pg (25-35); MEAN CORPUSCULAR HGB CONC 33 g/dL (31-37); MEAN CORPUSCULAR VOLUME 86 fL (79-100); MONO # 1.4 x10^3/uL (0.0-1.1); MONO % 6 % (0-9); NEUT # 23.8 x10^3/uL (1.8-7.7); NEUT % 91 % (31-73); PLATELET COUNT 315 x10^3/uL (140-400); RED BLOOD COUNT 4.72 x10^6/uL (3.50-5.40); RED CELL DISTRIBUTION WIDTH 14.6 % (11.5-14.5); WHITE BLOOD COUNT 26.3 x10^3/uL (4.0-11.0)
--- NOTE | 2020-07-28 10:25 | PDOC ---
RUBIN PERALTA [employer]SEMBLER 07/28/20 1025: SURGICAL PROGRESS NOTE DATE: 07/28/20 TIME: 10:22 Subjective up in chair thinks right sided pain better family present, many questions, concerned with eliquis on hold Vital Signs Vital Signs Date Time Temp Pulse Resp B/P (MAP) Pulse Ox O2 Delivery O2 Flow Rate FiO2 07/28/20 08:34 87 118/59 07/28/20 07:00 99.5 18 92 Room Air 99.5 I&O Intake and Output 07/28/20 07:00 Intake Total 1110 ml Output Total 527 ml Balance 583 ml Intake Oral 760 ml IV Total 350 ml Output Urine Total 527 ml General: Alert, Oriented X3, Cooperative Abdomen: Soft, Other (TTP RUQ) Labs Laboratory Tests Test 07/26/20 16:10 07/26/20 21:15 07/27/20 07:05 07/27/20 09:30 Glucose (Fingerstick) 262 mg/dL (70-99) 269 mg/dL (70-99) 232 mg/dL (70-99) White Blood Count 29.1 x10^3/uL (4.0-11.0) Red Blood Count 4.60 x10^6/uL (3.50-5.40) Hemoglobin 13.3 g/dL (12.0-15.5) Hematocrit 39.4 % (36.0-47.0) Mean Corpuscular Volume 86 fL (79-100) Mean Corpuscular Hemoglobin 29 pg (25-35) Mean Corpuscular Hemoglobin Concent 34 g/dL (31-37) Red Cell Distribution Width 14.4 % (11.5-14.5) Platelet Count 274 x10^3/uL (140-400) Neutrophils (%) (Auto) 90 % (31-73) Lymphocytes (%) (Auto) 3 % (24-48) Monocytes (%) (Auto) 7 % (0-9) Eosinophils (%) (Auto) 0 % (0-3) Basophils (%) (Auto) 0 % (0-3) Neutrophils # (Auto) 26.1 x10^3/uL (1.8-7.7) Lymphocytes # (Auto) 0.9 x10^3/uL (1.0-4.8) Monocytes # (Auto) 2.1 x10^3/uL (0.0-1.1) Eosinophils # (Auto) 0.0 x10^3/uL (0.0-0.7) Basophils # (Auto) 0.1 x10^3/uL (0.0-0.2) Segmented Neutrophils % 93 % (35-66) Lymphocytes % 2 % (24-48) Monocytes % 5 % (0-10) Platelet Estimate Adequate (ADEQUATE) Test 07/27/20 11:28 07/27/20 16:34 07/27/20 21:03 07/28/20 07:28 Glucose (Fingerstick) 219 mg/dL (70-99) 281 mg/dL (70-99) 142 mg/dL (70-99) 225 mg/dL (70-99) Test 07/28/20 09:05 White Blood Count 26.3 x10^3/uL (4.0-11.0) Red Blood Count 4.72 x10^6/uL (3.50-5.40) Hemoglobin 13.5 g/dL (12.0-15.5) Hematocrit 40.4 % (36.0-47.0) Mean Corpuscular Volume 86 fL (79-100) Mean Corpuscular Hemoglobin 29 pg (25-35) Mean Corpuscular Hemoglobin Concent 33 g/dL (31-37) Red Cell Distribution Width 14.6 % (11.5-14.5) Platelet Count 315 x10^3/uL (140-400) Neutrophils (%) (Auto) 91 % (31-73) Lymphocytes (%) (Auto) 3 % (24-48) Monocytes (%) (Auto) 6 % (0-9) Eosinophils (%) (Auto) 0 % (0-3) Basophils (%) (Auto) 0 % (0-3) Neutrophils # (Auto) 23.8 x10^3/uL (1.8-7.7) Lymphocytes # (Auto) 0.9 x10^3/uL (1.0-4.8) Monocytes # (Auto) 1.4 x10^3/uL (0.0-1.1) Eosinophils # (Auto) 0.0 x10^3/uL (0.0-0.7) Basophils # (Auto) 0.1 x10^3/uL (0.0-0.2) Laboratory Tests Test 07/27/20 11:28 07/27/20 16:34 07/27/20 21:03 07/28/20 07:28 Glucose (Fingerstick) 219 mg/dL (70-99) 281 mg/dL (70-99) 142 mg/dL (70-99) 225 mg/dL (70-99) Test 07/28/20 09:05 White Blood Count 26.3 x10^3/uL (4.0-11.0) Red Blood Count 4.72 x10^6/uL (3.50-5.40) Hemoglobin 13.5 g/dL (12.0-15.5) Hematocrit 40.4 % (36.0-47.0) Mean Corpuscular Volume 86 fL (79-100) Mean Corpuscular Hemoglobin 29 pg (25-35) Mean Corpuscular Hemoglobin Concent 33 g/dL (31-37) Red Cell Distribution Width 14.6 % (11.5-14.5) Platelet Count 315 x10^3/uL (140-400) Neutrophils (%) (Auto) 91 % (31-73) Lymphocytes (%) (Auto) 3 % (24-48) Monocytes (%) (Auto) 6 % (0-9) Eosinophils (%) (Auto) 0 % (0-3) Basophils (%) (Auto) 0 % (0-3) Neutrophils # (Auto) 23.8 x10^3/uL (1.8-7.7) Lymphocytes # (Auto) 0.9 x10^3/uL (1.0-4.8) Monocytes # (Auto) 1.4 x10^3/uL (0.0-1.1) Eosinophils # (Auto) 0.0 x10^3/uL (0.0-0.7) Basophils # (Auto) 0.1 x10^3/uL (0.0-0.2) Assessment/Plan BS still high WBC noted will have Dr Polanco FU and discuss any surgical plans, eliquis being held--will have cards FU if anything additional needed until can be determined if surgery this admission or not Justicifation of Admission Dx: Justifications for Admission: Justification of Admission Dx: Yes ORIANA POLANCO MD 07/28/202043: SURGICAL PROGRESS NOTE Assessment/Plan Pt seen and examined. Agree with Ms. Peralta's note D/w pt and pt's supportive family Pt feels better abd soft, min TTP epigastric cont abx and IVF. Favor work towards d/c if continued improvement with plans for urology stent and eventual cholecystectomy. RUBIN PERALTA APRN Jul 28, 2020 10:25 ORIANA POLANCO MD Jul 28, 2020 20:44
[2020-07-28] MEDS: ANTI-COAG MONITOR BY PHARMACY. MC PRN (10:50)
[2020-07-28 11:00] VITALS: BP 99/53
--- NOTE | 2020-07-28 11:34 | PDOC ---
Date of Service: DATE: 07/28/20 TIME: 11:30 Subjective: Subjective: Family frustrated and concerned, say they are being told different things - also want to know what my purpose is in seeing her and what GI is contributing because it's really confusing with all the doctors and helpers. They want to know why she isn't on telemetry and are concerned her blood thinner has been held w/ her h/o CVA. She says she still has pain but might be better this morning w/ Tylenol. Objective: Objective: D/w nurse and Faye/surgery, also Dr. Chanel/ID. Tmax 99.5. Vital Signs: Vital Signs Date Time Temp Pulse Resp B/P (MAP) Pulse Ox O2 Delivery O2 Flow Rate FiO2 07/28/20 11:00 97.5 63 18 99/53 (68) 92 Room Air 97.5 Labs: Laboratory Tests Test 07/27/20 16:34 07/27/20 21:03 07/28/20 07:28 07/28/20 09:05 Glucose (Fingerstick) 281 mg/dL 142 mg/dL 225 mg/dL White Blood Count 26.3 x10^3/uL Red Blood Count 4.72 x10^6/uL Hemoglobin 13.5 g/dL Hematocrit 40.4 % Mean Corpuscular Volume 86 fL Mean Corpuscular Hemoglobin 29 pg Mean Corpuscular Hemoglobin Concent 33 g/dL Red Cell Distribution Width 14.6 % Platelet Count 315 x10^3/uL Neutrophils (%) (Auto) 91 % Lymphocytes (%) (Auto) 3 % Monocytes (%) (Auto) 6 % Eosinophils (%) (Auto) 0 % Basophils (%) (Auto) 0 % Neutrophils # (Auto) 23.8 x10^3/uL Lymphocytes # (Auto) 0.9 x10^3/uL Monocytes # (Auto) 1.4 x10^3/uL Eosinophils # (Auto) 0.0 x10^3/uL Basophils # (Auto) 0.1 x10^3/uL Platelet Estimate Pending Imaging: HIDA TECHNIQUE: Following intravenous administration of 5.5 mCi Tc 99m Choletec, anterior images of the abdomen were obtained at five minute intervals through one hour. 4 mg of morphine was administered intravenously for gallbladder visualization. FINDINGS: There is prompt radiotracer uptake by the liver. No focal defect is seen. There is excretion of radiotracer into the biliary tree. There is delayed visualization of the gallbladder following intravenous administration of morphine. There is free flow into the duodenum. IMPRESSION: Delayed gallbladder filling. There is subsequent normal gallbladder filling following administration of morphine. There is normal transit of tracer into the small bowel. No ejection fraction is calculated. PE: GEN: NAD - up to chair - two family members present, daughter on speakerphone LUNGS: CTAB HEART: RRR ABD: soft, RUQ discomfort NEURO/PSYCH: A & O 3 A/P: RUQ pain, cholelithiasis - HIDA as above Leukocytosis Severe left hydronephrosis H/o A Fib and CVA - Eliquis held COVID negative -- Await surgery follow-up. Justicifation of Admission Dx: Justifications for Admission: Justification of Admission Dx: Yes MAYCOL SCOTT Jul 28, 2020 11:34
[2020-07-28 12:45] LABS: % BANDS 16 % (0-9); % LYMPHS 8 % (24-48); % MONOS 3 % (0-10); % SEGS 73 % (35-66); BURR CELLS FEW; PLT ESTIMATE ADEQUATE (ADEQUATE); TOXIC GRANULATION SLIGHT; TOXIC VACUOLATION SLIGHT
--- NOTE | 2020-07-28 14:13 | NUR ---
SS following up with discharge planning. SS reviewed pt chart and discussed with pt RN. Pt is currently on room air. Pt on IV Zosyn and IV Zyvox. HIDA scan negative. PT/OT ordered. SS will continue to follow for discharge planning.
[2020-07-28 15:00] VITALS: BP 116/75
--- NOTE | 2020-07-28 15:41 | PDOC ---
[facility] PROGRESS NOTE Date of Service DOS: DATE: 07/28/20 TIME: 15:37 Chief Complaint Chief Complaint A/P: Epigastric pain - appears to be symptomatic cholelithiasis, gallbladder hydropic Leukocytosis - likely related to above, meets SIRS criteria for sepsis likely related to gallbladder Left hydronephrosis - appears to be related to uretal stricture, will need outpatient urology f/u H/o CVA - infarcts of the left thalamus, left occipital lobe, and left temporal lobe/hippocampal formation. Metabolic encephalopathy. Confusion. Right temporal field deficits. AFib. HLD. DM. Hypothyroidism. History of Present Illness History of Present Illness Ms Mccoy is 74-year-old female past medical history CVA, who presents to the ER with complaints of epigastric and right upper quadrant abdominal pain that started this morning. She reports sharp pain, 7/10 at worst. She states her pain radiates to her lower back. She reports associated nausea and vomiting x1. She denies any association of her pain with food. She is never had this type of pain before, and denies any known history of cholelithiasis. Ultrasound obtained in the ER shows cholelithiasis, hydropic gallbladder, and chronic appearing severe left hydronephrosis. CT abdomen/pelvis obtained in the ER also shows the same, but also notes likely uretal stricture on left. 07/26: Afebrile overnight. WBC increased. Still with significant pain and stephanie vated blood pressure minimally responsive to IV pain medication. No shortness of breath or chest pain. No left-sided abdominal pain. No dysuria. Sister notes that there has been a 40 pound weight loss in the last year. 07/27: Patient seen and evaluated bedside. Echocardiogram showing normal EF, with dilated ascending aorta. Still complains of pain. She seems slightly somnolent today, but states she has just had pain medication. She is to have HIDA scan today. Some concern for hydronephrosis as cause of patient's pain, and she would need ureteral stent. If HIDA scan is negative, she will need to be transferred to facility with urology to have stent placed. 07/28: Patient had HIDA scan yesterday showing delayed gallbladder filling. Still complains of right upper quadrant pain. She denies any shortness of breath, nausea, or vomiting. Evidence of bilateral hydronephrosis seen on CT, left greater than right. Liver pain is secondary to cholelithiasis and not hydronephrosis, however patient will need to follow-up with urologist eventually after discharge from this hospital stay. Vitals/I&O Vitals/I&O: Vital Signs Date Time Temp Pulse Resp B/P (MAP) Pulse Ox O2 Delivery O2 Flow Rate FiO2 07/28/20 15:00 97.5 69 19 116/75 (89) 94 Room Air 97.5 I & O 07/27/20 07/27/20 07/28/20 15:00 23:00 07:00 Intake Total 300 ml 410 ml 400 ml Output Total 152 ml 375 ml Balance 300 ml 258 ml 25 ml Physical Exam Physical Exam: GENERAL: Alert, oriented female, who has poor memory, not in any distress. VITAL SIGNS: Stable. HEENT: Both pupils are round and reacting. No conjunctival lesion, no lesion in the mouth. NECK: Supple, no JVP, no lymphadenopathy. LUNGS: Clear. HEART: S1, S2 regular. ABDOMEN: Soft, nontender, no organomegaly. EXTREMITIES: No edema or cyanosis. SKIN: Unremarkable. NEUROLOGIC: The patient is alert, awake and appropriate. No focal neurologic deficit. General: Alert, Oriented X3, Cooperative Heart: Regular rate (SR) Lungs: Clear Abdomen: Soft, Other (TTP RUQ) Extremities: No cyanosis, No edema Skin: No breakdown, No significant lesion Labs Labs: Laboratory Tests Test 07/27/20 16:34 07/27/20 21:03 07/28/20 07:28 07/28/20 09:05 Glucose (Fingerstick) 281 mg/dL (70-99) 142 mg/dL (70-99) 225 mg/dL (70-99) White Blood Count 26.3 x10^3/uL (4.0-11.0) Red Blood Count 4.72 x10^6/uL (3.50-5.40) Hemoglobin 13.5 g/dL (12.0-15.5) Hematocrit 40.4 % (36.0-47.0) Mean Corpuscular Volume 86 fL (79-100) Mean Corpuscular Hemoglobin 29 pg (25-35) Mean Corpuscular Hemoglobin Concent 33 g/dL (31-37) Red Cell Distribution Width 14.6 % (11.5-14.5) Platelet Count 315 x10^3/uL (140-400) Neutrophils (%) (Auto) 91 % (31-73) Lymphocytes (%) (Auto) 3 % (24-48) Monocytes (%) (Auto) 6 % (0-9) Eosinophils (%) (Auto) 0 % (0-3) Basophils (%) (Auto) 0 % (0-3) Neutrophils # (Auto) 23.8 x10^3/uL (1.8-7.7) Lymphocytes # (Auto) 0.9 x10^3/uL (1.0-4.8) Monocytes # (Auto) 1.4 x10^3/uL (0.0-1.1) Eosinophils # (Auto) 0.0 x10^3/uL (0.0-0.7) Basophils # (Auto) 0.1 x10^3/uL (0.0-0.2) Segmented Neutrophils % 73 % (35-66) Band Neutrophils % 16 % (0-9) Lymphocytes % 8 % (24-48) Monocytes % 3 % (0-10) Toxic Granulation Slight Toxic Vacuolation Slight Platelet Estimate Adequate (ADEQUATE) Large Platelets Occ Giant Platelets Occ Concord Cells Few Test 07/28/20 11:57 Glucose (Fingerstick) 177 mg/dL (70-99) Comment Review of Relevant I have reviewed the following items bell (where applicable) has been applied. Justifications for Admission Other Justification Atypical chest pain, symptomatic cholelithiasis ONEIDA BEEBE MD Jul 28, 2020 15:41
[2020-07-28 19:28] VITALS: BP 132/73
[2020-07-28] MEDS: ATORVASTATIN CALCIUM 40 MG TABLET. PO SCH (20:20)
[2020-07-28] MEDS: INSULIN GLARGINE SYRINGE. SQ SCH (20:28)
[2020-07-28 22:35] VITALS: BP 120/59
[2020-07-29] VITALS (7 sets, daily range): BP systolic 112–139; BP diastolic 50–67
[2020-07-29] MEDS: PIPERACILLIN/TAZOBACTAM 3.375 GM in IV NORMAL SALINE 50ML 50 ML IV SCH ×4 (00:09→17:24)
[2020-07-29] MEDS: ACETAMINOPHEN 325 MG TABLET. PO PRN ×4 (00:15→17:28)
[2020-07-29] MEDS: LEVOTHYROXINE 112 MCG TABLET PO SCH (05:23)
[2020-07-29] MEDS: PANTOPRAZOLE IV PUSH 40 MG VIAL. IVP SCH (05:23)
--- NOTE | 2020-07-29 08:46 | PDOC ---
Infectious Disease Note Subjective Subjective Patient is feeling better. Up in the chair. Continues to have some right upper quadrant pain ROS ROS No nausea vomiting diarrhea Vital Sign Vital Signs Vital Signs Date Time Temp Pulse Resp B/P (MAP) Pulse Ox O2 Delivery O2 Flow Rate FiO2 07/29/20 07:00 98.3 67 19 114/60 (78) 95 Room Air 98.3 Physical Exam PHYSICAL EXAM GENERAL: Alert, oriented female, who has poor memory, not in any distress. VITAL SIGNS: Stable. HEENT: Both pupils are round and reacting. No conjunctival lesion, no lesion in the mouth. NECK: Supple, no JVP, no lymphadenopathy. LUNGS: Clear. HEART: S1, S2 regular. ABDOMEN: Soft, nontender, no organomegaly. EXTREMITIES: No edema or cyanosis. SKIN: Unremarkable. NEUROLOGIC: The patient is alert, awake and appropriate. No focal neurologic deficit. Labs Lab Laboratory Tests Test 07/28/20 09:05 07/28/20 11:57 07/28/20 16:37 07/28/20 19:52 White Blood Count 26.3 x10^3/uL (4.0-11.0) Red Blood Count 4.72 x10^6/uL (3.50-5.40) Hemoglobin 13.5 g/dL (12.0-15.5) Hematocrit 40.4 % (36.0-47.0) Mean Corpuscular Volume 86 fL (79-100) Mean Corpuscular Hemoglobin 29 pg (25-35) Mean Corpuscular Hemoglobin Concent 33 g/dL (31-37) Red Cell Distribution Width 14.6 % (11.5-14.5) Platelet Count 315 x10^3/uL (140-400) Neutrophils (%) (Auto) 91 % (31-73) Lymphocytes (%) (Auto) 3 % (24-48) Monocytes (%) (Auto) 6 % (0-9) Eosinophils (%) (Auto) 0 % (0-3) Basophils (%) (Auto) 0 % (0-3) Neutrophils # (Auto) 23.8 x10^3/uL (1.8-7.7) Lymphocytes # (Auto) 0.9 x10^3/uL (1.0-4.8) Monocytes # (Auto) 1.4 x10^3/uL (0.0-1.1) Eosinophils # (Auto) 0.0 x10^3/uL (0.0-0.7) Basophils # (Auto) 0.1 x10^3/uL (0.0-0.2) Segmented Neutrophils % 73 % (35-66) Band Neutrophils % 16 % (0-9) Lymphocytes % 8 % (24-48) Monocytes % 3 % (0-10) Toxic Granulation Slight Toxic Vacuolation Slight Platelet Estimate Adequate (ADEQUATE) Large Platelets Occ Giant Platelets Occ Soo Cells Few Glucose (Fingerstick) 177 mg/dL (70-99) 186 mg/dL (70-99) 188 mg/dL (70-99) Test 07/29/20 06:58 Glucose (Fingerstick) 205 mg/dL (70-99) Micro Microbiology 07/25/20 Urine Culture - Final, Complete Objective Assessment IMPRESSION: 1. Abdominal pain. 2. Leukocytosis. 3. Abnormal gallbladder with gallstones, may have had some cholecystitis and/or abdominal pain was just some other reason. 4. Severe left-sided hydronephrosis and hydroureter. 5. Atrial fibrillation. 6. Diabetes. 7. Hypothyroidism. Plan Plan of Care cont zyvox and zosyn WBC improving urine culture neg supportive care LFT worse Possible cholecystectomy GABRIELE HARDEN MD Jul 29, 2020 08:46
[2020-07-29] MEDS: APIXABAN 5 MG TABLET. PO SCH ×2 (09:00→21:24)
[2020-07-29 09:27] LABS: BASO % 0 % (0-3); EOS % 0 % (0-3); HEMATOCRIT 35.4 % (36.0-47.0); HEMOGLOBIN 11.9 g/dL (12.0-15.5); LYMPH # 0.8 x10^3/uL (1.0-4.8); LYMPH % 4 % (24-48); MEAN CORPUSCULAR HEMOGLOBIN 28 pg (25-35); MEAN CORPUSCULAR HGB CONC 34 g/dL (31-37); MEAN CORPUSCULAR VOLUME 84 fL (79-100); MONO # 1.3 x10^3/uL (0.0-1.1); MONO % 6 % (0-9); NEUT % 89 % (31-73); PLATELET COUNT 298 x10^3/uL (140-400); RED CELL DISTRIBUTION WIDTH 14.2 % (11.5-14.5); WHITE BLOOD COUNT 20.2 x10^3/uL (4.0-11.0)
[2020-07-29] MEDS: EZETIMIBE 10 MG TABLET. PO SCH (09:28)
[2020-07-29] MEDS: LACTOBACILLUS RHAMNOSUS GG 1 CAPSULE. PO SCH ×2 (09:28→21:24)
[2020-07-29] MEDS: INSULIN LISPRO 300 UNITS/3 ML VIAL. SQ SCH ×3 (09:34→17:26)
[2020-07-29 09:40] LABS: ALBUMIN 2.1 g/dL (3.4-5.0); ALBUMIN/GLOBULIN RATIO 0.5 (1.0-1.7); CALCIUM 8.5 mg/dL (8.5-10.1); CREATININE 0.8 mg/dL (0.6-1.0); GFR 70.1; TOTAL BILIRUBIN 0.9 mg/dL (0.2-1.0); TOTAL PROTEIN 6.2 g/dL (6.4-8.2)
[2020-07-29 09:44] LABS: POTASSIUM 2.6 mmol/L (3.5-5.1)
[2020-07-29] MEDS ORDERED: POTASSIUM CHLORIDE 10MEQ 100 ML IV SCH (10:00)
[2020-07-29] MEDS: METOPROLOL TART IMMED RELEASE 25 MG TABLET. PO SCH ×2 (11:04→21:27)
[2020-07-29] MEDS ORDERED: POTASSIUM BICARB 10 MEQ EFFERVESCENT TABLET. PO ONE (12:30)
--- NOTE | 2020-07-29 12:38 | PDOC ---
RUBIN PERALTA [employer] 07/29/20 1238: SURGICAL PROGRESS NOTE DATE: 07/29/20 TIME: 12:37 Subjective main complaint currently is burning in hand from IV denies abdominal pain Vital Signs Vital Signs Date Time Temp Pulse Resp B/P (MAP) Pulse Ox O2 Delivery O2 Flow Rate FiO2 07/29/20 11:04 67 134/63 07/29/20 10:28 97.7 19 98 Room Air 97.7 I&O Intake and Output 07/29/20 07:00 Intake Total 180 ml Output Total 1300 ml Balance -1120 ml Intake Oral 180 ml Output Urine Total 1300 ml # Voids 1 # Bowel Movements 3 General: Alert, Oriented X3, Cooperative Abdomen: Soft, No tenderness Labs Laboratory Tests Test 07/27/20 16:34 07/27/20 21:03 07/28/20 07:28 07/28/20 09:05 Glucose (Fingerstick) 281 mg/dL (70-99) 142 mg/dL (70-99) 225 mg/dL (70-99) White Blood Count 26.3 x10^3/uL (4.0-11.0) Red Blood Count 4.72 x10^6/uL (3.50-5.40) Hemoglobin 13.5 g/dL (12.0-15.5) Hematocrit 40.4 % (36.0-47.0) Mean Corpuscular Volume 86 fL (79-100) Mean Corpuscular Hemoglobin 29 pg (25-35) Mean Corpuscular Hemoglobin Concent 33 g/dL (31-37) Red Cell Distribution Width 14.6 % (11.5-14.5) Platelet Count 315 x10^3/uL (140-400) Neutrophils (%) (Auto) 91 % (31-73) Lymphocytes (%) (Auto) 3 % (24-48) Monocytes (%) (Auto) 6 % (0-9) Eosinophils (%) (Auto) 0 % (0-3) Basophils (%) (Auto) 0 % (0-3) Neutrophils # (Auto) 23.8 x10^3/uL (1.8-7.7) Lymphocytes # (Auto) 0.9 x10^3/uL (1.0-4.8) Monocytes # (Auto) 1.4 x10^3/uL (0.0-1.1) Eosinophils # (Auto) 0.0 x10^3/uL (0.0-0.7) Basophils # (Auto) 0.1 x10^3/uL (0.0-0.2) Segmented Neutrophils % 73 % (35-66) Band Neutrophils % 16 % (0-9) Lymphocytes % 8 % (24-48) Monocytes % 3 % (0-10) Toxic Granulation Slight Toxic Vacuolation Slight Platelet Estimate Adequate (ADEQUATE) Large Platelets Occ Giant Platelets Occ Soo Cells Few Test 07/28/20 11:57 07/28/20 16:37 07/28/20 19:52 07/29/20 06:58 Glucose (Fingerstick) 177 mg/dL (70-99) 186 mg/dL (70-99) 188 mg/dL (70-99) 205 mg/dL (70-99) Test 07/29/20 08:55 07/29/20 11:12 White Blood Count 20.2 x10^3/uL (4.0-11.0) Red Blood Count 4.20 x10^6/uL (3.50-5.40) Hemoglobin 11.9 g/dL (12.0-15.5) Hematocrit 35.4 % (36.0-47.0) Mean Corpuscular Volume 84 fL (79-100) Mean Corpuscular Hemoglobin 28 pg (25-35) Mean Corpuscular Hemoglobin Concent 34 g/dL (31-37) Red Cell Distribution Width 14.2 % (11.5-14.5) Platelet Count 298 x10^3/uL (140-400) Neutrophils (%) (Auto) 89 % (31-73) Lymphocytes (%) (Auto) 4 % (24-48) Monocytes (%) (Auto) 6 % (0-9) Eosinophils (%) (Auto) 0 % (0-3) Basophils (%) (Auto) 0 % (0-3) Neutrophils # (Auto) 18.0 x10^3/uL (1.8-7.7) Lymphocytes # (Auto) 0.8 x10^3/uL (1.0-4.8) Monocytes # (Auto) 1.3 x10^3/uL (0.0-1.1) Eosinophils # (Auto) 0.0 x10^3/uL (0.0-0.7) Basophils # (Auto) 0.0 x10^3/uL (0.0-0.2) Sodium Level 135 mmol/L (136-145) Potassium Level 2.6 mmol/L (3.5-5.1) Chloride Level 100 mmol/L (98-107) Carbon Dioxide Level 25 mmol/L (21-32) Anion Gap 10 (6-14) Blood Urea Nitrogen 9 mg/dL (7-20) Creatinine 0.8 mg/dL (0.6-1.0) Estimated GFR (Cockcroft-Gault) 70.1 BUN/Creatinine Ratio 11 (6-20) Glucose Level 193 mg/dL (70-99) Calcium Level 8.5 mg/dL (8.5-10.1) Total Bilirubin 0.9 mg/dL (0.2-1.0) Aspartate Amino Transf (AST/SGOT) 118 U/L (15-37) Alanine Aminotransferase (ALT/SGPT) 101 U/L (14-59) Alkaline Phosphatase 199 U/L (46-116) Total Protein 6.2 g/dL (6.4-8.2) Albumin 2.1 g/dL (3.4-5.0) Albumin/Globulin Ratio 0.5 (1.0-1.7) Glucose (Fingerstick) 177 mg/dL (70-99) Laboratory Tests Test 07/28/20 16:37 07/28/20 19:52 07/29/20 06:58 07/29/20 08:55 Glucose (Fingerstick) 186 mg/dL (70-99) 188 mg/dL (70-99) 205 mg/dL (70-99) White Blood Count 20.2 x10^3/uL (4.0-11.0) Red Blood Count 4.20 x10^6/uL (3.50-5.40) Hemoglobin 11.9 g/dL (12.0-15.5) Hematocrit 35.4 % (36.0-47.0) Mean Corpuscular Volume 84 fL (79-100) Mean Corpuscular Hemoglobin 28 pg (25-35) Mean Corpuscular Hemoglobin Concent 34 g/dL (31-37) Red Cell Distribution Width 14.2 % (11.5-14.5) Platelet Count 298 x10^3/uL (140-400) Neutrophils (%) (Auto) 89 % (31-73) Lymphocytes (%) (Auto) 4 % (24-48) Monocytes (%) (Auto) 6 % (0-9) Eosinophils (%) (Auto) 0 % (0-3) Basophils (%) (Auto) 0 % (0-3) Neutrophils # (Auto) 18.0 x10^3/uL (1.8-7.7) Lymphocytes # (Auto) 0.8 x10^3/uL (1.0-4.8) Monocytes # (Auto) 1.3 x10^3/uL (0.0-1.1) Eosinophils # (Auto) 0.0 x10^3/uL (0.0-0.7) Basophils # (Auto) 0.0 x10^3/uL (0.0-0.2) Sodium Level 135 mmol/L (136-145) Potassium Level 2.6 mmol/L (3.5-5.1) Chloride Level 100 mmol/L (98-107) Carbon Dioxide Level 25 mmol/L (21-32) Anion Gap 10 (6-14) Blood Urea Nitrogen 9 mg/dL (7-20) Creatinine 0.8 mg/dL (0.6-1.0) Estimated GFR (Cockcroft-Gault) 70.1 BUN/Creatinine Ratio 11 (6-20) Glucose Level 193 mg/dL (70-99) Calcium Level 8.5 mg/dL (8.5-10.1) Total Bilirubin 0.9 mg/dL (0.2-1.0) Aspartate Amino Transf (AST/SGOT) 118 U/L (15-37) Alanine Aminotransferase (ALT/SGPT) 101 U/L (14-59) Alkaline Phosphatase 199 U/L (46-116) Total Protein 6.2 g/dL (6.4-8.2) Albumin 2.1 g/dL (3.4-5.0) Albumin/Globulin Ratio 0.5 (1.0-1.7) Test 07/29/20 11:12 Glucose (Fingerstick) 177 mg/dL (70-99) Assessment/Plan wbc trending down however lfts up will review with Dr Collin meraz in AM Justicifation of Admission Dx: Justifications for Admission: Justification of Admission Dx: Yes ORIANA HERNÁNDEZ MD 07/29/20 1734: SURGICAL PROGRESS NOTE Assessment/Plan Pt seen and examined. Agree with Carlyn's note Pt reports feeling better, roxann diet abd soft, mild TTP RUQ d/w pt and pt's supportive . D/w them LFTs and possible etiology. They still favor avoiding OR, which is reasonable. RUBIN PERALTA APRN Jul 29, 2020 12:38 ORIANA HERNÁNDEZ MD Jul 29, 2020 17:34
--- NOTE | 2020-07-29 14:13 | PDOC ---
[facility] [facility] PROGRESS NOTE Date of Service DOS: DATE: 07/29/20 TIME: 14:09 Chief Complaint Chief Complaint A/P: Epigastric pain - appears to be symptomatic cholelithiasis, gallbladder hydropic Leukocytosis - likely related to above, meets SIRS criteria for sepsis likely related to gallbladder Left hydronephrosis - appears to be related to uretal stricture, will need outpatient urology f/u H/o CVA - infarcts of the left thalamus, left occipital lobe, and left temporal lobe/hippocampal formation. Metabolic encephalopathy. Confusion. Right temporal field deficits. AFib. HLD. DM. Hypothyroidism. History of Present Illness History of Present Illness Ms Mccoy is 74-year-old female past medical history CVA, who presents to the ER with complaints of epigastric and right upper quadrant abdominal pain that started this morning. She reports sharp pain, 7/10 at worst. She states her pain radiates to her lower back. She reports associated nausea and vomiting x1. She denies any association of her pain with food. She is never had this type of pain before, and denies any known history of cholelithiasis. Ultrasound obtained in the ER shows cholelithiasis, hydropic gallbladder, and chronic appearing severe left hydronephrosis. CT abdomen/pelvis obtained in the ER also shows the same, but also notes likely uretal stricture on left. 07/26: Afebrile overnight. WBC increased. Still with significant pain and stephanie vated blood pressure minimally responsive to IV pain medication. No shortness of breath or chest pain. No left-sided abdominal pain. No dysuria. Sister notes that there has been a 40 pound weight loss in the last year. 07/27: Patient seen and evaluated bedside. Echocardiogram showing normal EF, with dilated ascending aorta. Still complains of pain. She seems slightly somnolent today, but states she has just had pain medication. She is to have HIDA scan today. Some concern for hydronephrosis as cause of patient's pain, and she would need ureteral stent. If HIDA scan is negative, she will need to be transferred to facility with urology to have stent placed. 07/28: Patient had HIDA scan yesterday showing delayed gallbladder filling. Still complains of right upper quadrant pain. She denies any shortness of breath, nausea, or vomiting. Evidence of bilateral hydronephrosis seen on CT, left greater than right. Liver pain is secondary to cholelithiasis and not hydronephrosis, however patient will need to follow-up with urologist eventually after discharge from this hospital stay. 07/29: Patient with some significant hypokalemia today, potassium 2.6. Suspect secondary to poor p.o. intake over the past week, and patient had loose bowel movement this morning. Will replace with effervescent potassium. She denies any nausea or vomiting. Patient's stated a conversation with Dr. Yeager yesterday who recommended follow-up with outpatient neurologist prior to elective cholecystectomy. Patient has been agreeable to this option. Will likely discharge tomorrow after her potassium was replaced and further education was provided on appropriate diabetic diet and blood sugar management. Discussed with RN. Vitals/I&O Vitals/I&O: Vital Signs Date Time Temp Pulse Resp B/P (MAP) Pulse Ox O2 Delivery O2 Flow Rate FiO2 07/29/20 11:04 67 134/63 07/29/20 10:28 97.7 19 98 Room Air 97.7 I & O 07/28/20 07/28/20 07/29/20 15:00 23:00 07:00 Intake Total 0 ml 120 ml 60 ml Output Total 300 ml 800 ml 200 ml Balance -300 ml -680 ml -140 ml Physical Exam Physical Exam: General: Alert, Oriented X3, Cooperative Heart: Regular rate (SR) Lungs: Clear Abdomen: Soft Extremities: No cyanosis, No edema Skin: No breakdown, No significant lesion Labs Labs: Laboratory Tests Test 07/28/20 16:37 07/28/20 19:52 07/29/20 06:58 07/29/20 08:55 Glucose (Fingerstick) 186 mg/dL (70-99) 188 mg/dL (70-99) 205 mg/dL (70-99) White Blood Count 20.2 x10^3/uL (4.0-11.0) Red Blood Count 4.20 x10^6/uL (3.50-5.40) Hemoglobin 11.9 g/dL (12.0-15.5) Hematocrit 35.4 % (36.0-47.0) Mean Corpuscular Volume 84 fL (79-100) Mean Corpuscular Hemoglobin 28 pg (25-35) Mean Corpuscular Hemoglobin Concent 34 g/dL (31-37) Red Cell Distribution Width 14.2 % (11.5-14.5) Platelet Count 298 x10^3/uL (140-400) Neutrophils (%) (Auto) 89 % (31-73) Lymphocytes (%) (Auto) 4 % (24-48) Monocytes (%) (Auto) 6 % (0-9) Eosinophils (%) (Auto) 0 % (0-3) Basophils (%) (Auto) 0 % (0-3) Neutrophils # (Auto) 18.0 x10^3/uL (1.8-7.7) Lymphocytes # (Auto) 0.8 x10^3/uL (1.0-4.8) Monocytes # (Auto) 1.3 x10^3/uL (0.0-1.1) Eosinophils # (Auto) 0.0 x10^3/uL (0.0-0.7) Basophils # (Auto) 0.0 x10^3/uL (0.0-0.2) Sodium Level 135 mmol/L (136-145) Potassium Level 2.6 mmol/L (3.5-5.1) Chloride Level 100 mmol/L (98-107) Carbon Dioxide Level 25 mmol/L (21-32) Anion Gap 10 (6-14) Blood Urea Nitrogen 9 mg/dL (7-20) Creatinine 0.8 mg/dL (0.6-1.0) Estimated GFR (Cockcroft-Gault) 70.1 BUN/Creatinine Ratio 11 (6-20) Glucose Level 193 mg/dL (70-99) Calcium Level 8.5 mg/dL (8.5-10.1) Total Bilirubin 0.9 mg/dL (0.2-1.0) Aspartate Amino Transf (AST/SGOT) 118 U/L (15-37) Alanine Aminotransferase (ALT/SGPT) 101 U/L (14-59) Alkaline Phosphatase 199 U/L (46-116) Total Protein 6.2 g/dL (6.4-8.2) Albumin 2.1 g/dL (3.4-5.0) Albumin/Globulin Ratio 0.5 (1.0-1.7) Test 07/29/20 11:12 Glucose (Fingerstick) 177 mg/dL (70-99) Comment Review of Relevant I have reviewed the following items bell (where applicable) has been applied. Medications: Current Medications Medications (Trade) Dose Ordered Sig/Anthony Route PRN Reason Start Time Stop Time Status Last Admin Dose Admin Potassium Chloride/Water 100 ml @ 100 mls/hr Q1H IV 07/29/20 10:00 07/29/20 12:00 DC 07/29/20 11:03 Potassium Bicarbonate (Potassium Effervescent Tablet) 40 meq 1X ONCE PO 07/29/20 12:30 07/29/20 12:31 DC 07/29/20 13:27 Justifications for Admission Other Justification Atypical chest pain, symptomatic cholelithiasis ONEIDA BEEBE MD Jul 29, 2020 14:13
--- NOTE | 2020-07-29 14:42 | PDOC ---
Date of Service: DATE: 07/29/20 TIME: 14:39 Subjective: Subjective: Doing okay, still a little sore. Objective: Objective: Reviewed surgery note 07/28/20: cont abx and IVF. Favor work towards d/c if continued improvement with plans for urology stent and eventual cholecystectomy. Vital Signs: Vital Signs Date Time Temp Pulse Resp B/P (MAP) Pulse Ox O2 Delivery O2 Flow Rate FiO2 07/29/20 14:21 97.8 70 19 117/53 (74) 95 Room Air 97.8 Labs: Laboratory Tests Test 07/28/20 16:37 07/28/20 19:52 07/29/20 06:58 07/29/20 08:55 Glucose (Fingerstick) 186 mg/dL 188 mg/dL 205 mg/dL White Blood Count 20.2 x10^3/uL Red Blood Count 4.20 x10^6/uL Hemoglobin 11.9 g/dL Hematocrit 35.4 % Mean Corpuscular Volume 84 fL Mean Corpuscular Hemoglobin 28 pg Mean Corpuscular Hemoglobin Concent 34 g/dL Red Cell Distribution Width 14.2 % Platelet Count 298 x10^3/uL Neutrophils (%) (Auto) 89 % Lymphocytes (%) (Auto) 4 % Monocytes (%) (Auto) 6 % Eosinophils (%) (Auto) 0 % Basophils (%) (Auto) 0 % Neutrophils # (Auto) 18.0 x10^3/uL Lymphocytes # (Auto) 0.8 x10^3/uL Monocytes # (Auto) 1.3 x10^3/uL Eosinophils # (Auto) 0.0 x10^3/uL Basophils # (Auto) 0.0 x10^3/uL Sodium Level 135 mmol/L Potassium Level 2.6 mmol/L Chloride Level 100 mmol/L Carbon Dioxide Level 25 mmol/L Anion Gap 10 Blood Urea Nitrogen 9 mg/dL Creatinine 0.8 mg/dL Estimated GFR (Cockcroft-Gault) 70.1 BUN/Creatinine Ratio 11 Glucose Level 193 mg/dL Calcium Level 8.5 mg/dL Total Bilirubin 0.9 mg/dL Aspartate Amino Transf (AST/SGOT) 118 U/L Alanine Aminotransferase (ALT/SGPT) 101 U/L Alkaline Phosphatase 199 U/L Total Protein 6.2 g/dL Albumin 2.1 g/dL Albumin/Globulin Ratio 0.5 Test 07/29/20 11:12 Glucose (Fingerstick) 177 mg/dL PE: GEN: NAD - alone in room, no family present LUNGS: clear HEART: RRR ABD: RUQ/epigastric tenderness, soft NEURO/PSYCH: A & O 3 A/P: RUQ pain, cholelithiasis Leukocytosis - better Hypokalemia - per primary Elevated LFTs - new Severe left hydronephrosis H/o A Fib and CVA - Eliquis held COVID negative -- Follow surgery recs. Taking some PO - orders for full liquids. Change to PO PPI. Justicifation of Admission Dx: Justifications for Admission: Justification of Admission Dx: Yes MAYCOL SCOTT Jul 29, 2020 14:42
--- NOTE | 2020-07-29 14:50 | NUR ---
SS following up with discharge planning. SS reviewed pt chart and discussed with pt RN. Pt is currently on room air. COVID19 negative. Pt on IV Zyvox and IV Zosyn. Advancing diet. Surgery following. PT/OT recommended senior care unit. Pt and pt's family declining senior care unit and requesting home with home healthcare. Pt's family agreeable to [facility], ; fax [phone]. Referral phoned and faxed to [facility]. SS will continue to follow for discharge planning.
[2020-07-29] MEDS: INSULIN GLARGINE SYRINGE. SQ SCH (21:23)
[2020-07-29] MEDS: ATORVASTATIN CALCIUM 40 MG TABLET. PO SCH (21:24)
[2020-07-30] MEDS: PIPERACILLIN/TAZOBACTAM 3.375 GM in IV NORMAL SALINE 50ML 50 ML IV SCH ×4 (00:13→17:48)
[2020-07-30 03:00] VITALS: BP 131/49
--- NOTE | 2020-07-30 03:10 | NUR ---
NURSING/MEDICATION NOTE Pt reports sudden sharp pain in right abdomen/side. Pt declined tylenol, reports that this pain came on quickly and "out of nowhere" and needs something other than tylenol. Pt also reports feeling like she is going to throw up. Pt given IV morphine and IV zofran. WOW did not save the med scan, therefore had to manually enter medication admin.
[2020-07-30] MEDS: LEVOTHYROXINE 112 MCG TABLET PO SCH (05:30)
[2020-07-30 07:00] VITALS: BP 106/51
[2020-07-30] MEDS: APIXABAN 5 MG TABLET. PO SCH ×2 (08:06→22:05)
[2020-07-30] MEDS: LACTOBACILLUS RHAMNOSUS GG 1 CAPSULE. PO SCH ×2 (08:06→22:05)
[2020-07-30] MEDS: EZETIMIBE 10 MG TABLET. PO SCH (08:06)
[2020-07-30] MEDS: PANTOPRAZOLE 40 MG TABLET.DR. PO SCH (08:06)
[2020-07-30] MEDS: METOPROLOL TART IMMED RELEASE 25 MG TABLET. PO SCH ×2 (08:07→22:04)
[2020-07-30] MEDS: INSULIN LISPRO 300 UNITS/3 ML VIAL. SQ SCH ×3 (08:14→17:15)
--- NOTE | 2020-07-30 08:23 | PDOC ---
Infectious Disease Note Subjective Subjective Patient is feeling better. Ate this am. Continues to have some episodes of right upper quadrant pain No F/C/S/N/V. + BM ROS ROS o/w neg Vital Sign Vital Signs Vital Signs Date Time Temp Pulse Resp B/P (MAP) Pulse Ox O2 Delivery O2 Flow Rate FiO2 07/30/20 08:07 77 106/51 07/30/20 03:40 18 Room Air 07/30/20 03:00 98.1 96 98.1 Physical Exam PHYSICAL EXAM GENERAL: Alert, oriented female, who has poor memory, not in any distress. in bed. coop HEENT: Both pupils are round and reacting. No conjunctival lesion, no lesion in the mouth. NECK: Supple, no JVP, no lymphadenopathy. LUNGS: Clear. HEART: S1, S2 regular. ABDOMEN: Soft, nontender, no organomegaly. EXTREMITIES: No edema or cyanosis. SKIN: Unremarkable. NEUROLOGIC: The patient is alert, awake and appropriate. No focal neurologic deficit. Labs Lab Laboratory Tests Test 07/29/20 08:55 07/29/20 11:12 07/29/20 16:56 07/29/20 21:25 White Blood Count 20.2 x10^3/uL (4.0-11.0) Red Blood Count 4.20 x10^6/uL (3.50-5.40) Hemoglobin 11.9 g/dL (12.0-15.5) Hematocrit 35.4 % (36.0-47.0) Mean Corpuscular Volume 84 fL (79-100) Mean Corpuscular Hemoglobin 28 pg (25-35) Mean Corpuscular Hemoglobin Concent 34 g/dL (31-37) Red Cell Distribution Width 14.2 % (11.5-14.5) Platelet Count 298 x10^3/uL (140-400) Neutrophils (%) (Auto) 89 % (31-73) Lymphocytes (%) (Auto) 4 % (24-48) Monocytes (%) (Auto) 6 % (0-9) Eosinophils (%) (Auto) 0 % (0-3) Basophils (%) (Auto) 0 % (0-3) Neutrophils # (Auto) 18.0 x10^3/uL (1.8-7.7) Lymphocytes # (Auto) 0.8 x10^3/uL (1.0-4.8) Monocytes # (Auto) 1.3 x10^3/uL (0.0-1.1) Eosinophils # (Auto) 0.0 x10^3/uL (0.0-0.7) Basophils # (Auto) 0.0 x10^3/uL (0.0-0.2) Sodium Level 135 mmol/L (136-145) Potassium Level 2.6 mmol/L (3.5-5.1) Chloride Level 100 mmol/L (98-107) Carbon Dioxide Level 25 mmol/L (21-32) Anion Gap 10 (6-14) Blood Urea Nitrogen 9 mg/dL (7-20) Creatinine 0.8 mg/dL (0.6-1.0) Estimated GFR (Cockcroft-Gault) 70.1 BUN/Creatinine Ratio 11 (6-20) Glucose Level 193 mg/dL (70-99) Calcium Level 8.5 mg/dL (8.5-10.1) Total Bilirubin 0.9 mg/dL (0.2-1.0) Aspartate Amino Transf (AST/SGOT) 118 U/L (15-37) Alanine Aminotransferase (ALT/SGPT) 101 U/L (14-59) Alkaline Phosphatase 199 U/L (46-116) Total Protein 6.2 g/dL (6.4-8.2) Albumin 2.1 g/dL (3.4-5.0) Albumin/Globulin Ratio 0.5 (1.0-1.7) Glucose (Fingerstick) 177 mg/dL (70-99) 220 mg/dL (70-99) 206 mg/dL (70-99) Test 07/30/20 07:48 Glucose (Fingerstick) 177 mg/dL (70-99) Micro Microbiology 07/25/20 Urine Culture - Final, Complete - neg Objective Assessment 1. Abdominal pain. 2. Leukocytosis. 3. Abnormal gallbladder with gallstones, may have had some cholecystitis and/or abdominal pain was just some other reason. 4. Severe left-sided hydronephrosis and hydroureter. 5. Atrial fibrillation. 6. Diabetes. 7. Hypothyroidism. Plan Plan of Care cont zyvox and zosyn WBC improving urine culture neg supportive care LFT worse - will repeat this am and add lipase but defer to per GI and surgery Possible cholecystectomy - trying to avoid D/w family MARIBEL MASSEY MD Jul 30, 2020 08:22
[2020-07-30] MEDS: ACETAMINOPHEN 325 MG TABLET. PO PRN ×3 (10:08→22:03)
[2020-07-30 10:17] LABS: CALCIUM 8.2 mg/dL (8.5-10.1); CREATININE 1.1 mg/dL (0.6-1.0); GFR 48.6
[2020-07-30 11:00] VITALS: BP 122/62
[2020-07-30 11:07] LABS: DIRECT BILIRUBIN 0.4 mg/dL (0.0-0.2); TOTAL BILIRUBIN 0.6 mg/dL (0.2-1.0); TOTAL PROTEIN 6.1 g/dL (6.4-8.2)
[2020-07-30 15:00] VITALS: BP 114/61
[2020-07-30] MEDS: POTASSIUM CHLORIDE 20 MEQ TABLET.ER. PO SCH ×2 (15:44→17:09)
--- NOTE | 2020-07-30 16:07 | PDOC ---
SURGICAL PROGRESS NOTE DATE: 07/30/20 TIME: 16:05 Subjective Pt feels better, roxann diet, did have some pain last night Vital Signs Vital Signs Date Time Temp Pulse Resp B/P (MAP) Pulse Ox O2 Delivery O2 Flow Rate FiO2 07/30/20 15:00 97.4 72 16 114/61 (78) 94 Room Air 97.4 I&O Intake and Output 07/30/20 06:59 Intake Total 1200 ml Balance 1200 ml Intake Oral 1050 ml IV Total 150 ml # Voids 4 General: Alert, Oriented X3, Cooperative, No acute distress Abdomen: Soft, Other (mild TTP RUQ) Labs Laboratory Tests Test 07/28/20 16:37 07/28/20 19:52 07/29/20 06:58 07/29/20 08:55 Glucose (Fingerstick) 186 mg/dL (70-99) 188 mg/dL (70-99) 205 mg/dL (70-99) White Blood Count 20.2 x10^3/uL (4.0-11.0) Red Blood Count 4.20 x10^6/uL (3.50-5.40) Hemoglobin 11.9 g/dL (12.0-15.5) Hematocrit 35.4 % (36.0-47.0) Mean Corpuscular Volume 84 fL (79-100) Mean Corpuscular Hemoglobin 28 pg (25-35) Mean Corpuscular Hemoglobin Concent 34 g/dL (31-37) Red Cell Distribution Width 14.2 % (11.5-14.5) Platelet Count 298 x10^3/uL (140-400) Neutrophils (%) (Auto) 89 % (31-73) Lymphocytes (%) (Auto) 4 % (24-48) Monocytes (%) (Auto) 6 % (0-9) Eosinophils (%) (Auto) 0 % (0-3) Basophils (%) (Auto) 0 % (0-3) Neutrophils # (Auto) 18.0 x10^3/uL (1.8-7.7) Lymphocytes # (Auto) 0.8 x10^3/uL (1.0-4.8) Monocytes # (Auto) 1.3 x10^3/uL (0.0-1.1) Eosinophils # (Auto) 0.0 x10^3/uL (0.0-0.7) Basophils # (Auto) 0.0 x10^3/uL (0.0-0.2) Sodium Level 135 mmol/L (136-145) Potassium Level 2.6 mmol/L (3.5-5.1) Chloride Level 100 mmol/L (98-107) Carbon Dioxide Level 25 mmol/L (21-32) Anion Gap 10 (6-14) Blood Urea Nitrogen 9 mg/dL (7-20) Creatinine 0.8 mg/dL (0.6-1.0) Estimated GFR (Cockcroft-Gault) 70.1 BUN/Creatinine Ratio 11 (6-20) Glucose Level 193 mg/dL (70-99) Calcium Level 8.5 mg/dL (8.5-10.1) Total Bilirubin 0.9 mg/dL (0.2-1.0) Aspartate Amino Transf (AST/SGOT) 118 U/L (15-37) Alanine Aminotransferase (ALT/SGPT) 101 U/L (14-59) Alkaline Phosphatase 199 U/L (46-116) Total Protein 6.2 g/dL (6.4-8.2) Albumin 2.1 g/dL (3.4-5.0) Albumin/Globulin Ratio 0.5 (1.0-1.7) Test 07/29/20 11:12 07/29/20 16:56 07/29/20 21:25 07/30/20 07:48 Glucose (Fingerstick) 177 mg/dL (70-99) 220 mg/dL (70-99) 206 mg/dL (70-99) 177 mg/dL (70-99) Test 07/30/20 08:56 07/30/20 12:09 Sodium Level 132 mmol/L (136-145) Potassium Level 3.0 mmol/L (3.5-5.1) Chloride Level 98 mmol/L (98-107) Carbon Dioxide Level 27 mmol/L (21-32) Anion Gap 7 (6-14) Blood Urea Nitrogen 8 mg/dL (7-20) Creatinine 1.1 mg/dL (0.6-1.0) Estimated GFR (Cockcroft-Gault) 48.6 Glucose Level 234 mg/dL (70-99) Calcium Level 8.2 mg/dL (8.5-10.1) Total Bilirubin 0.6 mg/dL (0.2-1.0) Direct Bilirubin 0.4 mg/dL (0.0-0.2) Aspartate Amino Transf (AST/SGOT) 72 U/L (15-37) Alanine Aminotransferase (ALT/SGPT) 87 U/L (14-59) Alkaline Phosphatase 235 U/L (46-116) Total Protein 6.1 g/dL (6.4-8.2) Albumin 2.0 g/dL (3.4-5.0) Lipase 41 U/L (73-393) Glucose (Fingerstick) 170 mg/dL (70-99) Laboratory Tests Test 07/29/20 16:56 07/29/20 21:25 07/30/20 07:48 07/30/20 08:56 Glucose (Fingerstick) 220 mg/dL (70-99) 206 mg/dL (70-99) 177 mg/dL (70-99) Sodium Level 132 mmol/L (136-145) Potassium Level 3.0 mmol/L (3.5-5.1) Chloride Level 98 mmol/L (98-107) Carbon Dioxide Level 27 mmol/L (21-32) Anion Gap 7 (6-14) Blood Urea Nitrogen 8 mg/dL (7-20) Creatinine 1.1 mg/dL (0.6-1.0) Estimated GFR (Cockcroft-Gault) 48.6 Glucose Level 234 mg/dL (70-99) Calcium Level 8.2 mg/dL (8.5-10.1) Total Bilirubin 0.6 mg/dL (0.2-1.0) Direct Bilirubin 0.4 mg/dL (0.0-0.2) Aspartate Amino Transf (AST/SGOT) 72 U/L (15-37) Alanine Aminotransferase (ALT/SGPT) 87 U/L (14-59) Alkaline Phosphatase 235 U/L (46-116) Total Protein 6.1 g/dL (6.4-8.2) Albumin 2.0 g/dL (3.4-5.0) Lipase 41 U/L (73-393) Test 07/30/20 12:09 Glucose (Fingerstick) 170 mg/dL (70-99) Problem List calculous cholecystitis seems improved restarted on elliquis LFTs noted d/w pt and pt's supportive family, favor work towards d/c home and urology consult prior to cholecystectomy in 6 weeks, if continued improvement Justicifation of Admission Dx: Justifications for Admission: Justification of Admission Dx: Yes ORIANA HERNÁNDEZ MD Jul 30, 2020 16:07
[2020-07-30 19:00] VITALS: BP 113/44
--- NOTE | 2020-07-30 21:51 | PDOC ---
PROGRESS NOTES Date of Service: DATE: 07/30/20 TIME: 21:48 Chief Complaint Chief Complaint A/P: Epigastric pain - appears to be symptomatic cholelithiasis, gallbladder hydropic Leukocytosis - likely related to above, meets SIRS criteria for sepsis likely related to gallbladder Left hydronephrosis - appears to be related to uretal stricture, will need outpatient urology f/u H/o CVA - infarcts of the left thalamus, left occipital lobe, and left temporal lobe/hippocampal formation. Metabolic encephalopathy. Confusion. Right temporal field deficits. AFib. HLD. DM. Hypothyroidism. History of Present Illness History of Present Illness Ms Mccoy is 74-year-old female past medical history CVA, who presents to the ER with complaints of epigastric and right upper quadrant abdominal pain donato t started this morning. She reports sharp pain, 7/10 at worst. She states her pain radiates to her lower back. She reports associated nausea and vomiting x1. She denies any association of her pain with food. She is never had this type of pain before, and denies any known history of cholelithiasis. Ultrasound obtained in the ER shows cholelithiasis, hydropic gallbladder, and chronic appearing severe left hydronephrosis. CT abdomen/pelvis obtained in the ER also shows the same, but also notes likely uretal stricture on left. 07/26: Afebrile overnight. WBC increased. Still with significant pain and elevated blood pressure minimally responsive to IV pain medication. No shortness of breath or chest pain. No left-sided abdominal pain. No dysuria. Sister notes that there has been a 40 pound weight loss in the last year. 07/27: Patient seen and evaluated bedside. Echocardiogram showing normal EF, with dilated ascending aorta. Still complains of pain. She seems slightly somnolent today, but states she has just had pain medication. She is to have HIDA scan today. Some concern for hydronephrosis as cause of patient's pain, and she would need ureteral stent. If HIDA scan is negative, she will need to be transferred to facility with urology to have stent placed. 07/28: Patient had HIDA scan yesterday showing delayed gallbladder filling. Still complains of right upper quadrant pain. She denies any shortness of breath, nausea, or vomiting. Evidence of bilateral hydronephrosis seen on CT, left greater than right. Liver pain is secondary to cholelithiasis and not hydronephrosis, however patient will need to follow-up with urologist eventually after discharge from this hospital stay. 07/29: Patient with some significant hypokalemia today, potassium 2.6. Suspect s econdary to poor p.o. intake over the past week, and patient had loose bowel movement this morning. Will replace with effervescent potassium. She denies any nausea or vomiting. Patient's stated a conversation with Dr. Yeager yesterday who recommended follow-up with outpatient neurologist prior to elective cholecystectomy. Patient has been agreeable to this option. Will likely discharge tomorrow after her potassium was replaced and further education was provided on appropriate diabetic diet and blood sugar management. Discussed with RN. 07/30: Still reqruiring iv antibiotics as per law firm consultant, pain seems to be better compared to yesterday, she did not tolerate advancement of diet Vitals Vitals Vital Signs Date Time Temp Pulse Resp B/P (MAP) Pulse Ox O2 Delivery O2 Flow Rate FiO2 07/30/20 19:00 97.6 69 20 113/44 (67) 92 Room Air 97.6 Physical Exam Physical Exam GENERAL: Alert, oriented female, who has poor memory, not in any distress. in bed. coop HEENT: Both pupils are round and reacting. No conjunctival lesion, no lesion in the mouth. NECK: Supple, no JVP, no lymphadenopathy. LUNGS: Clear. HEART: S1, S2 regular. ABDOMEN: Soft, nontender, no organomegaly. EXTREMITIES: No edema or cyanosis. SKIN: Unremarkable. NEUROLOGIC: The patient is alert, awake and appropriate. No focal neurologic deficit. General: Alert, Oriented X3, Cooperative, No acute distress Heart: Regular rate (SR) Lungs: Clear Abdomen: Soft, Other (mild TTP RUQ) Extremities: No cyanosis, No edema Skin: No breakdown, No significant lesion Labs LABS Laboratory Tests Test 07/30/20 07:48 07/30/20 08:56 07/30/20 12:09 07/30/20 16:52 Glucose (Fingerstick) 177 mg/dL (70-99) 170 mg/dL (70-99) 250 mg/dL (70-99) Sodium Level 132 mmol/L (136-145) Potassium Level 3.0 mmol/L (3.5-5.1) Chloride Level 98 mmol/L (98-107) Carbon Dioxide Level 27 mmol/L (21-32) Anion Gap 7 (6-14) Blood Urea Nitrogen 8 mg/dL (7-20) Creatinine 1.1 mg/dL (0.6-1.0) Estimated GFR (Cockcroft-Gault) 48.6 Glucose Level 234 mg/dL (70-99) Calcium Level 8.2 mg/dL (8.5-10.1) Total Bilirubin 0.6 mg/dL (0.2-1.0) Direct Bilirubin 0.4 mg/dL (0.0-0.2) Aspartate Amino Transf (AST/SGOT) 72 U/L (15-37) Alanine Aminotransferase (ALT/SGPT) 87 U/L (14-59) Alkaline Phosphatase 235 U/L (46-116) Total Protein 6.1 g/dL (6.4-8.2) Albumin 2.0 g/dL (3.4-5.0) Lipase 41 U/L (73-393) Test 07/30/20 20:39 Glucose (Fingerstick) 133 mg/dL (70-99) Comment Review of Relevant I have reviewed the following items bell (where applicable) has been applied. Labs Laboratory Tests Test 07/29/20 06:58 07/29/20 08:55 07/29/20 11:12 07/29/20 16:56 Glucose (Fingerstick) 205 mg/dL (70-99) 177 mg/dL (70-99) 220 mg/dL (70-99) White Blood Count 20.2 x10^3/uL (4.0-11.0) Red Blood Count 4.20 x10^6/uL (3.50-5.40) Hemoglobin 11.9 g/dL (12.0-15.5) Hematocrit 35.4 % (36.0-47.0) Mean Corpuscular Volume 84 fL (79-100) Mean Corpuscular Hemoglobin 28 pg (25-35) Mean Corpuscular Hemoglobin Concent 34 g/dL (31-37) Red Cell Distribution Width 14.2 % (11.5-14.5) Platelet Count 298 x10^3/uL (140-400) Neutrophils (%) (Auto) 89 % (31-73) Lymphocytes (%) (Auto) 4 % (24-48) Monocytes (%) (Auto) 6 % (0-9) Eosinophils (%) (Auto) 0 % (0-3) Basophils (%) (Auto) 0 % (0-3) Neutrophils # (Auto) 18.0 x10^3/uL (1.8-7.7) Lymphocytes # (Auto) 0.8 x10^3/uL (1.0-4.8) Monocytes # (Auto) 1.3 x10^3/uL (0.0-1.1) Eosinophils # (Auto) 0.0 x10^3/uL (0.0-0.7) Basophils # (Auto) 0.0 x10^3/uL (0.0-0.2) Sodium Level 135 mmol/L (136-145) Potassium Level 2.6 mmol/L (3.5-5.1) Chloride Level 100 mmol/L (98-107) Carbon Dioxide Level 25 mmol/L (21-32) Anion Gap 10 (6-14) Blood Urea Nitrogen 9 mg/dL (7-20) Creatinine 0.8 mg/dL (0.6-1.0) Estimated GFR (Cockcroft-Gault) 70.1 BUN/Creatinine Ratio 11 (6-20) Glucose Level 193 mg/dL (70-99) Calcium Level 8.5 mg/dL (8.5-10.1) Total Bilirubin 0.9 mg/dL (0.2-1.0) Aspartate Amino Transf (AST/SGOT) 118 U/L (15-37) Alanine Aminotransferase (ALT/SGPT) 101 U/L (14-59) Alkaline Phosphatase 199 U/L (46-116) Total Protein 6.2 g/dL (6.4-8.2) Albumin 2.1 g/dL (3.4-5.0) Albumin/Globulin Ratio 0.5 (1.0-1.7) Test 07/29/20 21:25 07/30/20 07:48 07/30/20 08:56 07/30/20 12:09 Glucose (Fingerstick) 206 mg/dL (70-99) 177 mg/dL (70-99) 170 mg/dL (70-99) Sodium Level 132 mmol/L (136-145) Potassium Level 3.0 mmol/L (3.5-5.1) Chloride Level 98 mmol/L (98-107) Carbon Dioxide Level 27 mmol/L (21-32) Anion Gap 7 (6-14) Blood Urea Nitrogen 8 mg/dL (7-20) Creatinine 1.1 mg/dL (0.6-1.0) Estimated GFR (Cockcroft-Gault) 48.6 Glucose Level 234 mg/dL (70-99) Calcium Level 8.2 mg/dL (8.5-10.1) Total Bilirubin 0.6 mg/dL (0.2-1.0) Direct Bilirubin 0.4 mg/dL (0.0-0.2) Aspartate Amino Transf (AST/SGOT) 72 U/L (15-37) Alanine Aminotransferase (ALT/SGPT) 87 U/L (14-59) Alkaline Phosphatase 235 U/L (46-116) Total Protein 6.1 g/dL (6.4-8.2) Albumin 2.0 g/dL (3.4-5.0) Lipase 41 U/L (73-393) Test 07/30/20 16:52 07/30/20 20:39 Glucose (Fingerstick) 250 mg/dL (70-99) 133 mg/dL (70-99) Laboratory Tests Test 07/30/20 07:48 07/30/20 08:56 07/30/20 12:09 07/30/20 16:52 Glucose (Fingerstick) 177 mg/dL (70-99) 170 mg/dL (70-99) 250 mg/dL (70-99) Sodium Level 132 mmol/L (136-145) Potassium Level 3.0 mmol/L (3.5-5.1) Chloride Level 98 mmol/L (98-107) Carbon Dioxide Level 27 mmol/L (21-32) Anion Gap 7 (6-14) Blood Urea Nitrogen 8 mg/dL (7-20) Creatinine 1.1 mg/dL (0.6-1.0) Estimated GFR (Cockcroft-Gault) 48.6 Glucose Level 234 mg/dL (70-99) Calcium Level 8.2 mg/dL (8.5-10.1) Total Bilirubin 0.6 mg/dL (0.2-1.0) Direct Bilirubin 0.4 mg/dL (0.0-0.2) Aspartate Amino Transf (AST/SGOT) 72 U/L (15-37) Alanine Aminotransferase (ALT/SGPT) 87 U/L (14-59) Alkaline Phosphatase 235 U/L (46-116) Total Protein 6.1 g/dL (6.4-8.2) Albumin 2.0 g/dL (3.4-5.0) Lipase 41 U/L (73-393) Test 07/30/20 20:39 Glucose (Fingerstick) 133 mg/dL (70-99) Microbiology 07/25/20 Urine Culture - Final, Complete Medications Current Medications Aspirin (Theo Aspirin) 325 mg 1X ONCE PO Last administered on 07/25/20at 13:36; Start 07/25/20 at 13:30; Stop 07/25/20 at 13:31; Status DC Nitroglycerin (Nitrostat) 0.4 mg PRN Q5MIN PRN SL CP RATING > 1/10 Last administered on 07/25/20at 13:49; Start 07/25/20 at 13:30; Stop 07/26/20 at 13:29; Status DC Fentanyl Citrate (Fentanyl 2ml Vial) 50 mcg PRN Q15MIN PRN IV PAIN GREATER THAN 3/10 Last administered on 07/26/20at 12:33; Start 07/25/20 at 13:30; Stop 07/26/20 at 13:29; Status DC Ondansetron HCl (Zofran) 4 mg 1X ONCE IVP Last administered on 07/25/20at 13:29; Start 07/25/20 at 13:30; Stop 07/25/20 at 13:31; Status DC Morphine Sulfate (Morphine Sulfate) 5 mg 1X ONCE IV Last administered on 07/25/20at 14:20; Start 07/25/20 at 14:15; Stop 07/25/20 at 14:19; Status DC Iohexol (Omnipaque 300 Mg/ml) 60 ml 1X ONCE IV Last administered on 07/25/20at 14:40; Start 07/25/20 at 14:45; Stop 07/25/20 at 14:46; Status DC Info (CONTRAST GIVEN -- Rx MONITORING) 1 each PRN DAILY PRN MC SEE COMMENTS; Start 07/25/20 at 14:45; Stop 07/27/20 at 14:44; Status DC Clonidine HCl (Catapres) 0.1 mg 1X ONCE PO Last administered on 07/25/20at 16:13; Start 07/25/20 at 16:15; Stop 07/25/20 at 16:20; Status DC Acetaminophen (Tylenol Supp) 650 mg PRN Q4HRS PRN AL TEMP > 100.4F; Start 07/25/20 at 18:30 Apixaban (Eliquis) 5 mg BID PO Last administered on 07/30/20at 08:06; Start 07/25/20 at 21:00 Atorvastatin Calcium (Lipitor) 40 mg QHS PO Last administered on 07/29/20at 21:24; Start 07/25/20 at 21:00 EZETIMIBE (Zetia) 5 mg DAILY PO Last administered on 07/30/20 08:06; Start 07/26/20 at 09:00 Levothyroxine Sodium (Synthroid) 112 mcg DAILY06 PO Last administered on 07/30/20 05:30; Start 07/26/20 at 06:00 Metoprolol Tartrate (Lopressor) 12.5 mg BID PO Last administered on 07/30/20 08:07; Start 07/25/20 at 21:00 Ondansetron HCl (Zofran) 4 mg PRN Q6HRS PRN IVP NAUSEA/VOMITING Last administered on 07/30/20at 03:10; Start 07/25/20 at 18:30 Zolpidem Tartrate (Ambien) 5 mg PRN QHS PRN PO INSOMNIA, MAY REPEAT IN 1HR; Start 07/25/20 at 18:30 Morphine Sulfate (Morphine Sulfate) 2 mg PRN Q1HR PRN IV PAIN Last administered on 07/30/20 03:10; Start 07/25/20 at 18:30 Hydromorphone HCl (Dilaudid) 0.4 mg PRN Q1HR PRN IV PAIN Last administered on 07/26/20at 06:41; Start 07/25/20 at 18:30 Acetaminophen (Tylenol) 650 mg PRN Q6HRS PRN PO Headaches, Temp > 101.5F Last administered on 07/27/20at 05:36; Start 07/25/20 at 18:30; Stop 07/27/20 at 10:57; Status DC Magnesium Hydroxide (Milk Of Magnesia) 2,400 mg PRN Q12HR PRN PO CONSTIPATION; Start 07/25/20 at 18:30 Bisacodyl (Dulcolax Supp) 10 mg PRN DAILY PRN AL CONSTIPATION; Start 07/25/20 at 18:30 Fentanyl Citrate (Fentanyl 2ml Vial) 50 mcg PRN Q3HRS PRN IVP PAIN Last administered on 07/26/20at 17:01; Start 07/25/20 at 18:30 Ondansetron HCl (Zofran) 4 mg PRN Q8HRS PRN IV NAUSEA/VOMITING; Start 07/25/20 at 18:45; Stop 07/26/20 at 18:44; Status DC Fentanyl Citrate (Fentanyl 2ml Vial) 50 mcg PRN Q1HR PRN IV PAIN; Start 07/25/20 at 18:45; Stop 07/26/20 at 18:44; Status DC Acetaminophen (Tylenol) 650 mg PRN Q4HRS PRN PO FEVER > 100.3'F; Start 07/25/20 at 18:45; Stop 07/26/20 at 18:44; Status DC Insulin Glargine (Lantus Syringe) 10 unit QHS SQ Last administered on 07/29/20at 21:23; Start 07/25/20 at 21:00 Insulin Human Lispro (HumaLOG) 0-7 UNITS TIDWMEALS SQ Last administered on 07/30/20at 17:15; Start 07/26/20 at 08:00 Dextrose (Dextrose 50%-Water Syringe) 12.5 gm PRN Q15MIN PRN IV SEE COMMENTS; Start 07/25/20 at 19:00 Labetalol HCl (Normodyne Iv Push) 20 mg 1X ONCE IVP Last administered on 07/25/20at 20:54; Start 07/25/20 at 20:45; Stop 07/25/20 at 20:46; Status DC Piperacillin Sod/ Tazobactam Sod 3.375 gm/Sodium Chloride 50 ml @ 100 mls/hr Q6HRS IV Last administered on 07/30/20at 17:48; Start 07/26/20 at 10:00 Info (Anti-Coagulation Monitoring By Pharmacy) 1 each PRN DAILY PRN MC SEE COMMENTS Last administered on 07/28/20at 10:50; Start 07/26/20 at 14:15 Lactobacillus Rhamnosus (Culturelle) 1 cap BID PO Last administered on 07/30/20at 08:06; Start 07/26/20 at 21:00 Pantoprazole Sodium (PROTONIX VIAL for IV PUSH) 40 mg DAILYAC IVP Last administered on 07/29/20at 05:23; Start 07/26/20 at 15:30; Stop 07/29/20 at 14:43; Status DC Sodium Chloride 1,000 ml @ 125 mls/hr 1X ONCE IV Last administered on 07/26/20at 18:05; Start 07/26/20 at 17:45; Stop 07/27/20 at 01:44; Status DC Linezolid/Dextrose 300 ml @ 300 mls/hr Q12HR IV Last administered on 07/30/20at 08:06; Start 07/27/20 at 10:30 Acetaminophen (Tylenol) 650 mg PRN Q4HRS PRN PO Headaches, Temp > 101.5F Last administered on 07/30/20at 14:46; Start 07/27/20 at 11:00 Morphine Sulfate (Morphine Sulfate) 4 mg 1X ONCE IV Last administered on 07/27/20at 13:32; Start 07/27/20 at 13:30; Stop 07/27/20 at 13:32; Status DC Potassium Chloride/Water 100 ml @ 100 mls/hr Q1H IV Last administered on 07/29/20at 11:03; Start 07/29/20 at 10:00; Stop 07/29/20 at 12:00; Status DC Potassium Bicarbonate (Potassium Effervescent Tablet) 40 meq 1X ONCE PO Last administered on 07/29/20at 13:27; Start 07/29/20 at 12:30; Stop 07/29/20 at 12:31; Status DC Pantoprazole Sodium (Protonix) 40 mg DAILYAC PO Last administered on 07/30/20at 08:06; Start 07/30/20 at 07:30 Potassium Chloride (Klor-Con) 40 meq Q2H PO Last administered on 07/30/20at 17:09; Start 07/30/20 at 15:15; Stop 07/30/20 at 17:16; Status DC Active Scripts Active Acetaminophen Supp (Acetaminophen) 650 Mg Supp.rect 650 Mg AL PRN Q4HRS PRN 14 Days Metoprolol Tartrate 25 Mg Tablet 12.5 Mg PO BID 30 Days Atorvastatin Calcium 40 Mg Tablet 40 Mg PO QHS 30 Days Eliquis (Apixaban) 5 Mg Tablet 5 Mg PO BID 30 Days Reported Levothyroxine Sodium 112 Mcg Tablet 1 Tab PO DAILY Januvia (Sitagliptin Phosphate) 100 Mg Tablet 100 Mg PO DAILY Zetia (Ezetimibe) 10 Mg Tablet 5 Mg PO DAILY Metformin Hcl 1,000 Mg Tablet 1,000 Mg PO BIDWMEALS Vitals/I & O Vital Sign - Last 24 Hours 07/29/20 07/30/20 07/30/20 07/30/20 23:00 03:00 03:10 03:40 Temp 98.1 98.1 98.1 98.1 Pulse 75 83 Resp 19 19 20 18 B/P (MAP) 139/67 (91) 131/49 (76) Pulse Ox 91 96 O2 Delivery Room Air Room Air Room Air Room Air 07/30/20 07/30/20 07/30/20 07/30/20 07:00 07:50 08:07 11:00 Temp 98.1 98.1 98.1 98.1 Pulse 77 77 66 Resp 16 18 B/P (MAP) 106/51 (69) 106/51 122/62 (82) Pulse Ox 95 93 O2 Delivery Room Air Room Air Room Air 07/30/20 07/30/20 15:00 19:00 Temp 97.4 97.6 97.4 97.6 Pulse 72 69 Resp 16 20 B/P (MAP) 114/61 (78) 113/44 (67) Pulse Ox 94 92 O2 Delivery Room Air Room Air Intake and Output 07/29/20 07/29/20 07/30/20 15:00 23:00 07:00 Intake Total 410 ml 240 ml 550 ml Balance 410 ml 240 ml 550 ml Justicifation of Admission Dx: Justifications for Admission: Justification of Admission Dx: Yes TERRI ZHU MD Jul 30, 2020 21:51
[2020-07-30] MEDS: ATORVASTATIN CALCIUM 40 MG TABLET. PO SCH (22:04)
[2020-07-30] MEDS: INSULIN GLARGINE SYRINGE. SQ SCH (22:10)
[2020-07-30 23:00] VITALS: BP 131/52
[2020-07-31] MEDS: PIPERACILLIN/TAZOBACTAM 3.375 GM in IV NORMAL SALINE 50ML 50 ML IV SCH ×4 (00:39→17:43)
[2020-07-31 03:10] VITALS: BP 120/47
[2020-07-31] MEDS: LEVOTHYROXINE 112 MCG TABLET PO SCH (06:12)
--- NOTE | 2020-07-31 06:59 | PDOC ---
Infectious Disease Note Subjective Subjective Patient is feeling ok. No pain overnight No F/C/S/N/V. + BM ROS ROS o/w neg Vital Sign Vital Signs Vital Signs Date Time Temp Pulse Resp B/P (MAP) Pulse Ox O2 Delivery O2 Flow Rate FiO2 07/31/20 03:10 97.7 66 20 120/47 (71) 98 Room Air 97.7 Physical Exam PHYSICAL EXAM GENERAL: Alert, oriented female, who has poor memory, not in any distress. in bed. coop. Looks comfortable HEENT: Both pupils are round and reacting. No conjunctival lesion, no lesion in the mouth. NECK: Supple, no JVP, no lymphadenopathy. LUNGS: Clear. HEART: S1, S2 regular. ABDOMEN: Soft, nontender, no organomegaly. EXTREMITIES: No edema or cyanosis. SKIN: Unremarkable. NEUROLOGIC: The patient is alert, awake and appropriate. No focal neurologic deficit. Labs Lab Laboratory Tests Test 07/30/20 07:48 07/30/20 08:56 07/30/20 12:09 07/30/20 16:52 Glucose (Fingerstick) 177 mg/dL (70-99) 170 mg/dL (70-99) 250 mg/dL (70-99) Sodium Level 132 mmol/L (136-145) Potassium Level 3.0 mmol/L (3.5-5.1) Chloride Level 98 mmol/L (98-107) Carbon Dioxide Level 27 mmol/L (21-32) Anion Gap 7 (6-14) Blood Urea Nitrogen 8 mg/dL (7-20) Creatinine 1.1 mg/dL (0.6-1.0) Estimated GFR (Cockcroft-Gault) 48.6 Glucose Level 234 mg/dL (70-99) Calcium Level 8.2 mg/dL (8.5-10.1) Total Bilirubin 0.6 mg/dL (0.2-1.0) Direct Bilirubin 0.4 mg/dL (0.0-0.2) Aspartate Amino Transf (AST/SGOT) 72 U/L (15-37) Alanine Aminotransferase (ALT/SGPT) 87 U/L (14-59) Alkaline Phosphatase 235 U/L (46-116) Total Protein 6.1 g/dL (6.4-8.2) Albumin 2.0 g/dL (3.4-5.0) Lipase 41 U/L (73-393) Test 07/30/20 20:39 Glucose (Fingerstick) 133 mg/dL (70-99) Micro Microbiology 07/25/20 Urine Culture - Final, Complete - neg Objective Assessment 1. Abdominal pain. 2. Leukocytosis. 3. Abnormal gallbladder with gallstones, may have had some cholecystitis and/or abdominal pain was just some other reason. 4. Severe left-sided hydronephrosis and hydroureter. 5. Atrial fibrillation. 6. Diabetes. 7. Hypothyroidism. 8. Transaminitis - better Plan Plan of Care cont zyvox and zosyn Labs in am urine culture neg supportive care Possible cholecystectomy - trying to avoid D/w MARIBEL Buchanan MD Jul 31, 2020 06:59
[2020-07-31 07:00] VITALS: BP 123/76
--- NOTE | 2020-07-31 07:42 | PDOC ---
PROGRESS NOTES Date of Service: DATE: 07/31/20 TIME: 07:39 Chief Complaint Chief Complaint A/P: Epigastric pain - appears to be symptomatic cholelithiasis, gallbladder hydropic Leukocytosis - likely related to above, meets SIRS criteria for sepsis likely related to gallbladder Left hydronephrosis - appears to be related to uretal stricture, will need outpatient urology f/u H/o CVA - infarcts of the left thalamus, left occipital lobe, and left temporal lobe/hippocampal formation. Metabolic encephalopathy. Confusion. Right temporal field deficits. AFib. HLD. DM. Hypothyroidism. Plan Continue IV antibiotics as per ID No surgical intervention during this admission planned. datastage consultant will follow up in 6 weeks and evaluate at that time cholecystectomy Continue advancing diet as tolerated Outpatient neurology consultation Reassess in the a.m. Follow labs in the a.m. Hopefully discharge soon DVT prophylaxis with apixaban History of Present Illness History of Present Illness Ms Mccoy is 74-year-old female past medical history CVA, who presents to the ER with complaints of epigastric and right upper quadrant abdominal pain that started this morning. She reports sharp pain, 7/10 at worst. She states her pain radiates to her lower back. She reports associated nausea and vomiting x1. She denies any association of her pain with food. She is never had this type of pain before, and denies any known history of cholelithiasis. Ultrasound obtained in the ER shows cholelithiasis, hydropic gallbladder, and chronic appearing severe left hydronephrosis. CT abdomen/pelvis obtained in the ER also shows the same, but also notes likely uretal stricture on left. 07/26: Afebrile overnight. WBC increased. Still with significant pain and elevated blood pressure minimally responsive to IV pain medication. No shortness of breath or chest pain. No left-sided abdominal pain. No dysuria. Sister notes that there has been a 40 pound weight loss in the last year. 07/27: Patient seen and evaluated bedside. Echocardiogram showing normal EF, with dilated ascending aorta. Still complains of pain. She seems slightly somnolent today, but states she has just had pain medication. She is to have HIDA scan today. Some concern for hydronephrosis as cause of patient's pain, and she would need ureteral stent. If HIDA scan is negative, she will need to be transferred to facility with urology to have stent placed. 07/28: Patient had HIDA scan yesterday showing delayed gallbladder filling. Still complains of right upper quadrant pain. She denies any shortness of breath, nausea, or vomiting. Evidence of bilateral hydronephrosis seen on CT, left greater than right. Liver pain is secondary to cholelithiasis and not hydronephrosis, however patient will need to follow-up with urologist eventually after discharge from this hospital stay. 07/29: Patient with some significant hypokalemia today, potassium 2.6. Suspect secondary to poor p.o. intake over the past week, and patient had loose bowel movement this morning. Will replace with effervescent potassium. She denies any nausea or vomiting. Patient's stated a conversation with Dr. Yeager yesterday who recommended follow-up with outpatient neurologist prior to elective cholecystectomy. Patient has been agreeable to this option. Will likely discharge tomorrow after her potassium was replaced and further education was provided on appropriate diabetic diet and blood sugar management. Discussed with RN. 07/30: Still reqruiring iv antibiotics as per hospice care sales consultant, pain seems to be better compared to yesterday, she did not tolerate advancement of diet 07/31: Patient lying in bed in no acute distress. She did not have any discomfort with meals yesterday and has remained asymptomatic for the most part. Slowly making improvements still requiring IV antibiotics, discussed the need of outpatient follow-up with urology secondary to the hydronephrosis found on imaging studies. Urine output has been adequate. Hopefully will be able to discharge in the next 24 to 48 hours laboratory data has been requested for the a.m. to follow-up Vitals Vitals Vital Signs Date Time Temp Pulse Resp B/P (MAP) Pulse Ox O2 Delivery O2 Flow Rate FiO2 07/31/20 03:10 97.7 66 20 120/47 (71) 98 Room Air 97.7 Physical Exam Physical Exam GENERAL: Alert, oriented female, who has poor memory, not in any distress. in bed. coop. Looks comfortable HEENT: Both pupils are round and reacting. No conjunctival lesion, no lesion in the mouth. NECK: Supple, no JVP, no lymphadenopathy. LUNGS: Clear. HEART: S1, S2 regular. ABDOMEN: Soft, nontender, no organomegaly. EXTREMITIES: No edema or cyanosis. SKIN: Unremarkable. NEUROLOGIC: The patient is alert, awake and appropriate. No focal neurologic deficit. General: Alert, Oriented X3, Cooperative, No acute distress Heart: Regular rate (SR) Lungs: Clear Abdomen: Soft, Other (mild TTP RUQ) Extremities: No cyanosis, No edema Skin: No breakdown, No significant lesion Labs LABS Laboratory Tests Test 07/30/20 07:48 07/30/20 08:56 07/30/20 12:09 07/30/20 16:52 Glucose (Fingerstick) 177 mg/dL (70-99) 170 mg/dL (70-99) 250 mg/dL (70-99) Sodium Level 132 mmol/L (136-145) Potassium Level 3.0 mmol/L (3.5-5.1) Chloride Level 98 mmol/L (98-107) Carbon Dioxide Level 27 mmol/L (21-32) Anion Gap 7 (6-14) Blood Urea Nitrogen 8 mg/dL (7-20) Creatinine 1.1 mg/dL (0.6-1.0) Estimated GFR (Cockcroft-Gault) 48.6 Glucose Level 234 mg/dL (70-99) Calcium Level 8.2 mg/dL (8.5-10.1) Total Bilirubin 0.6 mg/dL (0.2-1.0) Direct Bilirubin 0.4 mg/dL (0.0-0.2) Aspartate Amino Transf (AST/SGOT) 72 U/L (15-37) Alanine Aminotransferase (ALT/SGPT) 87 U/L (14-59) Alkaline Phosphatase 235 U/L (46-116) Total Protein 6.1 g/dL (6.4-8.2) Albumin 2.0 g/dL (3.4-5.0) Lipase 41 U/L (73-393) Test 07/30/20 20:39 Glucose (Fingerstick) 133 mg/dL (70-99) Comment Review of Relevant I have reviewed the following items bell (where applicable) has been applied. Labs Laboratory Tests Test 07/29/20 08:55 07/29/20 11:12 07/29/20 16:56 07/29/20 21:25 White Blood Count 20.2 x10^3/uL (4.0-11.0) Red Blood Count 4.20 x10^6/uL (3.50-5.40) Hemoglobin 11.9 g/dL (12.0-15.5) Hematocrit 35.4 % (36.0-47.0) Mean Corpuscular Volume 84 fL (79-100) Mean Corpuscular Hemoglobin 28 pg (25-35) Mean Corpuscular Hemoglobin Concent 34 g/dL (31-37) Red Cell Distribution Width 14.2 % (11.5-14.5) Platelet Count 298 x10^3/uL (140-400) Neutrophils (%) (Auto) 89 % (31-73) Lymphocytes (%) (Auto) 4 % (24-48) Monocytes (%) (Auto) 6 % (0-9) Eosinophils (%) (Auto) 0 % (0-3) Basophils (%) (Auto) 0 % (0-3) Neutrophils # (Auto) 18.0 x10^3/uL (1.8-7.7) Lymphocytes # (Auto) 0.8 x10^3/uL (1.0-4.8) Monocytes # (Auto) 1.3 x10^3/uL (0.0-1.1) Eosinophils # (Auto) 0.0 x10^3/uL (0.0-0.7) Basophils # (Auto) 0.0 x10^3/uL (0.0-0.2) Sodium Level 135 mmol/L (136-145) Potassium Level 2.6 mmol/L (3.5-5.1) Chloride Level 100 mmol/L (98-107) Carbon Dioxide Level 25 mmol/L (21-32) Anion Gap 10 (6-14) Blood Urea Nitrogen 9 mg/dL (7-20) Creatinine 0.8 mg/dL (0.6-1.0) Estimated GFR (Cockcroft-Gault) 70.1 BUN/Creatinine Ratio 11 (6-20) Glucose Level 193 mg/dL (70-99) Calcium Level 8.5 mg/dL (8.5-10.1) Total Bilirubin 0.9 mg/dL (0.2-1.0) Aspartate Amino Transf (AST/SGOT) 118 U/L (15-37) Alanine Aminotransferase (ALT/SGPT) 101 U/L (14-59) Alkaline Phosphatase 199 U/L (46-116) Total Protein 6.2 g/dL (6.4-8.2) Albumin 2.1 g/dL (3.4-5.0) Albumin/Globulin Ratio 0.5 (1.0-1.7) Glucose (Fingerstick) 177 mg/dL (70-99) 220 mg/dL (70-99) 206 mg/dL (70-99) Test 07/30/20 07:48 07/30/20 08:56 07/30/20 12:09 07/30/20 16:52 Glucose (Fingerstick) 177 mg/dL (70-99) 170 mg/dL (70-99) 250 mg/dL (70-99) Sodium Level 132 mmol/L (136-145) Potassium Level 3.0 mmol/L (3.5-5.1) Chloride Level 98 mmol/L (98-107) Carbon Dioxide Level 27 mmol/L (21-32) Anion Gap 7 (6-14) Blood Urea Nitrogen 8 mg/dL (7-20) Creatinine 1.1 mg/dL (0.6-1.0) Estimated GFR (Cockcroft-Gault) 48.6 Glucose Level 234 mg/dL (70-99) Calcium Level 8.2 mg/dL (8.5-10.1) Total Bilirubin 0.6 mg/dL (0.2-1.0) Direct Bilirubin 0.4 mg/dL (0.0-0.2) Aspartate Amino Transf (AST/SGOT) 72 U/L (15-37) Alanine Aminotransferase (ALT/SGPT) 87 U/L (14-59) Alkaline Phosphatase 235 U/L (46-116) Total Protein 6.1 g/dL (6.4-8.2) Albumin 2.0 g/dL (3.4-5.0) Lipase 41 U/L (73-393) Test 07/30/20 20:39 Glucose (Fingerstick) 133 mg/dL (70-99) Laboratory Tests Test 07/30/20 07:48 07/30/20 08:56 07/30/20 12:09 07/30/20 16:52 Glucose (Fingerstick) 177 mg/dL (70-99) 170 mg/dL (70-99) 250 mg/dL (70-99) Sodium Level 132 mmol/L (136-145) Potassium Level 3.0 mmol/L (3.5-5.1) Chloride Level 98 mmol/L (98-107) Carbon Dioxide Level 27 mmol/L (21-32) Anion Gap 7 (6-14) Blood Urea Nitrogen 8 mg/dL (7-20) Creatinine 1.1 mg/dL (0.6-1.0) Estimated GFR (Cockcroft-Gault) 48.6 Glucose Level 234 mg/dL (70-99) Calcium Level 8.2 mg/dL (8.5-10.1) Total Bilirubin 0.6 mg/dL (0.2-1.0) Direct Bilirubin 0.4 mg/dL (0.0-0.2) Aspartate Amino Transf (AST/SGOT) 72 U/L (15-37) Alanine Aminotransferase (ALT/SGPT) 87 U/L (14-59) Alkaline Phosphatase 235 U/L (46-116) Total Protein 6.1 g/dL (6.4-8.2) Albumin 2.0 g/dL (3.4-5.0) Lipase 41 U/L (73-393) Test 07/30/20 20:39 Glucose (Fingerstick) 133 mg/dL (70-99) Microbiology 07/25/20 Urine Culture - Final, Complete Medications Current Medications Aspirin ([employer] Aspirin) 325 mg 1X ONCE PO Last administered on 07/25/20at 13:36; Start 07/25/20 at 13:30; Stop 07/25/20 at 13:31; Status DC Nitroglycerin (Nitrostat) 0.4 mg PRN Q5MIN PRN SL CP RATING > 1/10 Last administered on 07/25/20at 13:49; Start 07/25/20 at 13:30; Stop 07/26/20 at 13:29; Status DC Fentanyl Citrate (Fentanyl 2ml Vial) 50 mcg PRN Q15MIN PRN IV PAIN GREATER THAN 3/10 Last administered on 07/26/20at 12:33; Start 07/25/20 at 13:30; Stop 07/26/20 at 13:29; Status DC Ondansetron HCl (Zofran) 4 mg 1X ONCE IVP Last administered on 07/25/20at 13:29; Start 07/25/20 at 13:30; Stop 07/25/20 at 13:31; Status DC Morphine Sulfate (Morphine Sulfate) 5 mg 1X ONCE IV Last administered on 07/25at 14:20; Start 07/25/20 at 14:15; Stop 07/25/20 at 14:19; Status DC Iohexol (Omnipaque 300 Mg/ml) 60 ml 1X ONCE IV Last administered on 07/25/20at 14:40; Start 07/25/20 at 14:45; Stop 07/25/20 at 14:46; Status DC Info (CONTRAST GIVEN -- Rx MONITORING) 1 each PRN DAILY PRN MC SEE COMMENTS; Start 07/25/20 at 14:45; Stop 07/27/20 at 14:44; Status DC Clonidine HCl (Catapres) 0.1 mg 1X ONCE PO Last administered on 07/25/20at 16:13; Start 07/25/20 at 16:15; Stop 07/25/20 at 16:20; Status DC Acetaminophen (Tylenol Supp) 650 mg PRN Q4HRS PRN AK TEMP > 100.4F; Start 07/25/20 at 18:30 Apixaban (Eliquis) 5 mg BID PO Last administered on 07/30/20at 22:05; Start 07/25/20 at 21:00 Atorvastatin Calcium (Lipitor) 40 mg QHS PO Last administered on 07/30/20at 22:04; Start 07/25/20 at 21:00 EZETIMIBE (Zetia) 5 mg DAILY PO Last administered on 07/30/20at 08:06; Start 07/26/20 at 09:00 Levothyroxine Sodium (Synthroid) 112 mcg DAILY06 PO Last administered on 07/31/20at 06:12; Start 07/26/20 at 06:00 Metoprolol Tartrate (Lopressor) 12.5 mg BID PO Last administered on 07/30/20at 22:04; Start 07/25/20 at 21:00 Ondansetron HCl (Zofran) 4 mg PRN Q6HRS PRN IVP NAUSEA/VOMITING Last administered on 07/30/20at 03:10; Start 07/25/20 at 18:30 Zolpidem Tartrate (Ambien) 5 mg PRN QHS PRN PO INSOMNIA, MAY REPEAT IN 1HR; Start 07/25/20 at 18:30 Morphine Sulfate (Morphine Sulfate) 2 mg PRN Q1HR PRN IV PAIN Last administered on 07/30/20at 03:10; Start 07/25/20 at 18:30 Hydromorphone HCl (Dilaudid) 0.4 mg PRN Q1HR PRN IV PAIN Last administered on 07/26/20at 06:41; Start 07/25/20 at 18:30 Acetaminophen (Tylenol) 650 mg PRN Q6HRS PRN PO Headaches, Temp > 101.5F Last administered on 07/27/20at 05:36; Start 07/25/20 at 18:30; Stop 07/27/20 at 10:57; Status DC Magnesium Hydroxide (Milk Of Magnesia) 2,400 mg PRN Q12HR PRN PO CONSTIPATION; Start 07/25/20 at 18:30 Bisacodyl (Dulcolax Supp) 10 mg PRN DAILY PRN AK CONSTIPATION; Start 07/25/20 at 18:30 Fentanyl Citrate (Fentanyl 2ml Vial) 50 mcg PRN Q3HRS PRN IVP PAIN Last administered on 07/26/20at 17:01; Start 07/25/20 at 18:30 Ondansetron HCl (Zofran) 4 mg PRN Q8HRS PRN IV NAUSEA/VOMITING; Start 07/25/20 at 18:45; Stop 07/26/20 at 18:44; Status DC Fentanyl Citrate (Fentanyl 2ml Vial) 50 mcg PRN Q1HR PRN IV PAIN; Start 07/25/20 at 18:45; Stop 07/26/20 at 18:44; Status DC Acetaminophen (Tylenol) 650 mg PRN Q4HRS PRN PO FEVER > 100.3'F; Start 07/25/20 at 18:45; Stop 07/26/20 at 18:44; Status DC Insulin Glargine (Lantus Syringe) 10 unit QHS SQ Last administered on 07/30/20at 22:10; Start 07/25/20 at 21:00 Insulin Human Lispro (HumaLOG) 0-7 UNITS TIDWMEALS SQ Last administered on 07/30/20at 17:15; Start 07/26/20 at 08:00 Dextrose (Dextrose 50%-Water Syringe) 12.5 gm PRN Q15MIN PRN IV SEE COMMENTS; Start 07/25/20 at 19:00 Labetalol HCl (Normodyne Iv Push) 20 mg 1X ONCE IVP Last administered on 07/25/20at 20:54; Start 07/25/20 at 20:45; Stop 07/25/20 at 20:46; Status DC Piperacillin Sod/ Tazobactam Sod 3.375 gm/Sodium Chloride 50 ml @ 100 mls/hr Q6HRS IV Last administered on 07/31/20at 06:13; Start 07/26/20 at 10:00 Info (Anti-Coagulation Monitoring By Pharmacy) 1 each PRN DAILY PRN MC SEE COMMENTS Last administered on 07/28/20at 10:50; Start 07/26/20 at 14:15 Lactobacillus Rhamnosus (Culturelle) 1 cap BID PO Last administered on 07/30/20at 22:05; Start 07/26/20 at 21:00 Pantoprazole Sodium (PROTONIX VIAL for IV PUSH) 40 mg DAILYAC IVP Last administered on 07/29/20at 05:23; Start 07/26/20 at 15:30; Stop 07/29/20 at 14:43; Status DC Sodium Chloride 1,000 ml @ 125 mls/hr 1X ONCE IV Last administered on 07/26/20at 18:05; Start 07/26/20 at 17:45; Stop 07/27/20 at 01:44; Status DC Linezolid/Dextrose 300 ml @ 300 mls/hr Q12HR IV Last administered on 07/30/20at 22:03; Start 07/27/20 at 10:30 Acetaminophen (Tylenol) 650 mg PRN Q4HRS PRN PO Headaches, Temp > 101.5F Last administered on 07/30/20at 22:03; Start 07/27/20 at 11:00 Morphine Sulfate (Morphine Sulfate) 4 mg 1X ONCE IV Last administered on 07/27/20at 13:32; Start 07/27/20 at 13:30; Stop 07/27/20 at 13:32; Status DC Potassium Chloride/Water 100 ml @ 100 mls/hr Q1H IV Last administered on 07/29/20at 11:03; Start 07/29/20 at 10:00; Stop 07/29/20 at 12:00; Status DC Potassium Bicarbonate (Potassium Effervescent Tablet) 40 meq 1X ONCE PO Last administered on 07/29/20at 13:27; Start 07/29/20 at 12:30; Stop 07/29/20 at 12:31; Status DC Pantoprazole Sodium (Protonix) 40 mg DAILYAC PO Last administered on 07/30/20at 08:06; Start 07/30/20 at 07:30 Potassium Chloride (Klor-Con) 40 meq Q2H PO Last administered on 07/30/20at 17:09; Start 07/30/20 at 15:15; Stop 07/30/20 at 17:16; Status DC Active Scripts Active Acetaminophen Supp (Acetaminophen) 650 Mg Supp.rect 650 Mg AK PRN Q4HRS PRN 14 Days Metoprolol Tartrate 25 Mg Tablet 12.5 Mg PO BID 30 Days Atorvastatin Calcium 40 Mg Tablet 40 Mg PO QHS 30 Days Eliquis (Apixaban) 5 Mg Tablet 5 Mg PO BID 30 Days Reported Levothyroxine Sodium 112 Mcg Tablet 1 Tab PO DAILY Januvia (Sitagliptin Phosphate) 100 Mg Tablet 100 Mg PO DAILY Zetia (Ezetimibe) 10 Mg Tablet 5 Mg PO DAILY Metformin Hcl 1,000 Mg Tablet 1,000 Mg PO BIDWMEALS Vitals/I & O Vital Sign - Last 24 Hours 07/30/20 07/30/20 07/30/20 07/30/20 07:50 08:07 11:00 15:00 Temp 98.1 97.4 98.1 97.4 Pulse 77 66 72 Resp 18 16 B/P (MAP) 106/51 122/62 (82) 114/61 (78) Pulse Ox 93 94 O2 Delivery Room Air Room Air Room Air 07/30/20 07/30/20 07/30/20 07/30/20 19:00 19:30 22:04 23:00 Temp 97.6 97.6 97.6 97.6 Pulse 69 69 74 Resp 20 20 B/P (MAP) 113/44 (67) 113/44 131/52 (78) Pulse Ox 92 98 O2 Delivery Room Air Room Air Nasal Cannula 07/31/20 03:10 Temp 97.7 97.7 Pulse 66 Resp 20 B/P (MAP) 120/47 (71) Pulse Ox 98 O2 Delivery Room Air Intake and Output 07/30/20 07/30/20 07/31/20 15:00 23:00 07:00 Intake Total 610 ml 330 ml Balance 610 ml 330 ml Justicifation of Admission Dx: Justifications for Admission: Justification of Admission Dx: Yes TERRI ZHU MD Jul 31, 2020 07:42
[2020-07-31] MEDS: APIXABAN 5 MG TABLET. PO SCH ×2 (08:25→21:16)
[2020-07-31] MEDS: LACTOBACILLUS RHAMNOSUS GG 1 CAPSULE. PO SCH ×2 (08:25→21:16)
[2020-07-31] MEDS: ACETAMINOPHEN 325 MG TABLET. PO PRN ×4 (08:25→23:39)
[2020-07-31] MEDS: METOPROLOL TART IMMED RELEASE 25 MG TABLET. PO SCH ×2 (08:26→21:16)
[2020-07-31] MEDS: PANTOPRAZOLE 40 MG TABLET.DR. PO SCH (08:27)
[2020-07-31] MEDS: EZETIMIBE 10 MG TABLET. PO SCH (08:27)
[2020-07-31] MEDS: INSULIN LISPRO 300 UNITS/3 ML VIAL. SQ SCH ×3 (08:30→17:48)
[2020-07-31 11:00] VITALS: BP 107/61
[2020-07-31 15:00] VITALS: BP 109/47
--- NOTE | 2020-07-31 15:20 | PDOC ---
SURGICAL PROGRESS NOTE DATE: 07/31/20 TIME: 15:18 Subjective Pt with c/o min abd pain, but tolerating diet Vital Signs Vital Signs Date Time Temp Pulse Resp B/P (MAP) Pulse Ox O2 Delivery O2 Flow Rate FiO2 07/31/20 11:00 98.0 61 16 107/61 (76) 95 Room Air 98.0 I&O Intake and Output 07/31/20 07:00 Intake Total 940 ml Balance 940 ml Intake Oral 840 ml IV Total 100 ml # Voids 2 General: Alert, Oriented X3, Cooperative, No acute distress Abdomen: Soft, Other (min TTP RUQ) Labs Laboratory Tests Test 07/29/20 16:56 07/29/20 21:25 07/30/20 07:48 07/30/20 08:56 Glucose (Fingerstick) 220 mg/dL (70-99) 206 mg/dL (70-99) 177 mg/dL (70-99) Sodium Level 132 mmol/L (136-145) Potassium Level 3.0 mmol/L (3.5-5.1) Chloride Level 98 mmol/L (98-107) Carbon Dioxide Level 27 mmol/L (21-32) Anion Gap 7 (6-14) Blood Urea Nitrogen 8 mg/dL (7-20) Creatinine 1.1 mg/dL (0.6-1.0) Estimated GFR (Cockcroft-Gault) 48.6 Glucose Level 234 mg/dL (70-99) Calcium Level 8.2 mg/dL (8.5-10.1) Total Bilirubin 0.6 mg/dL (0.2-1.0) Direct Bilirubin 0.4 mg/dL (0.0-0.2) Aspartate Amino Transf (AST/SGOT) 72 U/L (15-37) Alanine Aminotransferase (ALT/SGPT) 87 U/L (14-59) Alkaline Phosphatase 235 U/L (46-116) Total Protein 6.1 g/dL (6.4-8.2) Albumin 2.0 g/dL (3.4-5.0) Lipase 41 U/L (73-393) Test 07/30/20 12:09 07/30/20 16:52 07/30/20 20:39 07/31/20 07:44 Glucose (Fingerstick) 170 mg/dL (70-99) 250 mg/dL (70-99) 133 mg/dL (70-99) 165 mg/dL (70-99) Test 07/31/20 11:45 Glucose (Fingerstick) 201 mg/dL (70-99) Laboratory Tests Test 07/30/20 16:52 07/30/20 20:39 07/31/20 07:44 07/31/20 11:45 Glucose (Fingerstick) 250 mg/dL (70-99) 133 mg/dL (70-99) 165 mg/dL (70-99) 201 mg/dL (70-99) Problem List abd pain d/w pt and pt's sister agree with plans for d/c and plans for urology evaluation. F/u for consideration of cholecystectomy Justicifation of Admission Dx: Justifications for Admission: Justification of Admission Dx: Yes ORIANA HERNÁNDEZ MD Jul 31, 2020 15:20
[2020-07-31 19:00] VITALS: BP 113/55
[2020-07-31] MEDS: ATORVASTATIN CALCIUM 40 MG TABLET. PO SCH (21:16)
[2020-07-31] MEDS: INSULIN GLARGINE SYRINGE. SQ SCH (21:19)
[2020-07-31 23:00] VITALS: BP 151/64
[2020-08-01] MEDS: PIPERACILLIN/TAZOBACTAM 3.375 GM in IV NORMAL SALINE 50ML 50 ML IV SCH ×4 (00:15→17:44)
[2020-08-01 03:05] VITALS: BP 118/42
[2020-08-01] MEDS: LEVOTHYROXINE 112 MCG TABLET PO SCH (05:55)
[2020-08-01] MEDS: ACETAMINOPHEN 325 MG TABLET. PO PRN ×3 (06:38→15:36)
[2020-08-01 07:00] VITALS: BP 122/50
[2020-08-01] MEDS: PANTOPRAZOLE 40 MG TABLET.DR. PO SCH (07:35)
[2020-08-01] MEDS: INSULIN LISPRO 300 UNITS/3 ML VIAL. SQ SCH ×3 (08:00→17:07)
--- NOTE | 2020-08-01 08:42 | PDOC ---
Infectious Disease Note Subjective: Subjective Patient is feeling ok. No pain overnight No F/C/S/N/V. + BM Vital Signs: Vital Signs Vital Signs Date Time Temp Pulse Resp B/P (MAP) Pulse Ox O2 Delivery O2 Flow Rate FiO2 08/01/20 07:30 Room Air 08/01/20 07:00 98.4 68 18 122/50 (74) 97 98.4 Physical Exam: PHYSICAL EXAM GENERAL: Alert, oriented female, who has poor memory, not in any distress. in bed. coop. Looks comfortable HEENT: Both pupils are round and reacting. No conjunctival lesion, no lesion in the mouth. NECK: Supple, no JVP, no lymphadenopathy. LUNGS: Clear. HEART: S1, S2 regular. ABDOMEN: Soft, nontender, no organomegaly. EXTREMITIES: No edema or cyanosis. SKIN: Unremarkable. NEUROLOGIC: The patient is alert, awake and appropriate. No focal neurologic deficit. Medications: Inpatient Meds: Current Medications Medications (Trade) Dose Ordered Sig/Anthony Start Time Stop Time Status Last Admin Dose Admin Acetaminophen (Tylenol Supp) 650 mg PRN Q4HRS PRN 07/25/20 18:30 Acetaminophen (Tylenol) 650 mg PRN Q4HRS PRN 07/27/20 11:00 08/01/20 06:38 650 MG Apixaban (Eliquis) 5 mg BID 07/25/20 21:00 07/31/20 21:16 5 MG Aspirin ([employer] Aspirin) 325 mg 1X ONCE 07/25/20 13:30 07/25/20 13:31 DC 07/25/20 13:36 325 MG Atorvastatin Calcium (Lipitor) 40 mg QHS 07/25/20 21:00 07/31/20 21:16 40 MG Bisacodyl (Dulcolax Supp) 10 mg PRN DAILY PRN 07/25/20 18:30 Clonidine HCl (Catapres) 0.1 mg 1X ONCE 07/25/20 16:15 07/25/20 16:20 DC 07/25/20 16:13 0.1 MG Dextrose (Dextrose 50%-Water Syringe) 12.5 gm PRN Q15MIN PRN 07/25/20 19:00 EZETIMIBE (Zetia) 5 mg DAILY 07/26/20 09:00 07/31/20 08:27 5 MG Fentanyl Citrate (Fentanyl 2ml Vial) 50 mcg PRN Q1HR PRN 07/25/20 18:45 07/26/20 18:44 DC Hydromorphone HCl (Dilaudid) 0.4 mg PRN Q1HR PRN 07/25/20 18:30 07/26/20 06:41 0.4 MG Info (Anti-Coagulation Monitoring By Pharmacy) 1 each PRN DAILY PRN 07/26/20 14:15 07/28/20 10:50 1 EACH Info (CONTRAST GIVEN -- Rx MONITORING) 1 each PRN DAILY PRN 07/25/20 14:45 07/27/20 14:44 DC Insulin Glargine (Lantus Syringe) 10 unit QHS 07/25/20 21:00 07/31/20 21:19 10 UNIT Insulin Human Lispro (HumaLOG) 0-7 UNITS TIDWMEALS 07/26/20 08:00 08/01/20 08:00 4 UNITS Iohexol (Omnipaque 300 Mg/ml) 60 ml 1X ONCE 07/25/20 14:45 07/25/20 14:46 DC 07/25/20 14:40 60 ML Labetalol HCl (Normodyne Iv Push) 20 mg 1X ONCE 07/25/20 20:45 07/25/20 20:46 DC 07/25/20 20:54 20 MG Lactobacillus Rhamnosus (Culturelle) 1 cap BID 07/26/20 21:00 07/31/20 21:16 1 CAP Levothyroxine Sodium (Synthroid) 112 mcg DAILY06 07/26/20 06:00 08/01/20 05:55 112 MCG Linezolid/Dextrose 300 ml @ 300 mls/hr Q12HR 07/27/20 10:30 07/31/20 21:13 300 MLS/HR Magnesium Hydroxide (Milk Of Magnesia) 2,400 mg PRN Q12HR PRN 07/25/20 18:30 Metoprolol Tartrate (Lopressor) 12.5 mg BID 07/25/20 21:00 07/31/20 21:16 12.5 MG Morphine Sulfate (Morphine Sulfate) 4 mg 1X ONCE 07/27/20 13:30 07/27/20 13:32 DC 07/27/20 13:32 4 MG Nitroglycerin (Nitrostat) 0.4 mg PRN Q5MIN PRN 07/25/20 13:30 07/26/20 13:29 DC 07/25/20 13:49 0.4 MG Ondansetron HCl (Zofran) 4 mg PRN Q8HRS PRN 07/25/20 18:45 07/26/20 18:44 DC Pantoprazole Sodium (PROTONIX VIAL for IV PUSH) 40 mg DAILYAC 07/26/20 15:30 07/29/20 14:43 DC 07/29/20 05:23 40 MG Pantoprazole Sodium (Protonix) 40 mg DAILYAC 07/30/20 07:30 08/01/20 07:35 40 MG Piperacillin Sod/ Tazobactam Sod 3.375 gm/Sodium Chloride 50 ml @ 100 mls/hr Q6HRS 07/26/20 10:00 08/01/20 05:56 100 MLS/HR Potassium Bicarbonate (Potassium Effervescent Tablet) 40 meq 1X ONCE 07/29/20 12:30 07/29/20 12:31 DC 07/29/20 13:27 40 MEQ Potassium Chloride/Water 100 ml @ 100 mls/hr Q1H 07/29/20 10:00 07/29/20 12:00 DC 07/29/20 11:03 100 MLS/HR Potassium Chloride (Klor-Con) 40 meq Q2H 07/30/20 15:15 07/30/20 17:16 DC 07/30/20 17:09 40 MEQ Sodium Chloride 1,000 ml @ 125 mls/hr 1X ONCE 07/26/20 17:45 07/27/20 01:44 DC 07/26/20 18:05 125 MLS/HR Zolpidem Tartrate (Ambien) 5 mg PRN QHS PRN 07/25/20 18:30 Labs: Lab Laboratory Tests Test 07/31/20 11:45 07/31/20 17:03 07/31/20 20:31 08/01/20 07:17 Glucose (Fingerstick) 201 mg/dL (70-99) 248 mg/dL (70-99) 279 mg/dL (70-99) 228 mg/dL (70-99) Objective: Assessment: 1. Abdominal pain. 2. Leukocytosis. 3. Abnormal gallbladder with gallstones, may have had some cholecystitis and/or abdominal pain was just some other reason. 4. Severe left-sided hydronephrosis and hydroureter. Urine culture negative 5. Atrial fibrillation. 6. Diabetes. 7. Hypothyroidism. 8. Transaminitis - better 9. Anemia Plan: Plan of Care cont megan TREJO Zyvox urine culture neg supportive care Possible cholecystectomy - trying to avoid d/w Family at bedside АННА HARDEN MD Aug 01, 2020 08:42
[2020-08-01 08:47] LABS: BASO # 0.1 x10^3/uL (0.0-0.2); BASO % 0 % (0-3); EOS # 0.1 x10^3/uL (0.0-0.7); EOS % 1 % (0-3); HEMATOCRIT 33.4 % (36.0-47.0); LYMPH # 1.2 x10^3/uL (1.0-4.8); LYMPH % 9 % (24-48); MEAN CORPUSCULAR HEMOGLOBIN 28 pg (25-35); MEAN CORPUSCULAR HGB CONC 33 g/dL (31-37); MEAN CORPUSCULAR VOLUME 86 fL (79-100); MONO # 1.4 x10^3/uL (0.0-1.1); MONO % 10 % (0-9); NEUT # 11.4 x10^3/uL (1.8-7.7); NEUT % 80 % (31-73); PLATELET COUNT 292 x10^3/uL (140-400); RED BLOOD COUNT 3.89 x10^6/uL (3.50-5.40); RED CELL DISTRIBUTION WIDTH 14.5 % (11.5-14.5); WHITE BLOOD COUNT 14.1 x10^3/uL (4.0-11.0)
[2020-08-01] MEDS: LACTOBACILLUS RHAMNOSUS GG 1 CAPSULE. PO SCH ×2 (09:04→21:42)
[2020-08-01] MEDS: APIXABAN 5 MG TABLET. PO SCH ×2 (09:04→21:42)
[2020-08-01] MEDS: METOPROLOL TART IMMED RELEASE 25 MG TABLET. PO SCH ×2 (09:04→21:42)
[2020-08-01] MEDS: EZETIMIBE 10 MG TABLET. PO SCH (09:04)
[2020-08-01 09:07] LABS: ALBUMIN/GLOBULIN RATIO 0.5 (1.0-1.7); CALCIUM 8.2 mg/dL (8.5-10.1); GFR 54.2; POTASSIUM 3.7 mmol/L (3.5-5.1); TOTAL BILIRUBIN 0.6 mg/dL (0.2-1.0); TOTAL PROTEIN 6.1 g/dL (6.4-8.2)
--- NOTE | 2020-08-01 09:17 | PDOC ---
RUBIN PERALTA FISH CUTTER 08/01/20 0917: SURGICAL PROGRESS NOTE DATE: 08/01/20 TIME: 09:16 Subjective minimal RUQ, tolerating diet no nausea pain note aggravated with eating Vital Signs Vital Signs Date Time Temp Pulse Resp B/P (MAP) Pulse Ox O2 Delivery O2 Flow Rate FiO2 08/01/20 09:04 68 122/50 08/01/20 07:30 Room Air 08/01/20 07:00 98.4 18 97 98.4 I&O Intake and Output 08/01/20 07:00 Intake Total 820 ml Balance 820 ml Intake Oral 820 ml # Voids 4 # Bowel Movements 2 General: Alert, Oriented X3, Cooperative Abdomen: Soft, Other (ttp ruq mild) Labs Laboratory Tests Test 07/30/20 12:09 07/30/20 16:52 07/30/20 20:39 07/31/20 07:44 Glucose (Fingerstick) 170 mg/dL (70-99) 250 mg/dL (70-99) 133 mg/dL (70-99) 165 mg/dL (70-99) Test 07/31/20 11:45 07/31/20 17:03 07/31/20 20:31 08/01/20 07:17 Glucose (Fingerstick) 201 mg/dL (70-99) 248 mg/dL (70-99) 279 mg/dL (70-99) 228 mg/dL (70-99) Test 08/01/20 08:03 White Blood Count 14.1 x10^3/uL (4.0-11.0) Red Blood Count 3.89 x10^6/uL (3.50-5.40) Hemoglobin 11.0 g/dL (12.0-15.5) Hematocrit 33.4 % (36.0-47.0) Mean Corpuscular Volume 86 fL (79-100) Mean Corpuscular Hemoglobin 28 pg (25-35) Mean Corpuscular Hemoglobin Concent 33 g/dL (31-37) Red Cell Distribution Width 14.5 % (11.5-14.5) Platelet Count 292 x10^3/uL (140-400) Neutrophils (%) (Auto) 80 % (31-73) Lymphocytes (%) (Auto) 9 % (24-48) Monocytes (%) (Auto) 10 % (0-9) Eosinophils (%) (Auto) 1 % (0-3) Basophils (%) (Auto) 0 % (0-3) Neutrophils # (Auto) 11.4 x10^3/uL (1.8-7.7) Lymphocytes # (Auto) 1.2 x10^3/uL (1.0-4.8) Monocytes # (Auto) 1.4 x10^3/uL (0.0-1.1) Eosinophils # (Auto) 0.1 x10^3/uL (0.0-0.7) Basophils # (Auto) 0.1 x10^3/uL (0.0-0.2) Laboratory Tests Test 07/31/20 11:45 07/31/20 17:03 07/31/20 20:31 08/01/20 07:17 Glucose (Fingerstick) 201 mg/dL (70-99) 248 mg/dL (70-99) 279 mg/dL (70-99) 228 mg/dL (70-99) Test 08/01/20 08:03 White Blood Count 14.1 x10^3/uL (4.0-11.0) Red Blood Count 3.89 x10^6/uL (3.50-5.40) Hemoglobin 11.0 g/dL (12.0-15.5) Hematocrit 33.4 % (36.0-47.0) Mean Corpuscular Volume 86 fL (79-100) Mean Corpuscular Hemoglobin 28 pg (25-35) Mean Corpuscular Hemoglobin Concent 33 g/dL (31-37) Red Cell Distribution Width 14.5 % (11.5-14.5) Platelet Count 292 x10^3/uL (140-400) Neutrophils (%) (Auto) 80 % (31-73) Lymphocytes (%) (Auto) 9 % (24-48) Monocytes (%) (Auto) 10 % (0-9) Eosinophils (%) (Auto) 1 % (0-3) Basophils (%) (Auto) 0 % (0-3) Neutrophils # (Auto) 11.4 x10^3/uL (1.8-7.7) Lymphocytes # (Auto) 1.2 x10^3/uL (1.0-4.8) Monocytes # (Auto) 1.4 x10^3/uL (0.0-1.1) Eosinophils # (Auto) 0.1 x10^3/uL (0.0-0.7) Basophils # (Auto) 0.1 x10^3/uL (0.0-0.2) Assessment/Plan urology as outpt, FU in clinic to discuss michel Justicifation of Admission Dx: Justifications for Admission: Justification of Admission Dx: Yes ORIANA HERNÁNDEZ MD 08/01/20 1907: SURGICAL PROGRESS NOTE Assessment/Plan Pt seen and examined. Agree with Ms. Peralta's note Pt without new c/o abd soft, ND, NTTP ok to d/c and will fu as outpt RUBIN PERALTA APRN Aug 01, 2020 09:17 ORIANA EHRNÁNDEZ MD Aug 01, 2020 19:07
[2020-08-01 11:00] VITALS: BP 125/97
--- NOTE | 2020-08-01 11:20 | NUR ---
SW following. Discussed with RN, pt from home, room air, GI soft, IV zosyn. Pt is accepted with [facility]. SW awaiting confirmation of possible discharge home today. SW will continue to follow.
--- NOTE | 2020-08-01 12:21 | PDOC ---
Date of Service: DATE: 08/01/20 TIME: 12:17 Subjective: Subjective: Family present - says she might get to discharge this afternoon w/ plans to follow-up w/ PCP and urology (already has appt) and then possible cholecystectomy later on. RUQ pain is better. Tolerating diet. Family says "eating good." Back hurts a little - "might be from this bed." Objective: Vital Signs: Vital Signs Date Time Temp Pulse Resp B/P (MAP) Pulse Ox O2 Delivery O2 Flow Rate FiO2 08/01/20 11:00 98.7 64 20 125/97 (106) 98 Room Air 98.7 Labs: Laboratory Tests Test 07/31/20 17:03 07/31/20 20:31 08/01/20 07:17 08/01/20 08:03 Glucose (Fingerstick) 248 mg/dL 279 mg/dL 228 mg/dL White Blood Count 14.1 x10^3/uL Red Blood Count 3.89 x10^6/uL Hemoglobin 11.0 g/dL Hematocrit 33.4 % Mean Corpuscular Volume 86 fL Mean Corpuscular Hemoglobin 28 pg Mean Corpuscular Hemoglobin Concent 33 g/dL Red Cell Distribution Width 14.5 % Platelet Count 292 x10^3/uL Neutrophils (%) (Auto) 80 % Lymphocytes (%) (Auto) 9 % Monocytes (%) (Auto) 10 % Eosinophils (%) (Auto) 1 % Basophils (%) (Auto) 0 % Neutrophils # (Auto) 11.4 x10^3/uL Lymphocytes # (Auto) 1.2 x10^3/uL Monocytes # (Auto) 1.4 x10^3/uL Eosinophils # (Auto) 0.1 x10^3/uL Basophils # (Auto) 0.1 x10^3/uL Sodium Level 140 mmol/L Potassium Level 3.7 mmol/L Chloride Level 104 mmol/L Carbon Dioxide Level 25 mmol/L Anion Gap 11 Blood Urea Nitrogen 7 mg/dL Creatinine 1.0 mg/dL Estimated GFR (Cockcroft-Gault) 54.2 BUN/Creatinine Ratio 7 Glucose Level 188 mg/dL Calcium Level 8.2 mg/dL Total Bilirubin 0.6 mg/dL Aspartate Amino Transf (AST/SGOT) 41 U/L Alanine Aminotransferase (ALT/SGPT) 61 U/L Alkaline Phosphatase 269 U/L Total Protein 6.1 g/dL Albumin 2.0 g/dL Albumin/Globulin Ratio 0.5 Test 08/01/20 11:38 Glucose (Fingerstick) 224 mg/dL PE: GEN: NAD - looks better LUNGS: CTAB HEART: RRR ABD: S/ND/NT NEURO/PSYCH: A & O 3 A/P: RUQ pain - better Cholelithiasis Leukocytosis - better Elevated AST, ALT, and Alk Phos Severe left hydronephrosis H/o A Fib and CVA - Eliquis resumed COVID negative -- DC per primary/ID/surgery - plans as above - discussed monitoring LFTs as outpt as well. Justicifation of Admission Dx: Justifications for Admission: Justification of Admission Dx: Yes MAYCOL SCOTT Aug 01, 2020 12:21
[2020-08-01 15:00] VITALS: BP 124/43
--- NOTE | 2020-08-01 16:50 | PDOC ---
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 Metabolic encephalopathy. Confusion. Right temporal field deficits. AFib. HLD. DM. Hypothyroidism. Plan Continue IV antibiotics as per ID No surgical intervention during this admission planned. business info consultant will follow up in 6 weeks and evaluate at that time cholecystectomy Continue advancing diet as tolerated Outpatient neurology consultation Reassess in the a.m. Follow labs in the a.m. Hopefully discharge soon DVT prophylaxis with apixaban History of Present Illness History of Present Illness Ms Mccoy is 74-year-old female past medical history CVA, who presents to the ER with complaints of epigastric and right upper quadrant abdominal pain that started this morning. She reports sharp pain, 7/10 at worst. She states her pain radiates to her lower back. She reports associated nausea and vomiting x1. She denies any association of her pain with food. She is never had this type of pain before, and denies any known history of cholelithiasis. Ultrasound obtained in the ER shows cholelithiasis, hydropic gallbladder, and chronic appearing severe left hydronephrosis. CT abdomen/pelvis obtained in the ER also shows the same, but also notes likely uretal stricture on left. 07/26: Afebrile overnight. WBC increased. Still with significant pain and elevated blood pressure minimally responsive to IV pain medication. No shortness of breath or chest pain. No left-sided abdominal pain. No dysuria. Sister notes that there has been a 40 pound weight loss in the last year. 07/27: Patient seen and evaluated bedside. Echocardiogram showing normal EF, with dilated ascending aorta. Still complains of pain. She seems slightly somnolent today, but states she has just had pain medication. She is to have HIDA scan today. Some concern for hydronephrosis as cause of patient's pain, and she would need ureteral stent. If HIDA scan is negative, she will need to be transferred to facility with urology to have stent placed. 07/28: Patient had HIDA scan yesterday showing delayed gallbladder filling. Still complains of right upper quadrant pain. She denies any shortness of breath, nausea, or vomiting. Evidence of bilateral hydronephrosis seen on CT, left greater than right. Liver pain is secondary to cholelithiasis and not hydronephrosis, however patient will need to follow-up with urologist eventually after discharge from this hospital stay. 07/29: Patient with some significant hypokalemia today, potassium 2.6. Suspect se condary to poor p.o. intake over the past week, and patient had loose bowel movement this morning. Will replace with effervescent potassium. She denies any nausea or vomiting. Patient's stated a conversation with Dr. Yeager yesterday who recommended follow-up with outpatient neurologist prior to elective cholecystectomy. Patient has been agreeable to this option. Will likely discharge tomorrow after her potassium was replaced and further education was provided on appropriate diabetic diet and blood sugar management. Discussed with RN. 07/30: Still reqruiring iv antibiotics as per clinical application consultant, pain seems to be better compared to yesterday, she did not tolerate advancement of diet 07/31: Patient lying in bed in no acute distress. She did not have any discomfort with meals yesterday and has remained asymptomatic for the most part. Slowly making improvements still requiring IV antibiotics, discussed the need of outpatient follow-up with urology secondary to the hydronephrosis found on imaging studies. Urine output has been adequate. Hopefully will be able to discharge in the next 24 to 48 hours laboratory data has been requested for the a.m. to follow-up 08/01/2020 No acute events overnight. Patient is seen and examined bedside with no complaints voiced at this time. White count is trending down while on Zosyn only. ID to continue to follow. Patient's chart, labs, images were reviewed and discussed with RN Vitals/I&O Vitals/I&O: Vital Signs Date Time Temp Pulse Resp B/P (MAP) Pulse Ox O2 Delivery O2 Flow Rate FiO2 08/01/20 15:00 97.7 60 18 124/43 (70) 97 Room Air 97.7 I & O 07/31/20 07/31/20 08/01/20 15:00 23:00 07:00 Intake Total 520 ml 300 ml Balance 520 ml 300 ml Physical Exam Physical Exam: GENERAL: Alert, oriented female, who has poor memory, not in any distress. in bed. coop. Looks comfortable HEENT: Both pupils are round and reacting. No conjunctival lesion, no lesion in the mouth. NECK: Supple, no JVP, no lymphadenopathy. LUNGS: Clear. HEART: S1, S2 regular. ABDOMEN: Soft, nontender, no organomegaly. EXTREMITIES: No edema or cyanosis. SKIN: Unremarkable. NEUROLOGIC: The patient is alert, awake and appropriate. No focal neurologic deficit. General: Alert, Oriented X3, Cooperative Heart: Regular rate (SR) Lungs: Clear Abdomen: Soft, Other (ttp ruq mild) Extremities: No cyanosis, No edema Skin: No breakdown, No significant lesion Labs Labs: Laboratory Tests Test 07/31/20 17:03 07/31/20 20:31 08/01/20 07:17 08/01/20 08:03 Glucose (Fingerstick) 248 mg/dL (70-99) 279 mg/dL (70-99) 228 mg/dL (70-99) White Blood Count 14.1 x10^3/uL (4.0-11.0) Red Blood Count 3.89 x10^6/uL (3.50-5.40) Hemoglobin 11.0 g/dL (12.0-15.5) Hematocrit 33.4 % (36.0-47.0) Mean Corpuscular Volume 86 fL (79-100) Mean Corpuscular Hemoglobin 28 pg (25-35) Mean Corpuscular Hemoglobin Concent 33 g/dL (31-37) Red Cell Distribution Width 14.5 % (11.5-14.5) Platelet Count 292 x10^3/uL (140-400) Neutrophils (%) (Auto) 80 % (31-73) Lymphocytes (%) (Auto) 9 % (24-48) Monocytes (%) (Auto) 10 % (0-9) Eosinophils (%) (Auto) 1 % (0-3) Basophils (%) (Auto) 0 % (0-3) Neutrophils # (Auto) 11.4 x10^3/uL (1.8-7.7) Lymphocytes # (Auto) 1.2 x10^3/uL (1.0-4.8) Monocytes # (Auto) 1.4 x10^3/uL (0.0-1.1) Eosinophils # (Auto) 0.1 x10^3/uL (0.0-0.7) Basophils # (Auto) 0.1 x10^3/uL (0.0-0.2) Sodium Level 140 mmol/L (136-145) Potassium Level 3.7 mmol/L (3.5-5.1) Chloride Level 104 mmol/L (98-107) Carbon Dioxide Level 25 mmol/L (21-32) Anion Gap 11 (6-14) Blood Urea Nitrogen 7 mg/dL (7-20) Creatinine 1.0 mg/dL (0.6-1.0) Estimated GFR (Cockcroft-Gault) 54.2 BUN/Creatinine Ratio 7 (6-20) Glucose Level 188 mg/dL (70-99) Calcium Level 8.2 mg/dL (8.5-10.1) Total Bilirubin 0.6 mg/dL (0.2-1.0) Aspartate Amino Transf (AST/SGOT) 41 U/L (15-37) Alanine Aminotransferase (ALT/SGPT) 61 U/L (14-59) Alkaline Phosphatase 269 U/L (46-116) Total Protein 6.1 g/dL (6.4-8.2) Albumin 2.0 g/dL (3.4-5.0) Albumin/Globulin Ratio 0.5 (1.0-1.7) Test 08/01/20 11:38 08/01/20 16:35 Glucose (Fingerstick) 224 mg/dL (70-99) 190 mg/dL (70-99) Comment Review of Relevant I have reviewed the following items bell (where applicable) has been applied. Justifications for Admission Other Justification Atypical chest pain, symptomatic cholelithiasis SHONDA DAY MD Aug 01, 2020 16:50
[2020-08-01 19:00] VITALS: BP 118/64
[2020-08-01] MEDS: ATORVASTATIN CALCIUM 40 MG TABLET. PO SCH (21:42)
[2020-08-01] MEDS: INSULIN GLARGINE SYRINGE. SQ SCH (21:48)
[2020-08-01 23:00] VITALS: BP 147/60
[2020-08-02] MEDS: ACETAMINOPHEN 325 MG TABLET. PO PRN ×3 (00:01→11:31)
[2020-08-02] MEDS: PIPERACILLIN/TAZOBACTAM 3.375 GM in IV NORMAL SALINE 50ML 50 ML IV SCH ×3 (00:03→11:32)
[2020-08-02 03:00] VITALS: BP 131/60
[2020-08-02] MEDS: LEVOTHYROXINE 112 MCG TABLET PO SCH (05:38)
[2020-08-02] MEDS: PANTOPRAZOLE 40 MG TABLET.DR. PO SCH (06:35)
[2020-08-02 07:00] VITALS: BP 138/61
[2020-08-02] MEDS: INSULIN LISPRO 300 UNITS/3 ML VIAL. SQ SCH ×2 (08:00→11:46)
[2020-08-02] MEDS: APIXABAN 5 MG TABLET. PO SCH (08:27)
[2020-08-02] MEDS: LACTOBACILLUS RHAMNOSUS GG 1 CAPSULE. PO SCH (08:27)
[2020-08-02] MEDS: EZETIMIBE 10 MG TABLET. PO SCH (08:27)
[2020-08-02] MEDS: METOPROLOL TART IMMED RELEASE 25 MG TABLET. PO SCH (08:27)
--- NOTE | 2020-08-02 10:03 | PDOC ---
Date of Service: DATE: 08/02/20 TIME: 10:01 Subjective: Subjective: Family wanting to know when she will be discharged - hoping this will happen quickly today. Tolerating diet, minimal RUQ discomfort. Feels cold. Objective: Objective: D/w nurse - has already spoken w/ family extensively this morning. Vital Signs: Vital Signs Date Time Temp Pulse Resp B/P (MAP) Pulse Ox O2 Delivery O2 Flow Rate FiO2 08/02/20 08:27 67 131/60 08/02/20 08:00 Room Air 08/02/20 07:00 97.5 18 94 97.5 Labs: Laboratory Tests Test 08/01/20 11:38 08/01/20 16:35 08/01/20 20:58 Glucose (Fingerstick) 224 mg/dL 190 mg/dL 239 mg/dL PE: GEN: NAD LUNGS: CTAB HEART: RRR ABD: RUQ tenderness, soft NEURO/PSYCH: A & O 3 A/P: RUQ pain, leukocytosis - better Cholelithiasis, severe left hydronephrosis Elevated AST, ALT, and Alk Phos H/o A Fib and CVA - on Eliquis COVID negative -- Labs pending today. Dc per primary/surgery - plans to follow-up w/ urology, PCP, and eventually surgery. Justicifation of Admission Dx: Justifications for Admission: Justification of Admission Dx: Yes MAYCOL SCOTT Aug 02, 2020 10:03
--- NOTE | 2020-08-02 10:22 | NUR ---
SW following. Discussed with RN, pt from home, room air, ada diet. Per RN, pt needs one more dose of IV zosyn today. Plan is to discharge home with [facility] - family wanting discharge today. SW awaiting discharge orders to fax to [facility]. GERMANIA will continue to follow. Addendum: 08/02/20 at 1326 by PRAVEEN SOLO Discharge orders faxed to [facility].
--- NOTE | 2020-08-02 10:32 | PDOC ---
SURGICAL PROGRESS NOTE DATE: 08/02/20 TIME: 10:31 Subjective Pt without c/o, interested in d/c Vital Signs Vital Signs Date Time Temp Pulse Resp B/P (MAP) Pulse Ox O2 Delivery O2 Flow Rate FiO2 08/02/20 08:27 67 131/60 08/02/20 08:00 Room Air 08/02/20 07:00 97.5 18 94 97.5 I&O Intake and Output 08/02/20 07:00 Intake Total 1260 ml Balance 1260 ml Intake Oral 960 ml IV Total 300 ml # Voids 4 General: Alert, Cooperative, No acute distress Abdomen: Soft, No tenderness Labs Laboratory Tests Test 07/31/20 11:45 07/31/20 17:03 07/31/20 20:31 08/01/20 07:17 Glucose (Fingerstick) 201 mg/dL (70-99) 248 mg/dL (70-99) 279 mg/dL (70-99) 228 mg/dL (70-99) Test 08/01/20 08:03 08/01/20 11:38 08/01/20 16:35 08/01/20 20:58 White Blood Count 14.1 x10^3/uL (4.0-11.0) Red Blood Count 3.89 x10^6/uL (3.50-5.40) Hemoglobin 11.0 g/dL (12.0-15.5) Hematocrit 33.4 % (36.0-47.0) Mean Corpuscular Volume 86 fL (79-100) Mean Corpuscular Hemoglobin 28 pg (25-35) Mean Corpuscular Hemoglobin Concent 33 g/dL (31-37) Red Cell Distribution Width 14.5 % (11.5-14.5) Platelet Count 292 x10^3/uL (140-400) Neutrophils (%) (Auto) 80 % (31-73) Lymphocytes (%) (Auto) 9 % (24-48) Monocytes (%) (Auto) 10 % (0-9) Eosinophils (%) (Auto) 1 % (0-3) Basophils (%) (Auto) 0 % (0-3) Neutrophils # (Auto) 11.4 x10^3/uL (1.8-7.7) Lymphocytes # (Auto) 1.2 x10^3/uL (1.0-4.8) Monocytes # (Auto) 1.4 x10^3/uL (0.0-1.1) Eosinophils # (Auto) 0.1 x10^3/uL (0.0-0.7) Basophils # (Auto) 0.1 x10^3/uL (0.0-0.2) Sodium Level 140 mmol/L (136-145) Potassium Level 3.7 mmol/L (3.5-5.1) Chloride Level 104 mmol/L (98-107) Carbon Dioxide Level 25 mmol/L (21-32) Anion Gap 11 (6-14) Blood Urea Nitrogen 7 mg/dL (7-20) Creatinine 1.0 mg/dL (0.6-1.0) Estimated GFR (Cockcroft-Gault) 54.2 BUN/Creatinine Ratio 7 (6-20) Glucose Level 188 mg/dL (70-99) Calcium Level 8.2 mg/dL (8.5-10.1) Total Bilirubin 0.6 mg/dL (0.2-1.0) Aspartate Amino Transf (AST/SGOT) 41 U/L (15-37) Alanine Aminotransferase (ALT/SGPT) 61 U/L (14-59) Alkaline Phosphatase 269 U/L (46-116) Total Protein 6.1 g/dL (6.4-8.2) Albumin 2.0 g/dL (3.4-5.0) Albumin/Globulin Ratio 0.5 (1.0-1.7) Glucose (Fingerstick) 224 mg/dL (70-99) 190 mg/dL (70-99) 239 mg/dL (70-99) Test 08/02/20 08:16 Glucose (Fingerstick) 143 mg/dL (70-99) Laboratory Tests Test 08/01/20 11:38 08/01/20 16:35 08/01/20 20:58 08/02/20 08:16 Glucose (Fingerstick) 224 mg/dL (70-99) 190 mg/dL (70-99) 239 mg/dL (70-99) 143 mg/dL (70-99) Assessment/Plan calculous cholecystitis OK to d/c home f/u in office to consider surgery. Justicifation of Admission Dx: Justifications for Admission: Justification of Admission Dx: Yes ORIANA HERNÁNDEZ MD Aug 02, 2020 10:32
[2020-08-02 11:00] VITALS: BP 136/56
[2020-08-02 11:54] LABS: BASO # 0.1 x10^3/uL (0.0-0.2); BASO % 1 % (0-3); EOS # 0.1 x10^3/uL (0.0-0.7); EOS % 1 % (0-3); HEMATOCRIT 32.3 % (36.0-47.0); HEMOGLOBIN 10.7 g/dL (12.0-15.5); LYMPH # 1.6 x10^3/uL (1.0-4.8); LYMPH % 13 % (24-48); MEAN CORPUSCULAR HEMOGLOBIN 28 pg (25-35); MEAN CORPUSCULAR HGB CONC 33 g/dL (31-37); MEAN CORPUSCULAR VOLUME 85 fL (79-100); MONO % 8 % (0-9); NEUT # 9.7 x10^3/uL (1.8-7.7); NEUT % 77 % (31-73); PLATELET COUNT 310 x10^3/uL (140-400); RED BLOOD COUNT 3.79 x10^6/uL (3.50-5.40); RED CELL DISTRIBUTION WIDTH 14.6 % (11.5-14.5); WHITE BLOOD COUNT 12.6 x10^3/uL (4.0-11.0)
[2020-08-02 12:10] LABS: ALBUMIN 1.8 g/dL (3.4-5.0); ALBUMIN/GLOBULIN RATIO 0.5 (1.0-1.7); CALCIUM 8.2 mg/dL (8.5-10.1); GFR 54.2; MAGNESIUM 2.1 mg/dL (1.8-2.4); PHOSPHORUS 3.1 mg/dL (2.6-4.7); POTASSIUM 3.6 mmol/L (3.5-5.1); TOTAL BILIRUBIN 0.4 mg/dL (0.2-1.0); TOTAL PROTEIN 5.7 g/dL (6.4-8.2)
--- NOTE | 2020-08-02 12:29 | PDOC ---
Infectious Disease Note Subjective: Subjective Patient is feeling ok. No pain overnight No F/C/S/N/V. + BM eager for dc home today Vital Signs: Vital Signs Vital Signs Date Time Temp Pulse Resp B/P (MAP) Pulse Ox O2 Delivery O2 Flow Rate FiO2 08/02/20 08:27 67 131/60 08/02/20 08:00 Room Air 08/02/20 07:00 97.5 18 94 97.5 Physical Exam: PHYSICAL EXAM GENERAL: Alert, oriented female, who has poor memory, not in any distress. in bed. coop. Looks comfortable HEENT: Both pupils are round and reacting. No conjunctival lesion, no lesion in the mouth. NECK: Supple, no JVP, no lymphadenopathy. LUNGS: Clear. HEART: S1, S2 regular. ABDOMEN: Soft, nontender, no organomegaly. EXTREMITIES: No edema or cyanosis. SKIN: Unremarkable. NEUROLOGIC: The patient is alert, awake and appropriate. No focal neurologic deficit. Medications: Inpatient Meds: Current Medications Medications (Trade) Dose Ordered Sig/Anthony Start Time Stop Time Status Last Admin Dose Admin Acetaminophen (Tylenol Supp) 650 mg PRN Q4HRS PRN 07/25/20 18:30 Acetaminophen (Tylenol) 650 mg PRN Q4HRS PRN 07/27/20 11:00 08/02/20 11:31 650 MG Apixaban (Eliquis) 5 mg BID 07/25/20 21:00 08/02/20 08:27 5 MG Aspirin (Theo Aspirin) 325 mg 1X ONCE 07/25/20 13:30 07/25/20 13:31 DC 07/25/20 13:36 325 MG Atorvastatin Calcium (Lipitor) 40 mg QHS 07/25/20 21:00 08/01/20 21:42 40 MG Bisacodyl (Dulcolax Supp) 10 mg PRN DAILY PRN 07/25/20 18:30 Clonidine HCl (Catapres) 0.1 mg 1X ONCE 07/25/20 16:15 07/25/20 16:20 DC 07/25/20 16:13 0.1 MG Dextrose (Dextrose 50%-Water Syringe) 12.5 gm PRN Q15MIN PRN 07/25/20 19:00 EZETIMIBE (Zetia) 5 mg DAILY 07/26/20 09:00 08/02/20 08:27 5 MG Fentanyl Citrate (Fentanyl 2ml Vial) 50 mcg PRN Q1HR PRN 07/25/20 18:45 07/26/20 18:44 DC Hydromorphone HCl (Dilaudid) 0.4 mg PRN Q1HR PRN 07/25/20 18:30 07/26/20 06:41 0.4 MG Info (Anti-Coagulation Monitoring By Pharmacy) 1 each PRN DAILY PRN 07/26/20 14:15 07/28/20 10:50 1 EACH Info (CONTRAST GIVEN -- Rx MONITORING) 1 each PRN DAILY PRN 07/25/20 14:45 07/27/20 14:44 DC Insulin Glargine (Lantus Syringe) 10 unit QHS 07/25/20 21:00 08/01/20 21:48 10 UNIT Insulin Human Lispro (HumaLOG) 0-7 UNITS TIDWMEALS 07/26/20 08:00 08/02/20 11:46 3 UNITS Iohexol (Omnipaque 300 Mg/ml) 60 ml 1X ONCE 07/25/20 14:45 07/25/20 14:46 DC 07/25/20 14:40 60 ML Labetalol HCl (Normodyne Iv Push) 20 mg 1X ONCE 07/25/20 20:45 07/25/20 20:46 DC 07/25/20 20:54 20 MG Lactobacillus Rhamnosus (Culturelle) 1 cap BID 07/26/20 21:00 08/02/20 08:27 1 CAP Levothyroxine Sodium (Synthroid) 112 mcg DAILY06 07/26/20 06:00 08/02/20 05:38 112 MCG Linezolid/Dextrose 300 ml @ 300 mls/hr Q12HR 07/27/20 10:30 08/01/20 09:12 DC 08/01/20 09:05 300 MLS/HR Magnesium Hydroxide (Milk Of Magnesia) 2,400 mg PRN Q12HR PRN 07/25/20 18:30 Metoprolol Tartrate (Lopressor) 12.5 mg BID 07/25/20 21:00 08/02/20 08:27 12.5 MG Morphine Sulfate (Morphine Sulfate) 4 mg 1X ONCE 07/27/20 13:30 07/27/20 13:32 DC 07/27/20 13:32 4 MG Nitroglycerin (Nitrostat) 0.4 mg PRN Q5MIN PRN 07/25/20 13:30 07/26/20 13:29 DC 07/25/20 13:49 0.4 MG Ondansetron HCl (Zofran) 4 mg PRN Q8HRS PRN 07/25/20 18:45 07/26/20 18:44 DC Pantoprazole Sodium (PROTONIX VIAL for IV PUSH) 40 mg DAILYAC 07/26/20 15:30 07/29/20 14:43 DC 07/29/20 05:23 40 MG Pantoprazole Sodium (Protonix) 40 mg DAILYAC 07/30/20 07:30 08/02/20 06:35 40 MG Piperacillin Sod/ Tazobactam Sod 3.375 gm/Sodium Chloride 50 ml @ 100 mls/hr Q6HRS 07/26/20 10:00 08/02/20 11:32 100 MLS/HR Potassium Bicarbonate (Potassium Effervescent Tablet) 40 meq 1X ONCE 07/29/20 12:30 07/29/20 12:31 DC 07/29/20 13:27 40 MEQ Potassium Chloride/Water 100 ml @ 100 mls/hr Q1H 07/29/20 10:00 07/29/20 12:00 DC 07/29/20 11:03 100 MLS/HR Potassium Chloride (Klor-Con) 40 meq Q2H 07/30/20 15:15 07/30/20 17:16 DC 07/30/20 17:09 40 MEQ Sodium Chloride 1,000 ml @ 125 mls/hr 1X ONCE 07/26/20 17:45 07/27/20 01:44 DC 07/26/20 18:05 125 MLS/HR Zolpidem Tartrate (Ambien) 5 mg PRN QHS PRN 07/25/20 18:30 Labs: Lab Laboratory Tests Test 08/01/20 16:35 08/01/20 20:58 08/02/20 08:16 08/02/20 11:34 Glucose (Fingerstick) 190 mg/dL (70-99) 239 mg/dL (70-99) 143 mg/dL (70-99) White Blood Count 12.6 x10^3/uL (4.0-11.0) Red Blood Count 3.79 x10^6/uL (3.50-5.40) Hemoglobin 10.7 g/dL (12.0-15.5) Hematocrit 32.3 % (36.0-47.0) Mean Corpuscular Volume 85 fL (79-100) Mean Corpuscular Hemoglobin 28 pg (25-35) Mean Corpuscular Hemoglobin Concent 33 g/dL (31-37) Red Cell Distribution Width 14.6 % (11.5-14.5) Platelet Count 310 x10^3/uL (140-400) Neutrophils (%) (Auto) 77 % (31-73) Lymphocytes (%) (Auto) 13 % (24-48) Monocytes (%) (Auto) 8 % (0-9) Eosinophils (%) (Auto) 1 % (0-3) Basophils (%) (Auto) 1 % (0-3) Neutrophils # (Auto) 9.7 x10^3/uL (1.8-7.7) Lymphocytes # (Auto) 1.6 x10^3/uL (1.0-4.8) Monocytes # (Auto) 1.0 x10^3/uL (0.0-1.1) Eosinophils # (Auto) 0.1 x10^3/uL (0.0-0.7) Basophils # (Auto) 0.1 x10^3/uL (0.0-0.2) Sodium Level 143 mmol/L (136-145) Potassium Level 3.6 mmol/L (3.5-5.1) Chloride Level 107 mmol/L (98-107) Carbon Dioxide Level 25 mmol/L (21-32) Anion Gap 11 (6-14) Blood Urea Nitrogen 7 mg/dL (7-20) Creatinine 1.0 mg/dL (0.6-1.0) Estimated GFR (Cockcroft-Gault) 54.2 BUN/Creatinine Ratio 7 (6-20) Glucose Level 201 mg/dL (70-99) Calcium Level 8.2 mg/dL (8.5-10.1) Phosphorus Level 3.1 mg/dL (2.6-4.7) Magnesium Level 2.1 mg/dL (1.8-2.4) Total Bilirubin 0.4 mg/dL (0.2-1.0) Aspartate Amino Transf (AST/SGOT) 30 U/L (15-37) Alanine Aminotransferase (ALT/SGPT) 45 U/L (14-59) Alkaline Phosphatase 240 U/L (46-116) Total Protein 5.7 g/dL (6.4-8.2) Albumin 1.8 g/dL (3.4-5.0) Albumin/Globulin Ratio 0.5 (1.0-1.7) Objective: Assessment: 1. Abdominal pain. 2. Leukocytosis. 3. Abnormal gallbladder with gallstones, may have had some cholecystitis and/or abdominal pain was just some other reason. 4. Severe left-sided hydronephrosis and hydroureter. Urine culture negative 5. Atrial fibrillation. 6. Diabetes. 7. Hypothyroidism. 8. Transaminitis - better 9. Anemia Plan: Plan of Care DC zosyn augmentin for 5 days urine culture neg supportive care Possible cholecystectomy - trying to avoid pt is ok to dc from ID standpoint d/w Family at bedside АННА HARDEN MD Aug 02, 2020 12:29
[2020-08-02] MEDS ORDERED: AMOX1TAB61 PO (13:11)
--- NOTE | 2020-08-02 13:13 | SNU/HH DC ---
DISCHARGE WITH HOME HEALTH DISCHARGE INFORMATION: Discharge Date: Aug 02, 2020 Condition on Discharge: Stable (Need to continue with Augmentin for 5 days total) CODE STATUS: Code Status: Other (Partial) HOME HEALTH: Face to Face: I certify this patient is under my care and that I, or a nurse practitioner or physician's registered sales assistant working with me, had a face to face encounter that meets the physician face to face encounter requirements with this patient on []. Medical Complications: DM, HTN RN For Eval/Treatment: Yes Physical Therapy For: Evalulation/Treatment Occupational Therapy For: Evaluation/Treatment Speech Language Pathology For: Swallow Cognition Home Health Aide For: Self-care Pt Meets Homebound Status: Limited distance walking POST DISCHARGE ORDERS: Activity Instructions for Disc: Activity as tolerated Weight Bearing Status after Di: Full weight bearing, As tolerated DIET AFTER DISCHARGE: ADA Wound/Incision Care: No wound care needed DC TO SNF OTHER: CBC, CMP within 2 weeks of discharge CHECKS AFTER DISCHARGE: Checks after discharge: Check blood press - daily FOLLOW-UP: Follow up with: PCP within 2 weeks of discharge Follow Up With: GI as needed regarding your cholelithiasis TREATMENT/EQUIPMENT ORDERS: Adaptive Equipment Issued: None CERTIFICATION STATEMENT: Certification Statement: Certification Statement: Based on the above finding, I certify that this patient is confined to the home and needs intermittent fci care, physical therapy and/or speech therapy, or continues to need occupational therapy.~ This patient is under my care, and I have initiated the establishment of the plan of care.~ This patient will be followed by myself or a community physician who will periodically review the plan of care. Home Meds Active Scripts Amoxicillin/Potassium Clav (AUGMENTIN 875-125 TABLET) 1 Each Tablet, 1 TAB PO BID for biliary infection for 5 Days, #10 TAB 0 Refills Prov:SHONDA DAY MD 08/02/20 Acetaminophen (ACETAMINOPHEN SUPP) 650 Mg Supp.rect, 650 MG [place] PRN Q4HRS PRN for TEMP > 100.4F for 14 Days, #30 SUPP.RECT Prov:MARITA DIETZ MD 05/10/19 Metoprolol Tartrate (METOPROLOL TARTRATE) 25 Mg Tablet, 12.5 MG PO BID for blood pressure for 30 Days, #30 TAB Prov:MARITA DIETZ MD 05/10/19 Atorvastatin Calcium (ATORVASTATIN CALCIUM) 40 Mg Tablet, 40 MG PO QHS for cholesterol for 30 Days, #30 TAB Prov:MARITA DIETZ MD 05/10/19 Apixaban (ELIQUIS) 5 Mg Tablet, 5 MG PO BID for a-fib for 30 Days, #60 TAB Prov:MARITA DIETZ MD 05/10/19 Reported Medications Levothyroxine Sodium (LEVOTHYROXINE SODIUM) 112 Mcg Tablet, 1 TAB PO DAILY, #30 TAB 5 Refills 10/24/17 Sitagliptin Phosphate (JANUVIA) 100 Mg Tablet, 100 MG PO DAILY, TAB 10/24/17 Ezetimibe (ZETIA) 10 Mg Tablet, 5 MG PO DAILY, TAB 10/24/17 Metformin Hcl (METFORMIN HCL) 1,000 Mg Tablet, 1000 MG PO BIDWMEALS, TAB 10/24/17 SHONDA DAY MD Aug 02, 2020 13:13
--- NOTE | 2020-08-02 13:40 | NUR ---
Discharge Note: [facility] [place] Discharge instructions and discharge home medications reviewed with Patient and a copy given. All questions have been answered and understanding verbalized. The following instructions and handouts were given: d/c instructions Discontinued lines and drains: Peripheral IV intact. Patient discharged to Home or Self Care with Family Member via Wheelchair
--- NOTE | 2020-08-04 16:04 | PDOC3 ---
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 Metabolic encephalopathy. Confusion. Right temporal field deficits. AFib. HLD. DM. Hypothyroidism. Hospital Course: Hospital Course: 74-year-old female past medical history CVA, who presents to the ER with complaints of epigastric and right upper quadrant abdominal pain that started this morning. She reports sharp pain, 7/10 at worst. She states her pain radiates to her lower back. She reports associated nausea and vomiting x1. She denies any association of her pain with food. She is never had this type of pain before, and denies any known history of cholelithiasis. Ultrasound obtained in the ER shows cholelithiasis, hydropic gallbladder, and chronic appearing severe left hydronephrosis. CT abdomen/pelvis obtained in the ER also shows the same, but also notes likely uretal stricture on left. 07/26: Afebrile overnight. WBC increased. Still with significant pain and elevated blood pressure minimally responsive to IV pain medication. No shortness of breath or chest pain. No left-sided abdominal pain. No dysuria. Sister notes that there has been a 40 pound weight loss in the last year. 07/27: Patient seen and evaluated bedside. Echocardiogram showing normal EF, with dilated ascending aorta. Still complains of pain. She seems slightly somnolent today, but states she has just had pain medication. She is to have HIDA scan today. Some concern for hydronephrosis as cause of patient's pain, and she would need ureteral stent. If HIDA scan is negative, she will need to be transferred to facility with urology to have stent placed. 07/28: Patient had HIDA scan yesterday showing delayed gallbladder filling. Still complains of right upper quadrant pain. She denies any shortness of breath, nausea, or vomiting. Evidence of bilateral hydronephrosis seen on CT, left greater than right. Liver pain is secondary to cholelithiasis and not hydronephrosis, however patient will need to follow-up with urologist eventually after discharge from this hospital stay. 07/29: Patient with some significant hypokalemia today, potassium 2.6. Suspect secondary to poor p.o. intake over the past week, and patient had loose bowel movement this morning. Will replace with effervescent potassium. She denies any nausea or vomiting. Patient's stated a conversation with Dr. Yeager yesterday who recommended follow-up with outpatient neurologist prior to elective cholecystectomy. Patient has been agreeable to this option. Will likely discharge tomorrow after her potassium was replaced and further education was provided on appropriate diabetic diet and blood sugar management. Discussed with RN. 07/30: Still reqruiring iv antibiotics as per guidance consultant, pain seems to be better compared to yesterday, she did not tolerate advancement of diet 07/31: Patient lying in bed in no acute distress. She did not have any discomfort with meals yesterday and has remained asymptomatic for the most part. Slowly making improvements still requiring IV antibiotics, discussed the need of outpatient follow-up with urology secondary to the hydronephrosis found on imaging studies. Urine output has been adequate. Hopefully will be able to discharge in the next 24 to 48 hours laboratory data has been requested for the a.m. to follow-up 08/01/2020 No acute events overnight. Patient is seen and examined bedside with no complaints voiced at this time. White count is trending down while on Zosyn only. ID to continue to follow. Patient's chart, labs, images were reviewed and discussed with RN Patient will be sent home on augmentin for 5 days. She will need to f/u with GI or surgery for further management for her cholelithiasis. Rest of her hospital course was uneventful. Activity: Activity: Resume previous activity Medications: Home Meds Active Scripts Amoxicillin/Potassium Clav (AUGMENTIN 875-125 TABLET) 1 Each Tablet, 1 TAB PO BID for biliary infection for 5 Days, #10 TAB 0 Refills Prov:SHONDA DAY MD 08/02/20 Acetaminophen (ACETAMINOPHEN SUPP) 650 Mg Supp.rect, 650 MG [place] PRN Q4HRS PRN for TEMP > 100.4F for 14 Days, #30 SUPP.RECT Prov:MARITA DIETZ MD 05/10/19 Metoprolol Tartrate (METOPROLOL TARTRATE) 25 Mg Tablet, 12.5 MG PO BID for blood pressure for 30 Days, #30 TAB Prov:MARITA DIETZ MD 05/10/19 Atorvastatin Calcium (ATORVASTATIN CALCIUM) 40 Mg Tablet, 40 MG PO QHS for cholesterol for 30 Days, #30 TAB Prov:MARITA DIETZ MD 05/10/19 Apixaban (ELIQUIS) 5 Mg Tablet, 5 MG PO BID for a-fib for 30 Days, #60 TAB Prov:MARITA DIETZ MD 05/10/19 Reported Medications Levothyroxine Sodium (LEVOTHYROXINE SODIUM) 112 Mcg Tablet, 1 TAB PO DAILY, #30 TAB 5 Refills 10/24/17 Sitagliptin Phosphate (JANUVIA) 100 Mg Tablet, 100 MG PO DAILY, TAB 10/24/17 Ezetimibe (ZETIA) 10 Mg Tablet, 5 MG PO DAILY, TAB 10/24/17 Metformin Hcl (METFORMIN HCL) 1,000 Mg Tablet, 1000 MG PO BIDWMEALS, TAB 10/24/17 Scheduled Amoxicillin/Potassium Clav (Augmentin 875-125 Tablet), 1 TAB PO BID Apixaban (Eliquis), 5 MG PO BID Atorvastatin Calcium (Atorvastatin Calcium), 40 MG PO QHS Ezetimibe (Zetia), 5 MG PO DAILY, (Reported) Levothyroxine Sodium (Levothyroxine Sodium), 1 TAB PO DAILY, (Reported) Metformin Hcl (Metformin Hcl), 1,000 MG PO BIDWMEALS, (Reported) Metoprolol Tartrate (Metoprolol Tartrate), 12.5 MG PO BID Sitagliptin Phosphate (Januvia), 100 MG PO DAILY, (Reported) Scheduled PRN Acetaminophen (Acetaminophen Supp), 650 MG [place] PRN Q4HRS PRN for TEMP > 100.4F Total Time: Total Time: Total time spent was 45 minutes in preparing scripts, discharge planning with SW and RN, and preparing this discharge summary. Patient seen and examined on day of discharge. Justicifation of Admission Dx: Justifications for Admission: Justification of Admission Dx: Yes SHONDA DAY MD Aug 04, 2020 16:04
== END 2020-08-02 14:51 | disposition home health service (06) | DRG 871 ==
LOC: ER 12:40 → 2 NORTH 18:38 → ED HOLD 18:38 → UNDOADMIN 18:38 → 2 NORTH 07-26 13:08 → ED HOLD 07-26 13:08 → 2 NORTH 07-26 22:12 → 5 NORTH 07-29 16:04 → UNDODISIN 08-02 14:51
PROVIDERS: ADMIT Family Medicine; ATTEND Family Medicine
DX: A41.9 Sepsis, unspecified organism (principal); G93.41 Metabolic encephalopathy; K80.10 Calculus of gallbladder with chronic cholecystitis without obstruction; K82.1 Hydrops of gallbladder; N13.6 Pyonephrosis; N39.0 Urinary tract infection, site not specified; D64.9 Anemia, unspecified; E03.9 Hypothyroidism, unspecified; E11.42 Type 2 diabetes mellitus with diabetic polyneuropathy; E11.65 Type 2 diabetes mellitus with hyperglycemia; E78.00 Pure hypercholesterolemia, unspecified; E78.5 Hyperlipidemia, unspecified; E83.42 Hypomagnesemia; E87.6 Hypokalemia; G89.29 Other chronic pain; I10 Essential (primary) hypertension; I48.0 Paroxysmal atrial fibrillation; I77.819 Aortic ectasia, unspecified site; K57.30 Diverticulosis of large intestine without perforation or abscess without bleeding; R29.6 Repeated falls; Z20.822 Contact with and (suspected) exposure to COVID-19; Z79.01 Long term (current) use of anticoagulants; Z82.49 Family history of ischemic heart disease and other diseases of the circulatory system; Z83.3 Family history of diabetes mellitus; Z86.73 Personal history of transient ischemic attack (TIA), and cerebral infarction without residual deficits; Z87.442 Personal history of urinary calculi; Z87.891 Personal history of nicotine dependence; M19.90 Unspecified osteoarthritis, unspecified site; Z79.899 Other long term (current) drug therapy; R07.89 Other chest pain
CPT/HCPCS: 36415; 71045; 74177; 76700; 78226; 80048; 80053; 80061; 80076; 80307; 81001; 82962; 83036; 83690; 83735; 83880; 84100; 84443; 84484; 85007; 85025; 85610; 87086; 87426; 93005; 93306; 96374; 96375; 99285; A9537; C9113; J1170; J1815; J2020; J2270; J2405; J2543; J3010; J3480; J3490; J7030; Q9967; U0003; 97116-GP; 97530-GO; 97530-GP; 97535-GO; G0378